=== PATIENT | male | born 1990 | race Caucasian/White ===

== ENCOUNTER 2016-04-04 20:19 | Emergency (ER) | payer BC, OTHER ==
--- NOTE | 2016-04-04 23:18 | ED CLINICAL REPORT ---
Clinical Report - Physicians/Mid Levels [facility] [address] [place] [address] 04/04/2016 20:19 Patient: JOMAR YA Time Seen: 21:25. Arrived- By private vehicle. Historian- patient. HISTORY OF PRESENT ILLNESS Chief Complaint: Injury to right shoulder. The injury happened just prior to arrival. Occurred at home. Dislocated while raising arm. Patient is experiencing moderate pain. No other injury. REVIEW OF SYSTEMS No swelling, tingling, numbness, weakness or suspected foreign body. No skin laceration. All systems otherwise negative, except as recorded above. PAST HISTORY Problems: Dental Pain. Tetanus Status. Hypertension. Migraine Headache. Tension-Type Headache. Rotator Cuff Injury. Immunizations. Seizure Disorder. Dislocated Shoulder. Depression. Anxiety Reaction. Restless Legs Syndrome. Sleep Apnea. Spina Bifida Occulta. Additional Surgeries: Bladder Augmention. Botox bladder injection. Cystostomy. Foot surgery. Shoulder Surgery. Medications: Lacosamide Oral 75MG , 2 X DAILY. LORazepam Oral 1 mg, as needed. SEROquel Oral 125mg, daily (+ 125MG prn). ZyrTEC Allergy Oral (Capsule 10 mg) 2 capsules, daily. Benadryl Allergy Oral 50mg , daily. Keppra Oral 1500mg , 2x a day. KlonoPIN Oral 1 mg, daily. Mirapex Oral 1 mg, at bedtime. Oxybutynin Chloride Oral 10 mg, 2x a day. Allergies: Amoxicillin. Keflex. morphine. Nitrofurantoin. SOCIAL HISTORY Never smoker. No alcohol use or drug use. ADDITIONAL NOTES The nursing notes have been reviewed. PHYSICAL EXAM Vital Signs: 04/04/2016 21:07 BP: 189/102. HR: 116. RR: 18. O2 saturation: 98%. Temp: 98.4 F. Pain level now: 8/10. Have been reviewed. Appearance: Alert. Oriented X3. No acute distress. Head: Head atraumatic. Eyes: Pupils equal, round and reactive to light. Eyes normal inspection. ENT: Nose normal. Neck: Normal inspection. CVS: Normal heart rate and rhythm. Heart sounds normal. Pulses normal. Respiratory: No respiratory distress. Breath sounds normal. Abdomen: No visible injury. Soft and nontender. Back: Normal inspection. No tenderness. ROM normal. Skin: Skin intact. Skin warm and dry. Normal skin color. Normal skin turgor. Extremities: Right shoulder: moderate tenderness and deformity consistent with a shoulder dislocation located in the anterior and lateral aspect of the shoulder and humeral head. Limited ROM due to pain (diminished abduction, flexion, extension and external rotation). Neurovascular intact distally. No erythema, swelling, laceration, abrasion or ecchymosis. No puncture wound or foreign body. No joint effusion. Shoulder otherwise negative. Extremities otherwise negative. Neuro, Vascular and Tendons: Sensation intact. Motor intact. Vascular status intact. Tendon function intact. Neuro: Oriented X 3. No motor deficit. No sensory deficit. LABS, X-RAYS, AND EKG Rt Shoulder X-ray: No fracture. No bony lesion, air in the soft tissue or foreign body. Soft tissues normal. Anterior dislocation of the shoulder. No fracture. Views: AP with external rotation, AP with internal rotation and axillary. Technique: good. The X-rays were independently viewed by me, interpreted by the radiologist and contemporaneously by me and discussed with the radiologist. A comparison with prior films reveals that the findings are new (new since last post-reduction film). Post procedure films: show good alignment. Pulse Oximetry: 04/04/2016 21:07 O2 saturation: 98%. (FIO2 - room air). Interpretation: normal. PROGRESS AND PROCEDURES Procedural Sedation: Indication: Reduction of dislocation of shoulder. Last po intake: patient had lunch. ASA classification: 2 - patient with mild systemic disease. History / physical exam. See physical exam recorded above. He has no history of an adverse anesthesia reaction or family history of an adverse anesthesia reaction. Normal airway anatomy. Preparation: consent was obtained and the risks of the procedure, benefits and alternatives were explained to patient. IV established. O2 administered. 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 Suction was made available. Medications: Propofol IV administered by physician. Patient status during sedation: was asleep. Vitals were stable. Oxygen saturation levels were normal. The airway was maintained. The recovery was uneventful. Complications: None. Post-procedure: Recovery was uneventful. Returned to baseline. Mental status normal. No acute distress. Sedation and procedure performed by me; intra-service time 1-15 minutes. Reduction of Dislocated Shoulder: IV established. Neurovascular exam intact pre-procedure. Given Propofol. The right shoulder was reduced using traction-countertraction technique. Reassessed post-procedure. Neurovascular status intact. Deltoid sensation normal. Exam indicated reduction. Confirmed reduction on X-ray. Shoulder immobilizer applied. Course of Care: PT was very well-known to our ED, and to myself, for multiple previous dislocations. His x-ray did confirm dislocation, and sedation and reduction were performed, as above. Pt has been advised to follow up with ortho, and he states he is in the process of setting up f/u in [place]. Patient and friend counseled in person regarding the patient's stable condition, diagnosis and need for follow-up. Concerns were addressed. Old medical records reviewed. Disposition: Discharged. Condition: stable and improved. CLINICAL IMPRESSION Right anterior shoulder dislocation. Reduction in the ER. No axillary nerve deficit or humerus fracture. INSTRUCTIONS Apply ice for 20 minutes three times a day as needed and until better. Don't apply ice directly to skin and don't use while asleep. Warnings: SEDATIVE MEDICATION: You were given sedative medication during your visit. Do not drive or operate dangerous machinery for 12 hours. GENERAL WARNINGS: Return or contact your physician immediately if your condition worsens or changes unexpectedly, if not improving as expected, or if other problems arise. Your Current Medications: CONTINUE TAKING THE FOLLOWING MEDICATIONS: Benadryl Allergy Oral : 50mg daily. Keppra Oral : 1500mg 2x a day. KlonoPIN Oral : 1 mg daily. Lacosamide Oral : 75MG 2 X DAILY. LORazepam Oral : 1 mg, prn. Mirapex Oral : 1 mg at bedtime. Oxybutynin Chloride Oral : 10 mg 2x a day. SEROquel Oral : 125mg daily, + 125MG prn. ZyrTEC Allergy Oral : Capsule 10 mg, 2 capsules daily. Prescription Medications: Oxycodone/APAP 5 mg/325 mg: take 1 tablet orally every 6 hours as needed for pain. Dispense five (5). No refill. Follow-up: Follow up with an orthopedic surgeon. Call for the next available appointment. Reason for referral: Follow up with your work station support specialist, regarding recurrent dislocation. Understanding of the discharge instructions verbalized by patient. (Electronically signed by Janett Khan MD 04/09/2016 21:34)
--- NOTE | 2016-04-04 23:18 | ED ORDER SUMMARY ---
..... Patient: JOMAR YA OrderSheet [facility] VisitID: [id number] [address] [place] [address] 26y, M Registration Date/Time: 04/04/2016 ORDER SHEET Weight: 93.8 kg (stated) Allergies: Amoxicillin, Keflex, morphine, Nitrofurantoin GENERAL ORDERS: Shoulder 2V or more Right Urgent (21:25 04/04/2016 Svetlana DOWD) (Ack 21:26 TBergley) (21:37 RFay) Shoulder 2V or more Right Urgent (22:25 04/04/2016 [facility] Certified Phlebotomy Technician per protocol) (Ack 22:27 [facility] Certified Phlebotomy Technician) (22:51 RFay) Shoulder Immobilizer (22:49 04/04/2016 Svetlana DWOD) (23:43 Lupillo R.N.) MEDICATION ORDERS: IV FLUIDS: Propofol IV 1 vial to bedside (NOW) (21:41 04/04/2016 Svetlana DOWD) (23:45 omanaleena R.N.) IV NS : initial bolus none -, then 1000 mL/hr (NOW) (22:15 04/04/2016 Lupillo R.N. verbal order read back to Svetlana DOWD) (22:19 Lupillo R.N.) Dilaudid IV 0.5 mg (HIGH ALERT MEDICATION, NOW) (22:19 04/04/2016 Lupillo R.N. verbal order read back to Svetlana DOWD) (22:21 Lupillo R.N.) ORDER SHEET NOTES: [Electronically signed by Olman Stout R.N. (23:46 04/04/2016)] [Electronically signed by Janett Khan MD (21:34 04/09/2016)] [Electronically locked/signed by Olman Stout R.N. (23:46 04/04/2016)]
--- NOTE | 2016-04-04 23:18 | ED ORDER SUMMARY ---
..... Patient: JOMAR YA OrderSheet [facility] VisitID: [id number] [address] [place] [address] 26y, M Registration Date/Time: 04/04/2016 ORDER SHEET Weight: 93.8 kg (stated) Allergies: Amoxicillin, Keflex, morphine, Nitrofurantoin GENERAL ORDERS: Shoulder 2V or more Right Urgent (21:25 04/04/2016 Svetlana DOWD) (Ack 21:26 TBergley) (21:37 RFay) Shoulder 2V or more Right Urgent (22:25 04/04/2016 [facility] Registered Health Nurse per protocol) (Ack 22:27 [facility] Registered Health Nurse) (22:51 RFay) Shoulder Immobilizer (22:49 04/04/2016 Svetlana DOWD) (23:43 Lupillo R.N.) MEDICATION ORDERS: IV FLUIDS: Propofol IV 1 vial to bedside (NOW) (21:41 04/04/2016 Svetlana DOWD) (23:45 omanaleena R.N.) IV NS : initial bolus none -, then 1000 mL/hr (NOW) (22:15 04/04/2016 Lupillo R.N. verbal order read back to Svetlana DOWD) (22:19 Lupillo R.N.) Dilaudid IV 0.5 mg (HIGH ALERT MEDICATION, NOW) (22:19 04/04/2016 Lupillo R.N. verbal order read back to Svetlana DOWD) (22:21 Lupillo R.N.) ORDER SHEET NOTES: [Electronically signed by Olman Stout R.N. (23:46 04/04/2016)] [Electronically signed by Janett Khan MD (21:34 04/09/2016)] [Electronically locked/signed by Olman Stout R.N. (23:46 04/04/2016)]
--- NOTE | 2016-04-04 23:18 | ED NURSING NOTES ---
Clinical Report - Nurses [facility] [address] [place] [address] 04/04/2016 20:19 Patient: JOMAR YA TRIAGE Triage time 21:08. Acuity: LEVEL 3. Chief Complaint: INJURY TO RIGHT SHOULDER. 21:15. Alert. SEPSIS SCREEN: Sepsis Screen. Negative (no infection suspected/documented). JENA COMA SCORE: [place] Coma Scale: 15- eyes open spontaneously (4); best verbal response- oriented x 4 (5); best motor response- obeys commands (6). --21:15 Olman Suarez R.N. 21:07 04/04/16. BP: 189/102. HR: 116. RR: 18. O2 saturation: 98% on room air. Temp: 98.4 F (oral). Pain level now: 11/05. --21:15 Olman Suarez R.N. Weight: 93.8 kg stated. Height/Length: 64 inches Per Patient. BMI: 35.5. --21:13 Olman Suarez R.N. Medications Benadryl Allergy Oral 50mg , daily. Keppra Oral 1500mg , 2x a day. KlonoPIN Oral 1 mg, daily. Mirapex Oral 1 mg, at bedtime. Oxybutynin Chloride Oral 10 mg, 2x a day. --21:10 Olman Suarez R.N. SEROquel Oral 125mg, daily (+ 125MG prn). ZyrTEC Allergy Oral (Capsule 10 mg) 2 capsules, daily. --21:10 Olman Suarez R.N. LORazepam Oral 1 mg, as needed. --21:11 Olman Suarez R.N. Lacosamide Oral 75MG , 2 X DAILY. --21:12 Olman Suarez R.N. Medication/allergy information source: the patient. --21:15 Olman Suarez R.N. Allergies Amoxicillin. Keflex. morphine. Nitrofurantoin. --21:10 Olman Saurez R.N. History Arrived by private vehicle. Historian: patient. Accompanied by friend. Primary physician (Bob). This occurred today (at 1939). Mechanism of injury: fell. No neck pain. 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 SOCIAL HX: Never smoker. No alcohol use or drug use. No infectious disease exposure. ABUSE ASSESSMENT: No report of abuse. FALL RISK ASSESSMENT: Fall risk assessment completed. No fall risk identified. NUTRITIONAL RISK ASSESSMENT: The nutritional risk assessment revealed no deficiencies. FUNCTIONAL ASSESSMENT: Functional assessment: no impairments noted. LEARNING NEEDS ASSESSMENT: The learning needs assessment revealed no barriers. SKIN INTEGRITY ASSESSMENT: Skin integrity risk assessment completed. No skin integrity risk identified. --21:15 Olman Suarez R.N. PROBLEMS: UTI - Urinary Tract Infection. Gastroenteritis. Chronic bladder infections. Atypical Chest Pain. Hypertension. Chronic Headache. Neurological Disease. Migraine Headache. Tension-Type Headache. Urinary Retention. Seizure Disorder. Dislocated Shoulder. Depression. Anxiety Reaction. Restless Legs Syndrome. Sleep Apnea. Spina Bifida Occulta. --21:13 Olman Suarez R.N. ADDITIONAL SURGERIES: Bladder Augmention. Bladder injections. Botox bladder injection. Cystostomy. Foot surgery. Shoulder [2014]. Shoulder Surgery. --21:13 Olman Suarez R.N. Interventions ID band on patient. To waiting room. --21:15 Olman Suarez R.N. PHYSICAL ASSESSMENT 22:10. Ambulatory to room. GENERAL / NEURO / PSYCH: Oriented X 4. Appears in pain. EXTREMITIES: Limited ROM present in the right shoulder. Capillary refill is less than 2 seconds in the extremities. Extremity pulses are within normal limits. Neuro-vascular status intact to the extremity. Right shoulder: tenderness, swelling and deformity. SKIN: Skin intact. Skin is warm and dry. --23:29 Olman Stout R.N. NURSING PROGRESS NOTES 22:04 04/04/2016 Site #1 started via IV in the right foot with an 20g angiocath, with good blood return; three attempts. Blood drawn: rainbow set. Labeled in the presence of the patient and sent to the lab. Saline lock flushed with 10 mL saline. --22:19 Olman Stout R.N. 22:04 04/04/2016 Started bag #1 1000 mL IV Fluids IV NS (Saline); at 1000 mL/hr over 60 minute(s) via site #1. Allergies verified and confirmed 5 rights. IV patency established. IV site checked: no pain, redness, or swelling. IV flushed thoroughly pre- and post-medication administration. --22:19 Olman Stout R.N. 22:10 04/04/2016 Dilaudid (HYDROmorphone HCl PF) IVP 0.5 mg given over 2 minute(s) via site #1. Allergies verified, confirmed 5 rights and sedative warning given. IV patency established. IV site checked: no pain, redness, or swelling. IV flushed thoroughly pre- and post-medication administration. IVP given by RN. --22:21 Olman Stout R.N. 22:10. Patient gowned. Reassurance given to the patient. Patient identifiers checked. Call light placed in reach. Side rails up x 2. Bed placed in lowest position. Brakes of bed on. Patient ready for evaluation- chart flagged and ED physician notified. --23:30 Olman Stout R.N. 22:35. ( Conscious Sedation by Dr. Khan/reduction of dislocated (R) Shoulder). --23:41 Olman Stout R.N. 22:35 04/04/2016 Propofol * IVP 200 mg --23:45 Olman Stout R.N. 23:00 04/04/2016 IV Fluids IV NS Discontinued: bag #1 STOPPED upon discharge. Total amount infused: 900 mL. IV patency established. IV site checked: no pain, redness, or swelling. IV flushed thoroughly. --23:44 Olman Stout R.N. 23:05 04/04/2016 Site #1 removed upon discharge. Catheter intact. Manual pressure, pressure dressing and bandaid applied. --23:46 Olman Stout R.N. DISPOSITION / DISCHARGE 23:10 04/04/16. BP: 133/75. HR: 100. RR: 16. O2 saturation: 98% on room air. Temp: 98.8 F (oral). Pain level now: 0/10. --23:35 Olman Stout R.N. Departure time: 2314. --23:35 Olman Stout R.N. Condition at departure: improved. No learning barriers present. Discharge instructions provided and reviewed with the patient. Reviewed medication(s) (prescription given to pt). Treatments reviewed (sling use). Reviewed referral to an orthopedic surgeon. Patient verbalized understanding. Written instructions provided in Martiniquais. The patient was discharged by the physician. He was discharged home and accompanied by director retirement. He left the Emergency Department ambulatory and via private vehicle. Fill Plant Operator driving. --23:38 Olman Stout R.N. Locked/Released at 04/04/2016 23:46 by Olman Stout R.N.
--- NOTE | 2016-04-04 23:18 | ED NURSING NOTES ---
Clinical Report - Nurses [facility] [address] [place] [address] 04/04/2016 20:19 Patient: JOMAR YA TRIAGE Triage time 21:08. Acuity: LEVEL 3. Chief Complaint: INJURY TO RIGHT SHOULDER. 21:15. Alert. SEPSIS SCREEN: Sepsis Screen. Negative (no infection suspected/documented). JENA COMA SCORE: [place] Coma Scale: 15- eyes open spontaneously (4); best verbal response- oriented x 4 (5); best motor response- obeys commands (6). --21:15 Olman Suarez R.N. 21:07 04/04/16. BP: 189/102. HR: 116. RR: 18. O2 saturation: 98% on room air. Temp: 98.4 F (oral). Pain level now: 11/05. --21:15 Olman Suarez R.N. Weight: 93.8 kg stated. Height/Length: 64 inches Per Patient. BMI: 35.5. --21:13 Olman Suarez R.N. Medications Benadryl Allergy Oral 50mg , daily. Keppra Oral 1500mg , 2x a day. KlonoPIN Oral 1 mg, daily. Mirapex Oral 1 mg, at bedtime. Oxybutynin Chloride Oral 10 mg, 2x a day. --21:10 Olman Suarez R.N. SEROquel Oral 125mg, daily (+ 125MG prn). ZyrTEC Allergy Oral (Capsule 10 mg) 2 capsules, daily. --21:10 Olman Suarez R.N. LORazepam Oral 1 mg, as needed. --21:11 Olman Suarez R.N. Lacosamide Oral 75MG , 2 X DAILY. --21:12 Olman Suarez R.N. Medication/allergy information source: the patient. --21:15 Olman Suarez R.N. Allergies Amoxicillin. Keflex. morphine. Nitrofurantoin. --21:10 Olman Suarez R.N. History Arrived by private vehicle. Historian: patient. Accompanied by friend. Primary physician (Bob). This occurred today (at 1939). Mechanism of injury: fell. No neck pain. 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 SOCIAL HX: Never smoker. No alcohol use or drug use. No infectious disease exposure. ABUSE ASSESSMENT: No report of abuse. FALL RISK ASSESSMENT: Fall risk assessment completed. No fall risk identified. NUTRITIONAL RISK ASSESSMENT: The nutritional risk assessment revealed no deficiencies. FUNCTIONAL ASSESSMENT: Functional assessment: no impairments noted. LEARNING NEEDS ASSESSMENT: The learning needs assessment revealed no barriers. SKIN INTEGRITY ASSESSMENT: Skin integrity risk assessment completed. No skin integrity risk identified. --21:15 Olman Suarez R.N. PROBLEMS: UTI - Urinary Tract Infection. Gastroenteritis. Chronic bladder infections. Atypical Chest Pain. Hypertension. Chronic Headache. Neurological Disease. Migraine Headache. Tension-Type Headache. Urinary Retention. Seizure Disorder. Dislocated Shoulder. Depression. Anxiety Reaction. Restless Legs Syndrome. Sleep Apnea. Spina Bifida Occulta. --21:13 Olman Suarez R.N. ADDITIONAL SURGERIES: Bladder Augmention. Bladder injections. Botox bladder injection. Cystostomy. Foot surgery. Shoulder [2014]. Shoulder Surgery. --21:13 Olman Suarez R.N. Interventions ID band on patient. To waiting room. --21:15 Olman Suarez R.N. PHYSICAL ASSESSMENT 22:10. Ambulatory to room. GENERAL / NEURO / PSYCH: Oriented X 4. Appears in pain. EXTREMITIES: Limited ROM present in the right shoulder. Capillary refill is less than 2 seconds in the extremities. Extremity pulses are within normal limits. Neuro-vascular status intact to the extremity. Right shoulder: tenderness, swelling and deformity. SKIN: Skin intact. Skin is warm and dry. --23:29 Olman Stout R.N. NURSING PROGRESS NOTES 22:04 04/04/2016 Site #1 started via IV in the right foot with an 20g angiocath, with good blood return; three attempts. Blood drawn: rainbow set. Labeled in the presence of the patient and sent to the lab. Saline lock flushed with 10 mL saline. --22:19 Olman Stout R.N. 22:04 04/04/2016 Started bag #1 1000 mL IV Fluids IV NS (Saline); at 1000 mL/hr over 60 minute(s) via site #1. Allergies verified and confirmed 5 rights. IV patency established. IV site checked: no pain, redness, or swelling. IV flushed thoroughly pre- and post-medication administration. --22:19 Olman Stout R.N. 22:10 04/04/2016 Dilaudid (HYDROmorphone HCl PF) IVP 0.5 mg given over 2 minute(s) via site #1. Allergies verified, confirmed 5 rights and sedative warning given. IV patency established. IV site checked: no pain, redness, or swelling. IV flushed thoroughly pre- and post-medication administration. IVP given by RN. --22:21 Olman Stout R.N. 22:10. Patient gowned. Reassurance given to the patient. Patient identifiers checked. Call light placed in reach. Side rails up x 2. Bed placed in lowest position. Brakes of bed on. Patient ready for evaluation- chart flagged and ED physician notified. --23:30 Olman Stout R.N. 22:35. ( Conscious Sedation by Dr. Khan/reduction of dislocated (R) Shoulder). --23:41 Olman Stout R.N. 22:35 04/04/2016 Propofol * IVP 200 mg --23:45 Olman Stout R.N. 23:00 04/04/2016 IV Fluids IV NS Discontinued: bag #1 STOPPED upon discharge. Total amount infused: 900 mL. IV patency established. IV site checked: no pain, redness, or swelling. IV flushed thoroughly. --23:44 Olman Stout R.N. 23:05 04/04/2016 Site #1 removed upon discharge. Catheter intact. Manual pressure, pressure dressing and bandaid applied. --23:46 Olman Stout R.N. DISPOSITION / DISCHARGE 23:10 04/04/16. BP: 133/75. HR: 100. RR: 16. O2 saturation: 98% on room air. Temp: 98.8 F (oral). Pain level now: 0/10. --23:35 Olman Stout R.N. Departure time: 2314. --23:35 Olman Stout R.N. Condition at departure: improved. No learning barriers present. Discharge instructions provided and reviewed with the patient. Reviewed medication(s) (prescription given to pt). Treatments reviewed (sling use). Reviewed referral to an orthopedic surgeon. Patient verbalized understanding. Written instructions provided in Sammarinese. The patient was discharged by the physician. He was discharged home and accompanied by bobbin hauler. He left the Emergency Department ambulatory and via private vehicle. Veteran Appeals Reviewer driving. --23:38 Olman Stout R.N. Locked/Released at 04/04/2016 23:46 by Olman Stout R.N.
--- NOTE | 2016-04-05 00:03 | DIAGNOSTIC IMAGING REPORT ---
PROCEDURE: XR SHOULDER 2 OR MORE VW-RIGHT INDICATION: TRAUMA/INJURY, initial encounter TECHNIQUE: Two views COMPARISON: None. FINDINGS: Anterior right glenohumeral joint dislocation. Hill-Sachs deformity again visualized. Normal AC joint and soft tissues IMPRESSION: 1. Right shoulder anterior dislocation with Hill-Sachs deformity
--- NOTE | 2016-04-05 00:05 | DIAGNOSTIC IMAGING REPORT ---
PROCEDURE: XR SHOULDER 2 OR MORE VW-RIGHT INDICATION: POST REDUCTION TECHNIQUE: Three views. COMPARISON: Right shoulder x-ray 04/04/2016 FINDINGS: Reduced right shoulder dislocation. Hill-Sachs deformity is unchanged. Normal AC joint and soft tissues. IMPRESSION: 1. Reduced right shoulder dislocation with Hill-Sachs deformity
--- NOTE | 2016-04-09 21:34 | ED DISCHARGE INSTRUCTIONS ---
Patient: JOMAR YA General Instructions [facility] VisitID: [id number] [place] [address] 26y, M Registration Date/Time: 04/04/2016 Right anterior shoulder dislocation. Reduction in the ER. No axillary nerve deficit or humerus fracture. INSTRUCTIONS Apply ice for 20 minutes three times a day as needed and until better. Don't apply ice directly to skin and don't use while asleep. Warnings: SEDATIVE MEDICATION: You were given sedative medication during your visit. Do not drive or operate dangerous machinery for 12 hours. GENERAL WARNINGS: Return or contact your physician immediately if your condition worsens or changes unexpectedly, if not improving as expected, or if other problems arise. Your Current Medications: CONTINUE TAKING THE FOLLOWING MEDICATIONS: Benadryl Allergy Oral : 50mg daily. Keppra Oral : 1500mg 2x a day. KlonoPIN Oral : 1 mg daily. Lacosamide Oral : 75MG 2 X DAILY. LORazepam Oral : 1 mg, prn. Mirapex Oral : 1 mg at bedtime. Oxybutynin Chloride Oral : 10 mg 2x a day. SEROquel Oral : 125mg daily, + 125MG prn. ZyrTEC Allergy Oral : Capsule 10 mg, 2 capsules daily. Prescription Medications: Oxycodone/APAP 5 mg/325 mg: take 1 tablet orally every 6 hours as needed for pain. Dispense five (5). No refill. Follow-up: Follow up with an orthopedic surgeon. Call for the next available appointment. Reason for referral: Follow up with your environmental programs specialist, regarding recurrent dislocation. Understanding of the discharge instructions verbalized by patient. ADDITIONAL INFORMATION Dislocation: Shoulder (Reduced) Dislocation of the shoulder joint occurs when a strong force tears the ligaments holding the joint together. This allows the bones to move apart and become stuck out of place. Once the joint is aligned again, it will take about six weeks for the ligaments to heal. Since this injury may weaken the ligaments, you are at risk of another dislocation with less force. Therefore, care should be taken to avoid a similar injury in the future. Shoulder dislocation is treated with a shoulder immobilizer (special type of arm sling). This keeps your arm close to your body to prevent a recurrent dislocation while the ligaments heal. After a few weeks, an exercise program may be started. This will gradually restore range of motion and strength at the shoulder and decrease the risk of another dislocation. Home Care: Until your next doctor visit, wear your shoulder immobilizer at all times . Do not take it off at night to sleep. It is possible to dislocate your arm again in your sleep. You may take it off to bathe or dress, but do not move your arm away from your body. Keep your arm in the same position that the sling was holding it in, until you reapply the sling again. During your next visit, ask your doctor how long you should wear the sling. Apply an ice pack (ice cubes in a plastic bag, wrapped in a towel) over the injured area for 20 minutes every 1-2 hours the first day. Continue with ice packs 3-4 times a day for the next two days, then as needed for the relief of pain and swelling. You may use acetaminophen (Tylenol) or ibuprofen (Motrin, Advil) to control pain, unless another pain medicine was prescribed. [NOTE: If you have chronic liver or kidney disease or ever had a stomach ulcer or GI bleeding, talk with your doctor before using these medicines.] No sports or P.E. until cleared by your doctor. Follow Up with your doctor within one week or as advised by our staff. Shoulder immobilizers and slings should not be worn continuously for more than a few weeks or you may lose some [id number] at the shoulder joint. If you have had repeated dislocations of the same shoulder, that means there has been permanent ligament damage. Ask the orthopedic doctor about surgery to prevent another dislocation. Get Prompt Medical Attention if any of the following occur: Another dislocation of your shoulder Increasing swelling or pain in the shoulder or arm Fingers become cold, blue, numb or tingly Procedural Sedation (Adult) You have been given medicine by vein to sedate you during your procedure. This may have included both a pain medicine and sleeping medicine. Most of the effects have worn off. But you may continue to have some drowsiness for the next 6 to 8 hours. Home Care Follow these guidelines when you get home: For the next 8 hours, you should be watched by a responsible adult to look for any worsening of your condition. Do not take any oral medicine for pain or sleep during the next 4 hour, since this might react with the medicines you were given in the hospital causing a much stronger response than usual. Do not drink any alcoholfor the next 24 hours. [address] not [address]or operate dangerous machinery during the next 24 hours. Follow-up care Follow up with your health care provider if you are not alert and back to your usual level of activity within 12 hours. When to seek medical care Get prompt medical attention if any of these occur: Increased drowsiness Increased weakness or dizziness Repeated vomiting You cannot be awakened You have been given the following additional information: Dislocation: Shoulder (Reduced) Procedural Sedation (Adult) (Electronically signed by Janett Khan MD 04/09/2016 21:34)
--- NOTE | 2016-04-09 21:34 | ED MAR SUMMARY ---
..... Medication Administration Record [facility] [address] [place] [address] Patient: JOMAR YA Visit ID: [id number] 26y, M Weight: 93.8 kg Height/Length: 64 in BMI: 35.5 ALLERGIES: Amoxicillin, Keflex, morphine, Nitrofurantoin Start 22:04 04/04/2016 Olman Stout RJose, Stop 23:00 04/04/2016 Olman Stout R.N. Medication Administered: IV NS (SALINE), Dose: IV Fluids over 60 minute(s), Rate: 1000 mL/hr, Dispensed: 1000 mL bag, Site: #1 right foot. Medication Ordered: IV NS : initial bolus none -, then 1000 mL/hr (NOW). Given 22:10 04/04/2016 Olman Stout RIsraelN. Medication Administered: DILAUDID [IVP] (HYDROMORPHONE HCL PF), Dose: 0.5 mg IVP over 2 minute(s), Site: #1 right foot. Medication Ordered: Dilaudid IV 0.5 mg (HIGH ALERT MEDICATION, NOW). Given 22:35 04/04/2016 Olman Stout RIsraelN. Medication Administered: Propofol *, Dose: 200 mg * IVP. Medication Ordered: Propofol IV 1 vial to bedside (NOW).
--- NOTE | 2016-04-09 21:34 | ED MED RECONCILIATION SUMMARY ---
Patient: JOMAR YA Medication Reconciliation Report [facility] VisitID: [id number] [address] [place] [address] 26y, M Registration Date/Time: 04/04/2016 Weight: 93.8 kg Height/Length: 64 in. BMI: 35.5 ALLERGIES: Amoxicillin, Keflex, morphine, Nitrofurantoin The patient's Home Medications are listed below: CONTINUE TAKING THE FOLLOWING MEDICATIONS: Benadryl Allergy Oral 50mg , daily Keppra Oral 1500mg , 2x a day KlonoPIN Oral 1 mg, daily Lacosamide Oral 75MG , 2 X DAILY LORazepam Oral 1 mg Mirapex Oral 1 mg, at bedtime Oxybutynin Chloride Oral 10 mg, 2x a day SEROquel Oral 125mg, daily, + 125MG prn ZyrTEC Allergy Oral (10 mg) 2 capsules, daily The source(s) of the original Home Medication information: patient The following Medications were given to the patient in the Emergency Department: IV NS IV Fluids bolus 0, then 1000 mL/hr, administered: 04/04/2016 10:04:00 PM Dilaudid [IVP] IVP 0.5 mg, administered: 04/04/2016 10:10:00 PM Propofol IVP 200 mg, administered: 04/04/2016 10:35:00 PM The following Medications were prescribed to the patient: Oxycodone/APAP 5 mg/325 mg: take 1 tablet orally every 6 hours as needed for pain. Dispense five (5). No refill. -- Janett Khan MD
--- NOTE | 2016-04-09 21:34 | ED MAR SUMMARY ---
..... Medication Administration Record [facility] [address] [place] [address] Patient: JOMAR YA Visit ID: [id number] 26y, M Weight: 93.8 kg Height/Length: 64 in BMI: 35.5 ALLERGIES: Amoxicillin, Keflex, morphine, Nitrofurantoin Start 22:04 04/04/2016 Olman Stout RJose, Stop 23:00 04/04/2016 Olman Stout R.N. Medication Administered: IV NS (SALINE), Dose: IV Fluids over 60 minute(s), Rate: 1000 mL/hr, Dispensed: 1000 mL bag, Site: #1 right foot. Medication Ordered: IV NS : initial bolus none -, then 1000 mL/hr (NOW). Given 22:10 04/04/2016 Olman Stout RIsraelN. Medication Administered: DILAUDID [IVP] (HYDROMORPHONE HCL PF), Dose: 0.5 mg IVP over 2 minute(s), Site: #1 right foot. Medication Ordered: Dilaudid IV 0.5 mg (HIGH ALERT MEDICATION, NOW). Given 22:35 04/04/2016 Olman Stout RIsraelN. Medication Administered: Propofol *, Dose: 200 mg * IVP. Medication Ordered: Propofol IV 1 vial to bedside (NOW).
--- NOTE | 2016-04-09 21:34 | ED MED RECONCILIATION SUMMARY ---
Patient: JOMAR YA Medication Reconciliation Report [facility] VisitID: [id number] [address] [place] [address] 26y, M Registration Date/Time: 04/04/2016 Weight: 93.8 kg Height/Length: 64 in. BMI: 35.5 ALLERGIES: Amoxicillin, Keflex, morphine, Nitrofurantoin The patient's Home Medications are listed below: CONTINUE TAKING THE FOLLOWING MEDICATIONS: Benadryl Allergy Oral 50mg , daily Keppra Oral 1500mg , 2x a day KlonoPIN Oral 1 mg, daily Lacosamide Oral 75MG , 2 X DAILY LORazepam Oral 1 mg Mirapex Oral 1 mg, at bedtime Oxybutynin Chloride Oral 10 mg, 2x a day SEROquel Oral 125mg, daily, + 125MG prn ZyrTEC Allergy Oral (10 mg) 2 capsules, daily The source(s) of the original Home Medication information: patient The following Medications were given to the patient in the Emergency Department: IV NS IV Fluids bolus 0, then 1000 mL/hr, administered: 04/04/2016 10:04:00 PM Dilaudid [IVP] IVP 0.5 mg, administered: 04/04/2016 10:10:00 PM Propofol IVP 200 mg, administered: 04/04/2016 10:35:00 PM The following Medications were prescribed to the patient: Oxycodone/APAP 5 mg/325 mg: take 1 tablet orally every 6 hours as needed for pain. Dispense five (5). No refill. -- Janett Khan MD
== END 2016-04-04 23:15 | disposition home or self-care (01) ==
LOC: ED SRH 20:19
DX: S43.014A Anterior dislocation of right humerus, initial encounter (principal); I10 Essential (primary) hypertension; X50.1XXA Overexertion from prolonged static or awkward postures, initial encounter; Y93.89 Activity, other specified; Y99.9 Unspecified external cause status; Y92.009 Unspecified place in unspecified non-institutional (private) residence as the place of occurrence of the external cause; Z88.1 Allergy status to other antibiotic agents; Z88.5 Allergy status to narcotic agent; Z79.899 Other long term (current) drug therapy

== ENCOUNTER 2016-04-17 08:29 | Emergency (ER) | payer BC, OTHER ==
--- NOTE | 2016-04-17 10:02 | DIAGNOSTIC IMAGING REPORT ---
PROCEDURE: XR SHOULDER 2 OR MORE VW-RIGHT INDICATION: TRAUMA/INJURY TECHNIQUE: Three views. COMPARISON: Comparison 04/04/2016 FINDINGS: Anterior right glenohumeral joint dislocation. Hill-Sachs deformity again visualized. Normal AC joint and soft tissues IMPRESSION: 1. Right shoulder anterior dislocation with Hill-Sachs deformity
--- NOTE | 2016-04-17 12:11 | DIAGNOSTIC IMAGING REPORT ---
PROCEDURE: XR SHOULDER 2 OR MORE VW-RIGHT INDICATION: TRAUMA/INJURY TECHNIQUE: Three views. COMPARISON: Shoulder films 04/04- FINDINGS: Reduced right shoulder dislocation. Hill-Sachs deformity is unchanged. Normal AC joint and soft tissues. IMPRESSION: 1. Reduced right shoulder dislocation with Hill-Sachs deformity
--- NOTE | 2016-04-17 12:47 | ED NURSING NOTES ---
Clinical Report - Nurses [facility] [address] [place] [address] 04/17/2016 8:28 Patient: JOMAR YA TRIAGE Triage time 08:31. Acuity: LEVEL 4. Chief Complaint: INJURY TO RIGHT SHOULDER. Alert. LAWRENCE COMA SCORE: Lawrence Coma Scale: 15- eyes open spontaneously (4); best verbal response- oriented x 4 (5); best motor response- obeys commands (6). --08:35 Renetta Motley R.N. 08:31 04/17/16. BP: 145/88. HR: 128. RR: 20. O2 saturation: 97%. Temp: 98.9 F. Pain level now: 10/05. --08:35 Renetta Motley R.N. Weight: 93.8 kg stated. Height/Length: 64 inches Per Patient. BMI: 35.5. --08:32 Renetta Motley R.N. Medications Benadryl Allergy Oral 50mg , daily. Keppra Oral 1500mg , 2x a day. KlonoPIN Oral 1 mg, daily. Lacosamide Oral 75MG , 2 X DAILY. LORazepam Oral 1 mg, as needed. Mirapex Oral 1 mg, at bedtime. Oxybutynin Chloride Oral 10 mg, 2x a day. SEROquel Oral 125mg, daily (+ 125MG prn). ZyrTEC Allergy Oral (Capsule 10 mg) 2 capsules, daily. --08:34 Renetta Motley R.N. Allergies Amoxicillin. Keflex. morphine. Nitrofurantoin. --08:34 Renetta Motley R.N. History Arrived by EMS, and (A99). Primary physician (Bob). This occurred just prior to arrival. ( Pt states he dislocated his shoulder in bed, has arm sling on on arrival). PAST MEDICAL HX: Immunizations: up-to-date. SOCIAL HX: Never smoker. No alcohol use or drug use. LEARNING NEEDS ASSESSMENT: The learning needs assessment revealed no barriers. SKIN INTEGRITY ASSESSMENT: Skin integrity risk assessment completed. No skin integrity risk identified. --08:35 Renetta Motley R.N. Interventions ID band on patient. To room. --08:35 Renetta Motley R.N. PHYSICAL ASSESSMENT 08:35 04/17/16. GENERAL / NEURO / PSYCH: Oriented X 4. Alert. Appears anxious. --08:35 Renetta Motley R.N. NURSING PROGRESS NOTES 08:35 04/17/16. Patient identifiers checked. Bed placed in lowest position. Patient ready for evaluation- chart flagged. --08:35 Renetta Motley R.N. 09:47 04/17/16. Patient transported to radiology by stretcher with tech. --09:47 Renetta Motley R.N. 10:04/17/2016 Site #1 started via IV in the left wrist with an 24g angiocath, with aseptic technique and good blood return; two attempts. Blood drawn: rainbow set. Labeled in the presence of the patient and sent to the lab. --10:25 Renetta Motley R.N. <<STRICKEN ENTRY-- 10:04/17/2016 Started bag #1 1000 mL IV Fluids IV NS (Saline); at 500 mL/hr via site #1 via IV pump. Confirmed 5 rights. IV patency established. IV site checked: no pain, redness, or swelling. IV flushed thoroughly pre- and post-medication administration. --10:25 Renetta Motley R.N. --END STRIKE>> Change to Details. --10:26 Renetta Motley R.N. 10:04/17/2016 Started bag #1 1000 IV Fluids IV NS (Saline); at 500 mL/hr via site #1 via IV pump. Confirmed 5 rights. IV patency established. IV site checked: no pain, redness, or swelling. IV flushed thoroughly pre- and post-medication administration (vein is too small to run IVF's at 1000mls/hr so reduced to 500). --10:26 Renetta Motley R.N. 10:04/17/2016 Toradol IVP 30 mg given over 2 minute(s) via site #1. Allergies verified and confirmed 5 rights. --10:26 Renetta Motley R.N. ( Pt is out of room for post reduction xray.). --11:48 Jaclyn Garcia 12:45 04/17/16. BP: 116/67. HR: 75. RR: 18. O2 saturation: 100% on nasal cannula at 2 liters/minute. Temp: 97.8 F. Pain level now: 0/10. --13:45 Renetta Motley R.N. 13:15 04/17/2016 Site #1 removed. Catheter intact. Bandage applied. --13:46 Renetta Motley R.N. 13:15 04/17/2016 IV Fluids IV NS Discontinued: bag #1 completed. Total amount infused: 1000 mL. IV patency established. IV site checked: no pain, redness, or swelling. IV flushed thoroughly. --13:46 Renetta Motley R.N. DISPOSITION / DISCHARGE Departure time: 1350. Condition at departure: improved. No learning barriers present. Discharge instructions provided and reviewed with the patient. Reviewed medication(s) information. Prescription(s) given to the patient. Reviewed referral to family practice and an orthopedic surgeon for followup. Verbalized understanding. Written instructions provided. The patient was discharged home and accompanied by outsole rounder. He left the Emergency Department ambulatory and via private vehicle. [employer] driving. --14:41 Renetta Motley R.N. 13:50 04/17/16. BP: 151/93. HR: 96. RR: 18. O2 saturation: 100%. Pain level now: 0/10. --14:41 Renetta Motley R.N. Locked/Released at 04/17/2016 14:42 by Renetta Motley R.N.
--- NOTE | 2016-04-17 12:47 | ED CLINICAL REPORT ---
Clinical Report - Physicians/Mid Levels [facility] [address] [place] [address] 04/17/2016 8:28 Patient: JOMAR YA Time Seen: 09:24; initial patient contact. Arrived- By private vehicle. Historian- patient. HISTORY OF PRESENT ILLNESS Chief Complaint: Injury to right shoulder. The injury happened today. Dislocated while raising arm. Occurred at home. Patient is experiencing moderate pain. Patient denies injury to the head or neck. REVIEW OF SYSTEMS The patient has had weakness. No swelling, tingling or numbness. All systems otherwise negative, except as recorded above. PAST HISTORY Dental Pain. Tetanus Status. Hypertension. Migraine Headache. Tension-Type Headache. Rotator Cuff Injury. Immunizations. Seizure Disorder. Dislocated Shoulder. Depression. Anxiety Reaction. Restless Legs Syndrome. Sleep Apnea. Spina Bifida Occulta. Surgeries: Bladder Augmention. Botox bladder injection. Cystostomy. Foot surgery. Shoulder Surgery. SOCIAL HISTORY Never smoker. No alcohol use or drug use. ADDITIONAL NOTES The nursing notes have been reviewed with agreement regarding the chief complaint, PMH and patient medications and allergies. PHYSICAL EXAM Vital Signs: 04/17/2016 08:31 BP: 145/88. HR: 128. RR: 20. O2 saturation: 97%. Temp: 98.9 F. Pain level now: 7/10. Have been reviewed. Hypertensive. Tachycardic. Respiratory rate normal. Temperature normal. Oxygen saturation normal. Appearance: Alert. Oriented X3. No acute distress. Head: Head atraumatic. Eyes: Eyes normal inspection. ENT: Pharynx normal. Neck: Normal inspection. CVS: Normal heart rate and rhythm. Heart sounds normal. Respiratory: No respiratory distress. Breath sounds normal. Skin: Normal skin color. Extremities: Right shoulder: moderate deformity consistent with a shoulder dislocation. Limited ROM due to pain (diminished abduction, adduction, flexion, extension and external and internal rotation). Neurovascular intact distally. Extremities otherwise negative. Neuro, Vascular and Tendons: Sensation intact. Motor intact. Vascular status intact. Tendon function intact. Neuro: Oriented X 3. No motor deficit. No sensory deficit. LABS, X-RAYS, AND EKG Rt Shoulder X-ray: Anterior dislocation of the shoulder. Views: AP with external rotation and AP with internal rotation. Technique: good. The X-rays were independently viewed by me and interpreted contemporaneously by me. A comparison with prior films reveals that the findings are unchanged. Post procedure films: show good alignment and findings are improved. PROGRESS AND PROCEDURES Procedural Sedation: Time: 11:37. Indication: Reduction of dislocation of shoulder. Per protocol, time-out completed immediately before the procedure. Verified: identity of patient (name and birthdate); procedure; side and site of procedure; position of patient; agreement on the procedure to be done; availability of relevant documentation; safety precautions based on patient history or medication use; consent was obtained; consent was reviewed. Verification done by care team (nurse, me, prior authorization technician). Last po intake: last night. ASA classification: 2 - patient with mild systemic disease. Normal airway anatomy. Preparation: consent was obtained and the risks of the procedure, benefits and alternatives were explained to patient. IV established. O2 administered. Placed on pulse oximeter. Suction was made available. Medications: Propofol IV administered by physician. Patient status during sedation: was attended constantly and was cooperative and tranquil was asleep. Vitals were stable. Oxygen saturation levels were normal. The airway was maintained. The recovery was uneventful. Complications: None. Post-procedure: Recovery was uneventful. Returned to baseline. Mental status normal. No acute distress. Sedation and procedure performed by me; intra-service time 1-15 minutes. The patient has no history of an adverse anesthesia reaction or family history of an adverse anesthesia reaction. Reduction of Dislocated Shoulder: Time: 11:40. Per protocol, time-out completed immediately before the procedure. IV established. O2 administered. Placed on pulse oximeter. Neurovascular exam intact pre-procedure. Given Propofol. The right shoulder was reduced using traction-countertraction technique. Reassessed post-procedure. Neurovascular status intact. Deltoid sensation normal. Exam indicated reduction. Confirmed reduction on X-ray. Arm sling applied. Disposition: Discharged home in good and improved condition. Condition: good. CLINICAL IMPRESSION Right anterior shoulder dislocation. Reduction in the ER. INSTRUCTIONS Apply ice for 20 minutes five times a day. Don't apply ice directly to skin. Wear simple sling until released. Your Current Medications: CONTINUE TAKING THE FOLLOWING MEDICATIONS: Benadryl Allergy Oral : 50mg daily. Keppra Oral : 1500mg 2x a day. KlonoPIN Oral : 1 mg daily. Lacosamide Oral : 75MG 2 X DAILY. LORazepam Oral : 1 mg, prn. Mirapex Oral : 1 mg at bedtime. Oxybutynin Chloride Oral : 10 mg 2x a day. SEROquel Oral : 125mg daily, + 125MG prn. ZyrTEC Allergy Oral : Capsule 10 mg, 2 capsules daily. Prescription Medications: Hydrocodone/APAP 5mg / 325mg: take 1 orally every 6 hours as needed for pain. Dispense ten (10). No refill. Follow-up: Follow up with your doctor in about three days. Call for an appointment. Screening today revealed the patient's blood pressure to be in the hypertensive range. The patient should follow up with a primary care provider for blood pressure management. (Electronically signed by Jerome Vergara Dr. 04/17/2016 17:54)
--- NOTE | 2016-04-17 12:47 | ED NURSING NOTES ---
Clinical Report - Nurses [facility] [address] [place] [address] 04/17/2016 8:28 Patient: JOMAR YA TRIAGE Triage time 08:31. Acuity: LEVEL 4. Chief Complaint: INJURY TO RIGHT SHOULDER. Alert. LAWRENCE COMA SCORE: Lawrence Coma Scale: 15- eyes open spontaneously (4); best verbal response- oriented x 4 (5); best motor response- obeys commands (6). --08:35 Renetta Motley R.N. 08:31 04/17/16. BP: 145/88. HR: 128. RR: 20. O2 saturation: 97%. Temp: 98.9 F. Pain level now: 10/05. --08:35 Renetta Motley R.N. Weight: 93.8 kg stated. Height/Length: 64 inches Per Patient. BMI: 35.5. --08:32 Renetta Motley R.N. Medications Benadryl Allergy Oral 50mg , daily. Keppra Oral 1500mg , 2x a day. KlonoPIN Oral 1 mg, daily. Lacosamide Oral 75MG , 2 X DAILY. LORazepam Oral 1 mg, as needed. Mirapex Oral 1 mg, at bedtime. Oxybutynin Chloride Oral 10 mg, 2x a day. SEROquel Oral 125mg, daily (+ 125MG prn). ZyrTEC Allergy Oral (Capsule 10 mg) 2 capsules, daily. --08:34 Renetta Motley R.N. Allergies Amoxicillin. Keflex. morphine. Nitrofurantoin. --08:34 Renetta Motley R.N. History Arrived by EMS, and (A99). Primary physician (Bob). This occurred just prior to arrival. ( Pt states he dislocated his shoulder in bed, has arm sling on on arrival). PAST MEDICAL HX: Immunizations: up-to-date. SOCIAL HX: Never smoker. No alcohol use or drug use. LEARNING NEEDS ASSESSMENT: The learning needs assessment revealed no barriers. SKIN INTEGRITY ASSESSMENT: Skin integrity risk assessment completed. No skin integrity risk identified. --08:35 Renetta Motley R.N. Interventions ID band on patient. To room. --08:35 Renetta Motley R.N. PHYSICAL ASSESSMENT 08:35 04/17/16. GENERAL / NEURO / PSYCH: Oriented X 4. Alert. Appears anxious. --08:35 Renetta Motley R.N. NURSING PROGRESS NOTES 08:35 04/17/16. Patient identifiers checked. Bed placed in lowest position. Patient ready for evaluation- chart flagged. --08:35 Renetta Motley R.N. 09:47 04/17/16. Patient transported to radiology by stretcher with tech. --09:47 Renetta Motley R.N. 10:04/17/2016 Site #1 started via IV in the left wrist with an 24g angiocath, with aseptic technique and good blood return; two attempts. Blood drawn: rainbow set. Labeled in the presence of the patient and sent to the lab. --10:25 Renetta Motley R.N. <<STRICKEN ENTRY-- 10:04/17/2016 Started bag #1 1000 mL IV Fluids IV NS (Saline); at 500 mL/hr via site #1 via IV pump. Confirmed 5 rights. IV patency established. IV site checked: no pain, redness, or swelling. IV flushed thoroughly pre- and post-medication administration. --10:25 Renetta Motley R.N. --END STRIKE>> Change to Details. --10:26 Renetta Motley R.N. 10:04/17/2016 Started bag #1 1000 IV Fluids IV NS (Saline); at 500 mL/hr via site #1 via IV pump. Confirmed 5 rights. IV patency established. IV site checked: no pain, redness, or swelling. IV flushed thoroughly pre- and post-medication administration (vein is too small to run IVF's at 1000mls/hr so reduced to 500). --10:26 Renetta Motley R.N. 10:04/17/2016 Toradol IVP 30 mg given over 2 minute(s) via site #1. Allergies verified and confirmed 5 rights. --10:26 Renetta Motley R.N. ( Pt is out of room for post reduction xray.). --11:48 Jaclyn Garcia 12:45 04/17/16. BP: 116/67. HR: 75. RR: 18. O2 saturation: 100% on nasal cannula at 2 liters/minute. Temp: 97.8 F. Pain level now: 0/10. --13:45 Renetta Motley R.N. 13:15 04/17/2016 Site #1 removed. Catheter intact. Bandage applied. --13:46 Renetta Motley R.N. 13:15 04/17/2016 IV Fluids IV NS Discontinued: bag #1 completed. Total amount infused: 1000 mL. IV patency established. IV site checked: no pain, redness, or swelling. IV flushed thoroughly. --13:46 Renetta Motley R.N. DISPOSITION / DISCHARGE Departure time: 1350. Condition at departure: improved. No learning barriers present. Discharge instructions provided and reviewed with the patient. Reviewed medication(s) information. Prescription(s) given to the patient. Reviewed referral to family practice and an orthopedic surgeon for followup. Verbalized understanding. Written instructions provided. The patient was discharged home and accompanied by histologist. He left the Emergency Department ambulatory and via private vehicle. Hair Spinner driving. --14:41 Renetta Motley R.N. 13:50 04/17/16. BP: 151/93. HR: 96. RR: 18. O2 saturation: 100%. Pain level now: 0/10. --14:41 Renetta Motley R.N. Locked/Released at 04/17/2016 14:42 by Renetta Motley R.N.
--- NOTE | 2016-04-17 12:47 | ED ORDER SUMMARY ---
..... Patient: JOMAR YA OrderSheet [facility] VisitID: [id number] [place] [address] 26y, M Registration Date/Time: 04/17/2016 ORDER SHEET Weight: 93.8 kg (stated) Allergies: Amoxicillin, Keflex, morphine, Nitrofurantoin GENERAL ORDERS: Shoulder 2V or more Right Urgent (09:35 04/17/2016 Pierre Perry) (Ack 10:00 Deandra) (10:26 LSullivan R.N.) NPO (09:35 04/17/2016 Pierre Perry) (10:26 LSullivan R.N.) Shoulder 2V or more Right (post reduction) Urgent (11:39 04/17/2016 Pierre Perry) (Ack 11:50 Deandra) (13:47 LSullivan R.N.) MEDICATION ORDERS: IV FLUIDS: IV NS : initial bolus none -, then 1000 mL/hr for X1 (NOW) (09:34 04/17/2016 Pierre Perry) (10:25 MIRIAMullivan R.N.) Toradol IV 30 mg (NOW) (:34 04/17/2016 Pierre Perry) (10:26 LSullivan R.N.) ORDER SHEET NOTES: [Electronically signed by Renetta Motley R.N. (14:42 04/17/2016)] [Electronically signed by Jerome Vergara Dr. (17:54 04/17/2016)] [Electronically locked/signed by Renetta Motley R.N. (14:42 04/17/2016)]
--- NOTE | 2016-04-17 12:47 | ED ORDER SUMMARY ---
..... Patient: JOMAR YA OrderSheet [facility] VisitID: [id number] [place] [address] 26y, M Registration Date/Time: 04/17/2016 ORDER SHEET Weight: 93.8 kg (stated) Allergies: Amoxicillin, Keflex, morphine, Nitrofurantoin GENERAL ORDERS: Shoulder 2V or more Right Urgent (09:35 04/17/2016 Pierre Perry) (Ack 10:00 Deandra) (10:26 LSullivan R.N.) NPO (09:35 04/17/2016 Pierre Perry) (10:26 LSullivan R.N.) Shoulder 2V or more Right (post reduction) Urgent (11:39 04/17/2016 Pierre Perry) (Ack 11:50 Deandra) (13:47 LSullivan R.N.) MEDICATION ORDERS: IV FLUIDS: IV NS : initial bolus none -, then 1000 mL/hr for X1 (NOW) (09:34 04/17/2016 Pierre Perry) (10:25 MIRIAMullivan R.N.) Toradol IV 30 mg (NOW) (:34 04/17/2016 Pierre Perry) (10:26 LSullivan R.N.) ORDER SHEET NOTES: [Electronically signed by Renetta Motley R.N. (14:42 04/17/2016)] [Electronically signed by Jerome Vergara Dr. (17:54 04/17/2016)] [Electronically locked/signed by Renetta Motley R.N. (14:42 04/17/2016)]
--- NOTE | 2016-04-17 17:55 | ED MED RECONCILIATION SUMMARY ---
Patient: JOMAR YA Medication Reconciliation Report [facility] VisitID: [id number] [address] [place] [address] 26y, M Registration Date/Time: 04/17/2016 Weight: 93.8 kg Height/Length: 64 in. BMI: 35.5 ALLERGIES: Amoxicillin, Keflex, morphine, Nitrofurantoin The patient's Home Medications are listed below: CONTINUE TAKING THE FOLLOWING MEDICATIONS: Benadryl Allergy Oral 50mg , daily Keppra Oral 1500mg , 2x a day KlonoPIN Oral 1 mg, daily Lacosamide Oral 75MG , 2 X DAILY LORazepam Oral 1 mg Mirapex Oral 1 mg, at bedtime Oxybutynin Chloride Oral 10 mg, 2x a day SEROquel Oral 125mg, daily, + 125MG prn ZyrTEC Allergy Oral (10 mg) 2 capsules, daily The source(s) of the original Home Medication information: Not obtained. The following Medications were given to the patient in the Emergency Department: IV NS IV Fluids bolus 0, then 500 mL/hr, administered: 04/17/2016 10:25:00 AM Toradol [IVP] IVP 30 mg, administered: 04/17/2016 10:26:00 AM The following Medications were prescribed to the patient: Hydrocodone/APAP 5mg / 325mg: take 1 orally every 6 hours as needed for pain. Dispense ten (10). No refill. -- Jerome Vergara Dr.
--- NOTE | 2016-04-17 17:55 | ED DISCHARGE INSTRUCTIONS ---
Patient: JOMAR YA General Instructions [facility] VisitID: [id number] [place] [address] 26y, M Registration Date/Time: 04/17/2016 Right anterior shoulder dislocation. Reduction in the ER. INSTRUCTIONS Apply ice for 20 minutes five times a day. Don't apply ice directly to skin. Wear simple sling until released. Your Current Medications: CONTINUE TAKING THE FOLLOWING MEDICATIONS: Benadryl Allergy Oral : 50mg daily. Keppra Oral : 1500mg 2x a day. KlonoPIN Oral : 1 mg daily. Lacosamide Oral : 75MG 2 X DAILY. LORazepam Oral : 1 mg, prn. Mirapex Oral : 1 mg at bedtime. Oxybutynin Chloride Oral : 10 mg 2x a day. SEROquel Oral : 125mg daily, + 125MG prn. ZyrTEC Allergy Oral : Capsule 10 mg, 2 capsules daily. Prescription Medications: Hydrocodone/APAP 5mg / 325mg: take 1 orally every 6 hours as needed for pain. Dispense ten (10). No refill. Follow-up: Follow up with your doctor in about three days. Call for an appointment. Screening today revealed the patient's blood pressure to be in the hypertensive range. The patient should follow up with a primary care provider for blood pressure management. ADDITIONAL INFORMATION Dislocation: Shoulder (Reduced) Dislocation of the shoulder joint occurs when a strong force tears the ligaments holding the joint together. This allows the bones to move apart and become stuck out of place. Once the joint is aligned again, it will take about six weeks for the ligaments to heal. Since this injury may weaken the ligaments, you are at risk of another dislocation with less force. Therefore, care should be taken to avoid a similar injury in the future. Shoulder dislocation is treated with a shoulder immobilizer (special type of arm sling). This keeps your arm close to your body to prevent a recurrent dislocation while the ligaments heal. After a few weeks, an exercise program may be started. This will gradually restore range of motion and strength at the shoulder and decrease the risk of another dislocation. Home Care: Until your next doctor visit, wear your shoulder immobilizer at all times . Do not take it off at night to sleep. It is possible to dislocate your arm again in your sleep. You may take it off to bathe or dress, but do not move your arm away from your body. Keep your arm in the same position that the sling was holding it in, until you reapply the sling again. During your next visit, ask your doctor how long you should wear the sling. Apply an ice pack (ice cubes in a plastic bag, wrapped in a towel) over the injured area for 20 minutes every 1-2 hours the first day. Continue with ice packs 3-4 times a day for the next two days, then as needed for the relief of pain and swelling. You may use acetaminophen (Tylenol) or ibuprofen (Motrin, Advil) to control pain, unless another pain medicine was prescribed. [NOTE: If you have chronic liver or kidney disease or ever had a stomach ulcer or GI bleeding, talk with your doctor before using these medicines.] No sports or P.E. until cleared by your doctor. Follow Up with your doctor within one week or as advised by our staff. Shoulder immobilizers and slings should not be worn continuously for more than a few weeks or you may lose some [id number] at the shoulder joint. If you have had repeated dislocations of the same shoulder, that means there has been permanent ligament damage. Ask the orthopedic doctor about surgery to prevent another dislocation. Get Prompt Medical Attention if any of the following occur: Another dislocation of your shoulder Increasing swelling or pain in the shoulder or arm Fingers become cold, blue, numb or tingly Sling A sling is designed to support your arm in a position of rest. It is used for injuries of the hand, forearm, upper arm, and shoulder. A shoulder that is immobilized too long can become stiff and lose range of motion. Follow up with your doctor as advised and do not use the sling longer than directed. Home Use: Leave the sling in place as long as directed by your doctor. Unless told otherwise, you may remove it when bathing, dressing, and when you go to sleep. The sling is adjustable. If it becomes loose, adjust it so that your forearm is horizontal (level with the ground). Your hand should be level with the elbow. Hydrocodone Bitartrate, Acetaminophen Oral tablet What is this medicine? ACETAMINOPHEN; HYDROCODONE (a set a CHARLIE itz fen; dixon droe KOE done) is a pain reliever. It is used to treat mild to moderate pain. How should I use this medicine? Take this medicine by mouth. Swallow it with a full glass of water. Follow the directions on the prescription label. If the medicine upsets your stomach, take the medicine with food or milk. Do not take more than you are told to take. Talk to your hot stick man regarding the use of this medicine in children. This medicine is not approved for use in children. What side effects may I notice from receiving this medicine? Side effects that you should report to your doctor or health childcare aide as soon as possible: allergic reactions like skin rash, itching or hives, swelling of the face, lips, or tongue breathing problems confusion feeling faint or lightheaded, falls stomach pain yellowing of the eyes or skin Side effects that usually do not require medical attention (report to your doctor or health childcare aide if they continue or are bothersome): nausea, vomiting stomach upset What may interact with this medicine? alcohol antihistamines isoniazid medicines for depression, anxiety, or psychotic disturbances medicines for sleep muscle relaxants naltrexone narcotic medicines (opiates) for pain phenobarbital ritonavir tramadol What if I miss a dose? If you miss a dose, take it as soon as you can. If it is almost time for your next dose, take only that dose. Do not take double or extra doses. Where should I keep my medicine? Keep out of the reach of children. This medicine can be abused. Keep your medicine in a safe place to protect it from theft. Do not share this medicine with anyone. Selling or giving away this medicine is dangerous and against the law. Store at room temperature between 15 and 30 degrees C (59 and 86 degrees F). Protect from light. Keep container tightly closed. Throw away any unused medicine after the expiration date. Discard unused medicine and used packaging carefully. Pets and children can be harmed if they find used or lost packages. What should I tell my health care provider before I take this medicine? They need to know if you have any of these conditions: brain tumor Crohn's disease, inflammatory bowel disease, or ulcerative colitis drink more than 3 alcohol-containing drinks per day drug abuse or addiction head injury heart or circulation problems kidney disease or problems going to the bathroom liver disease lung disease, asthma, or breathing problems an unusual or allergic reaction to acetaminophen, hydrocodone, other opioid analgesics, other medicines, foods, dyes, or preservatives or trying to get breast-feeding What should I watch for while using this medicine? Tell your doctor or health childcare aide if your pain does not go away, if it gets worse, or if you have new or a different type of pain. You may develop tolerance to the medicine. Tolerance means that you will need a higher dose of the medicine for pain relief. Tolerance is normal and is expected if you take the medicine for a long time. Do not suddenly stop taking your medicine because you may develop a severe reaction. Your body becomes used to the medicine. This does NOT mean you are addicted. Addiction is a behavior related to getting and using a drug for a non-medical reason. If you have pain, you have a medical reason to take pain medicine. Your doctor will tell you how much medicine to take. If your doctor wants you to stop the medicine, the dose will be slowly lowered over time to avoid any side effects. You may get drowsy or dizzy when you first start taking the medicine or change doses. Do not drive, use machinery, or do anything that may be dangerous until you know how the medicine affects you. Stand or sit up slowly. There are different types of narcotic medicines (opiates) for pain. If you take more than one type at the same time, you may have more side effects. Give your health care provider a list of all medicines you use. Your doctor will tell you how much medicine to take. Do not take more medicine than directed. Call emergency for help if you have problems breathing. The medicine will cause constipation. Try to have a bowel movement at least every 2 to 3 days. If you do not have a bowel movement for 3 days, call your doctor or health childcare aide. Too much acetaminophen can be very dangerous. Do not take Tylenol (acetaminophen) or medicines that contain acetaminophen with this medicine. Many non-prescription medicines contain acetaminophen. Always read the labels carefully. You have been given the following additional information: Dislocation: Shoulder (Reduced) Sling Hydrocodone Bitartrate, Acetaminophen Oral tablet (Electronically signed by Jerome Vergara Dr. 04/17/2016 17:54)
--- NOTE | 2016-04-17 17:55 | ED MAR SUMMARY ---
..... Medication Administration Record [facility] [address] [place] [address] Patient: JOMAR YA Visit ID: [id number] 26y, M Weight: 93.8 kg Height/Length: 64 in BMI: 35.5 ALLERGIES: Amoxicillin, Keflex, morphine, Nitrofurantoin Start 10:25 04/17/2016 Renetta Motley R.N., Stop 13:15 04/17/2016 Renetta Motley R.N. Medication Administered: IV NS (SALINE), Dose: IV Fluids, Rate: 500 mL/hr, Dispensed: 1000 mL bag, Site: #1 left wrist. Medication Ordered: IV NS : initial bolus none -, then 1000 mL/hr for X1 (NOW). Given 10:26 04/17/2016 Renetta Motley R.N. Medication Administered: TORADOL [IVP], Dose: 30 mg IVP over 2 minute(s), Site: #1 left wrist. Medication Ordered: Toradol IV 30 mg (NOW).
--- NOTE | 2016-04-17 17:55 | ED MAR SUMMARY ---
..... Medication Administration Record [facility] [address] [place] [address] Patient: JOMAR YA Visit ID: [id number] 26y, M Weight: 93.8 kg Height/Length: 64 in BMI: 35.5 ALLERGIES: Amoxicillin, Keflex, morphine, Nitrofurantoin Start 10:25 04/17/2016 Renetta Motley R.N., Stop 13:15 04/17/2016 Renetta Motley R.N. Medication Administered: IV NS (SALINE), Dose: IV Fluids, Rate: 500 mL/hr, Dispensed: 1000 mL bag, Site: #1 left wrist. Medication Ordered: IV NS : initial bolus none -, then 1000 mL/hr for X1 (NOW). Given 10:26 04/17/2016 Renetta Motley R.N. Medication Administered: TORADOL [IVP], Dose: 30 mg IVP over 2 minute(s), Site: #1 left wrist. Medication Ordered: Toradol IV 30 mg (NOW).
--- NOTE | 2016-04-17 17:55 | ED MED RECONCILIATION SUMMARY ---
Patient: JOMAR YA Medication Reconciliation Report [facility] VisitID: [id number] [address] [place] [address] 26y, M Registration Date/Time: 04/17/2016 Weight: 93.8 kg Height/Length: 64 in. BMI: 35.5 ALLERGIES: Amoxicillin, Keflex, morphine, Nitrofurantoin The patient's Home Medications are listed below: CONTINUE TAKING THE FOLLOWING MEDICATIONS: Benadryl Allergy Oral 50mg , daily Keppra Oral 1500mg , 2x a day KlonoPIN Oral 1 mg, daily Lacosamide Oral 75MG , 2 X DAILY LORazepam Oral 1 mg Mirapex Oral 1 mg, at bedtime Oxybutynin Chloride Oral 10 mg, 2x a day SEROquel Oral 125mg, daily, + 125MG prn ZyrTEC Allergy Oral (10 mg) 2 capsules, daily The source(s) of the original Home Medication information: Not obtained. The following Medications were given to the patient in the Emergency Department: IV NS IV Fluids bolus 0, then 500 mL/hr, administered: 04/17/2016 10:25:00 AM Toradol [IVP] IVP 30 mg, administered: 04/17/2016 10:26:00 AM The following Medications were prescribed to the patient: Hydrocodone/APAP 5mg / 325mg: take 1 orally every 6 hours as needed for pain. Dispense ten (10). No refill. -- Jerome Vergara Dr.
== END 2016-04-17 13:50 | disposition home or self-care (01) ==
LOC: ED SRH 08:29
DX: S43.084A Other dislocation of right shoulder joint, initial encounter (principal); X50.0XXA Overexertion from strenuous movement or load, initial encounter; Y93.89 Activity, other specified; Y92.003 Bedroom of unspecified non-institutional (private) residence as the place of occurrence of the external cause; Y99.9 Unspecified external cause status; Z79.899 Other long term (current) drug therapy; Z88.0 Allergy status to penicillin; Z88.1 Allergy status to other antibiotic agents; Z88.5 Allergy status to narcotic agent

== ENCOUNTER 2016-05-14 06:31 | Emergency (ER) | payer BC, OTHER ==
--- NOTE | 2016-05-14 10:35 | DIAGNOSTIC IMAGING REPORT ---
PROCEDURE: XR SHOULDER 2 OR MORE VW-RIGHT INDICATION: PAIN, HX OF DISLOCATIONS. TECHNIQUE: Three views. COMPARISON: 04/17/2016 FINDINGS: Anterior right glenohumeral joint dislocation. Hill-Sachs deformity again visualized. Normal AC joint and soft tissues IMPRESSION: 1. Right shoulder anterior dislocation with Hill-Sachs deformity
--- NOTE | 2016-05-14 11:35 | ED CLINICAL REPORT ---
Clinical Report - Physicians/Mid Levels Formerly [facility] [address] [place] [address] 05/14/2016 6:31 Patient: JOMAR YA Arrived- By ambulance. Historian- patient. HISTORY OF PRESENT ILLNESS Chief Complaint: Injury to right shoulder. The injury happened today. Occurred at home. ( reports it popped out whilesleeping). Patient is experiencing severe pain. Patient denies injury to the head or neck. No other injury. ( long history of shoulder dislocation. Reports no numbness, Trice, weakness.). REVIEW OF SYSTEMS No swelling, tingling, numbness, weakness or skin laceration. All systems otherwise negative, except as recorded above. PAST HISTORY See nurses notes. Tetanus immunization status is up-to-date. SOCIAL HISTORY Never smoker. No alcohol use or drug use. Is a local resident. ADDITIONAL NOTES The nursing notes have been reviewed. PHYSICAL EXAM Vital Signs: 05/14/2016 06:33 BP: 164/94. HR: 114. RR: 12. O2 saturation: 95%. Temp: 98.1 F. Pain level now: 7/10. Hypertensive. Oxygen saturation not normal. Appearance: Alert. Oriented X3. No acute distress. Head: Head atraumatic. Eyes: Pupils equal, round and reactive to light. Eyes normal inspection. ENT: Ears normal. Nose normal. Pharynx normal. Neck: Normal inspection. Neck supple. No decreased ROM or muscle spasm in the neck. No pain with movement of head/neck. C-spine non-tender. No vertebral tenderness. CVS: Normal heart rate and rhythm. Heart sounds normal. Pulses normal. Respiratory: No respiratory distress. Breath sounds normal. Chest nontender. No rales, rhonchi or wheezes. Abdomen: No visible injury. Soft and nontender. Bowel sounds normal. (fistula noted to the umbilicus. It is moist and pink with active contractions. Wound is clean dry and intact.). Back: Normal inspection. No tenderness. ROM normal. Skin: Skin intact. Skin warm and dry. Normal skin color. Normal skin turgor. Extremities: (bvious deformity of the right glenohumeral joint. Humeral head does not appear to be in the appropriate position. Appears to be anterior. No crepitus. No other abnormalities noted to the shoulder. No overlying skin changes. Compartments are soft. Patient is neurovascularly intact. Sensation over the deltoid is intact.). Extremities otherwise negative. Neuro, Vascular and Tendons: Sensation intact. Motor intact. Vascular status intact. Tendon function intact. Tendon visualized, uninjured. Neuro: Oriented X 3. No motor deficit. No sensory deficit. LABS, X-RAYS, AND EKG Rt Shoulder X-ray: Normal alignment. No bony lesion. (acute right shoulder dislocation. no fractures. no other osseous abnormalities.). Views: AP with external rotation, AP with internal rotation and "Y" view. Technique: good. The X-rays were independently viewed by me and interpreted contemporaneously by me. Post procedure films: (Humeral head in adequate positioning). PROGRESS AND PROCEDURES PROCEDURES (he first attempt at reducing the patient's shoulder was unsuccessful. Traction and countertraction was used. Also patient's right arm was held over the side of the bed with downward traction. Unable to relocate the patient shoulder. Second attempt was completed by Dr. Dotson. We were able toget the shoulder and with traction and countertraction and with scapularand glenohumeral manipulation. Procedural sedation wasperformed by myself the second time with propofol. Please see nursing flow sheet for further details.). Procedural Sedation: Indication: Reduction of dislocation of shoulder. Time-out completed immediately before the procedure. Last po intake: (Greater than 6 hours ago). ASA classification: 1 - normal healthy patient. Mallampati Classification: Class 2 - tonsillar pillars and uvula hidden by the base of the tongue. Normal airway anatomy. Preparation: consent was obtained and the risks of the procedure, benefits and alternatives were explained to patient. IV established. O2 administered. Placed on pulse oximeter and sales analyst. Suction was made available. Medications: Fentanyl IV, Etomidate IV and Propofol IV administered by physician. Patient status during sedation: was attended constantly was asleep with sluggish response to stimulation. Complications: None. Post-procedure: Recovery was uneventful. Intra-service time 16-37 minutes. The patient has no history of an adverse anesthesia reaction or family history of an adverse anesthesia reaction. ( required to be done twice as the patient's first attempt was unsuccessful and patienthad started to recover. Patient did reportimproved success of propofol. Propofol was usedon the second attempt.). Course of Care: the patient is a pleasant 26-year-old male with past medical history significant for right-sided shoulder dislocations. Patient had a emergency department report indicating that the patient had a history of multiple shoulder dislocations. Had spoken to patient in regards to having the shoulder relocated without procedural sedation. Patient is extremely has attends and oriented to do this. Patient cites extreme discomfort and pain as the reason for not wanting to have the shoulder relocated. No neurovascular compromise. Informed written consent obtained for the procedure including sedation. Patient is agreeable to treatment plan. Please see procedure note for further details. Patient had recovered uneventfully. No other abnormalities noted. Sling applied. Encouraged patient to follow up with orthopedic surgery. Again no neurovascular compromise noted on repeat examination. I discussed with patient workup, diagnosis, home care, follow-up, and return precautions. All questions answered. The patient expressed understanding of these instructions and was agreeable to them. Critical care performed (30 minutes). Time is exclusive of separately billable procedures. Time includes: direct patient care, patient reassessment, coordination of patient care, review of patient's medical records, medical consultation and documentation of patient care. CLINICAL IMPRESSION 05/14/2016 09:10 BP: 154/79. HR: 105. RR: 18. O2 saturation: 95%. Pain level now: 8/10. Hypertensive. Oxygen saturation normal. Right anterior shoulder dislocation. Reduction in the ER (acute). Essential hypertension. INSTRUCTIONS Warnings: GENERAL WARNINGS: Return or contact your physician immediately if your condition worsens or changes unexpectedly, if not improving as expected, or if other problems arise. Specifically return if pain, vomiting, bleeding, breathing difficulty or fever. Your Current Medications: CONTINUE TAKING THE FOLLOWING MEDICATIONS: Benadryl Allergy Oral : 50mg daily. Keppra Oral : 1500mg 2x a day. KlonoPIN Oral : 1 mg daily. Lacosamide Oral : 75MG 2 X DAILY. LORazepam Oral : 1 mg, prn. Mirapex Oral : 1 mg at bedtime. Oxybutynin Chloride Oral : 10 mg 2x a day. SEROquel Oral : 125mg daily, + 125MG prn. ZyrTEC Allergy Oral : Capsule 10 mg, 2 capsules daily. Prescription Medications: Percocet 5 mg/325 mg: take 1 tablet orally every 6 hours as needed for pain. Dispense twenty (20). No refill. Substitution is permissible. Follow-up: Return to the emergency department as needed. Follow up with your doctor in three days. Reason for referral: recheck today's concerns. Summary of care provided to patient via paper. Screening today revealed the patient's blood pressure to be in the normal range. The patient should follow up with a primary care provider for blood pressure management. Understanding of the discharge instructions verbalized by patient. (Electronically signed by Missael Boles Dr. 05/19/2016 11:19) PROGRESS AND PROCEDURES Reduction of Dislocated Shoulder: Time-out completed immediately before the procedure. IV established. O2 administered. Placed on pulse oximeter and sales analyst. Neurovascular exam intact pre-procedure. Given Fentanyl and Propofol. The right shoulder was reduced using traction-countertraction technique and scapular manipulation technique. Reassessed post-procedure. Neurovascular status intact. Exam indicated reduction. Confirmed reduction on X-ray. (sedation was performed by Dr. Boles procedure performed by me Tyron Dotson MD). (Electronically signed by Jude Dotson MD 05/14/2016 13:19)
--- NOTE | 2016-05-14 11:35 | ED NURSING NOTES ---
Clinical Report - Nurses [facility] [address] [place] [address] 05/14/2016 6:31 Patient: JOMAR YA TRIAGE Triage time 06:38 May 14 2016. Chief Complaint: INJURY TO RIGHT SHOULDER. SEPSIS SCREEN: Sepsis Screen: negative. Negative (no infection suspected/documented). Heart rate greater than 90. JENA COMA SCORE: [place] Coma Scale: 15- eyes open spontaneously (4); best verbal response- oriented x 4 (5); best motor response- obeys commands (6). --06:41 AliM 06:33 05/14/16. BP: 164/94. HR: 114. RR: 12. O2 saturation: 95%. Temp: 98.1 F. Pain level now: 10/05. --06:41 AliM Acuity: LEVEL 3. --06:42 AliM. Weight: 94.3 kg stated. Height/Length: 64 inches Per Patient. BMI: 35.7. --06:36 AliM. Medications Benadryl Allergy Oral 50mg , daily. --06:36 AliM Keppra Oral 1500mg , 2x a day. KlonoPIN Oral 1 mg, daily. Lacosamide Oral 75MG , 2 X DAILY. LORazepam Oral 1 mg, as needed. Mirapex Oral 1 mg, at bedtime. Oxybutynin Chloride Oral 10 mg, 2x a day. SEROquel Oral 125mg, daily (+ 125MG prn). ZyrTEC Allergy Oral (Capsule 10 mg) 2 capsules, daily. --06:36 AliM. Allergies Amoxicillin. Keflex. morphine. Nitrofurantoin. --06:36 AliM Vicodin. --06:36 AliM Latex. --06:36 AliM. History Arrived by EMS. Historian: patient. Accompanied by friend. This occurred just prior to arrival. ( Pt reports dislocating shoulder during sleep. Pt said shoulder was in sling while sleeping and suspects turned onto R shoulder wrong and dislocated it. Pt reports tingling but no numbness. Pain is radiating down from shoulder to Right elbow.). PAST MEDICAL HX: Tetanus status: unknown. Immunizations: up-to-date. SOCIAL HX: Never smoker. No alcohol use or drug use. No infectious disease exposure. ABUSE ASSESSMENT: No report of abuse. FALL RISK ASSESSMENT: Fall risk assessment completed. No fall risk identified. NUTRITIONAL RISK ASSESSMENT: The nutritional risk assessment revealed no deficiencies. FUNCTIONAL ASSESSMENT: Functional assessment: no impairments noted. LEARNING NEEDS ASSESSMENT: The learning needs assessment revealed no barriers. SKIN INTEGRITY ASSESSMENT: Skin integrity risk assessment completed. No skin integrity risk identified. --06:41 AliM. PROBLEMS: Nerve Injury, Upper Extremity. Seizure Disorder. Dislocated Shoulder. Depression. Anxiety Reaction. Sleep Apnea. Spina Bifida Occulta. --06:37 AliM. Interventions ID band on patient. To treatment room. --06:42 AliM. PHYSICAL ASSESSMENT To room via stretcher. GENERAL / NEURO / PSYCH: Oriented X 4. Appears in pain and in distress. EXTREMITIES: Limited ROM present in the right shoulder, right upper arm and right elbow. Extremity pulses are within normal limits. Right shoulder: located in the lateral aspect of the shoulder (Pt unable to move Right shoulder out of sling.). SKIN: Skin intact. Skin is warm and dry. --06:44 AliM. NURSING PROGRESS NOTES Patient refused to place gown on. Two patient identifiers checked. Call light placed in reach. Side rails up x 1. Bed placed in lowest position. Brakes of bed on. Patient ready for evaluation- ED physician notified. --06:45 AliM 07:11 05/14/16. Care transferred and report given (Ros MONTELONGO). --07:11 AliM 07:21 Patient contact made, reason for wait explained. Patient given ice pack per request. --07:21 McQuoid, Sravani, ER Tech1 ( Report taken from JAYDA Barros to assume care.). --07:26 Viky Dwyer R.N. ( Pt. resting quietly, no needs at this time. Call light within reach.). --07:40 Viky Dwyer R.N. ( Pt. taken to and brought back from [facility] by tech.). --08:09 Viky Dwyer R.N. 08:55 05/14/2016 Site #1 started via IV in the left upper arm with an 22g angiocath, with aseptic technique; three attempts. Saline lock flushed with 10 mL saline (Placed by Viky Leigh RN.). --09:10 Cristopher Hankins R.N. 09:10 05/14/16. BP: 154/79. HR: 105. RR: 18. O2 saturation: 95% on room air. Pain level now: 11/05. --09:11 Cristopher Hankins R.N. 09:16 05/14/2016 Fentanyl IVP 50 mcg given. via site #1. Allergies verified, confirmed 5 rights and sedative warning given to the patient. IV patency established. IV site checked: no pain, redness, or swelling. IV flushed thoroughly pre- and post-medication administration. IVP given by RN. --09:16 Cristopher Hankins R.N. Two patient identifiers checked. Call light placed in reach. Bed placed in lowest position. Informed about reason for wait (Conscious Sedation for reduction of dislocated shoulder). --09:19 Cristopher Hankins R.N. ( Procedural sedation accomplished. Please see procedural sedation record for further charting/medications/vital signs.). --11:58 Viky Dwyer R.N. 10:52 05/14/2016 Etomidate IVP 20 mg given over 2 minute(s) via site #1. IV patency established. IV site checked: no pain, redness, or swelling. IV flushed thoroughly pre- and post-medication administration. --12:04 Viky Dwyer R.N. 10:54 05/14/2016 Fentanyl IVP 100 mcg given over 2 minute(s) via site #1. --12:03 Viky Dwyer R.N. 10:59 05/14/2016 Fentanyl IVP 100 mcg given over 2 minute(s) via site #1. --12:04 Viky Dwyer R.N. Procedural Sedation Flowsheet Diagnosis: dislocated joint, right shoulder. Procedure: reduction of dislocation, right shoulder. Procedure performed by ED physician and assisted by two nurses and one donor support technician (RT at bedside). Preparation: ID band on patient and consent obtained per patient; airway equipment and suction equipment at bedside; pulse oximeter, central office frame wirer and NIBP placed on patient. Patient, with head of bed elevated. Oxygen applied to patient at 3 liter/min. He was assessed immediately prior to procedure. Appropriate to proceed with sedation. Time-out completed immediately before the procedure: verified identity of patient (name, birthdate, visit number and medical record number), procedure, side and site of procedure, position of patient and agreement on the procedure to be done; verification done by care team (nurse, physician, donor support technician). Procedure start time: 1052 Procedure end time: 1110 Interventions: oxygen- 3 liter/min. Intra-procedure [place] Agitation Sedation scale: 0 (alert and calm). Intra-procedure Modified [place]gett Sedation Score: 2. Patient tolerated procedure well. See procedure note. Sedation recovery criteria met. --14:12 Viky Dwyer R.N. DISPOSITION / DISCHARGE 10:58 05/14/2016 PROPOFOL IVP 100 mg given. via site #1. Allergies verified and confirmed 5 rights. IV patency established. IV site checked: no pain, redness, or swelling. IV flushed thoroughly pre- and post-medication administration. IVP given by physician. --12:16 Cristopher Hankins R.N. 12:09 05/14/2016 Site #1 removed upon discharge. Bandage applied. --12:14 Cristopher Hankins R.N. Departure time: 12:10 May 14 2016. Condition at departure: improved. No learning barriers present. Discharge instructions provided and reviewed with the patient. Reviewed medication(s) side effects and precautions information. Prescription(s) given to the patient. Reviewed referral to a primary care physician. Activity restrictions (minimal use of injured extremity and rest) reviewed. Patient verbalized understanding. Written instructions provided in Turkish. The patient was discharged by the physician. He was discharged home and accompanied by self. He left the Emergency Department ambulatory and via ([employer]). ( Pt left in stable condition, reported pain controlled, VSS, ambulatory. Pt called [employer] to be his ride home.). --12:18 Cristopher Hankins R.N. 12:13 05/14/16. BP: 136/99. HR: 98. RR: 16. O2 saturation: 99% on room air. Temp: 98 F. Pain level now: 08/05. --12:18 Cristopher Hankins R.N. Locked/Released at 05/14/2016 14:12 by Viky Dwyer R.N.
--- NOTE | 2016-05-14 11:35 | ED ORDER SUMMARY ---
..... Patient: JOMAR YA OrderSheet [facility] VisitID: [id number] [address] [place] [address] 26y, M Registration Date/Time: 05/14/2016 ORDER SHEET Weight: 94.3 kg (stated) Allergies: Amoxicillin, Keflex, morphine, Nitrofurantoin, Vicodin, Latex GENERAL ORDERS: Shoulder 2V or more Right Urgent (07:55 05/14/2016 Isa Perry) (Ack 8:08 RKaruga) (8:09 SStone R.N.) Shoulder 1V Right (post reduction) Urgent (11:19 05/14/2016 Siddharth DOWD) (11:56 MCook R.N.) (Cancelled: Wrong Order11:57 SStone R.N.) Shoulder 2V or more Right Urgent (11:57 05/14/2016 SStone R.N. verbal order read back to Isa Perry) (12:09 MCook R.N.) MEDICATION ORDERS: IV FLUIDS: Fentanyl IV 50 mcg (HIGH ALERT MEDICATION, NOW) (08:06 05/14/2016 Isa Perry) (Ack 8:09 SStone R.N.) (9:16 MCook R.N.) IV Saline Lock (08:06 05/14/2016 Isa Perry) (Ack 8:09 SStone R.N.) (9:10 MCook R.N.) Fentanyl IV 100 mcg (HIGH ALERT MEDICATION) (11:59 05/14/2016 SStone R.N. verbal order read back to Isa Perry) (Ack 12:02 SStone R.N.) (12:03 SStone R.N.) Fentanyl IV 100 mcg (HIGH ALERT MEDICATION) (12:00 05/14/2016 SStone R.N. verbal order read back to Isa Perry) (Ack 12:02 SStone R.N.) (12:04 SStone R.N.) Etomidate IV 20 mg (HIGH ALERT MEDICATION) (12:00 05/14/2016 SStone R.N. verbal order read back to Isa Perry) (Ack 12:02 SStone R.N.) (12:04 SStone R.NIsrael) Propofol IV 100 mg (HIGH ALERT MEDICATION) (12:01 05/14/2016 SStdeven R.N. verbal order read back to Isa Perry) (12:16 Trisha Reynolds) ORDER SHEET NOTES: [Electronically signed by Jude Dotson MD (13:19 05/14/2016)] [Electronically signed by Viky Dwyer R.N. (14:12 05/14/2016)] [Electronically signed by Missael Boles Dr. (11:19 05/19/2016)] [Electronically locked/signed by Viky Dwyer R.N. (14:12 05/14/2016)]
--- NOTE | 2016-05-14 11:35 | ED ORDER SUMMARY ---
..... Patient: JOMAR YA OrderSheet [facility] VisitID: [id number] [address] [place] [address] 26y, M Registration Date/Time: 05/14/2016 ORDER SHEET Weight: 94.3 kg (stated) Allergies: Amoxicillin, Keflex, morphine, Nitrofurantoin, Vicodin, Latex GENERAL ORDERS: Shoulder 2V or more Right Urgent (07:55 05/14/2016 Isa Perry) (Ack 8:08 RKaruga) (8:09 SStone R.N.) Shoulder 1V Right (post reduction) Urgent (11:19 05/14/2016 Siddharth DOWD) (11:56 MCook R.N.) (Cancelled: Wrong Order11:57 SStone R.N.) Shoulder 2V or more Right Urgent (11:57 05/14/2016 SStone R.N. verbal order read back to Isa Perry) (12:09 MCook R.N.) MEDICATION ORDERS: IV FLUIDS: Fentanyl IV 50 mcg (HIGH ALERT MEDICATION, NOW) (08:06 05/14/2016 Isa Perry) (Ack 8:09 SStone R.N.) (9:16 MCook R.N.) IV Saline Lock (08:06 05/14/2016 Isa Perry) (Ack 8:09 SStone R.N.) (9:10 MCook R.N.) Fentanyl IV 100 mcg (HIGH ALERT MEDICATION) (11:59 05/14/2016 SStone R.N. verbal order read back to Isa Perry) (Ack 12:02 SStone R.N.) (12:03 SStone R.N.) Fentanyl IV 100 mcg (HIGH ALERT MEDICATION) (12:00 05/14/2016 SStone R.N. verbal order read back to Isa Perry) (Ack 12:02 SStone R.N.) (12:04 SStone R.N.) Etomidate IV 20 mg (HIGH ALERT MEDICATION) (12:00 05/14/2016 SStone R.N. verbal order read back to Isa Perry) (Ack 12:02 SStone R.N.) (12:04 SStone R.NIsrael) Propofol IV 100 mg (HIGH ALERT MEDICATION) (12:01 05/14/2016 SStdeven R.N. verbal order read back to Isa Perry) (12:16 Trisha Reynolds) ORDER SHEET NOTES: [Electronically signed by Jude Dotson MD (13:19 05/14/2016)] [Electronically signed by Viky Dwyer R.N. (14:12 05/14/2016)] [Electronically signed by Missael Boles Dr. (11:19 05/19/2016)] [Electronically locked/signed by Viky Dwyer R.N. (14:12 05/14/2016)]
--- NOTE | 2016-05-14 12:08 | DIAGNOSTIC IMAGING REPORT ---
PROCEDURE: XR SHOULDER 2 OR MORE VW-RIGHT INDICATION: POST REDUCTION TECHNIQUE: Two views. COMPARISON: Shoulder films 04/04- FINDINGS: Reduced right shoulder dislocation. Hill-Sachs deformity is unchanged. Normal AC joint and soft tissues. IMPRESSION: 1. Reduced right shoulder dislocation with Hill-Sachs deformity
--- NOTE | 2016-05-19 11:20 | ED MAR SUMMARY ---
..... Medication Administration Record [facility] [address] [place] [address] Patient: JOMAR YA Visit ID: [id number] 26y, M Weight: 94.3 kg Height/Length: 64 in BMI: 35.7 ALLERGIES: Latex, Vicodin, Amoxicillin, Keflex, morphine, Nitrofurantoin Given 09:16 05/14/2016 Cristopher Hankins R.N. Medication Administered: FENTANYL [IVP], Dose: 50 mcg IVP, Site: #1 left upper arm. Medication Ordered: Fentanyl IV 50 mcg (HIGH ALERT MEDICATION, NOW). Given 10:52 05/14/2016 Viky Dwyer R.N. Medication Administered: ETOMIDATE [IVP], Dose: 20 mg IVP over 2 minute(s), Site: #1 left upper arm. Medication Ordered: Etomidate IV 20 mg (HIGH ALERT MEDICATION). Given 10:54 05/14/2016 Viky Dwyer R.N. Medication Administered: FENTANYL [IVP], Dose: 100 mcg IVP over 2 minute(s), Site: #1 left upper arm. Medication Ordered: Fentanyl IV 100 mcg (HIGH ALERT MEDICATION). Given 10:58 05/14/2016 Cristopher Hankins R.N. Medication Administered: PROPOFOL [IVP], Dose: 100 mg IVP, Site: #1 left upper arm. Medication Ordered: Propofol IV 100 mg (HIGH ALERT MEDICATION). Given 10:59 05/14/2016 Viky Dwyer R.N. Medication Administered: FENTANYL [IVP], Dose: 100 mcg IVP over 2 minute(s), Site: #1 left upper arm. Medication Ordered: Fentanyl IV 100 mcg (HIGH ALERT MEDICATION).
--- NOTE | 2016-05-19 11:20 | ED MED RECONCILIATION SUMMARY ---
Patient: JOMAR YA Medication Reconciliation Report [facility] VisitID: [id number] [address] [place] [address] 26y, M Registration Date/Time: 05/14/2016 Weight: 94.3 kg Height/Length: 64 in. BMI: 35.7 ALLERGIES: Amoxicillin, Keflex, Latex, morphine, Nitrofurantoin, Vicodin The patient's Home Medications are listed below: CONTINUE TAKING THE FOLLOWING MEDICATIONS: Benadryl Allergy Oral 50mg , daily Keppra Oral 1500mg , 2x a day KlonoPIN Oral 1 mg, daily Lacosamide Oral 75MG , 2 X DAILY LORazepam Oral 1 mg Mirapex Oral 1 mg, at bedtime Oxybutynin Chloride Oral 10 mg, 2x a day SEROquel Oral 125mg, daily, + 125MG prn ZyrTEC Allergy Oral (10 mg) 2 capsules, daily The source(s) of the original Home Medication information: Not obtained. The following Medications were given to the patient in the Emergency Department: Fentanyl [IVP] IVP 50 mcg, administered: 05/14/2016 9:16:00 AM Fentanyl [IVP] IVP 100 mcg, administered: 05/14/2016 10:54:00 AM Fentanyl [IVP] IVP 100 mcg, administered: 05/14/2016 10:59:00 AM Etomidate [IVP] IVP 20 mg, administered: 05/14/2016 10:52:00 AM PROPOFOL [IVP] IVP 100 mg, administered: 05/14/2016 10:58:00 AM The following Medications were prescribed to the patient: Percocet 5 mg/325 mg: take 1 tablet orally every 6 hours as needed for pain. Dispense twenty (20). No refill. Substitution is permissible. -- Missael Boles Dr.
--- NOTE | 2016-05-19 11:20 | ED MED RECONCILIATION SUMMARY ---
Patient: JOMAR YA Medication Reconciliation Report [facility] VisitID: [id number] [address] [place] [address] 26y, M Registration Date/Time: 05/14/2016 Weight: 94.3 kg Height/Length: 64 in. BMI: 35.7 ALLERGIES: Amoxicillin, Keflex, Latex, morphine, Nitrofurantoin, Vicodin The patient's Home Medications are listed below: CONTINUE TAKING THE FOLLOWING MEDICATIONS: Benadryl Allergy Oral 50mg , daily Keppra Oral 1500mg , 2x a day KlonoPIN Oral 1 mg, daily Lacosamide Oral 75MG , 2 X DAILY LORazepam Oral 1 mg Mirapex Oral 1 mg, at bedtime Oxybutynin Chloride Oral 10 mg, 2x a day SEROquel Oral 125mg, daily, + 125MG prn ZyrTEC Allergy Oral (10 mg) 2 capsules, daily The source(s) of the original Home Medication information: Not obtained. The following Medications were given to the patient in the Emergency Department: Fentanyl [IVP] IVP 50 mcg, administered: 05/14/2016 9:16:00 AM Fentanyl [IVP] IVP 100 mcg, administered: 05/14/2016 10:54:00 AM Fentanyl [IVP] IVP 100 mcg, administered: 05/14/2016 10:59:00 AM Etomidate [IVP] IVP 20 mg, administered: 05/14/2016 10:52:00 AM PROPOFOL [IVP] IVP 100 mg, administered: 05/14/2016 10:58:00 AM The following Medications were prescribed to the patient: Percocet 5 mg/325 mg: take 1 tablet orally every 6 hours as needed for pain. Dispense twenty (20). No refill. Substitution is permissible. -- Missael Boles Dr.
--- NOTE | 2016-05-19 11:20 | ED DISCHARGE INSTRUCTIONS ---
Patient: JOMAR YA General Instructions [facility] VisitID: [id number] [place] [address] 26y, M Registration Date/Time: 05/14/2016 05/14/2016 09:10 BP: 154/79. HR: 105. RR: 18. O2 saturation: 95%. Pain level now: 8/10. Hypertensive. Oxygen saturation normal. Right anterior shoulder dislocation. Reduction in the ER (acute). Essential hypertension. INSTRUCTIONS Warnings: GENERAL WARNINGS: Return or contact your physician immediately if your condition worsens or changes unexpectedly, if not improving as expected, or if other problems arise. Specifically return if pain, vomiting, bleeding, breathing difficulty or fever. Your Current Medications: CONTINUE TAKING THE FOLLOWING MEDICATIONS: Benadryl Allergy Oral : 50mg daily. Keppra Oral : 1500mg 2x a day. KlonoPIN Oral : 1 mg daily. Lacosamide Oral : 75MG 2 X DAILY. LORazepam Oral : 1 mg, prn. Mirapex Oral : 1 mg at bedtime. Oxybutynin Chloride Oral : 10 mg 2x a day. SEROquel Oral : 125mg daily, + 125MG prn. ZyrTEC Allergy Oral : Capsule 10 mg, 2 capsules daily. Prescription Medications: Percocet 5 mg/325 mg: take 1 tablet orally every 6 hours as needed for pain. Dispense twenty (20). No refill. Substitution is permissible. Follow-up: Return to the emergency department as needed. Follow up with your doctor in three days. Reason for referral: recheck today's concerns. Summary of care provided to patient via paper. Screening today revealed the patient's blood pressure to be in the normal range. The patient should follow up with a primary care provider for blood pressure management. Understanding of the discharge instructions verbalized by patient. ADDITIONAL INFORMATION Dislocation: Shoulder (Reduced) Dislocation of the shoulder joint occurs when a strong force tears the ligaments holding the joint together. This allows the bones to move apart and become stuck out of place. Once the joint is aligned again, it will take about six weeks for the ligaments to heal. Since this injury may weaken the ligaments, you are at risk of another dislocation with less force. Therefore, care should be taken to avoid a similar injury in the future. Shoulder dislocation is treated with a shoulder immobilizer (special type of arm sling). This keeps your arm close to your body to prevent a recurrent dislocation while the ligaments heal. After a few weeks, an exercise program may be started. This will gradually restore range of motion and strength at the shoulder and decrease the risk of another dislocation. Home Care: Until your next doctor visit, wear your shoulder immobilizer at all times . Do not take it off at night to sleep. It is possible to dislocate your arm again in your sleep. You may take it off to bathe or dress, but do not move your arm away from your body. Keep your arm in the same position that the sling was holding it in, until you reapply the sling again. During your next visit, ask your doctor how long you should wear the sling. Apply an ice pack (ice cubes in a plastic bag, wrapped in a towel) over the injured area for 20 minutes every 1-2 hours the first day. Continue with ice packs 3-4 times a day for the next two days, then as needed for the relief of pain and swelling. You may use acetaminophen (Tylenol) or ibuprofen (Motrin, Advil) to control pain, unless another pain medicine was prescribed. [NOTE: If you have chronic liver or kidney disease or ever had a stomach ulcer or GI bleeding, talk with your doctor before using these medicines.] No sports or P.E. until cleared by your doctor. Follow Up with your doctor within one week or as advised by our staff. Shoulder immobilizers and slings should not be worn continuously for more than a few weeks or you may lose some [id number] at the shoulder joint. If you have had repeated dislocations of the same shoulder, that means there has been permanent ligament damage. Ask the orthopedic doctor about surgery to prevent another dislocation. Get Prompt Medical Attention if any of the following occur: Another dislocation of your shoulder Increasing swelling or pain in the shoulder or arm Fingers become cold, blue, numb or tingly High Blood Pressure -- To Be Confirmed [No Tx] Your blood pressure was higher today than normal. Sometimes anxiety or pain can cause a temporary rise in blood pressure that later returns to normal. If your blood pressure is high on one measurement, this does not mean that you have hypertension (a chronic illness). However, you must have your blood pressure measured again within the next few days to find out if its still high. A normal blood pressure is 120/80 or less. The first (top) number is the "systolic" pressure. The second (bottom) number is the "diastolic" pressure. Hypertension exists when either the top number is 140 or higher, OR the bottom number is 90 or higher on repeated measurements. Blood pressure in the range of 120-140 (systolic) or 80-89 (diastolic) is considered "pre-hypertension". This means your are at risk for getting hypertension. You should have regular blood pressure checks to be sure your blood pressure is not rising. Home Care: Measure your blood pressure on 3 different days and write down the results. This can be done at your doctor's office or this facility. Some pharmacies and grocery stores offer automated blood pressure machines for your use. Follow Up: If your blood pressure is "high" (over 120/80) on 2 out of 3 days, you will need to follow up with your doctor for further evaluation and treatment. DO NOT PUT THIS OFF! Untreated high blood pressure increases the risk for heart attack, also known as acute myocardial infarction, or AMI, and stroke. It is a treatable condition. Get Prompt Medical Attention if any of the following occur: Chest pain or shortness of breath Severe headache Throbbing or rushing sound in the ears Nosebleed Sudden severe abdominal pain Extreme drowsiness, confusion or fainting Dizziness or vertigo (dizziness with spinning sensation) Weakness of an arm or leg or one side of the face Difficulty with speech or vision Oxycodone Hydrochloride, Acetaminophen Oral tablet What is this medicine? ACETAMINOPHEN; OXYCODONE (a set a CHARLIE itz fen; ox i KOE done) is a pain reliever. It is used to treat mild to moderate pain. How should I use this medicine? Take this medicine by mouth with a full glass of water. Follow the directions on the prescription label. Take your medicine at regular intervals. Do not take your medicine more often than directed. Talk to your waffle machine operator regarding the use of this medicine in children. Special care may be needed. Patients over 65 years old may have a stronger reaction and need a smaller dose. What side effects may I notice from receiving this medicine? Side effects that you should report to your doctor or health administrator health care facility as soon as possible: allergic reactions like skin rash, itching or hives, swelling of the face, lips, or tongue breathing difficulties, wheezing confusion light headedness or fainting spells severe stomach pain yellowing of the skin or the whites of the eyes Side effects that usually do not require medical attention (report to your doctor or health administrator health care facility if they continue or are bothersome): dizziness drowsiness nausea vomiting What may interact with this medicine? alcohol antihistamines barbiturates like amobarbital, butalbital, butabarbital, methohexital, pentobarbital, phenobarbital, thiopental, and secobarbital benztropine drugs for bladder problems like solifenacin, trospium, oxybutynin, tolterodine, hyoscyamine, and methscopolamine drugs for breathing problems like ipratropium and tiotropium drugs for certain stomach or intestine problems like propantheline, homatropine methylbromide, glycopyrrolate, atropine, belladonna, and dicyclomine general anesthetics like etomidate, ketamine, nitrous oxide, propofol, desflurane, enflurane, halothane, isoflurane, and sevoflurane medicines for depression, anxiety, or psychotic disturbances medicines for sleep muscle relaxants naltrexone narcotic medicines (opiates) for pain phenothiazines like perphenazine, thioridazine, chlorpromazine, mesoridazine, fluphenazine, prochlorperazine, promazine, and trifluoperazine scopolamine tramadol trihexyphenidyl What if I miss a dose? If you miss a dose, take it as soon as you can. If it is almost time for your next dose, take only that dose. Do not take double or extra doses. Where should I keep my medicine? Keep out of the reach of children. This medicine can be abused. Keep your medicine in a safe place to protect it from theft. Do not share this medicine with anyone. Selling or giving away this medicine is dangerous and against the law. Store at room temperature between 20 and 25 degrees C (68 and 77 degrees F). Keep container tightly closed. Protect from light. This medicine may cause accidental overdose and if it is taken by other adults, children, or pets. Flush any unused medicine down the toilet to reduce the chance of harm. Do not use the medicine after the expiration date. What should I tell my health care provider before I take this medicine? They need to know if you have any of these conditions: brain tumor Crohn's disease, inflammatory bowel disease, or ulcerative colitis drink more than 3 alcohol containing drinks per day drug abuse or addiction head injury heart or circulation problems kidney disease or problems going to the bathroom liver disease lung disease, asthma, or breathing problems an unusual or allergic reaction to acetaminophen, oxycodone, other opioid analgesics, other medicines, foods, dyes, or preservatives or trying to get breast-feeding What should I watch for while using this medicine? Tell your doctor or health administrator health care facility if your pain does not go away, if it gets worse, or if you have new or a different type of pain. You may develop tolerance to the medicine. Tolerance means that you will need a higher dose of the medication for pain relief. Tolerance is normal and is expected if you take this medicine for a long time. Do not suddenly stop taking your medicine because you may develop a severe reaction. Your body becomes used to the medicine. This does NOT mean you are addicted. Addiction is a behavior related to getting and using a drug for a non-medical reason. If you have pain, you have a medical reason to take pain medicine. Your doctor will tell you how much medicine to take. If your doctor wants you to stop the medicine, the dose will be slowly lowered over time to avoid any side effects. You may get drowsy or dizzy. Do not drive, use machinery, or do anything that needs mental alertness until you know how this medicine affects you. Do not stand or sit up quickly, especially if you are an older patient. This reduces the risk of dizzy or fainting spells. Alcohol may interfere with the effect of this medicine. Avoid alcoholic drinks. There are different types of narcotic medicines (opiates) for pain. If you take more than one type at the same time, you may have more side effects. Give your health care provider a list of all medicines you use. Your doctor will tell you how much medicine to take. Do not take more medicine than directed. Call emergency for help if you have problems breathing. The medicine will cause constipation. Try to have a bowel movement at least every 2 to 3 days. If you do not have a bowel movement for 3 days, call your doctor or health administrator health care facility. Do not take Tylenol (acetaminophen) or medicines that have acetaminophen with this medicine. Too much acetaminophen can be very dangerous. Many nonprescription medicines contain acetaminophen. Always read the labels carefully to avoid taking more acetaminophen. You have been given the following additional information: Dislocation: Shoulder (Reduced) Hypertension, To Be Confirmed Oxycodone Hydrochloride, Acetaminophen Oral tablet (Electronically signed by Missael Boles Dr. 05/19/2016 11:19) (Electronically signed by Jude Dotson MD 05/14/2016 13:19)
--- NOTE | 2016-05-19 11:20 | ED MAR SUMMARY ---
..... Medication Administration Record [facility] [address] [place] [address] Patient: JOMAR YA Visit ID: [id number] 26y, M Weight: 94.3 kg Height/Length: 64 in BMI: 35.7 ALLERGIES: Latex, Vicodin, Amoxicillin, Keflex, morphine, Nitrofurantoin Given 09:16 05/14/2016 Cristopher Hankins R.N. Medication Administered: FENTANYL [IVP], Dose: 50 mcg IVP, Site: #1 left upper arm. Medication Ordered: Fentanyl IV 50 mcg (HIGH ALERT MEDICATION, NOW). Given 10:52 05/14/2016 Viky Dwyer R.N. Medication Administered: ETOMIDATE [IVP], Dose: 20 mg IVP over 2 minute(s), Site: #1 left upper arm. Medication Ordered: Etomidate IV 20 mg (HIGH ALERT MEDICATION). Given 10:54 05/14/2016 Viky Dwyer R.N. Medication Administered: FENTANYL [IVP], Dose: 100 mcg IVP over 2 minute(s), Site: #1 left upper arm. Medication Ordered: Fentanyl IV 100 mcg (HIGH ALERT MEDICATION). Given 10:58 05/14/2016 Cristopher Hankins R.N. Medication Administered: PROPOFOL [IVP], Dose: 100 mg IVP, Site: #1 left upper arm. Medication Ordered: Propofol IV 100 mg (HIGH ALERT MEDICATION). Given 10:59 05/14/2016 Viky Dwyer R.N. Medication Administered: FENTANYL [IVP], Dose: 100 mcg IVP over 2 minute(s), Site: #1 left upper arm. Medication Ordered: Fentanyl IV 100 mcg (HIGH ALERT MEDICATION).
== END 2016-05-14 12:10 | disposition home or self-care (01) ==
LOC: ED SRH 06:31
DX: S43.014A Anterior dislocation of right humerus, initial encounter (principal); X58.XXXA Exposure to other specified factors, initial encounter; Y93.84 Activity, sleeping; Y99.9 Unspecified external cause status; Y92.009 Unspecified place in unspecified non-institutional (private) residence as the place of occurrence of the external cause; I10 Essential (primary) hypertension; Z88.1 Allergy status to other antibiotic agents; Z79.899 Other long term (current) drug therapy; Z88.5 Allergy status to narcotic agent

== ENCOUNTER 2016-05-15 23:24 | Emergency (ER) | payer BC, OTHER ==
--- NOTE | 2016-05-16 02:08 | ED ORDER SUMMARY ---
..... Patient: JOMAR YA OrderSheet [facility] VisitID: [id number] [address] [place] [address] 26y, M Registration Date/Time: 05/15/2016 ORDER SHEET Weight: 94.3 kg (stated) Allergies: Amoxicillin, Keflex, Latex, morphine, Nitrofurantoin, Vicodin GENERAL ORDERS: Shoulder 2V or more Right Urgent (23:27 05/15/2016 Isa Perry) (Ack 23:29 Alberto) (23:45 Jonna) Consent for: (closed right shoulder reduction) (00:20 05/16/2016 Isa Perry) (0:21 EHassan R.N.) Consent for Sedation (00:20 05/16/2016 Isa Perry) (0:21 EHassan R.N.) Shoulder 1V Right Urgent (01:12 05/16/2016 Isa Perry) (1:16 [facility] ER Nanotechnician) MEDICATION ORDERS: IV FLUIDS: IV NS : initial bolus 1000 mL (1000 mL/hr), then none - for X1 (NOW) (23:26 05/15/2016 Isa Perry) (0:28 EHassan R.N.) Fentanyl IV 50 mcg (HIGH ALERT MEDICATION, NOW) (00:19 05/16/2016 Isa Perry) (0:29 EHassan R.N.) Propofol IV 100 mg (once for sedation) (00:20 05/16/2016 Isa Perry) (1:32 EHassan R.N.) Fentanyl IV 50 mcg (NOW) (00:21 05/16/2016 EHassan R.N. verbal order read back to Isa Perry) (Cancelled: Other0:21 EHassan R.N.) ORDER SHEET NOTES: [Electronically signed by Amy Solorzano R.N. (02:44 05/16/2016)] [Electronically signed by Missael Boles Dr. (12:46 05/19/2016)] [Electronically locked/signed by Amy Solorzano R.N. (02:44 05/16/2016)]
--- NOTE | 2016-05-16 02:08 | ED NURSING NOTES ---
Clinical Report - Nurses [facility] [address] [place] [address] 05/15/2016 23:24 Patient: JOMAR YA TRIAGE Acuity: LEVEL 4. Chief Complaint: INJURY TO RIGHT SHOULDER. Alert. No acute distress. SEPSIS SCREEN: Sepsis Screen. Negative (no infection suspected/documented). --23:41 Amy Solorzano R.N. 23:28 05/15/16. BP: 127/71 taken while sitting. HR: 102 (regular, normal rate and strong). RR: 16. O2 saturation: 96% on room air. Temp: 98.8 F (oral). Pain level now: 11/05. --23:41 Amy Solorzano R.N. Weight: 94.3 kg stated. --23:32 Amy Solorzano R.N.. Height/Length: 64 inches Per Patient. BMI: 35.7. --23:28 Amy Solorzano R.N. Medications Benadryl Allergy Oral 50mg , daily. Keppra Oral 1500mg , 2x a day. KlonoPIN Oral 1 mg, daily. --23:37 Amy Solorzano R.N. Lacosamide Oral 75MG , 2 X DAILY. LORazepam Oral 1 mg, as needed. Mirapex Oral 1 mg, at bedtime. Oxybutynin Chloride Oral 10 mg, 2x a day. SEROquel Oral 125mg, daily (+ 125MG prn). ZyrTEC Allergy Oral (Capsule 10 mg) 2 capsules, daily. --23:37 Amy Solorzano R.N. Allergies Amoxicillin. Keflex. Latex. morphine. Nitrofurantoin. --23:37 Amy Solorzano R.N. Vicodin. --23:37 Amy Solorzano R.N. Medication/allergy information source: the patient. --23:41 Amy Solorzano R.N. History Arrived by EMS. Historian: patient and family. Accompanied by family. ( Pt states at home taking off his shirt when "it pop off", pt was just here this week. Pt came via EMS with sling in place.). This occurred today. Occurred at home. This was not an incised wound. He has had neck pain. No weakness or numbness. 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 PAST MEDICAL HX: Tetanus status: up-to-date. Immunizations: up-to-date. SOCIAL HX: Never smoker. No alcohol use or drug use. No infectious disease exposure. ABUSE ASSESSMENT: No report of abuse. SELF HARM ASSESSMENT: A self harm assessment was performed. The patient answered "no" to the question "Have you recently had thoughts about harming or killing others?". FALL RISK ASSESSMENT: Fall risk assessment completed. No fall risk identified. NUTRITIONAL RISK ASSESSMENT: The nutritional risk assessment revealed no deficiencies. FUNCTIONAL ASSESSMENT: Functional assessment: no impairments noted. SKIN INTEGRITY ASSESSMENT: Skin integrity risk assessment completed. No skin integrity risk identified. --23:41 Amy Solorzano R.N. No weakness or numbness. --23:46 Amy Solorzano R.N. PROBLEMS: Infections. UTI - Urinary Tract Infection. Nerve Injury, Upper Extremity. Dental Pain. Gastroenteritis. Changed Mental Status. Constipation. Chronic bladder infections. Atypical Chest Pain. Vomiting. Tetanus Status. Hypertension. Chronic Headache. Neurological Disease. Migraine Headache. Tension-Type Headache. Urinary Retention. Abdominal Pain. Prior Injury, Same Area. Rotator Cuff Injury. Immunizations. Seizure Disorder. Dislocated Shoulder. Depression. Anxiety Reaction. Restless Legs Syndrome. Sleep Apnea. Spina Bifida Occulta. --23:38 Amy Solorzano R.N. UTI - Urinary Tract Infection [RuleOut]. Back Pain [RuleOut]. --23:38 Amy Solorzano R.N. ADDITIONAL SURGERIES: Bladder Augmention. Botox bladder injection. Foot surgery. Shoulder Surgery. --23:38 Amy Solorzano R.N. Interventions ID band on patient. --23:41 Amy Solorzano R.N. PHYSICAL ASSESSMENT To room via wheelchair. GENERAL / NEURO / PSYCH: Appears anxious. The patient is disoriented to person, place and time. EXTREMITIES: Capillary refill is less than 2 seconds in the extremities. Extremity pulses are within normal limits. Extremities exhibit normal ROM. Neuro-vascular status intact to the extremity. Right wrist: No erythema, laceration, abrasion or puncture wound. ( tingling in finger). SKIN: Skin intact. Skin is warm and dry. --23:44 Amy Solorzano R.N. NURSING PROGRESS NOTES The initial plan of care for this patient has been created This plan of care was discussed with the patient. Patient gowned. Warming measures: blanket applied. Two patient identifiers checked. Call light placed in reach. Side rails up x 1. Bed placed in lowest position. Brakes of bed on. Visitor at bedside. --23:45 Amy Solorzano R.N. 00:18 05/16/2016 Site #1 started via IV foot with an 22g angiocath; one attempt. Saline lock flushed. --00:28 Amy Solorzano R.N. 00:28 05/16/2016 Started bag #1 1000 mL IV Fluids IV NS (Saline); at 1000 mL/hr over 1 hour(s) via site #1 via dial-a-flow. Allergies verified and confirmed 5 rights. IV patency established. IV site checked: no pain, redness, or swelling. IV flushed thoroughly pre- and post-medication administration. --00:28 Amy Solorzano R.N. 00:29 05/16/2016 Fentanyl IVP 50 mcg given over 30 second(s) via site #1. Allergies verified, confirmed 5 rights and sedative warning given to the patient. IV patency established. IV site checked: no pain, redness, or swelling. IV flushed thoroughly pre- and post-medication administration. IVP given by RN. --00:29 Amy Solorzano R.N. 01:07 05/16/2016 propofol * IVP 100 --01:32 Amy Solorzano R.N. late entry - 0113 AM. Cardiac rhythm: normal sinus rhythm. Reassurance given. Reassessment after medication administered. He is calm and resting quietly and has had no adverse reaction. Overall patient status is improved- he states feels better. ( Pt aware of doing a reduction, set up in place, RT called, consent obtained, verbalizes understanding. Difficult IV placement, ok by Dr. Boles to place IV on the foot.). GENERAL / NEURO / PSYCH: Denies numbness or tingling. Alert. Oriented X 4. No alteration in mental status. No sensory deficit. RESPIRATORY: No abnormal breath sounds. CVS: Capillary refill is greater than 2 seconds. GI / : Denies nausea or vomiting. Two patient identifiers checked. Call light placed in reach. Side rails up. Bed placed in lowest position. Brakes of bed on. --02:26 Amy Solorzano R.N. 01:00 05/16/16. BP: 137/86. HR: 90. RR: 18. O2 saturation: 95% on room air. Temp: 97.9 F (oral). Pain level now: 12/06. --02:26 Amy Solorzano R.N. late entry - 01:14 AM. --02:28 Amy Solorzano R.N. 01:14 05/16/16. BP: 131/87. HR: 86. RR: 18. O2 saturation: 93% on room air. Pain level now: 12/06. --02:28 Amy Solorzano R.NIsrael 01:15 05/16/16. BP: 141/86 taken on the left arm, while lying. HR: 89 (regular and normal rate). RR: 21 (regular and unlabored). O2 saturation: 93% on room air. Pain level now: 12/06. --02:33 Amy Solorzano R.N. late entry - 01:15 AM. Cardiac rhythm: normal sinus rhythm. Reassurance given. ( Time out verified, RT in place, tech, MD and RN all at bedside, safety maintained, procedure of closed reduction of right shoulder, pt tolerated well, VSS). Two patient identifiers checked. Call light placed in reach. Side rails up x 2. Bed placed in lowest position. Brakes of bed on. --02:33 Amy Solorzano R.N. 01:15 05/16/2016 Propofol * IVP 100 mg --02:42 Amy Solorzano R.N. 01:43 05/16/2016 IV Fluids IV NS Discontinued: bag #1 completed upon discharge. Total amount infused: 1000 mL. IV patency established. IV site checked: no pain, redness, or swelling. IV flushed thoroughly. --02:44 Amy Solorzano R.N. DISPOSITION / DISCHARGE 02:11 05/16/2016 Site #1 removed upon discharge. Catheter intact. Manual pressure applied. --02:36 Amy Solorzano R.N. Cardiac rhythm: normal sinus rhythm. Departure time: 0214 AM. Condition at departure: improved and stable. The goals identified in the patient's plan of care were met. No learning barriers present. Discharge instructions provided and reviewed with the patient. Reviewed warnings (follow-ip with MD as soon as possible). Activity restrictions (rest) reviewed. Patient verbalized understanding. Written instructions provided in Armenian. No medication instructions, treatment instructions, referrals given to the patient, diet instructions or stop smoking instructions. The patient was discharged by the physician. He was discharged home and accompanied by family. He left the Emergency Department ambulatory and via private vehicle. Spouse driving. ( Pt recovered, tolerated procedure well, VSS, right arm placed on a sling for comfort). FALL RISK ASSESSMENT: Fall risk assessment completed. No fall risk identified. LAWRENCE COMA SCORE: Lawrence Coma Scale: 15- eyes open spontaneously (4); best verbal response- oriented x 4 (5); best motor response- obeys commands (6). --02:40 Amy Solorzano R.N. 02:00 05/16/16. BP: 115/62 (regular adult cuff) taken on the left arm, via an automated monitor, while standing. HR: 73. RR: 15. O2 saturation: 95% on room air. Temp: 97.8 F. Pain level now: 05/08. --02:40 Amy Solorzano R.N. Locked/Released at 05/16/2016 2:44 by Amy Solorzano R.N.
--- NOTE | 2016-05-16 02:08 | ED CLINICAL REPORT ---
Clinical Report - Physicians/Mid Levels [facility] [address] [place] [address] 05/15/2016 23:24 Patient: JOMAR YA Arrived- By ambulance. Historian- patient. HISTORY OF PRESENT ILLNESS Chief Complaint: Injury to right shoulder. The injury happened today. Occurred at home. ( patient was removed drawing it popped out.). Patient is experiencing severe pain. Patient denies injury to the head or neck. No other injury. ( Patient with chronic history of right-sided shoulder dislocations.). REVIEW OF SYSTEMS No swelling, tingling, numbness, weakness or suspected foreign body. No skin laceration. All systems otherwise negative, except as recorded above. PAST HISTORY See nurses notes. Tetanus immunization status is up-to-date. Medications: Lacosamide Oral 75MG , 2 X DAILY. LORazepam Oral 1 mg, as needed. Mirapex Oral 1 mg, at bedtime. Oxybutynin Chloride Oral 10 mg, 2x a day. SEROquel Oral 125mg, daily (+ 125MG prn). ZyrTEC Allergy Oral (Capsule 10 mg) 2 capsules, daily. Benadryl Allergy Oral 50mg , daily. Keppra Oral 1500mg , 2x a day. KlonoPIN Oral 1 mg, daily. Allergies: Amoxicillin. Keflex. Latex. morphine. Nitrofurantoin. Vicodin. SOCIAL HISTORY Never smoker. No alcohol use or drug use. Is a local resident. PHYSICAL EXAM Appearance: Alert. Oriented X3. No acute distress. Head: Head atraumatic. Eyes: Pupils equal, round and reactive to light. Eyes normal inspection. ENT: Ears normal. Nose normal. Pharynx normal. (wearing glasses). Neck: Normal inspection. Neck supple. C-spine non-tender. No vertebral tenderness. CVS: Normal heart rate and rhythm. Heart sounds normal. Pulses normal. Respiratory: No respiratory distress. Breath sounds normal. Chest nontender. Abdomen: No visible injury. Soft and nontender. Bowel sounds normal. (Fistula noted to the umbilicus. Wound is clean dry and intact. Normal-appearing pink tissue with active peristalsis like contractions.). Back: Normal inspection. No tenderness. ROM normal. Skin: Skin intact. Skin warm and dry. Normal skin color. Normal skin turgor. Extremities: (Step-off noted to the glenohumeral joint. Humeral head noted to the in the anterior position on palpation. No overlying skin changes. Sensation over the deltoid intact. Compartments are soft. No other bony abdomen bodies noted. No crepitus. Patient has no tenderness to the neck, back, or rest of the upper Extremity. Pulses are 2plus and symmetrical to the contralateral side at the radial arteries.). Extremities otherwise negative. Neuro: Oriented X 3. No motor deficit. No sensory deficit. LABS, X-RAYS, AND EKG Rt Shoulder X-ray: No fracture. No air in the soft tissue or foreign body. (Anterior dislocation.). Views: AP with external rotation, AP with internal rotation and axillary. The X-rays were independently viewed by me and interpreted contemporaneously by me. A comparison with prior films (Prior radiographs with similar dislocationpattern. Had been reducedon prior visit.). PROGRESS AND PROCEDURES Procedural Sedation: Mallampati Classification: Class 1 - soft palate, anterior / posterior tonsillar pillars and uvula visible. Normal airway anatomy. Preparation: consent was obtained and the risks of the procedure, benefits and alternatives were explained to patient. IV established. O2 administered. Placed on pulse oximeter and trawl net maker. Suction was made available. Medications: Propofol IV administered by physician. Patient status during sedation: was attended constantly was asleep with sluggish response to stimulation. Complications: None. Post-procedure: Recovery was uneventful. Returned to baseline. Mental status normal. No acute distress. Intra-service time 16-37 minutes. The patient has no history of an adverse anesthesia reaction or family history of an adverse anesthesia reaction. Reduction of Dislocated Shoulder: IV established. O2 administered. Placed on pulse oximeter and trawl net maker. Neurovascular exam intact pre-procedure. The right shoulder was reduced using traction-countertraction technique. Reassessed post-procedure. Neurovascular status intact. Deltoid sensation normal. Exam indicated reduction. Confirmed reduction on X-ray. Arm sling applied. Course of Care: the patient is a pleasant 26-year-old male with past medical history significant for right-sided shoulder dislocations. Patient had a emergency department report indicating that the patient had a history of multiple shoulder dislocations. Had spoken to patient in regards to having the shoulder relocated without procedural sedation. Patient is extremely has attends and oriented to do this. Patient cites extreme discomfort and pain as the reason for not wanting to have the shoulder relocated. No neurovascular compromise. Informed written consent obtained for the procedure including sedation. Patient is agreeable to treatment plan. Please see procedure note for further details. Patient had recovered uneventfully. No other abnormalities noted. Sling applied. Encouraged patient to follow up with orthopedic surgery. Again no neurovascular compromise noted on repeat examination. I discussed with patient workup, diagnosis, home care, follow-up, and return precautions. All questions answered. The patient expressed understanding of these instructions and was agreeable to them. Critical care performed (30 minutes). Time is exclusive of separately billable procedures. Time includes: direct patient care, patient reassessment, coordination of patient care, interpretation of data (laboratory data), review of patient's medical records, medical consultation and documentation of patient care. Disposition: Discharged. Condition: good. CLINICAL IMPRESSION 05/15/2016 23:28 BP: 127/71. HR: 102. RR: 16. O2 saturation: 96%. Temp: 98.8 F. Pain level now: 8/10. Blood pressure normal. Oxygen saturation normal. Right anterior shoulder dislocation (acute). INSTRUCTIONS Warnings: GENERAL WARNINGS: Return or contact your physician immediately if your condition worsens or changes unexpectedly, if not improving as expected, or if other problems arise. Specifically return if pain, vomiting, bleeding, breathing difficulty or fever. numbness, tingling, weakness, or other concerns. Your Current Medications: CONTINUE TAKING THE FOLLOWING MEDICATIONS: Benadryl Allergy Oral : 50mg daily. Keppra Oral : 1500mg 2x a day. KlonoPIN Oral : 1 mg daily. Lacosamide Oral : 75MG 2 X DAILY. LORazepam Oral : 1 mg, prn. Mirapex Oral : 1 mg at bedtime. Oxybutynin Chloride Oral : 10 mg 2x a day. SEROquel Oral : 125mg daily, + 125MG prn. ZyrTEC Allergy Oral : Capsule 10 mg, 2 capsules daily. Follow-up: Return to the emergency department as needed. Follow up with your doctor in three days. Reason for referral: recheck today's concerns. Summary of care provided to patient via paper. Screening today revealed the patient's blood pressure to be in the normal range. The patient should follow up with a primary care provider for blood pressure management. Understanding of the discharge instructions verbalized by patient. (Electronically signed by Missael Boles Dr. 05/19/2016 12:46) Karol razo JOMAR YA VisitID: [id number] Date: 05/15/2016 05/16/2016 3:03 Fentanyl IVP 50 mcg given over 30 second(s) via site #1. Allergies verified, confirmed 5 rights and sedative warning given to the patient and patient's family. IV patency established. IV site checked: no pain, redness, or swelling. IV flushed thoroughly pre- and post-medication administration. IVP given by RN. (Electronically signed by Amy Solorzano R.N. - 05/16/2016 3:03) 05/16/2016 3:03 Fentanyl IVP Response: no adverse reaction pain is gone now. Symptoms have improved the patient feels better. (Electronically signed by Amy Solorzano R.N. - 05/16/2016 3:03)
--- NOTE | 2016-05-16 02:08 | ED ORDER SUMMARY ---
..... Patient: JOMAR YA OrderSheet [facility] VisitID: [id number] [address] [place] [address] 26y, M Registration Date/Time: 05/15/2016 ORDER SHEET Weight: 94.3 kg (stated) Allergies: Amoxicillin, Keflex, Latex, morphine, Nitrofurantoin, Vicodin GENERAL ORDERS: Shoulder 2V or more Right Urgent (23:27 05/15/2016 Isa Perry) (Ack 23:29 Alberto) (23:45 Jonna) Consent for: (closed right shoulder reduction) (00:20 05/16/2016 Isa Perry) (0:21 EHassan R.N.) Consent for Sedation (00:20 05/16/2016 Isa Perry) (0:21 EHassan R.N.) Shoulder 1V Right Urgent (01:12 05/16/2016 Isa Perry) (1:16 [facility] Ecological Economist) MEDICATION ORDERS: IV FLUIDS: IV NS : initial bolus 1000 mL (1000 mL/hr), then none - for X1 (NOW) (23:26 05/15/2016 Isa Perry) (0:28 EHassan R.N.) Fentanyl IV 50 mcg (HIGH ALERT MEDICATION, NOW) (00:19 05/16/2016 Isa Perry) (0:29 EHassan R.N.) Propofol IV 100 mg (once for sedation) (00:20 05/16/2016 Isa Perry) (1:32 EHassan R.N.) Fentanyl IV 50 mcg (NOW) (00:21 05/16/2016 EHassan R.N. verbal order read back to Isa Perry) (Cancelled: Other0:21 EHassan R.N.) ORDER SHEET NOTES: [Electronically signed by Amy Solorzano R.N. (02:44 05/16/2016)] [Electronically signed by Missael Boles Dr. (12:46 05/19/2016)] [Electronically locked/signed by Amy Solorzano R.N. (02:44 05/16/2016)]
--- NOTE | 2016-05-16 08:51 | DIAGNOSTIC IMAGING REPORT ---
PROCEDURE: XR SHOULDER 2 OR MORE VW-RIGHT INDICATION: TRAUMA/INJURY TECHNIQUE: Three views. COMPARISON: Right shoulder x-ray 05/14/2016 FINDINGS: Humeral head displaced inferomedially with Hill-Sachs deformity. Normal AC joint. Soft tissues are unremarkable. IMPRESSION: 1. Anterior right shoulder dislocation with Hill-Sachs deformity
--- NOTE | 2016-05-16 08:56 | DIAGNOSTIC IMAGING REPORT ---
PROCEDURE: XR SHOULDER 1 VIEW - RIGHT INDICATION: POST REDUCTION TECHNIQUE: AP view COMPARISON: Right shoulder x-ray 05/15/2016 FINDINGS: There has been reduction of the anterior shoulder dislocation with Hill-Sachs deformity. Normal AC joint and soft tissues. IMPRESSION: 1. Reduced right shoulder anterior dislocation
--- NOTE | 2016-05-19 12:46 | ED MED RECONCILIATION SUMMARY ---
Patient: JOMAR YA Medication Reconciliation Report [facility] VisitID: [id number] [address] [place] [address] 26y, M Registration Date/Time: 05/15/2016 Weight: 94.3 kg Height/Length: 64 in. BMI: 35.7 ALLERGIES: Amoxicillin, Keflex, Latex, morphine, Nitrofurantoin, Vicodin The patient's Home Medications are listed below: CONTINUE TAKING THE FOLLOWING MEDICATIONS: Benadryl Allergy Oral 50mg , daily Keppra Oral 1500mg , 2x a day KlonoPIN Oral 1 mg, daily Lacosamide Oral 75MG , 2 X DAILY LORazepam Oral 1 mg Mirapex Oral 1 mg, at bedtime Oxybutynin Chloride Oral 10 mg, 2x a day SEROquel Oral 125mg, daily, + 125MG prn ZyrTEC Allergy Oral (10 mg) 2 capsules, daily The source(s) of the original Home Medication information: patient The following Medications were given to the patient in the Emergency Department: IV NS IV Fluids bolus 0, then 1000 mL/hr, administered: 05/16/2016 12:28:00 AM Fentanyl [IVP] IVP 50 mcg, administered: 05/16/2016 12:29:00 AM propofol IVP 100, administered: 05/16/2016 1:07:00 AM Propofol IVP 100 mg, administered: 05/16/2016 1:15:00 AM Fentanyl [IVP] IVP 50 mcg, administered: 05/16/2016 1:45:00 AM The following Medications were prescribed to the patient: None.
--- NOTE | 2016-05-19 12:46 | ED DISCHARGE INSTRUCTIONS ---
Patient: JOMAR YA General Instructions [facility] VisitID: [id number] [place] [address] 26y, M Registration Date/Time: 05/15/2016 05/15/2016 23:28 BP: 127/71. HR: 102. RR: 16. O2 saturation: 96%. Temp: 98.8 F. Pain level now: 8/10. Blood pressure normal. Oxygen saturation normal. Right anterior shoulder dislocation (acute). INSTRUCTIONS Warnings: GENERAL WARNINGS: Return or contact your physician immediately if your condition worsens or changes unexpectedly, if not improving as expected, or if other problems arise. Specifically return if pain, vomiting, bleeding, breathing difficulty or fever. numbness, tingling, weakness, or other concerns. Your Current Medications: CONTINUE TAKING THE FOLLOWING MEDICATIONS: Benadryl Allergy Oral : 50mg daily. Keppra Oral : 1500mg 2x a day. KlonoPIN Oral : 1 mg daily. Lacosamide Oral : 75MG 2 X DAILY. LORazepam Oral : 1 mg, prn. Mirapex Oral : 1 mg at bedtime. Oxybutynin Chloride Oral : 10 mg 2x a day. SEROquel Oral : 125mg daily, + 125MG prn. ZyrTEC Allergy Oral : Capsule 10 mg, 2 capsules daily. Follow-up: Return to the emergency department as needed. Follow up with your doctor in three days. Reason for referral: recheck today's concerns. Summary of care provided to patient via paper. Screening today revealed the patient's blood pressure to be in the normal range. The patient should follow up with a primary care provider for blood pressure management. Understanding of the discharge instructions verbalized by patient. ADDITIONAL INFORMATION Dislocation: Shoulder (Reduced) Dislocation of the shoulder joint occurs when a strong force tears the ligaments holding the joint together. This allows the bones to move apart and become stuck out of place. Once the joint is aligned again, it will take about six weeks for the ligaments to heal. Since this injury may weaken the ligaments, you are at risk of another dislocation with less force. Therefore, care should be taken to avoid a similar injury in the future. Shoulder dislocation is treated with a shoulder immobilizer (special type of arm sling). This keeps your arm close to your body to prevent a recurrent dislocation while the ligaments heal. After a few weeks, an exercise program may be started. This will gradually restore range of motion and strength at the shoulder and decrease the risk of another dislocation. Home Care: Until your next doctor visit, wear your shoulder immobilizer at all times . Do not take it off at night to sleep. It is possible to dislocate your arm again in your sleep. You may take it off to bathe or dress, but do not move your arm away from your body. Keep your arm in the same position that the sling was holding it in, until you reapply the sling again. During your next visit, ask your doctor how long you should wear the sling. Apply an ice pack (ice cubes in a plastic bag, wrapped in a towel) over the injured area for 20 minutes every 1-2 hours the first day. Continue with ice packs 3-4 times a day for the next two days, then as needed for the relief of pain and swelling. You may use acetaminophen (Tylenol) or ibuprofen (Motrin, Advil) to control pain, unless another pain medicine was prescribed. [NOTE: If you have chronic liver or kidney disease or ever had a stomach ulcer or GI bleeding, talk with your doctor before using these medicines.] No sports or P.E. until cleared by your doctor. Follow Up with your doctor within one week or as advised by our staff. Shoulder immobilizers and slings should not be worn continuously for more than a few weeks or you may lose some [id number] at the shoulder joint. If you have had repeated dislocations of the same shoulder, that means there has been permanent ligament damage. Ask the orthopedic doctor about surgery to prevent another dislocation. Get Prompt Medical Attention if any of the following occur: Another dislocation of your shoulder Increasing swelling or pain in the shoulder or arm Fingers become cold, blue, numb or tingly You have been given the following additional information: Dislocation: Shoulder (Reduced) (Electronically signed by Missael Boles Dr. 05/19/2016 12:46)
--- NOTE | 2016-05-19 12:46 | ED MAR SUMMARY ---
..... Medication Administration Record [facility] [address] [place] [address] Patient: JOMAR YA Visit ID: [id number] 26y, M Weight: 94.3 kg Height/Length: 64 in BMI: 35.7 ALLERGIES: Amoxicillin, Keflex, Latex, morphine, Nitrofurantoin, Vicodin Start 00:28 05/16/2016 Amy Solorzano R.N., Stop 01:43 05/16/2016 Amy Solorzano R.N. Medication Administered: IV NS (SALINE), Dose: IV Fluids over 1 hour(s), Rate: 1000 mL/hr, Dispensed: 1000 mL bag, Site: #1 foot. Medication Ordered: IV NS : initial bolus 1000 mL (1000 mL/hr), then none - for X1 (NOW). Given 00:29 05/16/2016 Amy Solorzano R.N. Medication Administered: FENTANYL [IVP], Dose: 50 mcg IVP over 30 second(s), Site: #1 foot. Medication Ordered: Fentanyl IV 50 mcg (HIGH ALERT MEDICATION, NOW). Given 01:07 05/16/2016 Amy Solorzano R.N. Medication Administered: propofol *, Dose: 100 * IVP. Medication Ordered: Propofol IV 100 mg (once for sedation). Given 01:15 05/16/2016 Amy Solorzano R.N. Medication Administered: Propofol *, Dose: 100 mg * IVP. Medication Ordered: Propofol IV 100 mg (once for sedation). Given 01:45 05/16/2016 Amy Solorzano R.N. Medication Administered: FENTANYL [IVP], Dose: 50 mcg IVP over 30 second(s), Site: #1 foot. Medication Ordered: Fentanyl IV 50 mcg (HIGH ALERT MEDICATION).
--- NOTE | 2016-05-19 12:46 | ED MAR SUMMARY ---
..... Medication Administration Record [facility] [address] [place] [address] Patient: JOMAR YA Visit ID: [id number] 26y, M Weight: 94.3 kg Height/Length: 64 in BMI: 35.7 ALLERGIES: Amoxicillin, Keflex, Latex, morphine, Nitrofurantoin, Vicodin Start 00:28 05/16/2016 Amy Solorzano R.N., Stop 01:43 05/16/2016 Amy Solorzano R.N. Medication Administered: IV NS (SALINE), Dose: IV Fluids over 1 hour(s), Rate: 1000 mL/hr, Dispensed: 1000 mL bag, Site: #1 foot. Medication Ordered: IV NS : initial bolus 1000 mL (1000 mL/hr), then none - for X1 (NOW). Given 00:29 05/16/2016 Amy Solorzano R.N. Medication Administered: FENTANYL [IVP], Dose: 50 mcg IVP over 30 second(s), Site: #1 foot. Medication Ordered: Fentanyl IV 50 mcg (HIGH ALERT MEDICATION, NOW). Given 01:07 05/16/2016 Amy Solorzano R.N. Medication Administered: propofol *, Dose: 100 * IVP. Medication Ordered: Propofol IV 100 mg (once for sedation). Given 01:15 05/16/2016 Amy Solorzano R.N. Medication Administered: Propofol *, Dose: 100 mg * IVP. Medication Ordered: Propofol IV 100 mg (once for sedation). Given 01:45 05/16/2016 Amy Solorzano R.N. Medication Administered: FENTANYL [IVP], Dose: 50 mcg IVP over 30 second(s), Site: #1 foot. Medication Ordered: Fentanyl IV 50 mcg (HIGH ALERT MEDICATION).
--- NOTE | 2016-05-19 12:46 | ED MED RECONCILIATION SUMMARY ---
Patient: JOMAR YA Medication Reconciliation Report [facility] VisitID: [id number] [address] [place] [address] 26y, M Registration Date/Time: 05/15/2016 Weight: 94.3 kg Height/Length: 64 in. BMI: 35.7 ALLERGIES: Amoxicillin, Keflex, Latex, morphine, Nitrofurantoin, Vicodin The patient's Home Medications are listed below: CONTINUE TAKING THE FOLLOWING MEDICATIONS: Benadryl Allergy Oral 50mg , daily Keppra Oral 1500mg , 2x a day KlonoPIN Oral 1 mg, daily Lacosamide Oral 75MG , 2 X DAILY LORazepam Oral 1 mg Mirapex Oral 1 mg, at bedtime Oxybutynin Chloride Oral 10 mg, 2x a day SEROquel Oral 125mg, daily, + 125MG prn ZyrTEC Allergy Oral (10 mg) 2 capsules, daily The source(s) of the original Home Medication information: patient The following Medications were given to the patient in the Emergency Department: IV NS IV Fluids bolus 0, then 1000 mL/hr, administered: 05/16/2016 12:28:00 AM Fentanyl [IVP] IVP 50 mcg, administered: 05/16/2016 12:29:00 AM propofol IVP 100, administered: 05/16/2016 1:07:00 AM Propofol IVP 100 mg, administered: 05/16/2016 1:15:00 AM Fentanyl [IVP] IVP 50 mcg, administered: 05/16/2016 1:45:00 AM The following Medications were prescribed to the patient: None.
== END 2016-05-16 02:14 | disposition home or self-care (01) ==
LOC: ED SRH 23:24
DX: S43.014A Anterior dislocation of right humerus, initial encounter (principal); Z79.899 Other long term (current) drug therapy; X50.0XXA Overexertion from strenuous movement or load, initial encounter; Y93.9 Activity, unspecified; Y92.009 Unspecified place in unspecified non-institutional (private) residence as the place of occurrence of the external cause; Y99.9 Unspecified external cause status; I10 Essential (primary) hypertension; Z88.5 Allergy status to narcotic agent; Z88.1 Allergy status to other antibiotic agents; Z88.8 Allergy status to other drugs, medicaments and biological substances

== ENCOUNTER 2016-05-18 14:18 | Emergency (ER) | payer BC, OTHER ==
--- NOTE | 2016-05-18 16:50 | DIAGNOSTIC IMAGING REPORT ---
PROCEDURE: XR SHOULDER 2 OR MORE VW-RIGHT INDICATION: PAIN TECHNIQUE: Three views. COMPARISON: 05/15/16 right shoulder film FINDINGS: Humeral head displaced inferomedially with Hill-Sachs deformity. Normal AC joint. Soft tissues are unremarkable. IMPRESSION: 1. Anterior right shoulder dislocation with Hill-Sachs deformity
--- NOTE | 2016-05-18 19:35 | ED CLINICAL REPORT ---
Clinical Report - Physicians/Mid Levels [facility] [address] [place] [place] [address] 05/18/2016 14:19 Patient: JOMAR YA Time Seen: 1640. Arrived- By private vehicle. Historian- patient. HISTORY OF PRESENT ILLNESS Chief Complaint: Injury to right shoulder. The injury happened today. Occurred at home. ( dislocated). Patient is experiencing moderate pain. Patient denies injury to the head or neck. No other injury. REVIEW OF SYSTEMS No swelling, tingling, numbness, weakness or suspected foreign body. No skin laceration. All systems otherwise negative, except as recorded above. PAST HISTORY See nurses notes. Tetanus immunization status is up-to-date. SOCIAL HISTORY Never smoker. No alcohol use or drug use. Is a local resident. PHYSICAL EXAM Appearance: Alert. Oriented X3. Patient in mild distress. Head: Head atraumatic. Eyes: Pupils equal, round and reactive to light. Eyes normal inspection. ENT: Ears normal. Nose normal. Pharynx normal. Neck: Normal inspection. Neck supple. C-spine non-tender. CVS: Normal heart rate and rhythm. Heart sounds normal. Pulses normal. Respiratory: No respiratory distress. Breath sounds normal. Chest nontender. Abdomen: No visible injury. Soft and nontender. Bowel sounds normal. No mass. (fistulla noted to the umbilicus. normal pink tissue). Skin: Skin intact. Skin warm and dry. Normal skin color. Normal skin turgor. Extremities: (obvious step-off to the right shoulder. The glenohumeral joint does not have the humeral head in the appropriate position. Appears to be anterior in location. No overlying skin changes. Compartments are soft. Patient is neurovascular intact. Sensation over the deltoid is intact.). Neuro, Vascular and Tendons: Sensation intact. Motor intact. Vascular status intact. Tendon function intact. Tendon visualized, uninjured. Neuro: Oriented X 3. No motor deficit. No sensory deficit. LABS, X-RAYS, AND EKG Rt Shoulder X-ray: No fracture. Anterior dislocation of the shoulder. Views: AP with external rotation, AP with internal rotation and axillary. Technique: good. The X-rays were independently viewed by me and interpreted contemporaneously by me. Post procedure films: show good alignment, findings are improved and do not show a fracture. PROGRESS AND PROCEDURES Procedural Sedation: Normal airway anatomy. Preparation: consent was obtained and the risks of the procedure, benefits and alternatives were explained to patient. IV established. O2 administered. Placed on pulse oximeter and sunglass clip attacher. Suction was made available. Medications: Propofol IV administered by physician. Patient status during sedation: was attended constantly was asleep with sluggish response to stimulation. Complications: None. Post-procedure: Recovery was uneventful. Returned to baseline. Mental status normal. No acute distress. Intra-service time 16-37 minutes. The patient has no history of an adverse anesthesia reaction or family history of an adverse anesthesia reaction. Reduction of Dislocated Shoulder: IV established. O2 administered. Placed on pulse oximeter and sunglass clip attacher. Neurovascular exam intact pre-procedure. Given Propofol. The right shoulder was reduced using traction-countertraction technique. Reassessed post-procedure. Neurovascular status intact. Deltoid sensation normal. Exam indicated reduction. Confirmed reduction on X-ray. Arm sling applied. Shoulder immobilizer applied. Course of Care: the patient is a pleasant 26-year-old male with past medical history significant for right-sided shoulder dislocations. Patient had a emergency department report indicating that the patient had a history of multiple shoulder dislocations. Had spoken to patient in regards to having the shoulder relocated without procedural sedation. Patient is extremely has attends and oriented to do this. Patient cites extreme discomfort and pain as the reason for not wanting to have the shoulder relocated. No neurovascular compromise. Informed written consent obtained for the procedure including sedation. Patient is agreeable to treatment plan. Please see procedure note for further details. Patient was agreeable to trying finger traps and weights, however states he had a bad time with that at an outside facility. Patient only able to tolerate for 12 minutes. Patient had recovered uneventfully. No other abnormalities noted. Sling applied. Encouraged patient to follow up with orthopedic surgery. Again no neurovascular compromise noted on repeat examination. I discussed with patient workup, diagnosis, home care, follow-up, and return precautions. All questions answered. The patient expressed understanding of these instructions and was agreeable to them. Disposition: Discharged. Condition: good. CLINICAL IMPRESSION 05/18/2016 15:08 BP: 145/97. HR: 94. RR: 16. O2 saturation: 97%. Temp: 99.1 F. Pain level now: 910. Hypertensive. Oxygen saturation normal. Right anterior shoulder dislocation (acute). INSTRUCTIONS Warnings: GENERAL WARNINGS: Return or contact your physician immediately if your condition worsens or changes unexpectedly, if not improving as expected, or if other problems arise. Specifically return if pain, vomiting, bleeding, breathing difficulty or fever. numbness, tingling, weakness, increased swelling. Your Current Medications: CONTINUE TAKING THE FOLLOWING MEDICATIONS: Benadryl Allergy Oral : 50mg daily. Benadryl Allergy Oral : 50mg daily. Keppra Oral : 1500mg 2x a day. KlonoPIN Oral : 1 mg daily. Lacosamide Oral : 75MG 2 X DAILY. LORazepam Oral : 1 mg, prn. Mirapex Oral : 1 mg at bedtime. Oxybutynin Chloride Oral : 10 mg 2x a day. SEROquel Oral : 125mg daily, + 125MG prn. ZyrTEC Allergy Oral : Capsule 10 mg, 2 capsules daily. Follow-up: Return to the emergency department as needed. Follow up with your doctor in three days. Reason for referral: recheck today's concerns. Summary of care provided to patient via paper. Screening today revealed the patient's blood pressure to be in the normal range. The patient should follow up with a primary care provider for blood pressure management. Understanding of the discharge instructions verbalized by patient. Follow-up with: [facility], , [address] [place], [address] Follow up in three days. Reason for referral: recheck today's concerns if you cannot follow up with your othopedic surgeion. Summary of care provided to patient via paper. (Electronically signed by Missael Boles Dr. 05/19/2016 12:49)
--- NOTE | 2016-05-18 19:35 | ED ORDER SUMMARY ---
..... Patient: JOMAR YA OrderSheet [facility] VisitID: [id number] [place] [address] 26y, M Registration Date/Time: 05/18/2016 ORDER SHEET Weight: 94.3 kg (stated) Allergies: Amoxicillin, Keflex, Latex, morphine, Nitrofurantoin, Vicodin GENERAL ORDERS: Shoulder 2V or more Right Urgent (16:30 05/18/2016 JBoardley R.N. per protocol) (Ack 16:39 LNations ER Tech1) (16:40 JBoardley R.N.) - (weights with finger traps to right UE for shoulder reduction) (16:45 05/18/2016 Isa Perry) (Ack 16:46 LNations ER Tech1) (17:05 EHassan R.N.) Shoulder 1V Right Urgent (19:28 05/18/2016 Isa Perry) (Ack 19:30 LMuller) (19:39 EHassan R.N.) MEDICATION ORDERS: IV FLUIDS: IV Saline Lock (16:29 05/18/2016 Mikayla R.NIsrael per protocol) (16:29 Mikayla R.N.) Fentanyl IV 100 mcg (HIGH ALERT MEDICATION, NOW) (16:35 05/18/2016 Isa Perry) (16:47 EHassan R.N.) Fentanyl IV 100 mcg (NOW) (17:05 05/18/2016 Oanh AlmonteNIsrael verbal order read back to Isa Perry) (17:13 EHassan R.N.) Fentanyl IV 100 mcg (HIGH ALERT MEDICATION, NOW) (19:33 05/18/2016 Isa Perry) (19:39 EHassan R.N.) Propofol IV 100 mg (NOW) (19:39 05/18/2016 Oanh RIsraelNIsrael verbal order read back to Isa Perry) (19:40 EHassan R.N.) given at 1920 ORDER SHEET NOTES: [Electronically signed by Amy Solorzano R.N. (20:07 05/18/2016)] [Electronically signed by Missael Boles Dr. (12:49 05/19/2016)] [Electronically locked/signed by Amy Solorzano R.N. (20:07 05/18/2016)]
--- NOTE | 2016-05-18 19:35 | ED ORDER SUMMARY ---
..... Patient: JOMAR YA OrderSheet [facility] VisitID: [id number] [place] [address] 26y, M Registration Date/Time: 05/18/2016 ORDER SHEET Weight: 94.3 kg (stated) Allergies: Amoxicillin, Keflex, Latex, morphine, Nitrofurantoin, Vicodin GENERAL ORDERS: Shoulder 2V or more Right Urgent (16:30 05/18/2016 JBoardley R.N. per protocol) (Ack 16:39 LNations ER Tech1) (16:40 JBoardley R.N.) - (weights with finger traps to right UE for shoulder reduction) (16:45 05/18/2016 Isa Perry) (Ack 16:46 LNations ER Tech1) (17:05 EHassan R.N.) Shoulder 1V Right Urgent (19:28 05/18/2016 Isa Perry) (Ack 19:30 LMuller) (19:39 EHassan R.N.) MEDICATION ORDERS: IV FLUIDS: IV Saline Lock (16:29 05/18/2016 Mikayla R.NIsrael per protocol) (16:29 Mikayla R.N.) Fentanyl IV 100 mcg (HIGH ALERT MEDICATION, NOW) (16:35 05/18/2016 Isa Perry) (16:47 EHassan R.N.) Fentanyl IV 100 mcg (NOW) (17:05 05/18/2016 Oanh AlmonteNIsrael verbal order read back to Isa Perry) (17:13 EHassan R.N.) Fentanyl IV 100 mcg (HIGH ALERT MEDICATION, NOW) (19:33 05/18/2016 Isa Perry) (19:39 EHassan R.N.) Propofol IV 100 mg (NOW) (19:39 05/18/2016 Oanh RIsraelNIsrael verbal order read back to Isa Perry) (19:40 EHassan R.N.) given at 1920 ORDER SHEET NOTES: [Electronically signed by Amy Solorzano R.N. (20:07 05/18/2016)] [Electronically signed by Missael Boles Dr. (12:49 05/19/2016)] [Electronically locked/signed by Amy Solorzano R.N. (20:07 05/18/2016)]
--- NOTE | 2016-05-18 19:35 | ED CLINICAL REPORT ---
Clinical Report - Physicians/Mid Levels [facility] [address] [place] [address] 05/18/2016 14:19 Patient: JOMAR YA Time Seen: 1640. Arrived- By private vehicle. Historian- patient. HISTORY OF PRESENT ILLNESS Chief Complaint: Injury to right shoulder. The injury happened today. Occurred at home. ( dislocated). Patient is experiencing moderate pain. Patient denies injury to the head or neck. No other injury. REVIEW OF SYSTEMS No swelling, tingling, numbness, weakness or suspected foreign body. No skin laceration. All systems otherwise negative, except as recorded above. PAST HISTORY See nurses notes. Tetanus immunization status is up-to-date. SOCIAL HISTORY Never smoker. No alcohol use or drug use. Is a local resident. PHYSICAL EXAM Appearance: Alert. Oriented X3. Patient in mild distress. Head: Head atraumatic. Eyes: Pupils equal, round and reactive to light. Eyes normal inspection. ENT: Ears normal. Nose normal. Pharynx normal. Neck: Normal inspection. Neck supple. C-spine non-tender. CVS: Normal heart rate and rhythm. Heart sounds normal. Pulses normal. Respiratory: No respiratory distress. Breath sounds normal. Chest nontender. Abdomen: No visible injury. Soft and nontender. Bowel sounds normal. No mass. (fistulla noted to the umbilicus. normal pink tissue). Skin: Skin intact. Skin warm and dry. Normal skin color. Normal skin turgor. Extremities: (obvious step-off to the right shoulder. The glenohumeral joint does not have the humeral head in the appropriate position. Appears to be anterior in location. No overlying skin changes. Compartments are soft. Patient is neurovascular intact. Sensation over the deltoid is intact.). Neuro, Vascular and Tendons: Sensation intact. Motor intact. Vascular status intact. Tendon function intact. Tendon visualized, uninjured. Neuro: Oriented X 3. No motor deficit. No sensory deficit. LABS, X-RAYS, AND EKG Rt Shoulder X-ray: No fracture. Anterior dislocation of the shoulder. Views: AP with external rotation, AP with internal rotation and axillary. Technique: good. The X-rays were independently viewed by me and interpreted contemporaneously by me. Post procedure films: show good alignment, findings are improved and do not show a fracture. PROGRESS AND PROCEDURES Procedural Sedation: Normal airway anatomy. Preparation: consent was obtained and the risks of the procedure, benefits and alternatives were explained to patient. IV established. O2 administered. Placed on pulse oximeter and endoscopy registered nurse. Suction was made available. Medications: Propofol IV administered by physician. Patient status during sedation: was attended constantly was asleep with sluggish response to stimulation. Complications: None. Post-procedure: Recovery was uneventful. Returned to baseline. Mental status normal. No acute distress. Intra-service time 16-37 minutes. The patient has no history of an adverse anesthesia reaction or family history of an adverse anesthesia reaction. Reduction of Dislocated Shoulder: IV established. O2 administered. Placed on pulse oximeter and endoscopy registered nurse. Neurovascular exam intact pre-procedure. Given Propofol. The right shoulder was reduced using traction-countertraction technique. Reassessed post-procedure. Neurovascular status intact. Deltoid sensation normal. Exam indicated reduction. Confirmed reduction on X-ray. Arm sling applied. Shoulder immobilizer applied. Course of Care: the patient is a pleasant 26-year-old male with past medical history significant for right-sided shoulder dislocations. Patient had a emergency department report indicating that the patient had a history of multiple shoulder dislocations. Had spoken to patient in regards to having the shoulder relocated without procedural sedation. Patient is extremely has attends and oriented to do this. Patient cites extreme discomfort and pain as the reason for not wanting to have the shoulder relocated. No neurovascular compromise. Informed written consent obtained for the procedure including sedation. Patient is agreeable to treatment plan. Please see procedure note for further details. Patient was agreeable to trying finger traps and weights, however states he had a bad time with that at an outside facility. Patient only able to tolerate for 12 minutes. Patient had recovered uneventfully. No other abnormalities noted. Sling applied. Encouraged patient to follow up with orthopedic surgery. Again no neurovascular compromise noted on repeat examination. I discussed with patient workup, diagnosis, home care, follow-up, and return precautions. All questions answered. The patient expressed understanding of these instructions and was agreeable to them. Disposition: Discharged. Condition: good. CLINICAL IMPRESSION 05/18/2016 15:08 BP: 145/97. HR: 94. RR: 16. O2 saturation: 97%. Temp: 99.1 F. Pain level now: 910. Hypertensive. Oxygen saturation normal. Right anterior shoulder dislocation (acute). INSTRUCTIONS Warnings: GENERAL WARNINGS: Return or contact your physician immediately if your condition worsens or changes unexpectedly, if not improving as expected, or if other problems arise. Specifically return if pain, vomiting, bleeding, breathing difficulty or fever. numbness, tingling, weakness, increased swelling. Your Current Medications: CONTINUE TAKING THE FOLLOWING MEDICATIONS: Benadryl Allergy Oral : 50mg daily. Benadryl Allergy Oral : 50mg daily. Keppra Oral : 1500mg 2x a day. KlonoPIN Oral : 1 mg daily. Lacosamide Oral : 75MG 2 X DAILY. LORazepam Oral : 1 mg, prn. Mirapex Oral : 1 mg at bedtime. Oxybutynin Chloride Oral : 10 mg 2x a day. SEROquel Oral : 125mg daily, + 125MG prn. ZyrTEC Allergy Oral : Capsule 10 mg, 2 capsules daily. Follow-up: Return to the emergency department as needed. Follow up with your doctor in three days. Reason for referral: recheck today's concerns. Summary of care provided to patient via paper. Screening today revealed the patient's blood pressure to be in the normal range. The patient should follow up with a primary care provider for blood pressure management. Understanding of the discharge instructions verbalized by patient. Follow-up with: [facility], , [address] [place], [address] Follow up in three days. Reason for referral: recheck today's concerns if you cannot follow up with your othopedic surgeion. Summary of care provided to patient via paper. (Electronically signed by Missael Boles Dr. 05/19/2016 12:49)
--- NOTE | 2016-05-18 19:35 | ED NURSING NOTES ---
Clinical Report - Nurses [facility] [address] [place] [address] 05/18/2016 14:19 Patient: JOMAR YA TRIAGE Triage time 15:05 May 18 2016. Acuity: LEVEL 3. Chief Complaint: INJURY TO RIGHT SHOULDER. Alert. LAWRENCE COMA SCORE: Lawrence Coma Scale: 15- eyes open spontaneously (4); best verbal response- oriented x 4 (5); best motor response- obeys commands (6). --15:16 Olman Stout R.N. 15:08 05/18/16. BP: 145/97. HR: 94. RR: 16. O2 saturation: 97% on room air. Temp: 99.1 F. Pain level now: 910. Additional comments: R shoulder. --15:16 Olman Stout R.N. Triage time 1613 PM. Chief Complaint: INJURY TO LEFT SHOULDER. Alert. No acute distress. SEPSIS SCREEN: Sepsis Screen. Negative (no infection suspected/documented). LAWRENCE COMA SCORE: Lawrence Coma Scale: 15- eyes open spontaneously (4); best verbal response- oriented x 4 (5); best motor response- obeys commands (6). --16:21 Amy Solorzano R.N. 16:17 05/18/16. BP: 113/88. HR: 77. RR: 15. O2 saturation: 95%. Temp: 99 F. Pain level now: 10. --16:21 Amy Solorzano R.N. Weight: 94.3 kg stated. Height/Length: 64 inches Per Patient. BMI: 35.7. --15:08 Olman Stout R.N. Medications Benadryl Allergy Oral 50mg , daily. Keppra Oral 1500mg , 2x a day. KlonoPIN Oral 1 mg, daily. Lacosamide Oral 75MG , 2 X DAILY. LORazepam Oral 1 mg, as needed. Mirapex Oral 1 mg, at bedtime. Oxybutynin Chloride Oral 10 mg, 2x a day. SEROquel Oral 125mg, daily (+ 125MG prn). ZyrTEC Allergy Oral (Capsule 10 mg) 2 capsules, daily. --15:12 Olman Stout R.N. Benadryl Allergy Oral 50mg , daily. --16:20 Amy Solorzano R.N. Allergies Amoxicillin. Keflex. Latex. morphine. Nitrofurantoin. Vicodin. --15:12 Olman Stout R.N. Medication/allergy information source: the patient. --15:16 Olman Stout R.N. Medication/allergy information source: the patient. --16:21 Amy Solorzano R.N. History Arrived by private vehicle. Historian: patient. Accompanied by friend. Primary physician (Bob). ( (R) Shoulder Pain. Pt thinks that his shoulder is dislocated.). This occurred (about 2 hours). Occurred at home. ( Moved his arm wrong while arm was in a sling). He has had weakness of the right arm. 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 PAST MEDICAL HX: Tetanus status: up-to-date. Immunizations: up-to-date. SOCIAL HX: Never smoker. No alcohol use or drug use. ABUSE ASSESSMENT: No report of abuse. FALL RISK ASSESSMENT: Fall risk assessment completed. No fall risk identified. NUTRITIONAL RISK ASSESSMENT: The nutritional risk assessment revealed no deficiencies. FUNCTIONAL ASSESSMENT: Functional assessment: no impairments noted. Functional assessment performed: mobility impairment present- this mobility impairment is an ongoing problem and a new problem. LEARNING NEEDS ASSESSMENT: The learning needs assessment revealed no barriers. SKIN INTEGRITY ASSESSMENT: Skin integrity risk assessment completed. No skin integrity risk identified. --15:16 Olman Stout R.N. Arrived by private vehicle, and accompanied by family. ( Pt states being here on Wednesday night for a dislocation of right arm. Was getting out of bed and dislocated, his leg man tried putting back in place x 2. Here for evaluation). This occurred today. Occurred at home. No neck pain or weakness. 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 None. PAST MEDICAL HX: Tetanus status: more than 5 years ago. Immunizations: up-to-date. SOCIAL HX: Never smoker. No alcohol use or drug use. No infectious disease exposure. ABUSE ASSESSMENT: No report of abuse. SELF HARM ASSESSMENT: A self harm assessment was performed. The patient answered "no" to the question "Do you have thoughts of harming or killing yourself?" and "Have you recently had thoughts about harming or killing others?". FALL RISK ASSESSMENT: Fall risk assessment completed. No fall risk identified. NUTRITIONAL RISK ASSESSMENT: The nutritional risk assessment revealed no deficiencies. FUNCTIONAL ASSESSMENT: Functional assessment: no impairments noted. LEARNING NEEDS ASSESSMENT: The learning needs assessment revealed no barriers. SKIN INTEGRITY ASSESSMENT: Skin integrity risk assessment completed. No skin integrity risk identified. --16:21 Amy Solorzano R.N. PROBLEMS: Infections. UTI - Urinary Tract Infection. Nerve Injury, Upper Extremity. Gastroenteritis. Changed Mental Status. Constipation. Chronic bladder infections. Atypical Chest Pain. Hypertension. Chronic Headache. Neurological Disease. Migraine Headache. Tension-Type Headache. Abdominal Pain. Prior Injury, Same Area. Rotator Cuff Injury. Immunizations. Seizure Disorder. Dislocated Shoulder. Depression. Anxiety Reaction. Restless Legs Syndrome. Sleep Apnea. Spina Bifida Occulta. --15:13 Olman Stout R.N. Dental Pain. Vomiting. Tetanus Status. Urinary Retention. --16:20 Amy Solorzano R.N. UTI - Urinary Tract Infection [RuleOut]. Back Pain [RuleOut]. --16:20 Amy Solorzano R.N. ADDITIONAL SURGERIES: Bladder Augmention. Botox bladder injection. Cystostomy. Foot surgery. Shoulder Surgery. --15:13 Olman Stout R.N. Interventions ID band on patient. To treatment room. --15:16 Olman Stout R.N. PHYSICAL ASSESSMENT To room via wheelchair. GENERAL / NEURO / PSYCH: Oriented X 4. Appears in no acute distress. EXTREMITIES: Capillary refill is less than 2 seconds in the extremities. Extremity pulses are within normal limits. Extremities exhibit normal ROM. Right shoulder: tenderness. Limited ROM due to pain (diminished abduction, adduction, flexion and extension) (dislocation). SKIN: Skin intact. Skin is warm and dry. --16:22 Amy Solorzano R.N. NURSING PROGRESS NOTES The initial plan of care for this patient has been created This plan of care was discussed with the patient. Neuro-vascular extremity check distal to injury: pulses intact. Patient gowned. Reassurance given. Two patient identifiers checked. Call light placed in reach. Side rails up. Bed placed in lowest position. Brakes of bed on. --16:22 Amy Solorzano R.N. 16:24 05/18/2016 Site #1 started via IV in the right hand with an 24g angiocath, with aseptic technique and good blood return; one attempt. Blood drawn: rainbow set. Labeled in the presence of the patient and sent to the lab. Saline lock flushed with 10 mL saline. --16:29 Nicho Vazquez R.N. 16:36 05/18/16. Patient transported to radiology by stretcher with tech. --16:36 Nicho Vazquez R.N. 16:47 05/18/2016 Fentanyl IVP 100 mcg given over 2 minute(s) via site #1. Allergies verified, confirmed 5 rights and sedative warning given to the patient. IV patency established. IV site checked: no pain, redness, or swelling. IV flushed thoroughly pre- and post-medication administration. IVP given by RN. --16:47 Amy Solorzano R.N. 17:02 05/18/2016 Fentanyl IVP Response: no adverse reaction. --19:02 mAy Solorzano R.N. 17:13 05/18/2016 Fentanyl IVP 100 mcg given over 1 minute(s) via site #1. Allergies verified, confirmed 5 rights and sedative warning given to the patient. IV patency established. IV site checked: no pain, redness, or swelling. IV flushed thoroughly pre- and post-medication administration. IVP given by RN. --17:13 Amy Solorzano R.N. 17:13 05/18/16. BP: 188/99 taken on the left arm, while sitting. HR: 81. RR: 24. O2 saturation: 95% on room air. Pain level now: 01/05. --17:15 Amy Solorzano R.N. Reassurance given. Overall patient status is the same- he states feels the same. ( Pt placed in traction, fentanyl total of 200mcg given, placed on monitor). GENERAL / NEURO / PSYCH: The patient reports pain that is located in the left shoulder that is severe. Two patient identifiers checked. Call light placed in reach. Side rails up x 1. Brakes of bed on. --17:15 Amy Solorzano R.N. Reassurance given. Overall patient status is the same- he states feels the same. ( PT lasted 12 minutes on device, screaming could not take the pain, circulation intact.). GENERAL / NEURO / PSYCH: The patient reports pain that is located in the left shoulder that is moderate in severity. Call light placed in reach. Side rails up x 1. Brakes of bed on. --17:27 Amy Solorzano R.N. 17:25 05/18/16. BP: 156/82. HR: 70. RR: 18. O2 saturation: 93%. Pain level now: 01/05. --17:27 Amy Solorzano R.N. Reassurance given. GENERAL / NEURO / PSYCH: The patient reports pain that is located in the left shoulder that is moderate in severity. Call light placed in reach. Side rails up x 1. Bed placed in lowest position. Brakes of bed on. --18:14 Amy Solorzano R.N. 18:13 05/18/16. BP: 136/85. HR: 73. RR: 15. O2 saturation: 93%. Pain level now: 10/05. --18:14 Amy Solorzano R.N. 19:01 05/18/2016 Site #2 started via intraosseous device in the right leg and distal tibia with an 22g angiocath; three attempts. --19:11 Amy Solorzano R.N. 19:20 05/18/2016 PROPOFOL IVP 100 mg given over 2 minute(s) via site #2. Allergies verified and confirmed 5 rights. IV patency established. IV site checked: no pain, redness, or swelling. IV flushed thoroughly pre- and post-medication administration. IVP given by physician. --19:40 Amy Solorzano R.N. 19:39 05/18/2016 Fentanyl IVP 100 mcg given over 2 minute(s) via site #2. Allergies verified, confirmed 5 rights and sedative warning given to the patient. IV patency established. IV site checked: no pain, redness, or swelling. IV flushed thoroughly pre- and post-medication administration. IVP given by RN. --19:39 Amy Solorzano R.N. Reassurance given. The patient is calm. Overall patient status is improved- he states feels better. ( Pt right shoulder placed back in place with sedation/ tolerated well, VSS awke). GENERAL / NEURO / PSYCH: Denies numbness or tingling. GI / : Denies nausea or vomiting. Patient identifiers checked. Call light placed in reach. Side rails up x 2. Bed placed in lowest position. Brakes of bed on. --19:48 Amy Solorzano R.N. 19:50 05/18/2016 Fentanyl IVP Response: no adverse reaction symptoms have improved the patient feels better. --20:07 Amy Solorzano R.N. DISPOSITION / DISCHARGE 19:49 05/18/2016 Site #2 removed upon discharge. Manual pressure applied. --19:49 Amy Solorzano R.N. 19:49 05/18/2016 Site #1 removed upon discharge. Manual pressure and bandaid applied. --19:49 Amy Solorzano R.N. Departure time: 1950 PM. The goals identified in the patient's plan of care were met. No learning barriers present. Patient verbalized understanding. Written instructions provided in Belgian. No warning instructions, medication instructions, treatment instructions or referrals given to the patient. The patient was discharged by the physician. He was discharged home and accompanied by spouse. He left the Emergency Department via private vehicle. Patient driving. FALL RISK ASSESSMENT: Fall risk assessment completed. No fall risk identified. --20:06 Amy Solorzano R.N. 19:48 05/18/16. BP: 125/78. HR: 78. RR: 16. O2 saturation: 100% on room air. Temp: 98.1 F (oral). Pain level now: 10. --20:06 Amy Solorzano R.N. Condition at departure: improved and stable. --20:06 mAy Solorzano R.N. Locked/Released at 05/18/2016 20:07 by Amy Solorzano R.N.
--- NOTE | 2016-05-18 22:35 | DIAGNOSTIC IMAGING REPORT ---
PROCEDURE: XR SHOULDER 1 VIEW - RIGHT INDICATION: POST REDUCTION TECHNIQUE: Single AP view post reduction. COMPARISON: Films performed earlier the same day and multiple prior studies. FINDINGS: Interval reduction of dislocated glenohumeral joint. Impacted Hill-Sachs fracture deformity. No bony Bankart fragment visible. The AC and CC joints are in normal alignment. No soft tissue abnormalities. IMPRESSION: 1. Interval reduction of right shoulder dislocation. 2. Chronic Hill-Sachs fracture deformity. No evidence of new bony Bankart lesion.
--- NOTE | 2016-05-19 12:50 | ED DISCHARGE INSTRUCTIONS ---
Patient: JOMAR YA General Instructions [facility] VisitID: [id number] [address] [place] [address] 26y, M Registration Date/Time: 05/18/2016 05/18/2016 15:08 BP: 145/97. HR: 94. RR: 16. O2 saturation: 97%. Temp: 99.1 F. Pain level now: 12/06. Hypertensive. Oxygen saturation normal. Right anterior shoulder dislocation (acute). INSTRUCTIONS Warnings: GENERAL WARNINGS: Return or contact your physician immediately if your condition worsens or changes unexpectedly, if not improving as expected, or if other problems arise. Specifically return if pain, vomiting, bleeding, breathing difficulty or fever. numbness, tingling, weakness, increased swelling. Your Current Medications: CONTINUE TAKING THE FOLLOWING MEDICATIONS: Benadryl Allergy Oral : 50mg daily. Benadryl Allergy Oral : 50mg daily. Keppra Oral : 1500mg 2x a day. KlonoPIN Oral : 1 mg daily. Lacosamide Oral : 75MG 2 X DAILY. LORazepam Oral : 1 mg, prn. Mirapex Oral : 1 mg at bedtime. Oxybutynin Chloride Oral : 10 mg 2x a day. SEROquel Oral : 125mg daily, + 125MG prn. ZyrTEC Allergy Oral : Capsule 10 mg, 2 capsules daily. Follow-up: Return to the emergency department as needed. Follow up with your doctor in three days. Reason for referral: recheck today's concerns. Summary of care provided to patient via paper. Screening today revealed the patient's blood pressure to be in the normal range. The patient should follow up with a primary care provider for blood pressure management. Understanding of the discharge instructions verbalized by patient. Follow-up with: [facility], [facility], , [address], [place], [address] Follow up in three days. Reason for referral: recheck today's concerns if you cannot follow up with your othopedic surgeion. Summary of care provided to patient via paper. ADDITIONAL INFORMATION Dislocation: Shoulder (Reduced) Dislocation of the shoulder joint occurs when a strong force tears the ligaments holding the joint together. This allows the bones to move apart and become stuck out of place. Once the joint is aligned again, it will take about six weeks for the ligaments to heal. Since this injury may weaken the ligaments, you are at risk of another dislocation with less force. Therefore, care should be taken to avoid a similar injury in the future. Shoulder dislocation is treated with a shoulder immobilizer (special type of arm sling). This keeps your arm close to your body to prevent a recurrent dislocation while the ligaments heal. After a few weeks, an exercise program may be started. This will gradually restore range of motion and strength at the shoulder and decrease the risk of another dislocation. Home Care: Until your next doctor visit, wear your shoulder immobilizer at all times . Do not take it off at night to sleep. It is possible to dislocate your arm again in your sleep. You may take it off to bathe or dress, but do not move your arm away from your body. Keep your arm in the same position that the sling was holding it in, until you reapply the sling again. During your next visit, ask your doctor how long you should wear the sling. Apply an ice pack (ice cubes in a plastic bag, wrapped in a towel) over the injured area for 20 minutes every 1-2 hours the first day. Continue with ice packs 3-4 times a day for the next two days, then as needed for the relief of pain and swelling. You may use acetaminophen (Tylenol) or ibuprofen (Motrin, Advil) to control pain, unless another pain medicine was prescribed. [NOTE: If you have chronic liver or kidney disease or ever had a stomach ulcer or GI bleeding, talk with your doctor before using these medicines.] No sports or P.E. until cleared by your doctor. Follow Up with your doctor within one week or as advised by our staff. Shoulder immobilizers and slings should not be worn continuously for more than a few weeks or you may lose some [id number] at the shoulder joint. If you have had repeated dislocations of the same shoulder, that means there has been permanent ligament damage. Ask the orthopedic doctor about surgery to prevent another dislocation. Get Prompt Medical Attention if any of the following occur: Another dislocation of your shoulder Increasing swelling or pain in the shoulder or arm Fingers become cold, blue, numb or tingly You have been given the following additional information: Dislocation: Shoulder (Reduced) (Electronically signed by Missael Boles Dr. 05/19/2016 12:49)
--- NOTE | 2016-05-19 12:50 | ED MED RECONCILIATION SUMMARY ---
Patient: JOMAR YA Medication Reconciliation Report [facility] VisitID: [id number] [address] [place] [address] 26y, M Registration Date/Time: 05/18/2016 Weight: 94.3 kg Height/Length: 64 in. BMI: 35.7 ALLERGIES: Amoxicillin, Keflex, Latex, morphine, Nitrofurantoin, Vicodin The patient's Home Medications are listed below: CONTINUE TAKING THE FOLLOWING MEDICATIONS: Benadryl Allergy Oral 50mg , daily Benadryl Allergy Oral 50mg , daily Keppra Oral 1500mg , 2x a day KlonoPIN Oral 1 mg, daily Lacosamide Oral 75MG , 2 X DAILY LORazepam Oral 1 mg Mirapex Oral 1 mg, at bedtime Oxybutynin Chloride Oral 10 mg, 2x a day SEROquel Oral 125mg, daily, + 125MG prn ZyrTEC Allergy Oral (10 mg) 2 capsules, daily The source(s) of the original Home Medication information: patient The following Medications were given to the patient in the Emergency Department: Fentanyl [IVP] IVP 100 mcg, administered: 05/18/2016 4:47:00 PM Fentanyl [IVP] IVP 100 mcg, administered: 05/18/2016 5:13:00 PM Fentanyl [IVP] IVP 100 mcg, administered: 05/18/2016 7:39:00 PM PROPOFOL [IVP] IVP 100 mg, administered: 05/18/2016 7:20:00 PM The following Medications were prescribed to the patient: None.
--- NOTE | 2016-05-19 12:50 | ED MAR SUMMARY ---
..... Medication Administration Record [facility] [address] [place] [address] Patient: JOMAR YA Visit ID: [id number] 26y, M Weight: 94.3 kg Height/Length: 64 in BMI: 35.7 ALLERGIES: Amoxicillin, Keflex, Latex, morphine, Nitrofurantoin, Vicodin Given 16:47 05/18/2016 Amy Solorzano R.N. Medication Administered: FENTANYL [IVP], Dose: 100 mcg IVP over 2 minute(s), Site: #1 right hand. Medication Ordered: Fentanyl IV 100 mcg (HIGH ALERT MEDICATION, NOW). Given 17:13 05/18/2016 Amy Solorzano R.N. Medication Administered: FENTANYL [IVP], Dose: 100 mcg IVP over 1 minute(s), Site: #1 right hand. Medication Ordered: Fentanyl IV 100 mcg (NOW). Given 19:20 05/18/2016 Amy Solorzano R.N. Medication Administered: PROPOFOL [IVP], Dose: 100 mg IVP over 2 minute(s), Site: #2 right leg IO: distal tibia. Medication Ordered: Propofol IV 100 mg (NOW). Given 19:39 05/18/2016 Amy Solorzano R.N. Medication Administered: FENTANYL [IVP], Dose: 100 mcg IVP over 2 minute(s), Site: #2 right leg IO: distal tibia. Medication Ordered: Fentanyl IV 100 mcg (HIGH ALERT MEDICATION, NOW).
--- NOTE | 2016-05-19 12:50 | ED DISCHARGE INSTRUCTIONS ---
Patient: JOMAR YA General Instructions [facility] VisitID: [id number] [address] [place] [place] [address] 26y, M Registration Date/Time: 05/18/2016 05/18/2016 15:08 BP: 145/97. HR: 94. RR: 16. O2 saturation: 97%. Temp: 99.1 F. Pain level now: 12/06. Hypertensive. Oxygen saturation normal. Right anterior shoulder dislocation (acute). INSTRUCTIONS Warnings: GENERAL WARNINGS: Return or contact your physician immediately if your condition worsens or changes unexpectedly, if not improving as expected, or if other problems arise. Specifically return if pain, vomiting, bleeding, breathing difficulty or fever. numbness, tingling, weakness, increased swelling. Your Current Medications: CONTINUE TAKING THE FOLLOWING MEDICATIONS: Benadryl Allergy Oral : 50mg daily. Benadryl Allergy Oral : 50mg daily. Keppra Oral : 1500mg 2x a day. KlonoPIN Oral : 1 mg daily. Lacosamide Oral : 75MG 2 X DAILY. LORazepam Oral : 1 mg, prn. Mirapex Oral : 1 mg at bedtime. Oxybutynin Chloride Oral : 10 mg 2x a day. SEROquel Oral : 125mg daily, + 125MG prn. ZyrTEC Allergy Oral : Capsule 10 mg, 2 capsules daily. Follow-up: Return to the emergency department as needed. Follow up with your doctor in three days. Reason for referral: recheck today's concerns. Summary of care provided to patient via paper. Screening today revealed the patient's blood pressure to be in the normal range. The patient should follow up with a primary care provider for blood pressure management. Understanding of the discharge instructions verbalized by patient. Follow-up with: [facility], [facility], , [address], [place], [address] Follow up in three days. Reason for referral: recheck today's concerns if you cannot follow up with your othopedic surgeion. Summary of care provided to patient via paper. ADDITIONAL INFORMATION Dislocation: Shoulder (Reduced) Dislocation of the shoulder joint occurs when a strong force tears the ligaments holding the joint together. This allows the bones to move apart and become stuck out of place. Once the joint is aligned again, it will take about six weeks for the ligaments to heal. Since this injury may weaken the ligaments, you are at risk of another dislocation with less force. Therefore, care should be taken to avoid a similar injury in the future. Shoulder dislocation is treated with a shoulder immobilizer (special type of arm sling). This keeps your arm close to your body to prevent a recurrent dislocation while the ligaments heal. After a few weeks, an exercise program may be started. This will gradually restore range of motion and strength at the shoulder and decrease the risk of another dislocation. Home Care: Until your next doctor visit, wear your shoulder immobilizer at all times . Do not take it off at night to sleep. It is possible to dislocate your arm again in your sleep. You may take it off to bathe or dress, but do not move your arm away from your body. Keep your arm in the same position that the sling was holding it in, until you reapply the sling again. During your next visit, ask your doctor how long you should wear the sling. Apply an ice pack (ice cubes in a plastic bag, wrapped in a towel) over the injured area for 20 minutes every 1-2 hours the first day. Continue with ice packs 3-4 times a day for the next two days, then as needed for the relief of pain and swelling. You may use acetaminophen (Tylenol) or ibuprofen (Motrin, Advil) to control pain, unless another pain medicine was prescribed. [NOTE: If you have chronic liver or kidney disease or ever had a stomach ulcer or GI bleeding, talk with your doctor before using these medicines.] No sports or P.E. until cleared by your doctor. Follow Up with your doctor within one week or as advised by our staff. Shoulder immobilizers and slings should not be worn continuously for more than a few weeks or you may lose some [id number] at the shoulder joint. If you have had repeated dislocations of the same shoulder, that means there has been permanent ligament damage. Ask the orthopedic doctor about surgery to prevent another dislocation. Get Prompt Medical Attention if any of the following occur: Another dislocation of your shoulder Increasing swelling or pain in the shoulder or arm Fingers become cold, blue, numb or tingly You have been given the following additional information: Dislocation: Shoulder (Reduced) (Electronically signed by Missael Boles Dr. 05/19/2016 12:49)
--- NOTE | 2016-05-19 12:50 | ED MAR SUMMARY ---
..... Medication Administration Record [facility] [address] [place] [address] Patient: JOMAR YA Visit ID: [id number] 26y, M Weight: 94.3 kg Height/Length: 64 in BMI: 35.7 ALLERGIES: Amoxicillin, Keflex, Latex, morphine, Nitrofurantoin, Vicodin Given 16:47 05/18/2016 Amy Solorzano R.N. Medication Administered: FENTANYL [IVP], Dose: 100 mcg IVP over 2 minute(s), Site: #1 right hand. Medication Ordered: Fentanyl IV 100 mcg (HIGH ALERT MEDICATION, NOW). Given 17:13 05/18/2016 Amy Solorzano R.N. Medication Administered: FENTANYL [IVP], Dose: 100 mcg IVP over 1 minute(s), Site: #1 right hand. Medication Ordered: Fentanyl IV 100 mcg (NOW). Given 19:20 05/18/2016 Amy Solorzano R.N. Medication Administered: PROPOFOL [IVP], Dose: 100 mg IVP over 2 minute(s), Site: #2 right leg IO: distal tibia. Medication Ordered: Propofol IV 100 mg (NOW). Given 19:39 05/18/2016 Amy Solorzano R.N. Medication Administered: FENTANYL [IVP], Dose: 100 mcg IVP over 2 minute(s), Site: #2 right leg IO: distal tibia. Medication Ordered: Fentanyl IV 100 mcg (HIGH ALERT MEDICATION, NOW).
--- NOTE | 2016-05-19 12:50 | ED MED RECONCILIATION SUMMARY ---
Patient: JOMAR YA Medication Reconciliation Report [facility] VisitID: [id number] [address] [place] [address] 26y, M Registration Date/Time: 05/18/2016 Weight: 94.3 kg Height/Length: 64 in. BMI: 35.7 ALLERGIES: Amoxicillin, Keflex, Latex, morphine, Nitrofurantoin, Vicodin The patient's Home Medications are listed below: CONTINUE TAKING THE FOLLOWING MEDICATIONS: Benadryl Allergy Oral 50mg , daily Benadryl Allergy Oral 50mg , daily Keppra Oral 1500mg , 2x a day KlonoPIN Oral 1 mg, daily Lacosamide Oral 75MG , 2 X DAILY LORazepam Oral 1 mg Mirapex Oral 1 mg, at bedtime Oxybutynin Chloride Oral 10 mg, 2x a day SEROquel Oral 125mg, daily, + 125MG prn ZyrTEC Allergy Oral (10 mg) 2 capsules, daily The source(s) of the original Home Medication information: patient The following Medications were given to the patient in the Emergency Department: Fentanyl [IVP] IVP 100 mcg, administered: 05/18/2016 4:47:00 PM Fentanyl [IVP] IVP 100 mcg, administered: 05/18/2016 5:13:00 PM Fentanyl [IVP] IVP 100 mcg, administered: 05/18/2016 7:39:00 PM PROPOFOL [IVP] IVP 100 mg, administered: 05/18/2016 7:20:00 PM The following Medications were prescribed to the patient: None.
== END 2016-05-18 19:50 | disposition home or self-care (01) ==
LOC: ED SRH 14:18
DX: S43.084A Other dislocation of right shoulder joint, initial encounter (principal); X58.XXXA Exposure to other specified factors, initial encounter; Y93.9 Activity, unspecified; Y92.009 Unspecified place in unspecified non-institutional (private) residence as the place of occurrence of the external cause; Y99.9 Unspecified external cause status; Z88.0 Allergy status to penicillin; Z88.1 Allergy status to other antibiotic agents; Z88.5 Allergy status to narcotic agent

== ENCOUNTER 2016-05-23 12:20 | Emergency (ER) | payer BC, OTHER ==
--- NOTE | 2016-05-23 13:06 | DIAGNOSTIC IMAGING REPORT ---
PROCEDURE: XR SHOULDER 2 OR MORE VW-RIGHT INDICATION: Right shoulder pain. TECHNIQUE: Two views. COMPARISON: Comparison made to radiographs of the right shoulder on 05/18/2016. FINDINGS: There is complete anterior inferior dislocation of the right glenohumeral joint with chronic Hill-Sachs deformity of the posterior lateral humeral head. No evidence of acute fracture. IMPRESSION: 1. Anterior dislocation of the right glenohumeral joint.
--- NOTE | 2016-05-23 14:07 | DIAGNOSTIC IMAGING REPORT ---
PROCEDURE: XR SHOULDER 2 OR MORE VW-RIGHT INDICATION: POST REDUCTION TECHNIQUE: Two views (1355 hours). COMPARISON: Comparison made radiographs of the right shoulder earlier in the day (05/23/2016, 1245 hours). FINDINGS: Interval reduction of dislocated right glenohumeral joint. There is a chronic Hill-Sachs impaction fracture of the right humeral head. IMPRESSION: 1. Interim reduction of dislocated right glenohumeral joint.
--- NOTE | 2016-05-23 14:26 | ED CLINICAL REPORT ---
Clinical Report - Physicians/Mid Levels [facility] [address] [place] [address] 05/23/2016 12:29 Patient: JOMAR YA Time Seen: 12:31. Arrived- By ambulance. Historian- patient and EMS personnel. HISTORY OF PRESENT ILLNESS Chief Complaint: Injury to right shoulder. The injury happened just prior to arrival. Occurred at home. Dislocated while raising arm. Patient is experiencing moderate pain. Patient denies injury to the head or neck. No other injury. REVIEW OF SYSTEMS No swelling, tingling, numbness, weakness or suspected foreign body. No skin laceration. All systems otherwise negative, except as recorded above. PAST HISTORY See nurses notes. Dental Pain. Hypertension. Migraine Headache. Tension-Type Headache. Rotator Cuff Injury. Seizure Disorder. Frequent Shoulder Dislocations. Depression. Anxiety Reaction. Restless Legs Syndrome. Sleep Apnea. Spina Bifida Occulta. Surgeries: Bladder Augmention. Botox bladder injection. Cystostomy. Foot surgery. Shoulder Surgery. The patient's dominant hand is the right. SOCIAL HISTORY No alcohol use or drug use. ADDITIONAL NOTES The nursing notes have been reviewed. PHYSICAL EXAM Vital Signs: 05/23/2016 12:32 BP: 148/79. HR: 115. RR: 16. O2 saturation: 95%. Temp: 98.2 F. Appearance: Alert. Oriented X3. Patient in mild distress. Head: Head atraumatic. Eyes: No scleral icterus or pale conjunctivae. ENT: Pharynx normal. No pharyngeal erythema or tonsillar exudate. The mucous membranes are not dry. Neck: Normal inspection. Neck supple. C-spine non-tender. CVS: Normal heart rate and rhythm. Heart sounds normal. Pulses normal. Respiratory: No respiratory distress. Breath sounds normal. Abdomen: No visible injury. Soft and nontender. Back: Normal inspection. No tenderness. Skin: Skin intact. Skin warm and dry. Normal skin color. Normal skin turgor. Extremities: Right shoulder: deformity consistent with a shoulder dislocation and moderate tenderness located in the anterior aspect of the shoulder. Limited ROM due to pain. Neurovascular intact distally. No erythema, swelling, laceration, abrasion or ecchymosis. No puncture wound or foreign body. Extremities otherwise negative. Neuro, Vascular and Tendons: Sensation intact. Motor intact. Vascular status intact. No pulse deficit present. Skin not pallid. Capillary refill not prolonged. No sensory deficit. Neuro: Oriented X 3. No motor deficit. No sensory deficit. LABS, X-RAYS, AND EKG Rt Shoulder X-ray: Anterior dislocation of the shoulder (with Hill-Sachs deformity). Views: portable. Technique: good. The X-rays were interpreted contemporaneously by me. A comparison with prior films (multiple prior dislocations - no change in films today). Post procedure films: show good alignment and findings are improved. PROGRESS AND PROCEDURES PROCEDURES (Shoulder immobilizer and sling applied by tech (patient's own).). Procedural Sedation: Indication: Reduction of dislocation of shoulder. ASA classification: 2 - patient with mild systemic disease. History / physical exam. See physical exam recorded above. He has no history of an adverse anesthesia reaction. Mallampati Classification: Class 1 - soft palate, anterior / posterior tonsillar pillars and uvula visible. Normal airway anatomy. Preparation: consent was obtained and the risks of the procedure, benefits and alternatives were explained to patient. IV established. O2 administered. Placed on pulse oximeter and farm advisor. Suction was made available. Medications: Fentanyl IV administered and Propofol IV administered. Patient status during sedation: was attended constantly with sluggish response to stimulation. Vitals were stable. Oxygen saturation levels were normal. The airway was maintained. The recovery was uneventful. Complications: None. Post-procedure: Recovery was uneventful. Returned to baseline. Sedation and procedure performed by me; intra-service time 38-52 minutes. Reduction of Dislocated Shoulder: IV established. O2 administered. Placed on pulse oximeter and farm advisor. Neurovascular exam intact pre-procedure. Given Fentanyl, Versed and Propofol. The right shoulder was reduced using traction-countertraction technique. Reassessed post-procedure. Neurovascular status intact. Deltoid sensation normal. Exam indicated reduction. Confirmed reduction on X-ray. Shoulder immobilizer applied. Course of Care: Normal Saline 500 mL IVPB given. Propofol 100 mg + 100mg + 50 mg IVP given. Zofran 4 mg IVP given. Fentanyl 100 mcg + 100 mcg + 100 mcg IVP given. Patient is stable. Physical exam findings are improved. Symptoms much better. Patient/family counseled. Old medical records ordered. (JEFF --> [facility] visits to [facility] ED's in past 12 months; this is his [facility]th visit to [facility] ED in past 2 months for the same). Disposition: Discharged. Condition: stable and improved. CLINICAL IMPRESSION Right anterior shoulder dislocation. Reduction in the ER. No axillary nerve deficit. INSTRUCTIONS Apply ice. Elevate affected areas above chest level. Wear shoulder immobilizer for three days. Limit use of your right hand until better and until released. Warnings: SEDATIVE MEDICATION: You were given sedative medication during your visit. Do not drive or operate dangerous machinery. CONTROLLED SUBSTANCE WARNINGS. GENERAL WARNINGS: Return or contact your physician immediately if your condition worsens or changes unexpectedly, if not improving as expected, or if other problems arise. Your Current Medications: CONTINUE TAKING THE FOLLOWING MEDICATIONS: Benadryl Allergy Oral : 50mg daily. Keppra Oral : 1500mg 2x a day. KlonoPIN Oral : 1 mg daily. Lacosamide Oral : 75MG 2 X DAILY. LORazepam Oral : 1 mg, prn. Mirapex Oral : 1 mg at bedtime. Oxybutynin Chloride Oral : 10 mg 2x a day. SEROquel Oral : 125mg daily, + 125MG prn. ZyrTEC Allergy Oral : Capsule 10 mg, 2 capsules daily. OTC Medications: Acetaminophen (available over the counter): take according to label instructions. Motrin (available over the counter): take according to label instructions. Follow-up: Follow up with your doctor in two days. Follow up with an orthopedic surgeon in two days. Understanding of the discharge instructions verbalized by patient. (Electronically signed by Moise Field DO 05/24/2016 15:33)
--- NOTE | 2016-05-23 14:26 | ED NURSING NOTES ---
Clinical Report - Nurses [facility] [address] [place] [address] 05/23/2016 12:29 [id number] TRIAGE Triage time 12:30. Acuity: LEVEL 2. Chief Complaint: RIGHT UPPER EXTREMITY PAIN. 12:35 05/23/16. Alert. No acute distress. SEPSIS SCREEN: Sepsis Screen. Negative (no infection suspected/documented). LAWRENCE COMA SCORE: Lawrence Coma Scale: 15- eyes open spontaneously (4); best verbal response- oriented x 4 (5); best motor response- obeys commands (6). --12:35 Ayana Miles R.N. 12:32 05/23/16. BP: 148/79. HR: 115. RR: 16. O2 saturation: 95% on room air. Temp: 98.2 F (oral). Pain level now 8/10. --12:35 Ayana Miles R.N. Weight: 92.9 kg stated. Height/Length: 64 inches Per Patient. BMI: 35.2. --12:31 Ayana Miles R.N. Medications Benadryl Allergy Oral 50mg , daily. Keppra Oral 1500mg , 2x a day. KlonoPIN Oral 1 mg, daily. Lacosamide Oral 75MG , 2 X DAILY. LORazepam Oral 1 mg, as needed. Mirapex Oral 1 mg, at bedtime. Oxybutynin Chloride Oral 10 mg, 2x a day. SEROquel Oral 125mg, daily (+ 125MG prn). ZyrTEC Allergy Oral (Capsule 10 mg) 2 capsules, daily. --12:33 Ayana Miles R.N. Allergies Amoxicillin. Keflex. Latex. morphine. --12:33 Ayana Miles R.N. Nitrofurantoin. Vicodin. --12:33 Ayana Miles R.N. History Arrived by EMS. Historian: patient. Primary physician (néstor). 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 This occurred just prior to arrival. 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 SOCIAL HX: Never smoker. No alcohol use or drug use. ABUSE ASSESSMENT: Abuse assessment: The patient was asked "Do you feel safe in your home?". No report of abuse. FALL RISK ASSESSMENT: Fall risk assessment completed. No fall risk identified. NUTRITIONAL RISK ASSESSMENT: The nutritional risk assessment revealed no deficiencies. FUNCTIONAL ASSESSMENT: Functional assessment: no impairments noted. LEARNING NEEDS ASSESSMENT: The learning needs assessment revealed no barriers. SKIN INTEGRITY ASSESSMENT: Skin integrity risk assessment completed. No skin integrity risk identified. --12:35 Ayana Miles R.N. PROBLEMS: Infections. UTI - Urinary Tract Infection. Nerve Injury, Upper Extremity. Dental Pain. Gastroenteritis. Changed Mental Status. Constipation. Chronic bladder infections. Atypical Chest Pain. Vomiting. Tetanus Status. Hypertension. Chronic Headache. Neurological Disease. Migraine Headache. Tension-Type Headache. Urinary Retention. Abdominal Pain. Prior Injury, Same Area. Rotator Cuff Injury. Immunizations. Seizure Disorder. Dislocated Shoulder. Depression. Anxiety Reaction. Restless Legs Syndrome. Sleep Apnea. Spina Bifida Occulta. --12:34 Ayana Miles R.N. ADDITIONAL SURGERIES: Bladder Augmention. Botox bladder injection. Cystostomy. Foot surgery. Shoulder Surgery. --12:34 Ayana Miles R.N. Interventions ID band on patient. To treatment room. --12:35 Ayana Miles R.N. PHYSICAL ASSESSMENT 12:35 05/23/16. To room via stretcher. GENERAL / NEURO / PSYCH: Oriented X 4. Alert. Appears in no acute distress. EXTREMITIES: Neuro-vascular status intact to the extremity. Right shoulder. Limited ROM. SKIN: Skin intact. Skin is warm and dry. --12:35 Ayana Miles R.N. NURSING PROGRESS NOTES 12:36 05/23/16. The plan of care for this patient has been created. Cold pack applied. Patient gowned. Call light placed in reach. Bed placed in lowest position. Brakes of bed on. Patient ready for evaluation- chart flagged. --12:36 Ayana Miles R.N. 12:56 05/23/2016 Site #1 started via IV in the left antecubital space with an 20g angiocath, with aseptic technique and good blood return; one attempt. Saline lock flushed with 10 mL saline (With ultrasound guidance x30 minutes). --13:06 Ayana Miles R.N. 13:01 05/23/2016 Started bag #1 1000 mL IV Fluids IV NS (Saline); bolus of 250 mL over 15 minute(s) then at 250 mL/hr over 3 hour(s) via site #1. Allergies verified and confirmed 5 rights. IV patency established. IV site checked: no pain, redness, or swelling. IV flushed thoroughly pre- and post-medication administration. Completed per protocol. --13:06 Ayana Miles R.N. 13:07 05/23/2016 Zofran (Ondansetron HCl) IVP 4 mg given over 2 minute(s) via site #1. Allergies verified and confirmed 5 rights. IV patency established. IV site checked: no pain, redness, or swelling. IV flushed thoroughly pre- and post-medication administration. IVP given by RN. --13:12 Ayana Miles R.N. 13:09 05/23/2016 Fentanyl IVP 100 mcg given over 2 minute(s) via site #1. Allergies verified, confirmed 5 rights and sedative warning given to the patient. IV patency established. IV site checked: no pain, redness, or swelling. IV flushed thoroughly pre- and post-medication administration. IVP given by RN. --13:13 Ayana Miles R.N. 13:14 05/23/16. Reassessment after medication administered. He reports no complaints and he has had no adverse reaction. --13:14 Ayana Miles R.N. 13:13 05/23/16. BP: 132/79. HR: 114. RR: 14. O2 saturation: 95% on room air. --13:14 Ayana Miles R.N. 13:48 05/23/16. BP: 115/47. HR: 88. RR: 18. O2 saturation: 92% on nasal cannula at 3 liters/minute. Pain level now 0/10. --13:49 Ayana Miles R.N. 13:50 05/23/16. HR: 88. RR: 18. O2 saturation: 95% on nasal cannula at 3 liters/minute. Pain level now 0/10. --13:50 Ayana Miles R.N. 13:52 05/23/16. BP: 131/61. HR: 88. RR: 20. O2 saturation: 96% on nasal cannula at 3 liters/minute. End tidal CO2: 35 mmHg. Pain level now: 0/10. --13:53 Ayana Miles R.N. 13:59 05/23/16. BP: 129/75. HR: 81. RR: 14. O2 saturation: 99% on nasal cannula at 3 liters/minute. Pain level now 7/10. --14:00 Ayana Miles R.N. Immobilizer applied to the right shoulder by respiratory technician; distal pulses intact, sensation intact and motor function within normal limits. --14:11 Jaclyn Garcia Cardiac rhythm: normal sinus rhythm. ( alert, oriented, requesting pain meds). --14:19 Ayana Miles R.N. 14:19 05/23/16. BP: 133/73. HR: 82. RR: 19. O2 saturation: 98%. Pain level now 7/10. --14:19 Ayana Miles R.N. 14:20. Sling applied to right arm by respiratory technician; distal pulses intact, sensation intact and motor function within normal limits. --16:04 Jaclyn Garcia 13:42 05/23/2016 Fentanyl IVP 100 mcg given over 1 minute(s) via site #2. Allergies verified, confirmed 5 rights and sedative warning given to the patient and patient's charrer. IV patency established. IV site checked: no pain, redness, or swelling. IV flushed thoroughly pre- and post-medication administration. IVP given by RN. --01:05 Amy Solorzano R.N. 13:46 05/23/2016 PROPOFOL IVP 50 mg given over 1 minute(s) via site #2. Allergies verified and confirmed 5 rights. IV patency established. IV site checked: no pain, redness, or swelling. IV flushed thoroughly pre- and post-medication administration. IVP given by physician (given at 1346). --01:04 Amy Solorzano R.N. 13:50 05/23/2016 IV Fluids IV NS Bag Change: bag #1 infused. Total amount infused: 1000. STARTED bag #2 (1000 mL) at 250 mL/hr. Confirmed 5 rights. IV patency established. IV site checked: no pain, redness, or swelling. IV flushed thoroughly. --14:24 Ayana Miles R.N. 13:53 05/23/16. Cardiac rhythm: normal sinus rhythm. --13:53 Ayana Miles R.N. 14:00 05/23/16. Cardiac rhythm: normal sinus rhythm. ( pt is back to baseline, alert, sitting up, requesting pain medications.). --14:00 Ayana Miles R.N. 14:23 05/23/2016 Fentanyl IVP 100 mcg given over 2 minute(s) via site #1. Allergies verified, confirmed 5 rights and sedative warning given to the patient and patient's charrer. IV patency established. IV site checked: no pain, redness, or swelling. IV flushed thoroughly pre- and post-medication administration. IVP given by RN. --14:28 Ayana Miles R.N. 14:35 05/23/2016 Site #1 removed upon discharge. Bandage applied. --14:44 Ayana Miles R.N. 14:35 05/23/2016 Site #2 started via IV in the left antecubital space. --15:00 Amy Solorzano R.N. 14:35 05/23/2016 IV Fluids IV NS Discontinued: bag #2 infused upon discharge. Total amount infused: 1000 mL. IV patency established. IV site checked: no pain, redness, or swelling. IV flushed thoroughly. --14:44 Ayana Miles R.N. 14:59 05/23/2016 PROPOFOL IVP 100 mg given over 1 minute(s) via site #2. Allergies verified and confirmed 5 rights. IV patency established. IV site checked: no pain, redness, or swelling. IV flushed thoroughly pre- and post-medication administration. IVP given by physician (given at [address] Field). --15:01 Amy Solorzano R.N. 14:59 05/23/2016 PROPOFOL IVP 50 mg given over 1 minute(s) via site #2. Allergies verified and confirmed 5 rights. IV patency established. IV site checked: no pain, redness, or swelling. IV flushed thoroughly pre- and post-medication administration. IVP given by physician (given at 1332). --01:00 Amy Solorzano R.N. 15:00 05/23/2016 Site #3 started via IV with an 20g angiocath. --15:00 Amy Solorzano R.N. 15:00 05/23/2016 Site #4 started via IV in the left antecubital space with an 20g angiocath. --15:01 Amy Solorzano R.N. 15:02 05/23/2016 Versed (Midazolam HCl) IVP 2 mg given over 1 minute(s) via site #2. Allergies verified, confirmed 5 rights and sedative warning given to the patient and patient's charrer. IV patency established. IV site checked: no pain, redness, or swelling. IV flushed thoroughly pre- and post-medication administration. IVP given by RN (given at 1341). --01:01 Amy Solorzano R.N. late entry - 14:00 PM. ( Pt's shoulder placed back by Dr. Field, sedation given, tolerated well, see procedural sedation paperwork for VS and meds). --01:06 Amy Solorzano R.N. DISPOSITION / DISCHARGE 14:43 05/23/16. Departure time: 1438. Cardiac rhythm: normal sinus rhythm. Condition at departure: improved and stable. No learning barriers present. Discharge instructions provided and reviewed with charrer and the patient. Activity restrictions (minimal use of injured extremity) reviewed. Patient verbalized understanding. Written instructions provided in Welsh. The patient was discharged by the physician. He was discharged home and accompanied by charrer. He left the Emergency Department ambulatory and via (uber). --14:43 Ayana Miles R.N. 14:43 05/23/16. BP: 145/77. HR: 96. RR: 16. O2 saturation: 97%. Temp: 98.2 F. Pain level now 0/10. --14:43 Ayana Miles R.N. Locked/Released at 05/24/2016 1:07 by Amy Solorzano R.N.
--- NOTE | 2016-05-23 14:26 | ED ORDER SUMMARY ---
..... Patient: JOMAR YA OrderSheet [facility] VisitID: [id number] [place] [address] 26y, M Registration Date/Time: 05/23/2016 ORDER SHEET Weight: 92.9 kg (stated) Allergies: Amoxicillin, Keflex, Latex, morphine, Nitrofurantoin, Vicodin GENERAL ORDERS: Shoulder 2V or more Right (history of dislocations) Urgent (12:32 05/23/2016 [facility] DO) (Ack 12:43 LTapper) (12:59 Kirill) Shoulder 2V or more Right Urgent (13:50 [facility]/23/2016 [facility]) (14:00 KWilliams R.N.) Shoulder Immobilizer (14:14 05/23/2016 [facility] DO) (14:17 KWilliams R.N.) MEDICATION ORDERS: IV FLUIDS: IV NS : initial bolus 250 mL (1000 mL/hr), then 250 mL/hr (NOW) (12:33 05/23/2016 [facility] DO) (13:06 KWilliams R.N.) Fentanyl IV 100 mcg (NOW) (13:02 05/23/2016 [facility]) (13:13 KWilliams R.N.) Zofran IV 4 mg (NOW) (13:02 05/23/2016 [facility] DO) (13:12 KWilliams R.N.) Fentanyl IV 100 mcg (HIGH ALERT MEDICATION, NOW) (14:21 05/23/2016 [facility] DO) (14:28 KWilliams R.N.) Propofol IV 100 mg (HIGH ALERT MEDICATION) (14:56 05/23/2016 EHassan R.N. verbal order read back to [facility]) (15:01 EHassan R.N.) Propofol IV 50 mg (HIGH ALERT MEDICATION) (14:57 05/23/2016 EHassan R.N. verbal order read back to [facility]) (1:00 EHassan R.N.) Versed IV 2 mg (NOW) (15:01 05/23/2016 EHassan R.N. verbal order read back to [facility]) (1:01 EHassan R.N.) given at 1341 Propofol IV 50 mg (HIGH ALERT MEDICATION) (15:03 05/23/2016 EHassan R.N. verbal order read back to [facility]) (1:04 EHassan R.N.) given at 1346 Propofol IV 50 mg (HIGH ALERT MEDICATION) (15:04 05/23/2016 EHassan R.N. verbal order read back to [facility]) (Cancelled: Other1:04 EHassan R.N.) given at 1335 Fentanyl IV 100 mcg (HIGH ALERT MEDICATION) (15:05 05/23/2016 EHassan R.N. verbal order read back to [facility]) (1:05 EHassan R.N.) given at 1342 ORDER SHEET NOTES: [Electronically signed by Amy Solorzano R.N. (01:07 05/24/2016)] [Electronically signed by Moise Field DO (15:33 05/24/2016)] [Electronically locked/signed by Amy Solorzano R.N. (01:07 05/24/2016)]
--- NOTE | 2016-05-23 14:26 | ED NURSING NOTES ---
Clinical Report - Nurses [facility] [address] [place] [address] 05/23/2016 12:29 [id number] Triage time 12:30. Acuity: LEVEL 2. Chief Complaint: RIGHT UPPER EXTREMITY PAIN. 12:35 05/23/16. Alert. No acute distress. SEPSIS SCREEN: Sepsis Screen. Negative (no infection suspected/documented). LAWRENCE COMA SCORE: Lawrence Coma Scale: 15- eyes open spontaneously (4); best verbal response- oriented x 4 (5); best motor response- obeys commands (6). --12:35 Ayana Miles R.N. 12:32 05/23/16. BP: 148/79. HR: 115. RR: 16. O2 saturation: 95% on room air. Temp: 98.2 F (oral). Pain level now 8/10. --12:35 Ayana Miles R.N. Weight: 92.9 kg stated. Height/Length: 64 inches Per Patient. BMI: 35.2. --12:31 Ayana Miles R.N. Medications Benadryl Allergy Oral 50mg , daily. Keppra Oral 1500mg , 2x a day. KlonoPIN Oral 1 mg, daily. Lacosamide Oral 75MG , 2 X DAILY. LORazepam Oral 1 mg, as needed. Mirapex Oral 1 mg, at bedtime. Oxybutynin Chloride Oral 10 mg, 2x a day. SEROquel Oral 125mg, daily (+ 125MG prn). ZyrTEC Allergy Oral (Capsule 10 mg) 2 capsules, daily. --12:33 Ayana Miles R.N. Allergies Amoxicillin. Keflex. Latex. morphine. --12:33 Ayana Miles R.N. Nitrofurantoin. Vicodin. --12:33 Ayana Miles R.N. History Arrived by EMS. Historian: patient. Primary physician (néstor). 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 This occurred just prior to arrival. 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 SOCIAL HX: Never smoker. No alcohol use or drug use. ABUSE ASSESSMENT: Abuse assessment: The patient was asked "Do you feel safe in your home?". No report of abuse. FALL RISK ASSESSMENT: Fall risk assessment completed. No fall risk identified. NUTRITIONAL RISK ASSESSMENT: The nutritional risk assessment revealed no deficiencies. FUNCTIONAL ASSESSMENT: Functional assessment: no impairments noted. LEARNING NEEDS ASSESSMENT: The learning needs assessment revealed no barriers. SKIN INTEGRITY ASSESSMENT: Skin integrity risk assessment completed. No skin integrity risk identified. --12:35 Ayana Miles R.N. PROBLEMS: Infections. UTI - Urinary Tract Infection. Nerve Injury, Upper Extremity. Dental Pain. Gastroenteritis. Changed Mental Status. Constipation. Chronic bladder infections. Atypical Chest Pain. Vomiting. Tetanus Status. Hypertension. Chronic Headache. Neurological Disease. Migraine Headache. Tension-Type Headache. Urinary Retention. Abdominal Pain. Prior Injury, Same Area. Rotator Cuff Injury. Immunizations. Seizure Disorder. Dislocated Shoulder. Depression. Anxiety Reaction. Restless Legs Syndrome. Sleep Apnea. Spina Bifida Occulta. --12:34 Ayana Miles R.N. ADDITIONAL SURGERIES: Bladder Augmention. Botox bladder injection. Cystostomy. Foot surgery. Shoulder Surgery. --12:34 Ayana Miles R.N. Interventions ID band on patient. To treatment room. --12:35 Ayana Miles R.N. PHYSICAL ASSESSMENT 12:35 05/23/16. To room via stretcher. GENERAL / NEURO / PSYCH: Oriented X 4. Alert. Appears in no acute distress. EXTREMITIES: Neuro-vascular status intact to the extremity. Right shoulder. Limited ROM. SKIN: Skin intact. Skin is warm and dry. --12:35 Ayana Miles R.N. NURSING PROGRESS NOTES 12:36 05/23/16. The plan of care for this patient has been created. Cold pack applied. Patient gowned. Call light placed in reach. Bed placed in lowest position. Brakes of bed on. Patient ready for evaluation- chart flagged. --12:36 Ayana Miles R.N. 12:56 05/23/2016 Site #1 started via IV in the left antecubital space with an 20g angiocath, with aseptic technique and good blood return; one attempt. Saline lock flushed with 10 mL saline (With ultrasound guidance x30 minutes). --13:06 Ayana Miles R.N. 13:01 05/23/2016 Started bag #1 1000 mL IV Fluids IV NS (Saline); bolus of 250 mL over 15 minute(s) then at 250 mL/hr over 3 hour(s) via site #1. Allergies verified and confirmed 5 rights. IV patency established. IV site checked: no pain, redness, or swelling. IV flushed thoroughly pre- and post-medication administration. Completed per protocol. --13:06 Ayana Miles R.N. 13:07 05/23/2016 Zofran (Ondansetron HCl) IVP 4 mg given over 2 minute(s) via site #1. Allergies verified and confirmed 5 rights. IV patency established. IV site checked: no pain, redness, or swelling. IV flushed thoroughly pre- and post-medication administration. IVP given by RN. --13:12 Ayana Miles R.N. 13:09 05/23/2016 Fentanyl IVP 100 mcg given over 2 minute(s) via site #1. Allergies verified, confirmed 5 rights and sedative warning given to the patient. IV patency established. IV site checked: no pain, redness, or swelling. IV flushed thoroughly pre- and post-medication administration. IVP given by RN. --13:13 Ayana Miles R.N. 13:14 05/23/16. Reassessment after medication administered. He reports no complaints and he has had no adverse reaction. --13:14 Ayana Miles R.N. 13:13 05/23/16. BP: 132/79. HR: 114. RR: 14. O2 saturation: 95% on room air. --13:14 Ayana Miles R.N. 13:48 05/23/16. BP: 115/47. HR: 88. RR: 18. O2 saturation: 92% on nasal cannula at 3 liters/minute. Pain level now 0/10. --13:49 Ayana Miles R.N. 13:50 05/23/16. HR: 88. RR: 18. O2 saturation: 95% on nasal cannula at 3 liters/minute. Pain level now 0/10. --13:50 Ayana Miles R.N. 13:52 05/23/16. BP: 131/61. HR: 88. RR: 20. O2 saturation: 96% on nasal cannula at 3 liters/minute. End tidal CO2: 35 mmHg. Pain level now: 0/10. --13:53 Ayana Miles R.N. 13:59 05/23/16. BP: 129/75. HR: 81. RR: 14. O2 saturation: 99% on nasal cannula at 3 liters/minute. Pain level now 7/10. --14:00 Ayana Miles R.N. Immobilizer applied to the right shoulder by trailer technician; distal pulses intact, sensation intact and motor function within normal limits. --14:11 Jaclyn Garcia Cardiac rhythm: normal sinus rhythm. ( alert, oriented, requesting pain meds). --14:19 Ayana Miles R.N. 14:19 05/23/16. BP: 133/73. HR: 82. RR: 19. O2 saturation: 98%. Pain level now 7/10. --14:19 Ayana Miles R.N. 14:20. Sling applied to right arm by trailer technician; distal pulses intact, sensation intact and motor function within normal limits. --16:04 Jaclyn Garcia 13:42 05/23/2016 Fentanyl IVP 100 mcg given over 1 minute(s) via site #2. Allergies verified, confirmed 5 rights and sedative warning given to the patient and patient's headhunter. IV patency established. IV site checked: no pain, redness, or swelling. IV flushed thoroughly pre- and post-medication administration. IVP given by RN. --01:05 Amy Solorzano R.N. 13:46 05/23/2016 PROPOFOL IVP 50 mg given over 1 minute(s) via site #2. Allergies verified and confirmed 5 rights. IV patency established. IV site checked: no pain, redness, or swelling. IV flushed thoroughly pre- and post-medication administration. IVP given by physician (given at 1346). --01:04 Amy Solorzano R.N. 13:50 05/23/2016 IV Fluids IV NS Bag Change: bag #1 infused. Total amount infused: 1000. STARTED bag #2 (1000 mL) at 250 mL/hr. Confirmed 5 rights. IV patency established. IV site checked: no pain, redness, or swelling. IV flushed thoroughly. --14:24 Ayana Miles R.N. 13:53 05/23/16. Cardiac rhythm: normal sinus rhythm. --13:53 Aynaa Miles R.N. 14:00 05/23/16. Cardiac rhythm: normal sinus rhythm. ( pt is back to baseline, alert, sitting up, requesting pain medications.). --14:00 Ayana Miles R.N. 14:23 05/23/2016 Fentanyl IVP 100 mcg given over 2 minute(s) via site #1. Allergies verified, confirmed 5 rights and sedative warning given to the patient and patient's headhunter. IV patency established. IV site checked: no pain, redness, or swelling. IV flushed thoroughly pre- and post-medication administration. IVP given by RN. --14:28 Ayana Miles R.N. 14:35 05/23/2016 Site #1 removed upon discharge. Bandage applied. --14:44 Ayana Miles R.N. 14:35 05/23/2016 Site #2 started via IV in the left antecubital space. --15:00 Amy Solorzano R.N. 14:35 05/23/2016 IV Fluids IV NS Discontinued: bag #2 infused upon discharge. Total amount infused: 1000 mL. IV patency established. IV site checked: no pain, redness, or swelling. IV flushed thoroughly. --14:44 Ayana Miles R.N. 14:59 05/23/2016 PROPOFOL IVP 100 mg given over 1 minute(s) via site #2. Allergies verified and confirmed 5 rights. IV patency established. IV site checked: no pain, redness, or swelling. IV flushed thoroughly pre- and post-medication administration. IVP given by physician (given at [address] Field). --15:01 Amy Solorzano R.N. 14:59 05/23/2016 PROPOFOL IVP 50 mg given over 1 minute(s) via site #2. Allergies verified and confirmed 5 rights. IV patency established. IV site checked: no pain, redness, or swelling. IV flushed thoroughly pre- and post-medication administration. IVP given by physician (given at 1332). --01:00 Amy Solorzano R.N. 15:00 05/23/2016 Site #3 started via IV with an 20g angiocath. --15:00 Amy Solorzano R.N. 15:00 05/23/2016 Site #4 started via IV in the left antecubital space with an 20g angiocath. --15:01 Amy Solorzano R.N. 15:02 05/23/2016 Versed (Midazolam HCl) IVP 2 mg given over 1 minute(s) via site #2. Allergies verified, confirmed 5 rights and sedative warning given to the patient and patient's headhunter. IV patency established. IV site checked: no pain, redness, or swelling. IV flushed thoroughly pre- and post-medication administration. IVP given by RN (given at 1341). --01:01 Amy Solorzano R.N. late entry - 14:00 PM. ( Pt's shoulder placed back by Dr. Field, sedation given, tolerated well, see procedural sedation paperwork for VS and meds). --01:06 Amy Solorzano R.N. DISPOSITION / DISCHARGE 14:43 05/23/16. Departure time: 1438. Cardiac rhythm: normal sinus rhythm. Condition at departure: improved and stable. No learning barriers present. Discharge instructions provided and reviewed with headhunter and the patient. Activity restrictions (minimal use of injured extremity) reviewed. Patient verbalized understanding. Written instructions provided in French. The patient was discharged by the physician. He was discharged home and accompanied by headhunter. He left the Emergency Department ambulatory and via (uber). --14:43 Ayana Miles R.N. 14:43 05/23/16. BP: 145/77. HR: 96. RR: 16. O2 saturation: 97%. Temp: 98.2 F. Pain level now 0/10. --14:43 Ayana Miles R.N. Locked/Released at 05/24/2016 1:07 by Amy Solorzano R.N.
--- NOTE | 2016-05-23 14:26 | ED CLINICAL REPORT ---
Clinical Report - Physicians/Mid Levels [facility] [address] [place] [address] 05/23/2016 12:29 Patient: JOMAR YA Time Seen: 12:31. Arrived- By ambulance. Historian- patient and EMS personnel. HISTORY OF PRESENT ILLNESS Chief Complaint: Injury to right shoulder. The injury happened just prior to arrival. Occurred at home. Dislocated while raising arm. Patient is experiencing moderate pain. Patient denies injury to the head or neck. No other injury. REVIEW OF SYSTEMS No swelling, tingling, numbness, weakness or suspected foreign body. No skin laceration. All systems otherwise negative, except as recorded above. PAST HISTORY See nurses notes. Dental Pain. Hypertension. Migraine Headache. Tension-Type Headache. Rotator Cuff Injury. Seizure Disorder. Frequent Shoulder Dislocations. Depression. Anxiety Reaction. Restless Legs Syndrome. Sleep Apnea. Spina Bifida Occulta. Surgeries: Bladder Augmention. Botox bladder injection. Cystostomy. Foot surgery. Shoulder Surgery. The patient's dominant hand is the right. SOCIAL HISTORY No alcohol use or drug use. ADDITIONAL NOTES The nursing notes have been reviewed. PHYSICAL EXAM Vital Signs: 05/23/2016 12:32 BP: 148/79. HR: 115. RR: 16. O2 saturation: 95%. Temp: 98.2 F. Appearance: Alert. Oriented X3. Patient in mild distress. Head: Head atraumatic. Eyes: No scleral icterus or pale conjunctivae. ENT: Pharynx normal. No pharyngeal erythema or tonsillar exudate. The mucous membranes are not dry. Neck: Normal inspection. Neck supple. C-spine non-tender. CVS: Normal heart rate and rhythm. Heart sounds normal. Pulses normal. Respiratory: No respiratory distress. Breath sounds normal. Abdomen: No visible injury. Soft and nontender. Back: Normal inspection. No tenderness. Skin: Skin intact. Skin warm and dry. Normal skin color. Normal skin turgor. Extremities: Right shoulder: deformity consistent with a shoulder dislocation and moderate tenderness located in the anterior aspect of the shoulder. Limited ROM due to pain. Neurovascular intact distally. No erythema, swelling, laceration, abrasion or ecchymosis. No puncture wound or foreign body. Extremities otherwise negative. Neuro, Vascular and Tendons: Sensation intact. Motor intact. Vascular status intact. No pulse deficit present. Skin not pallid. Capillary refill not prolonged. No sensory deficit. Neuro: Oriented X 3. No motor deficit. No sensory deficit. LABS, X-RAYS, AND EKG Rt Shoulder X-ray: Anterior dislocation of the shoulder (with Hill-Sachs deformity). Views: portable. Technique: good. The X-rays were interpreted contemporaneously by me. A comparison with prior films (multiple prior dislocations - no change in films today). Post procedure films: show good alignment and findings are improved. PROGRESS AND PROCEDURES PROCEDURES (Shoulder immobilizer and sling applied by tech (patient's own).). Procedural Sedation: Indication: Reduction of dislocation of shoulder. ASA classification: 2 - patient with mild systemic disease. History / physical exam. See physical exam recorded above. He has no history of an adverse anesthesia reaction. Mallampati Classification: Class 1 - soft palate, anterior / posterior tonsillar pillars and uvula visible. Normal airway anatomy. Preparation: consent was obtained and the risks of the procedure, benefits and alternatives were explained to patient. IV established. O2 administered. Placed on pulse oximeter and cupola worker. Suction was made available. Medications: Fentanyl IV administered and Propofol IV administered. Patient status during sedation: was attended constantly with sluggish response to stimulation. Vitals were stable. Oxygen saturation levels were normal. The airway was maintained. The recovery was uneventful. Complications: None. Post-procedure: Recovery was uneventful. Returned to baseline. Sedation and procedure performed by me; intra-service time 38-52 minutes. Reduction of Dislocated Shoulder: IV established. O2 administered. Placed on pulse oximeter and cupola worker. Neurovascular exam intact pre-procedure. Given Fentanyl, Versed and Propofol. The right shoulder was reduced using traction-countertraction technique. Reassessed post-procedure. Neurovascular status intact. Deltoid sensation normal. Exam indicated reduction. Confirmed reduction on X-ray. Shoulder immobilizer applied. Course of Care: Normal Saline 500 mL IVPB given. Propofol 100 mg + 100mg + 50 mg IVP given. Zofran 4 mg IVP given. Fentanyl 100 mcg + 100 mcg + 100 mcg IVP given. Patient is stable. Physical exam findings are improved. Symptoms much better. Patient/family counseled. Old medical records ordered. (JEFF --> 65 visits to [facility] ED's in past 12 months; this is his 6th visit to [facility] ED in past 2 months for the same). Disposition: Discharged. Condition: stable and improved. CLINICAL IMPRESSION Right anterior shoulder dislocation. Reduction in the ER. No axillary nerve deficit. INSTRUCTIONS Apply ice. Elevate affected areas above chest level. Wear shoulder immobilizer for three days. Limit use of your right hand until better and until released. Warnings: SEDATIVE MEDICATION: You were given sedative medication during your visit. Do not drive or operate dangerous machinery. CONTROLLED SUBSTANCE WARNINGS. GENERAL WARNINGS: Return or contact your physician immediately if your condition worsens or changes unexpectedly, if not improving as expected, or if other problems arise. Your Current Medications: CONTINUE TAKING THE FOLLOWING MEDICATIONS: Benadryl Allergy Oral : 50mg daily. Keppra Oral : 1500mg 2x a day. KlonoPIN Oral : 1 mg daily. Lacosamide Oral : 75MG 2 X DAILY. LORazepam Oral : 1 mg, prn. Mirapex Oral : 1 mg at bedtime. Oxybutynin Chloride Oral : 10 mg 2x a day. SEROquel Oral : 125mg daily, + 125MG prn. ZyrTEC Allergy Oral : Capsule 10 mg, 2 capsules daily. OTC Medications: Acetaminophen (available over the counter): take according to label instructions. Motrin (available over the counter): take according to label instructions. Follow-up: Follow up with your doctor in two days. Follow up with an orthopedic surgeon in two days. Understanding of the discharge instructions verbalized by patient. (Electronically signed by Moise Field DO 05/24/2016 15:33)
--- NOTE | 2016-05-23 14:26 | ED ORDER SUMMARY ---
..... Patient: JOMAR YA OrderSheet [facility] VisitID: [id number] [place] [address] 26y, M Registration Date/Time: 05/23/2016 ORDER SHEET Weight: 92.9 kg (stated) Allergies: Amoxicillin, Keflex, Latex, morphine, Nitrofurantoin, Vicodin GENERAL ORDERS: Shoulder 2V or more Right (history of dislocations) Urgent (12:32 05/23/2016 [facility] DO) (Ack 12:43 LTapper) (12:59 Kirill) Shoulder 2V or more Right [facility]13:50 [facility] (14:00 KWilliams R.N.) Shoulder Immobilizer (14:14 05/23/2016 [facility] DO) (14:17 KWilliams R.N.) MEDICATION ORDERS: IV FLUIDS: IV NS : initial bolus 250 mL (1000 mL/hr), then 250 mL/hr (NOW) (12:33 05/23/2016 [facility] DO) (13:06 KWilliams R.N.) Fentanyl IV 100 mcg (NOW) (13:02 [facility]2016 [facility] (13:13 KWilliams R.N.) Zofran IV 4 mg (NOW) (13:02 05/23/2016 [facility] DO) (13:12 KWilliams R.N.) Fentanyl IV 100 mcg (HIGH ALERT MEDICATION, NOW) (14:21 05/23/2016 [facility] DO) (14:28 KWilliams R.N.) Propofol IV 100 mg (HIGH ALERT MEDICATION) (14:56 05/23/2016 EHassan R.N. verbal order read back to [facility]) (15:01 EHassan R.N.) Propofol IV 50 mg (HIGH ALERT MEDICATION) (14:57 05/23/2016 EHassan R.N. verbal order read back to [facility]) (1:00 EHassan R.N.) Versed IV 2 mg (NOW) (15:01 05/23/2016 EHassan R.N. verbal order read back to [facility]) (1:01 EHassan R.N.) given at 1341 Propofol IV 50 mg (HIGH ALERT MEDICATION) (15:03 05/23/2016 EHassan R.N. verbal order read back to [facility]) (1:04 EHassan R.N.) given at 1346 Propofol IV 50 mg (HIGH ALERT MEDICATION) (15:04 05/23/2016 EHassan R.N. verbal order read back to [facility]) (Cancelled: Other1:04 EHassan R.N.) given at 1335 Fentanyl IV 100 mcg (HIGH ALERT MEDICATION) (15:05 05/23/2016 EHassan R.N. verbal order read back to [facility]) (1:05 EHassan R.N.) given at 1342 ORDER SHEET NOTES: [Electronically signed by Amy Solorzano R.N. (01:07 05/24/2016)] [Electronically signed by Moise Field DO (15:33 05/24/2016)] [Electronically locked/signed by Amy Solorzano R.N. (01:07 05/24/2016)]
--- NOTE | 2016-05-24 15:33 | ED MED RECONCILIATION SUMMARY ---
Patient: JOMAR YA Medication Reconciliation Report [facility] VisitID: [id number] [address] [place] [address] 26y, M Registration Date/Time: 05/23/2016 Weight: 92.9 kg Height/Length: 64 in. BMI: 35.2 ALLERGIES: Amoxicillin, Keflex, Latex, morphine, Nitrofurantoin, Vicodin The patient's Home Medications are listed below: CONTINUE TAKING THE FOLLOWING MEDICATIONS: Benadryl Allergy Oral 50mg , daily Keppra Oral 1500mg , 2x a day KlonoPIN Oral 1 mg, daily Lacosamide Oral 75MG , 2 X DAILY LORazepam Oral 1 mg Mirapex Oral 1 mg, at bedtime Oxybutynin Chloride Oral 10 mg, 2x a day SEROquel Oral 125mg, daily, + 125MG prn ZyrTEC Allergy Oral (10 mg) 2 capsules, daily The source(s) of the original Home Medication information: Not obtained. The following Medications were given to the patient in the Emergency Department: IV NS IV Fluids bolus 250 mL over 15 minute(s), then 250 mL/hr, administered: 05/23/2016 1:01:00 PM Zofran [IVP] IVP 4 mg, administered: 05/23/2016 1:07:00 PM Fentanyl [IVP] IVP 100 mcg, administered: 05/23/2016 1:09:00 PM Fentanyl [IVP] IVP 100 mcg, administered: 05/23/2016 2:23:00 PM PROPOFOL [IVP] IVP 100 mg, administered: 05/23/2016 2:59:00 PM PROPOFOL [IVP] IVP 50 mg, administered: 05/23/2016 2:59:00 PM Versed [IVP] IVP 2 mg, administered: 05/23/2016 3:02:00 PM PROPOFOL [IVP] IVP 50 mg, administered: 05/23/2016 1:46:00 PM Fentanyl [IVP] IVP 100 mcg, administered: 05/23/2016 1:42:00 PM The following Medications were prescribed to the patient: Acetaminophen (available over the counter): take according to label instructions. -- Moise Field DO Motrin (available over the counter): take according to label instructions. -- Moise Field, DO
--- NOTE | 2016-05-24 15:33 | ED MED RECONCILIATION SUMMARY ---
Patient: JOMAR YA Medication Reconciliation Report [facility] VisitID: [id number] [address] [place] [address] 26y, M Registration Date/Time: 05/23/2016 Weight: 92.9 kg Height/Length: 64 in. BMI: 35.2 ALLERGIES: Amoxicillin, Keflex, Latex, morphine, Nitrofurantoin, Vicodin The patient's Home Medications are listed below: CONTINUE TAKING THE FOLLOWING MEDICATIONS: Benadryl Allergy Oral 50mg , daily Keppra Oral 1500mg , 2x a day KlonoPIN Oral 1 mg, daily Lacosamide Oral 75MG , 2 X DAILY LORazepam Oral 1 mg Mirapex Oral 1 mg, at bedtime Oxybutynin Chloride Oral 10 mg, 2x a day SEROquel Oral 125mg, daily, + 125MG prn ZyrTEC Allergy Oral (10 mg) 2 capsules, daily The source(s) of the original Home Medication information: Not obtained. The following Medications were given to the patient in the Emergency Department: IV NS IV Fluids bolus 250 mL over 15 minute(s), then 250 mL/hr, administered: 05/23/2016 1:01:00 PM Zofran [IVP] IVP 4 mg, administered: 05/23/2016 1:07:00 PM Fentanyl [IVP] IVP 100 mcg, administered: 05/23/2016 1:09:00 PM Fentanyl [IVP] IVP 100 mcg, administered: 05/23/2016 2:23:00 PM PROPOFOL [IVP] IVP 100 mg, administered: 05/23/2016 2:59:00 PM PROPOFOL [IVP] IVP 50 mg, administered: 05/23/2016 2:59:00 PM Versed [IVP] IVP 2 mg, administered: 05/23/2016 3:02:00 PM PROPOFOL [IVP] IVP 50 mg, administered: 05/23/2016 1:46:00 PM Fentanyl [IVP] IVP 100 mcg, administered: 05/23/2016 1:42:00 PM The following Medications were prescribed to the patient: Acetaminophen (available over the counter): take according to label instructions. -- Moise Field DO Motrin (available over the counter): take according to label instructions. -- Moise Field, DO
--- NOTE | 2016-05-24 15:33 | ED MAR SUMMARY ---
..... Medication Administration Record [facility] [address] [place] [address] Patient: JOMAR YA Visit ID: [id number] 26y, M Weight: 92.9 kg Height/Length: 64 in BMI: 35.2 ALLERGIES: Amoxicillin, Keflex, Latex, morphine, Nitrofurantoin, Vicodin Start 13:01 05/23/2016 Ayana Miles R.N., Stop 14:35 05/23/2016 Ayana Miles R.N. Medication Administered: IV NS (SALINE), Dose: IV Fluids over 3 hour(s), Rate: 250 mL/hr, Bolus: 250 mL over 15 minute(s), Dispensed: 1000 mL bag, Site: #1 left AC. Medication Ordered: IV NS : initial bolus 250 mL (1000 mL/hr), then 250 mL/hr (NOW). Given 13:07 05/23/2016 Ayana Miles R.N. Medication Administered: ZOFRAN [IVP] (ONDANSETRON HCL), Dose: 4 mg IVP over 2 minute(s), Site: #1 left AC. Medication Ordered: Zofran IV 4 mg (NOW). Given 13:09 05/23/2016 Ayana Miles R.N. Medication Administered: FENTANYL [IVP], Dose: 100 mcg IVP over 2 minute(s), Site: #1 left AC. Medication Ordered: Fentanyl IV 100 mcg (NOW). Given 13:42 05/23/2016 Amy Solorzano R.N. Medication Administered: FENTANYL [IVP], Dose: 100 mcg IVP over 1 minute(s), Site: #2. Medication Ordered: Fentanyl IV 100 mcg (HIGH ALERT MEDICATION). Given 13:46 05/23/2016 Amy Solorzano R.N. Medication Administered: PROPOFOL [IVP], Dose: 50 mg IVP over 1 minute(s), Site: #2. Medication Ordered: Propofol IV 50 mg (HIGH ALERT MEDICATION). Given 14:23 05/23/2016 Ayana Miles R.N. Medication Administered: FENTANYL [IVP], Dose: 100 mcg IVP over 2 minute(s), Site: #1 left AC. Medication Ordered: Fentanyl IV 100 mcg (HIGH ALERT MEDICATION, NOW). Given 14:59 05/23/2016 Amy Solorzano RIsraelN. Medication Administered: PROPOFOL [IVP], Dose: 100 mg IVP over 1 minute(s), Site: #2 left AC. Medication Ordered: Propofol IV 100 mg (HIGH ALERT MEDICATION). Given 14:59 05/23/2016 Amy Solorzano RIsraelN. Medication Administered: PROPOFOL [IVP], Dose: 50 mg IVP over 1 minute(s), Site: #2 left AC. Medication Ordered: Propofol IV 50 mg (HIGH ALERT MEDICATION). Given 15:05/23/2016 Amy Solorzano, R.N. Medication Administered: VERSED [IVP] (MIDAZOLAM HCL), Dose: 2 mg IVP over 1 minute(s), Site: #2 left AC. Medication Ordered: Versed IV 2 mg (NOW).
--- NOTE | 2016-05-24 15:33 | ED MAR SUMMARY ---
..... Medication Administration Record [facility] [address] [place] [address] Patient: JOMAR YA Visit ID: [id number] 26y, M Weight: 92.9 kg Height/Length: 64 in BMI: 35.2 ALLERGIES: Amoxicillin, Keflex, Latex, morphine, Nitrofurantoin, Vicodin Start 13:01 05/23/2016 Ayana Miles R.N., Stop 14:35 05/23/2016 Ayana Miles R.N. Medication Administered: IV NS (SALINE), Dose: IV Fluids over 3 hour(s), Rate: 250 mL/hr, Bolus: 250 mL over 15 minute(s), Dispensed: 1000 mL bag, Site: #1 left AC. Medication Ordered: IV NS : initial bolus 250 mL (1000 mL/hr), then 250 mL/hr (NOW). Given 13:07 05/23/2016 Ayana Miles R.N. Medication Administered: ZOFRAN [IVP] (ONDANSETRON HCL), Dose: 4 mg IVP over 2 minute(s), Site: #1 left AC. Medication Ordered: Zofran IV 4 mg (NOW). Given 13:09 05/23/2016 Ayana Miles R.N. Medication Administered: FENTANYL [IVP], Dose: 100 mcg IVP over 2 minute(s), Site: #1 left AC. Medication Ordered: Fentanyl IV 100 mcg (NOW). Given 13:42 05/23/2016 Amy Solorzano R.N. Medication Administered: FENTANYL [IVP], Dose: 100 mcg IVP over 1 minute(s), Site: #2. Medication Ordered: Fentanyl IV 100 mcg (HIGH ALERT MEDICATION). Given 13:46 05/23/2016 Amy Solorzano R.N. Medication Administered: PROPOFOL [IVP], Dose: 50 mg IVP over 1 minute(s), Site: #2. Medication Ordered: Propofol IV 50 mg (HIGH ALERT MEDICATION). Given 14:23 05/23/2016 Ayana Miles R.N. Medication Administered: FENTANYL [IVP], Dose: 100 mcg IVP over 2 minute(s), Site: #1 left AC. Medication Ordered: Fentanyl IV 100 mcg (HIGH ALERT MEDICATION, NOW). Given 14:59 05/23/2016 Amy Solorzano RIsraelN. Medication Administered: PROPOFOL [IVP], Dose: 100 mg IVP over 1 minute(s), Site: #2 left AC. Medication Ordered: Propofol IV 100 mg (HIGH ALERT MEDICATION). Given 14:59 05/23/2016 Amy Solorzano RIsraelN. Medication Administered: PROPOFOL [IVP], Dose: 50 mg IVP over 1 minute(s), Site: #2 left AC. Medication Ordered: Propofol IV 50 mg (HIGH ALERT MEDICATION). Given 15:05/23/2016 Amy Solorzano, R.N. Medication Administered: VERSED [IVP] (MIDAZOLAM HCL), Dose: 2 mg IVP over 1 minute(s), Site: #2 left AC. Medication Ordered: Versed IV 2 mg (NOW).
--- NOTE | 2016-05-24 15:33 | ED DISCHARGE INSTRUCTIONS ---
Patient: JOMAR YA General Instructions [facility] VisitID: [id number] [place] [address] 26y, M Registration Date/Time: 05/23/2016 Right anterior shoulder dislocation. Reduction in the ER. No axillary nerve deficit. INSTRUCTIONS Apply ice. Elevate affected areas above chest level. Wear shoulder immobilizer for three days. Limit use of your right hand until better and until released. Warnings: SEDATIVE MEDICATION: You were given sedative medication during your visit. Do not drive or operate dangerous machinery. CONTROLLED SUBSTANCE WARNINGS. GENERAL WARNINGS: Return or contact your physician immediately if your condition worsens or changes unexpectedly, if not improving as expected, or if other problems arise. Your Current Medications: CONTINUE TAKING THE FOLLOWING MEDICATIONS: Benadryl Allergy Oral : 50mg daily. Keppra Oral : 1500mg 2x a day. KlonoPIN Oral : 1 mg daily. Lacosamide Oral : 75MG 2 X DAILY. LORazepam Oral : 1 mg, prn. Mirapex Oral : 1 mg at bedtime. Oxybutynin Chloride Oral : 10 mg 2x a day. SEROquel Oral : 125mg daily, + 125MG prn. ZyrTEC Allergy Oral : Capsule 10 mg, 2 capsules daily. OTC Medications: Acetaminophen (available over the counter): take according to label instructions. Motrin (available over the counter): take according to label instructions. Follow-up: Follow up with your doctor in two days. Follow up with an orthopedic surgeon in two days. Understanding of the discharge instructions verbalized by patient. ADDITIONAL INFORMATION Dislocation: Shoulder (Reduced) Dislocation of the shoulder joint occurs when a strong force tears the ligaments holding the joint together. This allows the bones to move apart and become stuck out of place. Once the joint is aligned again, it will take about six weeks for the ligaments to heal. Since this injury may weaken the ligaments, you are at risk of another dislocation with less force. Therefore, care should be taken to avoid a similar injury in the future. Shoulder dislocation is treated with a shoulder immobilizer (special type of arm sling). This keeps your arm close to your body to prevent a recurrent dislocation while the ligaments heal. After a few weeks, an exercise program may be started. This will gradually restore range of motion and strength at the shoulder and decrease the risk of another dislocation. Home Care: Until your next doctor visit, wear your shoulder immobilizer at all times . Do not take it off at night to sleep. It is possible to dislocate your arm again in your sleep. You may take it off to bathe or dress, but do not move your arm away from your body. Keep your arm in the same position that the sling was holding it in, until you reapply the sling again. During your next visit, ask your doctor how long you should wear the sling. Apply an ice pack (ice cubes in a plastic bag, wrapped in a towel) over the injured area for 20 minutes every 1-2 hours the first day. Continue with ice packs 3-4 times a day for the next two days, then as needed for the relief of pain and swelling. You may use acetaminophen (Tylenol) or ibuprofen (Motrin, Advil) to control pain, unless another pain medicine was prescribed. [NOTE: If you have chronic liver or kidney disease or ever had a stomach ulcer or GI bleeding, talk with your doctor before using these medicines.] No sports or P.E. until cleared by your doctor. Follow Up with your doctor within one week or as advised by our staff. Shoulder immobilizers and slings should not be worn continuously for more than a few weeks or you may lose some [id number] at the shoulder joint. If you have had repeated dislocations of the same shoulder, that means there has been permanent ligament damage. Ask the orthopedic doctor about surgery to prevent another dislocation. Get Prompt Medical Attention if any of the following occur: Another dislocation of your shoulder Increasing swelling or pain in the shoulder or arm Fingers become cold, blue, numb or tingly Shoulder Immobilizer A shoulder immobilizer is designed to hold your arm against your body. It is used for injuries where excess movement of the shoulder joint could cause harmfor example, after a shoulder dislocation or shoulder fracture. A joint that is immobilized too long can become stiff and lose range of motion. Follow-up with your doctor as advised and do not use the shoulder immobilizer longer than directed. Home Use: Leave the shoulder immobilizer in place as long as directed by your doctor. Unless told otherwise, you should sleep with it in place. If you are being treated for a shoulder dislocation, you may take the immobilizer off to bathe or dress, but do not try to raise your arm away from your body. Reapply the immobilizer as soon as possible. If you are being treated for a shoulder fracture, leave the immobilizer in place until your next exam. The shoulder immobilizer is adjustable. If it becomes loose, adjust it so that your arm is snug against your body and your forearm is horizontal (level with the ground). Your hand should be level with the elbow. Acetaminophen Oral tablet What is this medicine? ACETAMINOPHEN (a set a CHARLIE itz fen) is a pain reliever. It is used to treat mild pain and fever. How should I use this medicine? Take this medicine by mouth with a glass of water. Follow the directions on the package or prescription label. Take your medicine at regular intervals. Do not take your medicine more often than directed. Talk to your green material value added assessor regarding the use of this medicine in children. While this drug may be prescribed for children as young as 6 years of age for selected conditions, precautions do apply. What side effects may I notice from receiving this medicine? Side effects that you should report to your doctor or health ambulatory care coordinator as soon as possible: allergic reactions like skin rash, itching or hives, swelling of the face, lips, or tongue breathing problems fever or sore throat redness, blistering, peeling or loosening of the skin, including inside the mouth trouble passing urine or change in the amount of urine unusual bleeding or bruising unusually weak or tired yellowing of the eyes or skin Side effects that usually do not require medical attention (report to your doctor or health ambulatory care coordinator if they continue or are bothersome): headache nausea, stomach upset What may interact with this medicine? alcohol imatinib isoniazid other medicines with acetaminophen What if I miss a dose? If you miss a dose, take it as soon as you can. If it is almost time for your next dose, take only that dose. Do not take double or extra doses. Where should I keep my medicine? Keep out of reach of children. Store at room temperature between 20 and 25 degrees C (68 and 77 degrees F). Protect from moisture and heat. Throw away any unused medicine after the expiration date. What should I tell my health care provider before I take this medicine? They need to know if you have any of these conditions: if you frequently drink alcohol containing drinks liver disease an unusual or allergic reaction to acetaminophen, other medicines, foods, dyes or preservatives or trying to get breast-feeding What should I watch for while using this medicine? Tell your doctor or health ambulatory care coordinator if the pain lasts more than 10 days (5 days for children), if it gets worse, or if there is a new or different kind of pain. Also, check with your doctor if a fever lasts for more than 3 days. Do not take other medicines that contain acetaminophen with this medicine. Always read labels carefully. If you have questions, ask your doctor or pharmacist. If you take too much acetaminophen get medical help right away. Too much acetaminophen can be very dangerous and cause liver damage. Even if you do not have symptoms, it is important to get help right away. Ibuprofen Oral tablet What is this medicine? IBUPROFEN (eye BYOO proe fen) is a non-steroidal anti-inflammatory drug (NSAID). It is used for dental pain, fever, headaches or migraines, osteoarthritis, rheumatoid arthritis, or painful monthly periods. It can also relieve minor aches and pains caused by a cold, flu, or sore throat. How should I use this medicine? Take this medicine by mouth with a glass of water. Follow the directions on the prescription label. Take this medicine with food if your stomach gets upset. Try to not lie down for at least 10 minutes after you take the medicine. Take your medicine at regular intervals. Do not take your medicine more often than directed. A special MedGuide will be given to you by the pharmacist with each prescription and refill. Be sure to read this information carefully each time. Talk to your green material value added assessor regarding the use of this medicine in children. Special care may be needed. What side effects may I notice from receiving this medicine? Side effects that you should report to your doctor or health ambulatory care coordinator as soon as possible: allergic reactions like skin rash, itching or hives, swelling of the face, lips, or tongue black or bloody stools, blood in the urine or in vomit breathing problems changes in vision chest pain general ill feeling or flu-like symptoms nausea or vomiting redness, blistering, peeling or loosening of the skin, including inside the mouth slurred speech or weakness on one side of the body stomach pain unexplained weight gain or swelling unusually weak or tired yellowing of eyes or skin Side effects that usually do not require medical attention (report to your doctor or health ambulatory care coordinator if they continue or are bothersome): constipation or diarrhea dizziness gas or heartburn stomach upset What may interact with this medicine? Do not take this medicine with any of the following medications: cidofovir ketorolac methotrexate pemetrexed This medicine may also interact with the following medications: alcohol aspirin diuretics lithium other drugs for inflammation like prednisone warfarin What if I miss a dose? If you miss a dose, take it as soon as you can. If it is almost time for your next dose, take only that dose. Do not take double or extra doses. Where should I keep my medicine? Keep out of the reach of children. Store at room temperature between 15 and 30 degrees C (59 and 86 degrees F). Keep container tightly closed. Throw away any unused medicine after the expiration date. What should I tell my health care provider before I take this medicine? They need to know if you have any of these conditions: asthma cigarette smoker drink more than 3 alcohol containing drinks a day heart disease or circulation problems such as heart failure or leg edema (fluid retention) high blood pressure kidney disease liver disease stomach bleeding or ulcers an unusual or allergic reaction to ibuprofen, aspirin, other NSAIDS, other medicines, foods, dyes, or preservatives or trying to get breast-feeding What should I watch for while using this medicine? Tell your doctor or healthcare professional if your symptoms do not start to get better or if they get worse. This medicine does not prevent heart attack or stroke. In fact, this medicine may increase the chance of a heart attack or stroke. The chance may increase with longer use of this medicine and in people who have heart disease. If you take aspirin to prevent heart attack or stroke, talk with your doctor or health ambulatory care coordinator. Do not take other medicines that contain aspirin, ibuprofen, or naproxen with this medicine. Side effects such as stomach upset, nausea, or ulcers may be more likely to occur. Many medicines available without a prescription should not be taken with this medicine. This medicine can cause ulcers and bleeding in the stomach and intestines at any time during treatment. Ulcers and bleeding can happen without warning symptoms and can cause . To reduce your risk, do not smoke cigarettes or drink alcohol while you are taking this medicine. You may get drowsy or dizzy. Do not drive, use machinery, or do anything that needs mental alertness until you know how this medicine affects you. Do not stand or sit up quickly, especially if you are an older patient. This reduces the risk of dizzy or fainting spells. This medicine can cause you to bleed more easily. Try to avoid damage to your teeth and gums when you brush or floss your teeth. You have been given the following additional information: Dislocation: Shoulder (Reduced) Shoulder Immobilizer Acetaminophen Oral tablet Ibuprofen Oral tablet Limit use of your right hand until better and until released. (Electronically signed by Moise Field DO 05/24/2016 15:33)
== END 2016-05-23 14:38 | disposition home or self-care (01) ==
LOC: ED SRH 12:20
DX: S43.014A Anterior dislocation of right humerus, initial encounter (principal); Z88.8 Allergy status to other drugs, medicaments and biological substances; X50.0XXA Overexertion from strenuous movement or load, initial encounter; Y93.84 Activity, sleeping; Y92.009 Unspecified place in unspecified non-institutional (private) residence as the place of occurrence of the external cause; Y99.9 Unspecified external cause status; I10 Essential (primary) hypertension; Z79.899 Other long term (current) drug therapy; Z88.1 Allergy status to other antibiotic agents; Z88.0 Allergy status to penicillin

== ENCOUNTER 2016-05-28 06:25 | Emergency (ER) | payer BC, OTHER ==
--- NOTE | 2016-05-28 07:34 | DIAGNOSTIC IMAGING REPORT ---
PROCEDURE: XR SHOULDER 2 OR MORE VW-RIGHT INDICATION: PAIN TECHNIQUE: Three views. COMPARISON: None. FINDINGS: Anterior shoulder dislocation with inferomedial displacement of the humeral head. Chronic Hill-Sachs deformity. Normal AC joint. No fracture. IMPRESSION: 1. Right shoulder anterior dislocation with chronic Hill-Sachs impaction fracture
--- NOTE | 2016-05-28 07:50 | ED ORDER SUMMARY ---
..... Patient: JOMAR YA OrderSheet [facility] VisitID: [id number] [place] [address] 26y, M Registration Date/Time: 05/28/2016 ORDER SHEET Weight: 92.9 kg (stated) Allergies: Amoxicillin, Keflex, Latex, morphine, Nitrofurantoin, Vicodin GENERAL ORDERS: Shoulder 2V or more Right Urgent (06:33 05/28/2016 Siddharth DOWD) (Ack 6:33 Evan ER Tech1) (6:49 Jonna) Shoulder 1V Right Urgent (07:12 05/28/2016 Siddharth DOWD) (Ack 7:15 Deandra) (Cancelled: Patient Refusal7:59 Karlos Reynolds) MEDICATION ORDERS: IV FLUIDS: ORDER SHEET NOTES: [Electronically signed by Ros Castillo R.N. (08:00 05/28/2016)] [Electronically signed by Jude Dotson MD (09:24 05/28/2016)] [Electronically locked/signed by Ros Castillo R.N. (08:00 05/28/2016)]
--- NOTE | 2016-05-28 07:50 | ED ORDER SUMMARY ---
..... Patient: JOMAR YA OrderSheet [facility] VisitID: [id number] [place] [address] 26y, M Registration Date/Time: 05/28/2016 ORDER SHEET Weight: 92.9 kg (stated) Allergies: Amoxicillin, Keflex, Latex, morphine, Nitrofurantoin, Vicodin GENERAL ORDERS: Shoulder 2V or more Right Urgent (06:33 05/28/2016 Siddharth DOWD) (Ack 6:33 Evan ER Tech1) (6:49 Jonna) Shoulder 1V Right Urgent (07:12 05/28/2016 Siddharth DOWD) (Ack 7:15 Deandar) (Cancelled: Patient Refusal7:59 Karlos Reynolds) MEDICATION ORDERS: IV FLUIDS: ORDER SHEET NOTES: [Electronically signed by Ros Castillo R.N. (08:00 05/28/2016)] [Electronically signed by Jude Dotson MD (09:24 05/28/2016)] [Electronically locked/signed by Ros Castillo R.N. (08:00 05/28/2016)]
--- NOTE | 2016-05-28 07:50 | ED NURSING NOTES ---
Clinical Report - Nurses [facility] [address] [place] [address] 05/28/2016 6:24 [id number] Triage time 06:May 28 2016. Acuity: LEVEL 3. Chief Complaint: RIGHT UPPER EXTREMITY PAIN. Location of symptoms- (Right shoulder disclocation). SEPSIS SCREEN: Sepsis Screen: negative. Negative (no infection suspected/documented). LAWRENCE COMA SCORE: Lawrence Coma Scale: 15- eyes open spontaneously (4); best verbal response- oriented x 4 (5); best motor response- obeys commands (6). --06:36 Fiorella Gómez 06:30 05/28/16. BP: 160/77. HR: 123. RR: 20. O2 saturation: 99%. Temp: 98.4 F (oral). Pain level now: 12/06. --06:36 Fiorella Gómez. Weight: 92.9 kg stated. Height/Length: 64 inches Per Patient. BMI: 35.2. --06:33 Fiorella Gómez. Medications Benadryl Allergy Oral 50mg , daily. Keppra Oral 1500mg , 2x a day. KlonoPIN Oral 1 mg, daily. Lacosamide Oral 75MG , 2 X DAILY. LORazepam Oral 1 mg, as needed. Mirapex Oral 1 mg, at bedtime. Oxybutynin Chloride Oral 10 mg, 2x a day. SEROquel Oral 125mg, daily (+ 125MG prn). ZyrTEC Allergy Oral (Capsule 10 mg) 2 capsules, daily. --06:31 Fiorella Gómez Doxycycline Hyclate Oral. --06:36 Fiorella Gómez. Medication/allergy information source: the patient. --06:36 Fiorella Gómez. Allergies Amoxicillin. Keflex. Latex. morphine. Nitrofurantoin. Vicodin. --06:31 Fiorella Gómez. History Arrived by EMS. Historian: patient. Accompanied by friend. This occurred just prior to arrival. Occurred at home. Provoking / relieving factors: worsened by movement. ( Patient reports a dislocation of his right shoulder. This is a commonly occurring incident. He reports a dislocation a few times this morning which he was able to reduce. He states this last dislocation he was unable to reduce on his own. He reports that he is scheduled for surgery in June). 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 PAST MEDICAL HX: Tetanus status: unknown. Immunizations: up-to-date. SOCIAL HX: Never smoker. No alcohol use or drug use. No infectious disease exposure. ABUSE ASSESSMENT: No report of abuse. FALL RISK ASSESSMENT: Fall risk assessment completed. No fall risk identified. NUTRITIONAL RISK ASSESSMENT: The nutritional risk assessment revealed no deficiencies. FUNCTIONAL ASSESSMENT: Functional assessment: no impairments noted. LEARNING NEEDS ASSESSMENT: The learning needs assessment revealed no barriers. SKIN INTEGRITY ASSESSMENT: Skin integrity risk assessment completed. No skin integrity risk identified. --06:36 Fiorella Gómez. PROBLEMS: Infections. UTI - Urinary Tract Infection. Nerve Injury, Upper Extremity. Dental Pain. Gastroenteritis. Changed Mental Status. Constipation. Chronic bladder infections. Atypical Chest Pain. Vomiting. Tetanus Status. Hypertension. Chronic Headache. Neurological Disease. Migraine Headache. Tension-Type Headache. Urinary Retention. Abdominal Pain. Prior Injury, Same Area. Rotator Cuff Injury. Immunizations. Seizure Disorder. Dislocated Shoulder. Depression. Anxiety Reaction. Restless Legs Syndrome. Sleep Apnea. Spina Bifida Occulta. --06:32 Fiorella Gómez. ADDITIONAL SURGERIES: Bladder Augmention. Botox bladder injection. Cystostomy. Foot surgery. Shoulder Surgery. --06:32 Fiorella Gómez. Interventions ID band on patient. To treatment room. --06:36 Fiorella Gómez. PHYSICAL ASSESSMENT To room via stretcher. GENERAL / NEURO / PSYCH: Oriented X 4. Alert. Appears in pain. EXTREMITIES: Neuro-vascular status intact to the extremity. Right shoulder: tenderness and deformity. Limited ROM due to pain. SKIN: Skin intact. Skin is warm and dry. --06:36 Fiorella Gómez. NURSING PROGRESS NOTES 06:37 05/28/16. Cold pack applied. Reassurance given to the patient. Two patient identifiers checked. Call light placed in reach. Side rails up x 1. Bed placed in lowest position. Brakes of bed on. Patient ready for evaluation- chart flagged. --06:37 Fiorella Gómez ( Provider at bedside discussing plan of care). --06:37 Fiorella Gómez 06:39 Portable X-ray in progress. --06:39 McSravani Galdamez, ER Tech1 07:10 05/28/16. Care transferred and report given (Viky Leigh RN). --07:10 Fiorella Gómez 07:10. REDUCTION - SHOULDER: Reduction of shoulder dislocation performed by ED physician. Assisted by one tech. Procedure: reduction of the right shoulder; (shoulder reduced per MD, patient did not receive medications for procedure; tolerated well). Post-procedure. Sling applied. Total time of assist / procedure: minutes. ( Time of assist < 5 minutes). --07:31 McDenice Sravani, ER Tech1 07:30. Load Haul Dump Operator provided to witness discussions (Patient refusing post reduction X-ray. MD discussed risk with patient, AMA form signed). --07:32 McDenice Sravani, ER Tech1 07:50. The patient is calm. Overall patient status is improved- he states feels the same. GENERAL / NEURO / PSYCH: Alert. Oriented X 4. RESPIRATORY: No respiratory distress. CVS: Capillary refill less than 2 seconds. SKIN: Skin is warm and dry. --07:58 Ros Castillo R.N. DISPOSITION / DISCHARGE Departure time: 0750. Condition at departure: stable. No learning barriers present. Discharge instructions provided and reviewed with the patient. Patient verbalized understanding. Written instructions provided in Occitan. The patient was discharged home and accompanied by bagel maker. He left the Emergency Department ambulatory and via private vehicle. FALL RISK ASSESSMENT: Fall risk assessment completed. No fall risk identified. --07:57 Ros Castillo R.N. 07:52 05/28/16. BP: 160/67. HR: 95. RR: 18. O2 saturation: 99% on room air. Pain level now: 10/05. --07:57 Ros Castillo R.N. ( keep right arm in sling until released by Ortho). --07:58 Ros Castillo R.N. Locked/Released at 05/28/2016 8:00 by Ros Castillo R.N.
--- NOTE | 2016-05-28 07:50 | ED CLINICAL REPORT ---
Clinical Report - Physicians/Mid Levels [facility] [address] [place] [address] 05/28/2016 6:24 Patient: JOMAR YA Time Seen: 06:33. Arrived- By ambulance. Historian- patient and EMS personnel. HISTORY OF PRESENT ILLNESS Chief Complaint: Injury to shoulder. The injury happened just prior to arrival. Occurred at home. Twisting injury. Patient is experiencing severe pain. No other injury. ( Patient reports a dislocation of his right shoulder. This is a commonly occurring incident. He reports a dislocation a few times this morning which he was able to reduce. He states this last dislocation he was unable to reduce on his own). REVIEW OF SYSTEMS The patient has had new onset of weakness of the right upper arm. No tingling, numbness, chills, fever or sweats. No calf pain, chest pain, cough, difficulty breathing or pedal edema. No palpitations, abdominal pain, constipation, diarrhea or nausea. No vomiting. All systems otherwise negative, except as recorded above. PAST HISTORY Problems: UTI - Urinary Tract Infection. Nerve Injury, Upper Extremity. Dental Pain. Gastroenteritis. Changed Mental Status. Constipation. Chronic bladder infections. Atypical Chest Pain. Vomiting. Hypertension. Chronic Headache. Neurological Disease. Migraine Headache. Tension-Type Headache. Urinary Retention. Abdominal Pain. Rotator Cuff Injury. Seizure Disorder. Dislocated Shoulder. Depression. Anxiety Reaction. Restless Legs Syndrome. Sleep Apnea. Spina Bifida Occulta. Additional Surgeries: Bladder Augmention. Botox bladder injection. Cystostomy. Foot surgery. Shoulder Surgery. Medications: Doxycycline Hyclate Oral. Benadryl Allergy Oral 50mg , daily. Keppra Oral 1500mg , 2x a day. KlonoPIN Oral 1 mg, daily. Lacosamide Oral 75MG , 2 X DAILY. LORazepam Oral 1 mg, as needed. Mirapex Oral 1 mg, at bedtime. Oxybutynin Chloride Oral 10 mg, 2x a day. SEROquel Oral 125mg, daily (+ 125MG prn). ZyrTEC Allergy Oral (Capsule 10 mg) 2 capsules, daily. Allergies: Amoxicillin. Keflex. Latex. morphine. Nitrofurantoin. Vicodin. SOCIAL HISTORY Never smoker. No alcohol use or drug use. FAMILY HISTORY No significant family medical history. ADDITIONAL NOTES The nursing notes have been reviewed. PHYSICAL EXAM Vital Signs: Have been reviewed. Appearance: Alert. Head: Head atraumatic. Eyes: Pupils equal, round and reactive to light. ENT: Pharynx normal. Neck: Neck supple. CVS: Normal heart rate and rhythm. Heart sounds normal. Respiratory: No respiratory distress. Breath sounds normal. Abdomen: Soft and nontender. Bowel sounds normal. No organomegaly. No mass. Skin: Skin warm and dry. Extremities: Moderate deformity right shoulder consistent with shoulder dislocation. Neuro, Vascular and Tendons: Sensation intact. Motor intact. Vascular status intact. Neuro: No motor deficit. No sensory deficit. PROGRESS AND PROCEDURES Reduction of Dislocated Shoulder: Time-out completed immediately before the procedure. The right shoulder was reduced using external rotation technique. Reassessed post-procedure. Neurovascular status intact. Exam indicated reduction. Arm sling applied. Course of Care: I reviewed with the patient comments on his JEFF form that were initiated by the [facility] and were updated on May 27, 2016. They noted that he's had more than 10 ER admissions in the last 2 months related to right shoulder dislocation. They specifically suggest trying to avoid IV sedation for ED procedures. The patient became angry with me when I reviewed this with him and specifically said that "I know what you're implying!" He did agree to having a reduction performed without sedation which was done as noted. After the reduction of his shoulder, I explained to the patient that I would like to get post reduction x-rays. He refused these. I did explain the risk of a potential injury to the shoulder during reduction including possible avulsion fracture. In spite of reviewing these risks with him he still insists that he does not want any x-rays performed and he signed an AMA form to this effect. Patient/family counseled. Old medical records reviewed. Disposition: Discharged. Condition: stable. CLINICAL IMPRESSION Right anterior shoulder dislocation. INSTRUCTIONS Wear simple sling until released. Warnings: COMPLICATIONS: Complications from this condition include: possible injury to a nerve, possible injury to a tendon and possible injury to a ligament. Future problems may include loss of function, pain and deformity. GENERAL WARNINGS: Return or contact your physician immediately if your condition worsens or changes unexpectedly, if not improving as expected, or if other problems arise. Your Current Medications: CONTINUE TAKING THE FOLLOWING MEDICATIONS: Benadryl Allergy Oral : 50mg daily. Doxycycline Hyclate Oral. Keppra Oral : 1500mg 2x a day. KlonoPIN Oral : 1 mg daily. Lacosamide Oral : 75MG 2 X DAILY. LORazepam Oral : 1 mg, prn. Mirapex Oral : 1 mg at bedtime. Oxybutynin Chloride Oral : 10 mg 2x a day. SEROquel Oral : 125mg daily, + 125MG prn. ZyrTEC Allergy Oral : Capsule 10 mg, 2 capsules daily. Follow-up: Follow up with an orthopedic surgeon at the [facility]. Please contact them and see if it would be possible to schedule your shoulder repair at an earlier dateas discussed. Call for the next available appointment. Understanding of the discharge instructions verbalized by patient. (Electronically signed by Jude Dotson MD 05/28/2016 9:24)
--- NOTE | 2016-05-28 07:50 | ED NURSING NOTES ---
Clinical Report - Nurses [facility] [address] [place] [address] 05/28/2016 6:24 Patient: JOMAR YA [facility] [id number] TRIAGE Triage time 06:May 28 2016. Acuity: LEVEL 3. Chief Complaint: RIGHT UPPER EXTREMITY PAIN. Location of symptoms- (Right shoulder disclocation). SEPSIS SCREEN: Sepsis Screen: negative. Negative (no infection suspected/documented). LAWRENCE COMA SCORE: Lawrence Coma Scale: 15- eyes open spontaneously (4); best verbal response- oriented x 4 (5); best motor response- obeys commands (6). --06:36 Fiorella Gómez 06:30 05/28/16. BP: 160/77. HR: 123. RR: 20. O2 saturation: 99%. Temp: 98.4 F (oral). Pain level now: 12/06. --06:36 Fiorella Gómez. Weight: 92.9 kg stated. Height/Length: 64 inches Per Patient. BMI: 35.2. --06:33 Fiorella Gómez. Medications Benadryl Allergy Oral 50mg , daily. Keppra Oral 1500mg , 2x a day. KlonoPIN Oral 1 mg, daily. Lacosamide Oral 75MG , 2 X DAILY. LORazepam Oral 1 mg, as needed. Mirapex Oral 1 mg, at bedtime. Oxybutynin Chloride Oral 10 mg, 2x a day. SEROquel Oral 125mg, daily (+ 125MG prn). ZyrTEC Allergy Oral (Capsule 10 mg) 2 capsules, daily. --06:31 Fiorella Gómez Doxycycline Hyclate Oral. --06:36 Fiorella Gómez. Medication/allergy information source: the patient. --06:36 Fiorella Gómez. Allergies Amoxicillin. Keflex. Latex. morphine. Nitrofurantoin. Vicodin. --06:31 Fiorella Gómez. History Arrived by EMS. Historian: patient. Accompanied by friend. This occurred just prior to arrival. Occurred at home. Provoking / relieving factors: worsened by movement. ( Patient reports a dislocation of his right shoulder. This is a commonly occurring incident. He reports a dislocation a few times this morning which he was able to reduce. He states this last dislocation he was unable to reduce on his own. He reports that he is scheduled for surgery in June). Treatment [employer]: (sling). PAST MEDICAL HX: Tetanus status: unknown. Immunizations: up-to-date. SOCIAL HX: Never smoker. No alcohol use or drug use. No infectious disease exposure. ABUSE ASSESSMENT: No report of abuse. FALL RISK ASSESSMENT: Fall risk assessment completed. No fall risk identified. NUTRITIONAL RISK ASSESSMENT: The nutritional risk assessment revealed no deficiencies. FUNCTIONAL ASSESSMENT: Functional assessment: no impairments noted. LEARNING NEEDS ASSESSMENT: The learning needs assessment revealed no barriers. SKIN INTEGRITY ASSESSMENT: Skin integrity risk assessment completed. No skin integrity risk identified. --06:36 Fiorella Gómez. PROBLEMS: Infections. UTI - Urinary Tract Infection. Nerve Injury, Upper Extremity. Dental Pain. Gastroenteritis. Changed Mental Status. Constipation. Chronic bladder infections. Atypical Chest Pain. Vomiting. Tetanus Status. Hypertension. Chronic Headache. Neurological Disease. Migraine Headache. Tension-Type Headache. Urinary Retention. Abdominal Pain. Prior Injury, Same Area. Rotator Cuff Injury. Immunizations. Seizure Disorder. Dislocated Shoulder. Depression. Anxiety Reaction. Restless Legs Syndrome. Sleep Apnea. Spina Bifida Occulta. --06:32 Fiorella Gómez. ADDITIONAL SURGERIES: Bladder Augmention. Botox bladder injection. Cystostomy. Foot surgery. Shoulder Surgery. --06:32 Fiorella Gómez. Interventions ID band on patient. To treatment room. --06:36 Fiorella Gómez. PHYSICAL ASSESSMENT To room via stretcher. GENERAL / NEURO / PSYCH: Oriented X 4. Alert. Appears in pain. EXTREMITIES: Neuro-vascular status intact to the extremity. Right shoulder: tenderness and deformity. Limited ROM due to pain. SKIN: Skin intact. Skin is warm and dry. --06:36 Fiorella Gómez. NURSING PROGRESS NOTES 06:37 05/28/16. Cold pack applied. Reassurance given to the patient. Two patient identifiers checked. Call light placed in reach. Side rails up x 1. Bed placed in lowest position. Brakes of bed on. Patient ready for evaluation- chart flagged. --06:37 Fiorella Gómez ( Provider at bedside discussing plan of care). --06:37 Fiorella Gómez 06:39 Portable X-ray in progress. --06:39 McSravani Galdamez, ER Tech1 07:10 05/28/16. Care transferred and report given (Viky Leigh RN). --07:10 Fiorella Gómez 07:10. REDUCTION - SHOULDER: Reduction of shoulder dislocation performed by ED physician. Assisted by one tech. Procedure: reduction of the right shoulder; (shoulder reduced per MD, patient did not receive medications for procedure; tolerated well). Post-procedure. Sling applied. Total time of assist / procedure: minutes. ( Time of assist < 5 minutes). --07:31 McDenice Sravani, ER Tech1 07:30. [employer] Engine Performance Engineer provided to witness discussions (Patient refusing post reduction X-ray. MD discussed risk with patient, AMA form signed). --07:32 McDenice Sravani, ER Tech1 07:50. The patient is calm. Overall patient status is improved- he states feels the same. GENERAL / NEURO / PSYCH: Alert. Oriented X 4. RESPIRATORY: No respiratory distress. CVS: Capillary refill less than 2 seconds. SKIN: Skin is warm and dry. --07:58 Ros Castillo R.N. DISPOSITION / DISCHARGE Departure time: 0750. Condition at departure: stable. No learning barriers present. Discharge instructions provided and reviewed with the patient. Patient verbalized understanding. Written instructions provided in Greenlandic. The patient was discharged home and accompanied by vice chancellor. He left the Emergency Department ambulatory and via private vehicle. FALL RISK ASSESSMENT: Fall risk assessment completed. No fall risk identified. --07:57 Ros Castillo R.N. 07:52 05/28/16. BP: 160/67. HR: 95. RR: 18. O2 saturation: 99% on room air. Pain level now: 10/05. --07:57 Ros Castillo R.N. ( keep right arm in sling until released by Ortho). --07:58 Ros Castillo R.N. Locked/Released at 05/28/2016 8:00 by Ros Castillo R.N.
--- NOTE | 2016-05-28 09:24 | ED MED RECONCILIATION SUMMARY ---
Patient: JOMAR YA Medication Reconciliation Report [facility] VisitID: [id number] [address] [place] [address] 26y, M Registration Date/Time: 05/28/2016 Weight: 92.9 kg Height/Length: 64 in. BMI: 35.2 ALLERGIES: Amoxicillin, Keflex, Latex, morphine, Nitrofurantoin, Vicodin The patient's Home Medications are listed below: CONTINUE TAKING THE FOLLOWING MEDICATIONS: Benadryl Allergy Oral 50mg , daily Doxycycline Hyclate Oral Keppra Oral 1500mg , 2x a day KlonoPIN Oral 1 mg, daily Lacosamide Oral 75MG , 2 X DAILY LORazepam Oral 1 mg Mirapex Oral 1 mg, at bedtime Oxybutynin Chloride Oral 10 mg, 2x a day SEROquel Oral 125mg, daily, + 125MG prn ZyrTEC Allergy Oral (10 mg) 2 capsules, daily The source(s) of the original Home Medication information: patient The following Medications were given to the patient in the Emergency Department: None. The following Medications were prescribed to the patient: None.
--- NOTE | 2016-05-28 09:24 | ED DISCHARGE INSTRUCTIONS ---
Patient: JOMAR YA General Instructions [facility] VisitID: [id number] [place] [address] 26y, M Registration Date/Time: 05/28/2016 Right anterior shoulder dislocation. INSTRUCTIONS Wear simple sling until released. Warnings: COMPLICATIONS: Complications from this condition include: possible injury to a nerve, possible injury to a tendon and possible injury to a ligament. Future problems may include loss of function, pain and deformity. GENERAL WARNINGS: Return or contact your physician immediately if your condition worsens or changes unexpectedly, if not improving as expected, or if other problems arise. Your Current Medications: CONTINUE TAKING THE FOLLOWING MEDICATIONS: Benadryl Allergy Oral : 50mg daily. Doxycycline Hyclate Oral. Keppra Oral : 1500mg 2x a day. KlonoPIN Oral : 1 mg daily. Lacosamide Oral : 75MG 2 X DAILY. LORazepam Oral : 1 mg, prn. Mirapex Oral : 1 mg at bedtime. Oxybutynin Chloride Oral : 10 mg 2x a day. SEROquel Oral : 125mg daily, + 125MG prn. ZyrTEC Allergy Oral : Capsule 10 mg, 2 capsules daily. Follow-up: Follow up with an orthopedic surgeon at the [facility]. Please contact them and see if it would be possible to schedule your shoulder repair at an earlier dateas discussed. Call for the next available appointment. Understanding of the discharge instructions verbalized by patient. ADDITIONAL INFORMATION Dislocation: Shoulder (Reduced) Dislocation of the shoulder joint occurs when a strong force tears the ligaments holding the joint together. This allows the bones to move apart and become stuck out of place. Once the joint is aligned again, it will take about six weeks for the ligaments to heal. Since this injury may weaken the ligaments, you are at risk of another dislocation with less force. Therefore, care should be taken to avoid a similar injury in the future. Shoulder dislocation is treated with a shoulder immobilizer (special type of arm sling). This keeps your arm close to your body to prevent a recurrent dislocation while the ligaments heal. After a few weeks, an exercise program may be started. This will gradually restore range of motion and strength at the shoulder and decrease the risk of another dislocation. Home Care: Until your next doctor visit, wear your shoulder immobilizer at all times . Do not take it off at night to sleep. It is possible to dislocate your arm again in your sleep. You may take it off to bathe or dress, but do not move your arm away from your body. Keep your arm in the same position that the sling was holding it in, until you reapply the sling again. During your next visit, ask your doctor how long you should wear the sling. Apply an ice pack (ice cubes in a plastic bag, wrapped in a towel) over the injured area for 20 minutes every 1-2 hours the first day. Continue with ice packs 3-4 times a day for the next two days, then as needed for the relief of pain and swelling. You may use acetaminophen (Tylenol) or ibuprofen (Motrin, Advil) to control pain, unless another pain medicine was prescribed. [NOTE: If you have chronic liver or kidney disease or ever had a stomach ulcer or GI bleeding, talk with your doctor before using these medicines.] No sports or P.E. until cleared by your doctor. Follow Up with your doctor within one week or as advised by our staff. Shoulder immobilizers and slings should not be worn continuously for more than a few weeks or you may lose some [id number] at the shoulder joint. If you have had repeated dislocations of the same shoulder, that means there has been permanent ligament damage. Ask the orthopedic doctor about surgery to prevent another dislocation. Get Prompt Medical Attention if any of the following occur: Another dislocation of your shoulder Increasing swelling or pain in the shoulder or arm Fingers become cold, blue, numb or tingly Sling A sling is designed to support your arm in a position of rest. It is used for injuries of the hand, forearm, upper arm, and shoulder. A shoulder that is immobilized too long can become stiff and lose range of motion. Follow up with your doctor as advised and do not use the sling longer than directed. Home Use: Leave the sling in place as long as directed by your doctor. Unless told otherwise, you may remove it when bathing, dressing, and when you go to sleep. The sling is adjustable. If it becomes loose, adjust it so that your forearm is horizontal (level with the ground). Your hand should be level with the elbow. You have been given the following additional information: Dislocation: Shoulder (Reduced) Sling (Electronically signed by Jude Dotson MD 05/28/2016 9:24)
--- NOTE | 2016-05-28 09:24 | ED MED RECONCILIATION SUMMARY ---
Patient: JOMAR YA Medication Reconciliation Report [facility] VisitID: [id number] [address] [place] [address] 26y, M Registration Date/Time: 05/28/2016 Weight: 92.9 kg Height/Length: 64 in. BMI: 35.2 ALLERGIES: Amoxicillin, Keflex, Latex, morphine, Nitrofurantoin, Vicodin The patient's Home Medications are listed below: CONTINUE TAKING THE FOLLOWING MEDICATIONS: Benadryl Allergy Oral 50mg , daily Doxycycline Hyclate Oral Keppra Oral 1500mg , 2x a day KlonoPIN Oral 1 mg, daily Lacosamide Oral 75MG , 2 X DAILY LORazepam Oral 1 mg Mirapex Oral 1 mg, at bedtime Oxybutynin Chloride Oral 10 mg, 2x a day SEROquel Oral 125mg, daily, + 125MG prn ZyrTEC Allergy Oral (10 mg) 2 capsules, daily The source(s) of the original Home Medication information: patient The following Medications were given to the patient in the Emergency Department: None. The following Medications were prescribed to the patient: None.
--- NOTE | 2016-05-28 09:24 | ED MAR SUMMARY ---
..... Medication Administration Record [facility] [address] [place], [place] [id number] Patient: JOMAR YA Visit ID: [id number] 26y, M Weight: 92.9 kg Height/Length: 64 in BMI: 35.2 ALLERGIES: Amoxicillin, Keflex, Latex, morphine, Nitrofurantoin, Vicodin
--- NOTE | 2016-05-28 09:24 | ED MAR SUMMARY ---
..... Medication Administration Record [facility] [address] [place], [place] [id number] Patient: JOMAR YA Visit ID: [id number] 26y, M Weight: 92.9 kg Height/Length: 64 in BMI: 35.2 ALLERGIES: Amoxicillin, Keflex, Latex, morphine, Nitrofurantoin, Vicodin
== END 2016-05-28 07:50 | disposition home or self-care (01) ==
LOC: ED SRH 06:25
DX: S43.004A Unspecified dislocation of right shoulder joint, initial encounter (principal); X50.9XXA Other and unspecified overexertion or strenuous movements or postures, initial encounter; Y93.89 Activity, other specified; Y92.9 Unspecified place or not applicable; Y99.9 Unspecified external cause status; I10 Essential (primary) hypertension; G40.909 Epilepsy, unspecified, not intractable, without status epilepticus; F32.9 Major depressive disorder, single episode, unspecified; Z79.84 Long term (current) use of oral hypoglycemic drugs; Z79.899 Other long term (current) drug therapy

== ENCOUNTER 2016-06-21 13:31 | Emergency (ER) | payer BC, OTHER ==
--- NOTE | 2016-06-21 14:32 | DIAGNOSTIC IMAGING REPORT ---
PROCEDURE: XR SHOULDER 2 OR MORE VW-RIGHT INDICATION: Right shoulder pain TECHNIQUE: Three views. COMPARISON: Right shoulder x-ray 05/28/2016. FINDINGS: Inferomedial displacement of the humeral head with stable chronic Hill-Sachs deformity. Normal AC joint. Soft tissues are unremarkable. IMPRESSION: 1. Right shoulder anterior dislocation with Hill-Sachs impaction fracture
--- NOTE | 2016-06-21 16:03 | ED NURSING NOTES ---
Clinical Report - Nurses [facility] [address] [place] [address] 06/21/2016 13:32 Patient: JOMAR YA TRIAGE Triage time 13:36 Jun 21 2016. Acuity: LEVEL 3. Chief Complaint: INJURY TO RIGHT SHOULDER. INJURY TO THE RIGHT SHOULDER. Alert. JENA COMA SCORE: [place] Coma Scale: 15- eyes open spontaneously (4); best verbal response- oriented x 4 (5); best motor response- obeys commands (6). --13:44 Olman Stout R.N. 13:36 06/21/16. BP: 153/94. HR: 108. RR: 16. O2 saturation: 97% on room air. Temp: 98.2 F. Pain level now: 10. Additional comments: (R) Shoulder. --13:44 Olman Stout R.N. Weight: 95.3 kg measured. Height/Length: 64 inches Per Patient. BMI: 36.1. --13:41 Olman Stout R.N. Medications Benadryl Allergy Oral 50mg , daily. Doxycycline Hyclate Oral. --13:42 Olman Stout R.N. Keppra Oral 1500mg , 2x a day. KlonoPIN Oral 1 mg, daily. Lacosamide Oral 75MG , 2 X DAILY. LORazepam Oral 1 mg, as needed. Mirapex Oral 1 mg, at bedtime. Oxybutynin Chloride Oral 10 mg, 2x a day. SEROquel Oral 125mg, daily (+ 125MG prn). ZyrTEC Allergy Oral (Capsule 10 mg) 2 capsules, daily. --13:42 Olman Stout R.N. Allergies Amoxicillin. Keflex. Latex. morphine. Nitrofurantoin. Vicodin. --13:42 Olman Stout R.N. History Arrived by private vehicle. Historian: patient. Accompanied by friend. ( Head Injury on the (R) after a GLF and (R) Shoulder Dislocation.). Mechanism of injury: fell. He has had weakness. 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 PAST MEDICAL HX: Tetanus status: unknown. Immunizations: status is unknown. SOCIAL HX: Never smoker. No alcohol use or drug use. No infectious disease exposure. ABUSE ASSESSMENT: No report of abuse. FALL RISK ASSESSMENT: Fall risk assessment completed. No fall risk identified. NUTRITIONAL RISK ASSESSMENT: The nutritional risk assessment revealed no deficiencies. FUNCTIONAL ASSESSMENT: Functional assessment: no impairments noted. LEARNING NEEDS ASSESSMENT: The learning needs assessment revealed no barriers. SKIN INTEGRITY ASSESSMENT: Skin integrity risk assessment completed. No skin integrity risk identified. --13:44 Olman Stout R.N. PROBLEMS: Infections. UTI - Urinary Tract Infection. Nerve Injury, Upper Extremity. Dental Pain. Gastroenteritis. Changed Mental Status. Constipation. Chronic bladder infections. Atypical Chest Pain. Vomiting. Hypertension. Chronic Headache. Neurological Disease. Migraine Headache. Tension-Type Headache. Urinary Retention. Abdominal Pain. Prior Injury, Same Area. Rotator Cuff Injury. Immunizations. Seizure Disorder. Dislocated Shoulder. Depression. Anxiety Reaction. Restless Legs Syndrome. Sleep Apnea. Spina Bifida Occulta. --13:43 Olman Stout R.N. ADDITIONAL SURGERIES: Bladder Augmention. Botox bladder injection. Cystostomy. Foot surgery. Shoulder Surgery. --13:43 Olman Stout R.N. Interventions ID band on patient. To treatment room. --13:44 Olman Stout R.N. PHYSICAL ASSESSMENT To room via stretcher. GENERAL / NEURO / PSYCH: Oriented X 4. EXTREMITIES: Right shoulder: tenderness. Limited ROM (diminished flexion and extension). SKIN: Skin intact. Skin is warm and dry. --13:46 Olman Stout R.N. NURSING PROGRESS NOTES Patient gowned. Patient identifiers checked. Call light placed in reach. Side rails up x 2. Bed placed in lowest position. Brakes of bed on. Patient ready for evaluation- chart flagged and ED physician notified. --13:46 Olman Stout RIsraelN. ( Patient declined shoulder immobilizer to be applied by pit recorder. patient stated "I brought one from home" then added "my girlfriend can do it".). --16:06 Jaclyn Garcia 15:30 06/21/2016 Lidocaine 1% Injectable * IM 20mL Injected into the (R) shoulder muscular pending manipulation. --20:35 Olman Stout R.N. 15:40. ( (R) Shoulder reduced into position by Dr. Dotson.). --20:40 Olman Stout R.N. DISPOSITION / DISCHARGE <<STRICKEN ENTRY-- 15:55. --20:45 Olman Stout R.N. --END STRIKE>> Correction --20:48 Olman Stout R.N. <<STRICKEN ENTRY-- 20:41 06/21/16. BP: 148/88. HR: 100. RR: 16. O2 saturation: 98% on room air. Temp: 98.8 F (oral). Pain level now: 10. Additional comments: (R) Shoulder. --20:45 Olman Stout R.N. --END STRIKE>> Correction. --20:45 Olman Stout R.N. 15:55 06/21/16. BP: 148/88. HR: 100. RR: 16. O2 saturation: 98% on room air. Temp: 98.8 F (oral). Pain level now: 310. Additional comments: (R) Shoulder. --20:47 Olman Stout R.N. Departure time: 1600. --20:48 Olman Stout R.N. 16:00. No learning barriers present. Discharge instructions provided and reviewed with the patient. Treatments reviewed (sling usage). Reviewed referral to an orthopedic surgeon for followup. Patient verbalized understanding. Written instructions provided in Greek. The patient was discharged by the physician. He was discharged home and accompanied by manager state. He left the Emergency Department ambulatory and via private vehicle. Sales Training Coordinator driving. --20:50 Olman Stout R.N. Locked/Released at 06/21/2016 20:51 by Olman Stout R.N.
--- NOTE | 2016-06-21 16:03 | ED ORDER SUMMARY ---
..... Patient: JOMAR YA OrderSheet [facility] VisitID: [id number] [place] [address] 26y, M Registration Date/Time: 06/21/2016 ORDER SHEET Weight: 95.3 kg (measured) Allergies: Amoxicillin, Keflex, Latex, morphine, Nitrofurantoin, Vicodin GENERAL ORDERS: Shoulder 2V or more Right Urgent (13:42 06/21/2016 Siddharth DOWD) (Ack 13:44 Deandra) (15:15 Kirill) Shoulder 2V or more Right Urgent (15:22 06/21/2016 Deandra verbal order read back to Siddharth DOWD) (Ack 15:23 Deandra) (15:48 Kirill) Possible post reduction MEDICATION ORDERS: Lidocaine Injection 1% (NOW, place at bedside, with syringes & needles) (19:16 06/21/2016 Lupillo Reynolds verbal order read back to Siddharth DOWD) (20:35 Lupillo Bee.NIsrael) IV FLUIDS: ORDER SHEET NOTES: Reason for Study: Post Reduction [Electronically signed by Olman Stout R.N. (20:51 06/21/2016)] [Electronically signed by Jude Dotson MD (21:28 06/21/2016)] [Electronically locked/signed by Olman Stout R.N. (20:51 06/21/2016)]
--- NOTE | 2016-06-21 16:03 | ED ORDER SUMMARY ---
..... Patient: JOMAR YA OrderSheet [facility] VisitID: [id number] [place] [address] 26y, M Registration Date/Time: 06/21/2016 ORDER SHEET Weight: 95.3 kg (measured) Allergies: Amoxicillin, Keflex, Latex, morphine, Nitrofurantoin, Vicodin GENERAL ORDERS: Shoulder 2V or more Right Urgent (13:42 06/21/2016 Siddharth DOWD) (Ack 13:44 Deandra) (15:15 Kirill) Shoulder 2V or more Right Urgent (15:22 06/21/2016 Deandra verbal order read back to Siddharth DOWD) (Ack 15:23 Deandra) (15:48 Kirill) Possible post reduction MEDICATION ORDERS: Lidocaine Injection 1% (NOW, place at bedside, with syringes & needles) (19:16 06/21/2016 Lupillo Reynolds verbal order read back to Siddharth DOWD) (20:35 Lupillo Bee.NIsrael) IV FLUIDS: ORDER SHEET NOTES: Reason for Study: Post Reduction [Electronically signed by Olman Stout R.N. (20:51 06/21/2016)] [Electronically signed by Jude Dotson MD (21:28 06/21/2016)] [Electronically locked/signed by Olman Stout R.N. (20:51 06/21/2016)]
--- NOTE | 2016-06-21 16:03 | ED NURSING NOTES ---
Clinical Report - Nurses [facility] [address] [place] [address] 06/21/2016 13:32 Patient: JOMAR YA TRIAGE Triage time 13:36 Jun 21 2016. Acuity: LEVEL 3. Chief Complaint: INJURY TO RIGHT SHOULDER. INJURY TO THE RIGHT SHOULDER. Alert. JENA COMA SCORE: [place] Coma Scale: 15- eyes open spontaneously (4); best verbal response- oriented x 4 (5); best motor response- obeys commands (6). --13:44 Olman Stout R.N. 13:36 06/21/16. BP: 153/94. HR: 108. RR: 16. O2 saturation: 97% on room air. Temp: 98.2 F. Pain level now: 10. Additional comments: (R) Shoulder. --13:44 Olman Stout R.N. Weight: 95.3 kg measured. Height/Length: 64 inches Per Patient. BMI: 36.1. --13:41 Olman Stout R.N. Medications Benadryl Allergy Oral 50mg , daily. Doxycycline Hyclate Oral. --13:42 Olman Stout R.N. Keppra Oral 1500mg , 2x a day. KlonoPIN Oral 1 mg, daily. Lacosamide Oral 75MG , 2 X DAILY. LORazepam Oral 1 mg, as needed. Mirapex Oral 1 mg, at bedtime. Oxybutynin Chloride Oral 10 mg, 2x a day. SEROquel Oral 125mg, daily (+ 125MG prn). ZyrTEC Allergy Oral (Capsule 10 mg) 2 capsules, daily. --13:42 Olman Stout R.N. Allergies Amoxicillin. Keflex. Latex. morphine. Nitrofurantoin. Vicodin. --13:42 Olman Stout R.N. History Arrived by private vehicle. Historian: patient. Accompanied by friend. ( Head Injury on the (R) after a GLF and (R) Shoulder Dislocation.). Mechanism of injury: fell. He has had weakness. Treatment CARGO CHECKER: None. PAST MEDICAL HX: Tetanus status: unknown. Immunizations: status is unknown. SOCIAL HX: Never smoker. No alcohol use or drug use. No infectious disease exposure. ABUSE ASSESSMENT: No report of abuse. FALL RISK ASSESSMENT: Fall risk assessment completed. No fall risk identified. NUTRITIONAL RISK ASSESSMENT: The nutritional risk assessment revealed no deficiencies. FUNCTIONAL ASSESSMENT: Functional assessment: no impairments noted. LEARNING NEEDS ASSESSMENT: The learning needs assessment revealed no barriers. SKIN INTEGRITY ASSESSMENT: Skin integrity risk assessment completed. No skin integrity risk identified. --13:44 Olman Stout R.N. PROBLEMS: Infections. UTI - Urinary Tract Infection. Nerve Injury, Upper Extremity. Dental Pain. Gastroenteritis. Changed Mental Status. Constipation. Chronic bladder infections. Atypical Chest Pain. Vomiting. Hypertension. Chronic Headache. Neurological Disease. Migraine Headache. Tension-Type Headache. Urinary Retention. Abdominal Pain. Prior Injury, Same Area. Rotator Cuff Injury. Immunizations. Seizure Disorder. Dislocated Shoulder. Depression. Anxiety Reaction. Restless Legs Syndrome. Sleep Apnea. Spina Bifida Occulta. --13:43 Olman Stout R.N. ADDITIONAL SURGERIES: Bladder Augmention. Botox bladder injection. Cystostomy. Foot surgery. Shoulder Surgery. --13:43 Olman Stout R.N. Interventions ID band on patient. To treatment room. --13:44 Olman Stout R.N. PHYSICAL ASSESSMENT To room via stretcher. GENERAL / NEURO / PSYCH: Oriented X 4. EXTREMITIES: Right shoulder: tenderness. Limited ROM (diminished flexion and extension). SKIN: Skin intact. Skin is warm and dry. --13:46 Olman Stout R.N. NURSING PROGRESS NOTES Patient gowned. Patient identifiers checked. Call light placed in reach. Side rails up x 2. Bed placed in lowest position. Brakes of bed on. Patient ready for evaluation- chart flagged and ED physician notified. --13:46 Olman Stout RIsraelN. ( Patient declined shoulder immobilizer to be applied by sander wooden pencils. patient stated "I brought one from home" then added "my girlfriend can do it".). --16:06 Jaclyn Garcia 15:30 06/21/2016 Lidocaine 1% Injectable * IM 20mL Injected into the (R) shoulder muscular pending manipulation. --20:35 Olman Stout R.N. 15:40. ( (R) Shoulder reduced into position by Dr. Dotson.). --20:40 Olman Stout R.N. DISPOSITION / DISCHARGE <<STRICKEN ENTRY-- 15:55. --20:45 Olman Stout R.N. --END STRIKE>> Correction --20:48 Olman Stout R.N. <<STRICKEN ENTRY-- 20:41 06/21/16. BP: 148/88. HR: 100. RR: 16. O2 saturation: 98% on room air. Temp: 98.8 F (oral). Pain level now: 10. Additional comments: (R) Shoulder. --20:45 Olman Stout R.N. --END STRIKE>> Correction. --20:45 Olman Stout R.N. 15:55 06/21/16. BP: 148/88. HR: 100. RR: 16. O2 saturation: 98% on room air. Temp: 98.8 F (oral). Pain level now: 310. Additional comments: (R) Shoulder. --20:47 Olman Stout R.N. Departure time: 1600. --20:48 Olman Stout R.N. 16:00. No learning barriers present. Discharge instructions provided and reviewed with the patient. Treatments reviewed (sling usage). Reviewed referral to an orthopedic surgeon for followup. Patient verbalized understanding. Written instructions provided in [place]. The patient was discharged by the physician. He was discharged home and accompanied by metal sash setter. He left the Emergency Department ambulatory and via private vehicle. Pocket Stitcher driving. --20:50 Olman Stout R.N. Locked/Released at 06/21/2016 20:51 by Olman Stout R.N.
--- NOTE | 2016-06-21 16:03 | ED CLINICAL REPORT ---
Clinical Report - Physicians/Mid Levels [facility] [address] [place] [address] 06/21/2016 13:32 Patient: JOMAR YA Time Seen: 13:42. Arrived- By ambulance. Historian- patient and EMS personnel. HISTORY OF PRESENT ILLNESS Chief Complaint: Injury to right shoulder. The injury happened just prior to arrival. Fell. Occurred at home. Patient is experiencing severe pain. No other injury. REVIEW OF SYSTEMS No tingling, numbness, weakness, chills or fever. No sweats, calf pain, chest pain, cough or difficulty breathing. No pedal edema, palpitations, abdominal pain, constipation or diarrhea. No nausea, vomiting or urinary problems. All systems otherwise negative, except as recorded above. PAST HISTORY Problems: Infections. UTI - Urinary Tract Infection. Nerve Injury, Upper Extremity. Dental Pain. Gastroenteritis. Changed Mental Status. Constipation. Chronic bladder infections. Atypical Chest Pain. Vomiting. Hypertension. Chronic Headache. Neurological Disease. Migraine Headache. Tension-Type Headache. Urinary Retention. Abdominal Pain. Prior Injury, Same Area. Rotator Cuff Injury. Seizure Disorder. Dislocated Shoulder. Depression. Anxiety Reaction. Restless Legs Syndrome. Sleep Apnea. Spina Bifida Occulta. Additional Surgeries: Bladder Augmention. Botox bladder injection. Cystostomy. Foot surgery. Shoulder Surgery. Medications: Keppra Oral 1500mg , 2x a day. KlonoPIN Oral 1 mg, daily. Lacosamide Oral 75MG , 2 X DAILY. LORazepam Oral 1 mg, as needed. Mirapex Oral 1 mg, at bedtime. Oxybutynin Chloride Oral 10 mg, 2x a day. SEROquel Oral 125mg, daily (+ 125MG prn). ZyrTEC Allergy Oral (Capsule 10 mg) 2 capsules, daily. Benadryl Allergy Oral 50mg , daily. Doxycycline Hyclate Oral. Allergies: Amoxicillin. Keflex. Latex. morphine. Nitrofurantoin. Vicodin. SOCIAL HISTORY Never smoker. No alcohol use or drug use. FAMILY HISTORY No significant family medical history. ADDITIONAL NOTES The nursing notes have been reviewed. PHYSICAL EXAM Vital Signs: 06/21/2016 13:36 BP: 153/94. HR: 108. RR: 16. O2 saturation: 97%. Temp: 98.2 F. Pain level now: 12/06. Have been reviewed. Appearance: Alert. Head: Head atraumatic. Eyes: Pupils equal, round and reactive to light. ENT: Pharynx normal. Neck: Neck supple. CVS: Normal heart rate and rhythm. Heart sounds normal. Respiratory: No respiratory distress. Breath sounds normal. Abdomen: No visible injury. Soft and nontender. Bowel sounds normal. No organomegaly. No mass. Back: Normal inspection. Skin: Skin intact. Skin warm and dry. Extremities: Right shoulder: deformity consistent with a shoulder dislocation and mild tenderness. Limited ROM (diminished flexion). Neurovascular intact distally. Extremities otherwise negative. Neuro, Vascular and Tendons: Sensation intact. Motor intact. Vascular status intact. Tendon function intact. Neuro: No motor deficit. No sensory deficit. LABS, X-RAYS, AND EKG Rt Shoulder X-ray: Anterior dislocation of the shoulder. (With chronic Hill-Sachs fracture as previously noted.). Post procedure films: show good alignment and findings are improved. PROGRESS AND PROCEDURES Reduction of Dislocated Shoulder: Time-out completed immediately before the procedure. Neurovascular exam intact pre-procedure. The right shoulder was reduced using scapular manipulation technique and external rotation technique. Reassessed post-procedure. Neurovascular status intact. Deltoid sensation normal. Exam indicated reduction. Confirmed reduction on X-ray. Arm sling applied. (The procedure was performed after analgesia was obtained by injection of 20 cc of 1% lidocaine into the joint.). Course of Care: Patient is stable. Consult obtained from orthopedics. Ortho Clinic - they confirm that he has an appointment in 2 days. Case discussed. Phone consult only. Patient/family counseled. Old medical records reviewed. Disposition: Discharged. Condition: stable. 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 Right anterior shoulder dislocation. Reduction in the ER. INSTRUCTIONS Wear sling until released. Warnings: COMPLICATIONS: Complications from this condition include: possible injury to a nerve, possible injury to a tendon and possible injury to a ligament. Future problems may include poor fracture healing. It is important to follow up with a physician for further evaluation and treatment. GENERAL WARNINGS: Return or contact your physician immediately if your condition worsens or changes unexpectedly, if not improving as expected, or if other problems arise. Follow-up: Follow up with an orthopedic surgeon at the [facility] Wednesday in two days as scheduled. Understanding of the discharge instructions verbalized by patient. (Electronically signed by Jude Dotson MD 06/21/2016 21:28)
--- NOTE | 2016-06-21 17:13 | DIAGNOSTIC IMAGING REPORT ---
PROCEDURE: XR SHOULDER 2 OR MORE VW-RIGHT INDICATION: POST REDUCTION TECHNIQUE: Two views. COMPARISON: Right shoulder x-ray 06/21/2016. FINDINGS: Interval reduction of the right shoulder anterior dislocation. Chronic Hill-Sachs fracture. No other abnormalities. IMPRESSION: 1. Reduced right shoulder anterior dislocation 2. Chronic Hill-Sachs deformity
--- NOTE | 2016-06-21 21:28 | ED MAR SUMMARY ---
..... Medication Administration Record [facility] [address] [place] [address] Patient: JOMAR YA Visit ID: [id number] 26y, M Weight: 95.3 kg Height/Length: 64 in BMI: 36.1 ALLERGIES: Amoxicillin, Keflex, Latex, morphine, Nitrofurantoin, Vicodin Given 15:30 06/21/2016 Olman Stout R.N. Medication Administered: Lidocaine 1% Injectable *, Dose: 20mL * IM. Medication Ordered: Lidocaine Injection 1% (NOW, place at bedside, with syringes & needles).
--- NOTE | 2016-06-21 21:28 | ED MAR SUMMARY ---
..... Medication Administration Record [facility] [address] [place] [address] Patient: JOMAR YA Visit ID: [id number] 26y, M Weight: 95.3 kg Height/Length: 64 in BMI: 36.1 ALLERGIES: Amoxicillin, Keflex, Latex, morphine, Nitrofurantoin, Vicodin Given 15:30 06/21/2016 Olman Stout R.N. Medication Administered: Lidocaine 1% Injectable *, Dose: 20mL * IM. Medication Ordered: Lidocaine Injection 1% (NOW, place at bedside, with syringes & needles).
--- NOTE | 2016-06-21 21:28 | ED DISCHARGE INSTRUCTIONS ---
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 Right anterior shoulder dislocation. Reduction in the ER. INSTRUCTIONS Wear sling until released. Warnings: COMPLICATIONS: Complications from this condition include: possible injury to a nerve, possible injury to a tendon and possible injury to a ligament. Future problems may include poor fracture healing. It is important to follow up with a physician for further evaluation and treatment. GENERAL WARNINGS: Return or contact your physician immediately if your condition worsens or changes unexpectedly, if not improving as expected, or if other problems arise. Follow-up: Follow up with an orthopedic surgeon at the [facility] Wednesday in two days as scheduled. Understanding of the discharge instructions verbalized by patient. ADDITIONAL INFORMATION Dislocation: Shoulder (Reduced) Dislocation of the shoulder joint occurs when a strong force tears the ligaments holding the joint together. This allows the bones to move apart and become stuck out of place. Once the joint is aligned again, it will take about six weeks for the ligaments to heal. Since this injury may weaken the ligaments, you are at risk of another dislocation with less force. Therefore, care should be taken to avoid a similar injury in the future. Shoulder dislocation is treated with a shoulder immobilizer (special type of arm sling). This keeps your arm close to your body to prevent a recurrent dislocation while the ligaments heal. After a few weeks, an exercise program may be started. This will gradually restore range of motion and strength at the shoulder and decrease the risk of another dislocation. Home Care: Until your next doctor visit, wear your shoulder immobilizer at all times . Do not take it off at night to sleep. It is possible to dislocate your arm again in your sleep. You may take it off to bathe or dress, but do not move your arm away from your body. Keep your arm in the same position that the sling was holding it in, until you reapply the sling again. During your next visit, ask your doctor how long you should wear the sling. Apply an ice pack (ice cubes in a plastic bag, wrapped in a towel) over the injured area for 20 minutes every 1-2 hours the first day. Continue with ice packs 3-4 times a day for the next two days, then as needed for the relief of pain and swelling. You may use acetaminophen (Tylenol) or ibuprofen (Motrin, Advil) to control pain, unless another pain medicine was prescribed. [NOTE: If you have chronic liver or kidney disease or ever had a stomach ulcer or GI bleeding, talk with your doctor before using these medicines.] No sports or P.E. until cleared by your doctor. Follow Up with your doctor within one week or as advised by our staff. Shoulder immobilizers and slings should not be worn continuously for more than a few weeks or you may lose some [id number] at the shoulder joint. If you have had repeated dislocations of the same shoulder, that means there has been permanent ligament damage. Ask the orthopedic doctor about surgery to prevent another dislocation. Get Prompt Medical Attention if any of the following occur: Another dislocation of your shoulder Increasing swelling or pain in the shoulder or arm Fingers become cold, blue, numb or tingly Sling & Swathe A sling & swathe is designed to support your arm and hold it closely against your body. It is used for injuries where excess movement of the shoulder joint could cause harmfor example, after a shoulder dislocation or shoulder fracture. A joint that is immobilized too long can become stiff and lose range of motion. Follow-up with your doctor as advised and do not use the sling longer than directed. Home Use: Leave the sling & swathe in place as long as directed by your doctor. Unless told otherwise, you should sleep with it in place. If you are being treated for a shoulder dislocation, you may take the sling & swathe off to bathe or dress, but do not try to raise your arm away from your body. Reapply the immobilizer as soon as possible. If you are being treated for a shoulder fracture, leave the sling & swathe in place until your next exam. The sling & swathe is adjustable. If it becomes loose, adjust the sling so that your forearm is horizontal (level with the ground). Your hand should be level with the elbow. Adjust the swathe (the part that wraps around your body) so that your arm is held snugly against your body. You have been given the following additional information: Dislocation: Shoulder (Reduced) Sling And Swathe (Electronically signed by Jude Dotson MD 06/21/2016 21:28)
--- NOTE | 2016-06-21 21:29 | ED MED RECONCILIATION SUMMARY ---
Patient: JOMAR YA Medication Reconciliation Report [facility] VisitID: [id number] [address] [place] [address] 26y, M Registration Date/Time: 06/21/2016 Weight: 95.3 kg Height/Length: 64 in. BMI: 36.1 ALLERGIES: Amoxicillin, Keflex, Latex, morphine, Nitrofurantoin, Vicodin The patient's Home Medications are listed below: THE FOLLOWING MEDICATIONS NEED TO BE RECONCILED: Benadryl Allergy Oral 50mg , daily Doxycycline Hyclate Oral Keppra Oral 1500mg , 2x a day KlonoPIN Oral 1 mg, daily Lacosamide Oral 75MG , 2 X DAILY LORazepam Oral 1 mg Mirapex Oral 1 mg, at bedtime Oxybutynin Chloride Oral 10 mg, 2x a day SEROquel Oral 125mg, daily, + 125MG prn ZyrTEC Allergy Oral (10 mg) 2 capsules, daily The source(s) of the original Home Medication information: Not obtained. The following Medications were given to the patient in the Emergency Department: Lidocaine 1% Injectable IM 20mL, administered: 06/21/2016 3:30:00 PM The following Medications were prescribed to the patient: None.
--- NOTE | 2016-06-21 21:29 | ED MED RECONCILIATION SUMMARY ---
Patient: JOMAR YA Medication Reconciliation Report [facility] VisitID: [id number] [address] [place] [address] 26y, M Registration Date/Time: 06/21/2016 Weight: 95.3 kg Height/Length: 64 in. BMI: 36.1 ALLERGIES: Amoxicillin, Keflex, Latex, morphine, Nitrofurantoin, Vicodin The patient's Home Medications are listed below: THE FOLLOWING MEDICATIONS NEED TO BE RECONCILED: Benadryl Allergy Oral 50mg , daily Doxycycline Hyclate Oral Keppra Oral 1500mg , 2x a day KlonoPIN Oral 1 mg, daily Lacosamide Oral 75MG , 2 X DAILY LORazepam Oral 1 mg Mirapex Oral 1 mg, at bedtime Oxybutynin Chloride Oral 10 mg, 2x a day SEROquel Oral 125mg, daily, + 125MG prn ZyrTEC Allergy Oral (10 mg) 2 capsules, daily The source(s) of the original Home Medication information: Not obtained. The following Medications were given to the patient in the Emergency Department: Lidocaine 1% Injectable IM 20mL, administered: 06/21/2016 3:30:00 PM The following Medications were prescribed to the patient: None.
== END 2016-06-21 16:00 | disposition home or self-care (01) ==
LOC: ED SRH 13:31
DX: S42.191A Fracture of other part of scapula, right shoulder, initial encounter for closed fracture (principal); S43.014A Anterior dislocation of right humerus, initial encounter; W18.39XA Other fall on same level, initial encounter; Y93.9 Activity, unspecified; Y92.009 Unspecified place in unspecified non-institutional (private) residence as the place of occurrence of the external cause; Y99.9 Unspecified external cause status; G40.909 Epilepsy, unspecified, not intractable, without status epilepticus; I10 Essential (primary) hypertension; Z79.899 Other long term (current) drug therapy; Z88.1 Allergy status to other antibiotic agents

== ENCOUNTER 2016-06-22 06:43 | Emergency (ER) | payer BC, OTHER ==
--- NOTE | 2016-06-22 08:13 | ED NURSING NOTES ---
Clinical Report - Nurses [facility] [address] [place] [address] 06/22/2016 6:42 [id number] Triage time 06:47 Jun 22 2016. Acuity: LEVEL 3. Chief Complaint: (Shoulder dislocation, possible seizure). SEPSIS SCREEN: Sepsis Screen: negative. Negative (no infection suspected/documented). LAWRENCE COMA SCORE: Lawrence Coma Scale: 15- eyes open spontaneously (4); best verbal response- oriented x 4 (5); best motor response- obeys commands (6). --06:53 Fiorella Gómez 06:47 06/22/16. BP: 167/98. HR: 102. RR: 20. O2 saturation: 96% on room air. Temp: 98.5 F (oral). --06:53 Fiorella Gómez. Weight: 90.7 kg stated. Height/Length: 64 inches Per Patient. BMI: 34.3. --06:51 Fiorella Gómez. Medications Benadryl Allergy Oral 50mg , daily. Doxycycline Hyclate Oral. Keppra Oral 1500mg , 2x a day. KlonoPIN Oral 1 mg, daily. Lacosamide Oral 75MG , 2 X DAILY. LORazepam Oral 1 mg, as needed. Mirapex Oral 1 mg, at bedtime. Oxybutynin Chloride Oral 10 mg, 2x a day. SEROquel Oral 125mg, daily (+ 125MG prn). ZyrTEC Allergy Oral (Capsule 10 mg) 2 capsules, daily. --06:51 Fiorella Gómez. Medication/allergy information source: the patient. --06:53 Fiorella Gómez. Allergies Amoxicillin. Keflex. Latex. morphine. Nitrofurantoin. Vicodin. --06:51 Fiorella Gómez. History Arrived by EMS. Historian: EMS and patient. ( Patient girlfriend reported to EMS that he had two "seizure like" episodes described as involuntary eye movement. Patient indicated he cannot talk to us because he is stuttering after his seizure. He reports that he was shaking and his shoulder came out. Patient talking in paused, drawn out sentences.). 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 EMS treatment INSURANCE AGENCY MANAGER verbally communicated. 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 PAST MEDICAL HX: Immunizations: up-to-date. SOCIAL HX: Never smoker. No alcohol use or drug use. No infectious disease exposure. ABUSE ASSESSMENT: No report of abuse. FALL RISK ASSESSMENT: Fall risk assessment completed. No fall risk identified. NUTRITIONAL RISK ASSESSMENT: The nutritional risk assessment revealed no deficiencies. FUNCTIONAL ASSESSMENT: Functional assessment: no impairments noted. LEARNING NEEDS ASSESSMENT: The learning needs assessment revealed no barriers. SKIN INTEGRITY ASSESSMENT: Skin integrity risk assessment completed. No skin integrity risk identified. --06:53 Fiorella Gómez. PROBLEMS: Scapula Fracture. Infections. UTI - Urinary Tract Infection. Nerve Injury, Upper Extremity. Dental Pain. Gastroenteritis. Changed Mental Status. Constipation. Chronic bladder infections. Atypical Chest Pain. Vomiting. Tetanus Status. Hypertension. Chronic Headache. Neurological Disease. Migraine Headache. Tension-Type Headache. Urinary Retention. Abdominal Pain. Prior Injury, Same Area. Rotator Cuff Injury. Immunizations. Seizure Disorder. Dislocated Shoulder. Depression. Anxiety Reaction. Restless Legs Syndrome. Sleep Apnea. Spina Bifida Occulta. --06:51 Fiorella Gómez. ADDITIONAL SURGERIES: Bladder Augmention. Botox bladder injection. Cystostomy. Foot surgery. Shoulder Surgery. --06:51 Fiorella Gómez. Interventions ID band on patient. To treatment room. --06:53 Fiorella Gómez. PHYSICAL ASSESSMENT 06:56 06/22/16. To room via stretcher. Patient gowned. ( Patient does not appear to be postictal). GENERAL / NEURO / PSYCH: Alert. Oriented X 4. Appears in no acute distress. ( Upon arrival patient non-communicative, refusing to answer staff. After being encouraged patient began speaking in short "stuttered" sentences and stats his speech is affected.). HEENT: No facial asymmetry noted. Mucous membranes are pink. RESPIRATORY: Respirations not labored. CVS: Normal sinus rhythm noted. GI / : Abdomen soft and nontender. SKIN: Skin is warm and dry. --06:56 Fiorella Gómez. NURSING PROGRESS NOTES 06:56 06/22/16. Pulse oximeter and NIBP monitor placed on patient. Reassurance given to the patient. Two patient identifiers checked. Call light placed in reach. Side rails up x 1. Bed placed in lowest position. Brakes of bed on. Patient ready for evaluation- chart flagged and ED physician notified. --06:56 Dalia Fiorella 07:03 06/22/16. Care transferred and report received (from JAYDA Barros). --07:03 Cydney Lopes R.N. 07:30 06/22/2016 Site #1 started via IV in the left forearm with an 22g angiocath; one attempt. Saline lock flushed with 10 mL saline. --07:50 Cydney Lopes R.N. 07:32 06/22/2016 Started bag #1 1000 mL IV Fluids IV NS (Saline); bolus of 1000 mL wide open via site #1. Allergies verified and confirmed 5 rights. IV patency established. IV site checked: no pain, redness, or swelling. IV flushed thoroughly pre- and post-medication administration. Completed per protocol. --07:50 Cydney Lopes R.N. 07:36 06/22/2016 PROPOFOL IVP 100 mg given over 30 second(s) via site #1. Allergies verified and confirmed 5 rights. IV patency established. IV site checked: no pain, redness, or swelling. IV flushed thoroughly pre- and post-medication administration. IVP given by physician. --07:52 Cydney Lopes R.N. 08:12 06/22/2016 Fentanyl IVP 75 mcg given over 2 minute(s) via site #1. Allergies verified, confirmed 5 rights and sedative warning given to the patient. IV patency established. IV site checked: no pain, redness, or swelling. IV flushed thoroughly pre- and post-medication administration. IVP given by RN. --08:13 Cydney Lopes R.N. 08:33 06/22/16. ( moderate sedation for shoulder reduction performed by ED physician. see paper chart for details.). --08:33 Cydney Lopes R.N. DISPOSITION / DISCHARGE 08:35 06/22/2016 Site #1 removed upon discharge. Catheter intact. Bandaid applied. --08:45 Nicho Vazquez R.N. 08:45 06/22/16. Condition at departure: improved. The goals identified in the patient's plan of care were met. No learning barriers present. Discharge instructions provided and reviewed with the patient. Reviewed warnings. Reviewed medication(s). Treatments reviewed. Patient verbalized understanding. Written instructions provided in Telugu. The patient was discharged by the physician. He was discharged home and accompanied by automatic coin machine mechanic. He left the Emergency Department ambulatory and via private vehicle. Air Crew Member driving. FALL RISK ASSESSMENT: Fall risk assessment completed. No fall risk identified. --08:45 Nicho Vazquez R.N. 08:45 06/22/16. BP: 133/72. HR: 82. RR: 14. O2 saturation: 99% on room air. Temp: 98.1 F (oral). Pain level now: 04/07. --08:45 Nicho Vazquez R.N. 08:46 06/22/16. Departure time: 08:46. --08:46 Nicho Vazquez R.N. Locked/Released at 06/22/2016 10:34 by Cydney Lopes R.N.
--- NOTE | 2016-06-22 08:13 | ED CLINICAL REPORT ---
Clinical Report - Physicians/Mid Levels [facility] [address] [place] [address] 06/22/2016 6:42 Patient: JOMAR YA Time Seen: 0659. Arrived- By ambulance. Historian- patient. HISTORY OF PRESENT ILLNESS Chief Complaint: Injury to right shoulder. The injury happened today. Occurred at home. ( had reported seizure and shoulder came out.). Patient is experiencing moderate pain. Patient denies injury to the head or neck. No other injury. ( has surgery scheduled for july 01). REVIEW OF SYSTEMS No tingling, numbness, weakness, suspected foreign body or skin laceration. All systems otherwise negative, except as recorded above. PAST HISTORY See nurses notes. Tetanus immunization status is up-to-date. Medications: Benadryl Allergy Oral 50mg , daily. Doxycycline Hyclate Oral. Keppra Oral 1500mg , 2x a day. KlonoPIN Oral 1 mg, daily. Lacosamide Oral 75MG , 2 X DAILY. LORazepam Oral 1 mg, as needed. Mirapex Oral 1 mg, at bedtime. Oxybutynin Chloride Oral 10 mg, 2x a day. SEROquel Oral 125mg, daily (+ 125MG prn). ZyrTEC Allergy Oral (Capsule 10 mg) 2 capsules, daily. Allergies: Amoxicillin. Keflex. Latex. morphine. Nitrofurantoin. Vicodin. SOCIAL HISTORY Never smoker. No alcohol use or drug use. No recent travel. Is a local resident. ADDITIONAL NOTES The nursing notes have been reviewed. PHYSICAL EXAM Vital Signs: 06/22/2016 06:47 BP: 167/98. HR: 102. RR: 20. O2 saturation: 96%. Temp: 98.5 F. Oxygen saturation normal. Appearance: Alert. Oriented X3. No acute distress. Head: Head atraumatic. Eyes: Pupils equal, round and reactive to light. Eyes normal inspection. ENT: Ears normal. Nose normal. Pharynx normal. Haircut. Patient wearing glasses. Neck: Normal inspection. Neck supple. C-spine non-tender. CVS: Normal heart rate and rhythm. Heart sounds normal. Pulses normal. Respiratory: No respiratory distress. Breath sounds normal. Chest nontender. Abdomen: No visible injury. Soft and nontender. Bowel sounds normal. No mass. (Periumbilical stoma with pink tissue exposed through the umbilicus with spontaneous regular peristalsis. No signs of infection. No active drainage. Nontender.). Back: Normal inspection. No tenderness. ROM normal. Skin: Skin intact. Skin warm and dry. Normal skin color. Normal skin turgor. Neuro, Vascular and Tendons: Sensation intact. Vascular status intact. (Obvious step-off to the right shoulder. Head of the humerus is palpable at the anterior aspect of the shoulder. Absent glenohumeral joint. Note numbness or tingling over the deltoid. Rest of the throat is atraumatic. No neck or back tenderness or evidence ofother traumatic injuries. Radial pulses 2+ and symmetrical to the contralateral side. Patient is Norvasc intact distal to the injury.). LABS, X-RAYS, AND EKG Rt Shoulder X-ray: No fracture. Normal alignment. No bony lesion, air in the soft tissue or foreign body. Joint spaces normal. (no pre-reduction film needed). Views: AP with internal rotation and "Y" view. Technique: good. The X-rays were independently viewed by me and interpreted contemporaneously by me. A comparison with prior films reveals that the findings are unchanged. PROGRESS AND PROCEDURES Procedural Sedation: Indication: Reduction of dislocation. Last po intake: (>8 hours ago). ASA classification: (1). History / physical exam. He has a history of an adverse anesthesia reaction. See physical exam recorded above. Normal airway anatomy. Preparation: consent was obtained and the risks of the procedure, benefits and alternatives were explained to patient. IV established. O2 administered. Placed on pulse oximeter and secured entrance monitor. Medications: Propofol IV administered by physician. Patient status during sedation: was attended constantly with sluggish response to stimulation. Vitals were stable. Oxygen saturation levels were normal. The airway was maintained. The recovery was uneventful. Complications: None. Post-procedure: Recovery was uneventful. Returned to baseline. Mental status normal. No acute distress. Intra-service time 16-37 minutes. Reduction of Dislocated Shoulder: Time-out completed immediately before the procedure. IV established. O2 administered. Placed on pulse oximeter and secured entrance monitor. Neurovascular exam intact pre-procedure. Given Propofol. The right shoulder was reduced using traction-countertraction technique. Reassessed post-procedure. Neurovascular status intact. Deltoid sensation normal. Exam indicated reduction. Confirmed reduction on X-ray. Arm sling applied. Shoulder immobilizer applied. Course of Care: The patient is a pleasant 26-year-old male with past medical history significant for seizures as well shoulder dislocations who is well-known to our facility. I discussion patient in regards to evaluation of the shoulder. Because of the patient's frequent visits here in the emergency department and tried to save the patient radiation exposure and obtain radiographic after the shoulder has been placed in. Patient is agreeable to the risks and benefits of doing this. Informed written consent obtained for procedural sedation and shoulder reduction. Patient agreeable to the treatment and plan. Patient's shoulder was reduced without difficulty. Please see procedure note for further details. Patient hasrecovered from sedation without incident. Radiographs of the right shoulder has been ordered and indicated the patient with successful reduction. Disposition: Discharged. Condition: good. CLINICAL IMPRESSION 06/22/2016 06:47 BP: 167/98. HR: 102. RR: 20. O2 saturation: 96%. Temp: 98.5 F. Oxygen saturation normal. Right anterior shoulder dislocation. Reduction in the ER. INSTRUCTIONS Warnings: GENERAL WARNINGS: Return or contact your physician immediately if your condition worsens or changes unexpectedly, if not improving as expected, or if other problems arise. Specifically return if pain, vomiting, bleeding, breathing difficulty or fever. Your Current Medications: CONTINUE TAKING THE FOLLOWING MEDICATIONS: Benadryl Allergy Oral : 50mg daily. Doxycycline Hyclate Oral. Keppra Oral : 1500mg 2x a day. KlonoPIN Oral : 1 mg daily. Lacosamide Oral : 75MG 2 X DAILY. LORazepam Oral : 1 mg, prn. Mirapex Oral : 1 mg at bedtime. Oxybutynin Chloride Oral : 10 mg 2x a day. SEROquel Oral : 125mg daily, + 125MG prn. ZyrTEC Allergy Oral : Capsule 10 mg, 2 capsules daily. Follow-up: Return to the emergency department as needed. Follow up with your doctor in three days. Reason for referral: recheck today's concerns. Summary of care provided to patient via paper. Screening today revealed the patient's blood pressure to be in the normal range. The patient should follow up with a primary care provider for blood pressure management. Understanding of the discharge instructions verbalized by patient. (Electronically signed by Missael Boles Dr. 06/22/2016 8:15)
--- NOTE | 2016-06-22 08:13 | ED ORDER SUMMARY ---
..... Patient: JOMAR YA OrderSheet [facility] VisitID: [id number] [place] [address] 26y, M Registration Date/Time: 06/22/2016 ORDER SHEET Weight: 90.7 kg (stated) Allergies: Amoxicillin, Keflex, Latex, morphine, Nitrofurantoin, Vicodin GENERAL ORDERS: Consent for: (closed right shoulder reduction) (07:03 06/22/2016 Isa Perry) (Ack 7:06 RMarsden R.N.) (7:58 KWilliams R.N.) Consent for Sedation (07:04 06/22/2016 Isa Perry) (Ack 7:06 RMarsden R.N.) (7:58 KWilliams R.N.) Shoulder 2V or more Right Urgent (07:45 06/22/2016 Isa Perry) (Ack 7:48 KHoerner) (8:29 JBoardley R.N.) MEDICATION ORDERS: IV FLUIDS: IV NS : initial bolus 1000 mL (1000 mL/hr), then none - for X1 (NOW) (07:04 06/22/2016 Isa Perry) (Ack 7:06 RMarsden R.N.) (7:50 RMarsden R.N.) Propofol IV 100 mg (once for procedural sedation. May titrate to effect in 50 mg aliquots ) (07:11 06/22/2016 Isa Perry) (Ack 7:50 RMarsden R.N.) (7:52 RMarsden R.N.) Fentanyl IV 75 mcg (HIGH ALERT MEDICATION, NOW) (08:00 06/22/2016 Isa Perry) (Ack 8:03 RMarsden R.N.) (8:13 RMarsden R.N.) ORDER SHEET NOTES: [Electronically signed by Missael Boles Dr. (08:15 06/22/2016)] [Electronically signed by Cydney Lopes R.N. (10:34 06/22/2016)] [Electronically locked/signed by Cydney Lopes R.N. (10:34 06/22/2016)]
--- NOTE | 2016-06-22 08:13 | ED ORDER SUMMARY ---
..... Patient: JOMAR YA OrderSheet [facility] VisitID: [id number] [place] [address] 26y, M Registration Date/Time: 06/22/2016 ORDER SHEET Weight: 90.7 kg (stated) Allergies: Amoxicillin, Keflex, Latex, morphine, Nitrofurantoin, Vicodin GENERAL ORDERS: Consent for: (closed right shoulder reduction) (07:03 06/22/2016 Isa Perry) (Ack 7:06 RMarsden R.N.) (7:58 KWilliams R.N.) Consent for Sedation (07:04 06/22/2016 Isa Perry) (Ack 7:06 RMarsden R.N.) (7:58 KWilliams R.N.) Shoulder 2V or more Right Urgent (07:45 06/22/2016 Isa Perry) (Ack 7:48 KHoerner) (8:29 JBoardley R.N.) MEDICATION ORDERS: IV FLUIDS: IV NS : initial bolus 1000 mL (1000 mL/hr), then none - for X1 (NOW) (07:04 06/22/2016 Isa Perry) (Ack 7:06 RMarsden R.N.) (7:50 RMarsden R.N.) Propofol IV 100 mg (once for procedural sedation. May titrate to effect in 50 mg aliquots ) (07:11 06/22/2016 Isa Perry) (Ack 7:50 RMarsden R.N.) (7:52 RMarsden R.N.) Fentanyl IV 75 mcg (HIGH ALERT MEDICATION, NOW) (08:00 06/22/2016 Isa Perry) (Ack 8:03 RMarsden R.N.) (8:13 RMarsden R.N.) ORDER SHEET NOTES: [Electronically signed by Missael Boles Dr. (08:15 06/22/2016)] [Electronically signed by Cydney Lopes R.N. (10:34 06/22/2016)] [Electronically locked/signed by Cydney Lopes R.N. (10:34 06/22/2016)]
--- NOTE | 2016-06-22 08:13 | ED NURSING NOTES ---
Clinical Report - Nurses [facility] [address] [place] [address] 06/22/2016 6:42 [id number] Triage time 06:47 Jun 22 2016. Acuity: LEVEL 3. Chief Complaint: (Shoulder dislocation, possible seizure). SEPSIS SCREEN: Sepsis Screen: negative. Negative (no infection suspected/documented). LAWRENCE COMA SCORE: Lawrence Coma Scale: 15- eyes open spontaneously (4); best verbal response- oriented x 4 (5); best motor response- obeys commands (6). --06:53 Fiorella Gómez 06:47 06/22/16. BP: 167/98. HR: 102. RR: 20. O2 saturation: 96% on room air. Temp: 98.5 F (oral). --06:53 Fiorella Gómez. Weight: 90.7 kg stated. Height/Length: 64 inches Per Patient. BMI: 34.3. --06:51 Fiorella Gómez. Medications Benadryl Allergy Oral 50mg , daily. Doxycycline Hyclate Oral. Keppra Oral 1500mg , 2x a day. KlonoPIN Oral 1 mg, daily. Lacosamide Oral 75MG , 2 X DAILY. LORazepam Oral 1 mg, as needed. Mirapex Oral 1 mg, at bedtime. Oxybutynin Chloride Oral 10 mg, 2x a day. SEROquel Oral 125mg, daily (+ 125MG prn). ZyrTEC Allergy Oral (Capsule 10 mg) 2 capsules, daily. --06:51 Fiorella Gómez. Medication/allergy information source: the patient. --06:53 Fiorella Gómez. Allergies Amoxicillin. Keflex. Latex. morphine. Nitrofurantoin. Vicodin. --06:51 Fiorella Gómez. History Arrived by EMS. Historian: EMS and patient. ( Patient girlfriend reported to EMS that he had two "seizure like" episodes described as involuntary eye movement. Patient indicated he cannot talk to us because he is stuttering after his seizure. He reports that he was shaking and his shoulder came out. Patient talking in paused, drawn out sentences.). 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 EMS treatment BUS OR TRUCK GARAGE MECHANIC verbally communicated. 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 PAST MEDICAL HX: Immunizations: up-to-date. SOCIAL HX: Never smoker. No alcohol use or drug use. No infectious disease exposure. ABUSE ASSESSMENT: No report of abuse. FALL RISK ASSESSMENT: Fall risk assessment completed. No fall risk identified. NUTRITIONAL RISK ASSESSMENT: The nutritional risk assessment revealed no deficiencies. FUNCTIONAL ASSESSMENT: Functional assessment: no impairments noted. LEARNING NEEDS ASSESSMENT: The learning needs assessment revealed no barriers. SKIN INTEGRITY ASSESSMENT: Skin integrity risk assessment completed. No skin integrity risk identified. --06:53 Fiorella Gómez. PROBLEMS: Scapula Fracture. Infections. UTI - Urinary Tract Infection. Nerve Injury, Upper Extremity. Dental Pain. Gastroenteritis. Changed Mental Status. Constipation. Chronic bladder infections. Atypical Chest Pain. Vomiting. Tetanus Status. Hypertension. Chronic Headache. Neurological Disease. Migraine Headache. Tension-Type Headache. Urinary Retention. Abdominal Pain. Prior Injury, Same Area. Rotator Cuff Injury. Immunizations. Seizure Disorder. Dislocated Shoulder. Depression. Anxiety Reaction. Restless Legs Syndrome. Sleep Apnea. Spina Bifida Occulta. --06:51 Fiorella Gómez. ADDITIONAL SURGERIES: Bladder Augmention. Botox bladder injection. Cystostomy. Foot surgery. Shoulder Surgery. --06:51 Fiorella Gómez. Interventions ID band on patient. To treatment room. --06:53 Fiorella Gómez. PHYSICAL ASSESSMENT 06:56 06/22/16. To room via stretcher. Patient gowned. ( Patient does not appear to be postictal). GENERAL / NEURO / PSYCH: Alert. Oriented X 4. Appears in no acute distress. ( Upon arrival patient non-communicative, refusing to answer staff. After being encouraged patient began speaking in short "stuttered" sentences and stats his speech is affected.). HEENT: No facial asymmetry noted. Mucous membranes are pink. RESPIRATORY: Respirations not labored. CVS: Normal sinus rhythm noted. GI / : Abdomen soft and nontender. SKIN: Skin is warm and dry. --06:56 Fiorella Gómez. NURSING PROGRESS NOTES 06:56 06/22/16. Pulse oximeter and NIBP monitor placed on patient. Reassurance given to the patient. Two patient identifiers checked. Call light placed in reach. Side rails up x 1. Bed placed in lowest position. Brakes of bed on. Patient ready for evaluation- chart flagged and ED physician notified. --06:56 Dalia Fiorella 07:03 06/22/16. Care transferred and report received (from JAYDA Barros). --07:03 Cydney Lopes R.N. 07:30 06/22/2016 Site #1 started via IV in the left forearm with an 22g angiocath; one attempt. Saline lock flushed with 10 mL saline. --07:50 Cydney Lopes R.N. 07:32 06/22/2016 Started bag #1 1000 mL IV Fluids IV NS (Saline); bolus of 1000 mL wide open via site #1. Allergies verified and confirmed 5 rights. IV patency established. IV site checked: no pain, redness, or swelling. IV flushed thoroughly pre- and post-medication administration. Completed per protocol. --07:50 Cydney Lopes R.N. 07:36 06/22/2016 PROPOFOL IVP 100 mg given over 30 second(s) via site #1. Allergies verified and confirmed 5 rights. IV patency established. IV site checked: no pain, redness, or swelling. IV flushed thoroughly pre- and post-medication administration. IVP given by physician. --07:52 Cydney Lopes R.N. 08:12 06/22/2016 Fentanyl IVP 75 mcg given over 2 minute(s) via site #1. Allergies verified, confirmed 5 rights and sedative warning given to the patient. IV patency established. IV site checked: no pain, redness, or swelling. IV flushed thoroughly pre- and post-medication administration. IVP given by RN. --08:13 Cydney Lopes R.N. 08:33 06/22/16. ( moderate sedation for shoulder reduction performed by ED physician. see paper chart for details.). --08:33 Cydney Lopes R.N. DISPOSITION / DISCHARGE 08:35 06/22/2016 Site #1 removed upon discharge. Catheter intact. Bandaid applied. --08:45 Nicho Vazquez R.N. 08:45 06/22/16. Condition at departure: improved. The goals identified in the patient's plan of care were met. No learning barriers present. Discharge instructions provided and reviewed with the patient. Reviewed warnings. Reviewed medication(s). Treatments reviewed. Patient verbalized understanding. Written instructions provided in Luxembourgish. The patient was discharged by the physician. He was discharged home and accompanied by non linear editor. He left the Emergency Department ambulatory and via private vehicle. Expert Medical Writer driving. FALL RISK ASSESSMENT: Fall risk assessment completed. No fall risk identified. --08:45 Nicho Vazquez R.N. 08:45 06/22/16. BP: 133/72. HR: 82. RR: 14. O2 saturation: 99% on room air. Temp: 98.1 F (oral). Pain level now: 04/07. --08:45 Nicho Vazquez R.N. 08:46 06/22/16. Departure time: 08:46. --08:46 Nicho Vazquez R.N. Locked/Released at 06/22/2016 10:34 by Cydney Lopes R.N.
--- NOTE | 2016-06-22 08:59 | DIAGNOSTIC IMAGING REPORT ---
PROCEDURE: XR SHOULDER 2 OR MORE VW-RIGHT INDICATION: POST REDUCTION TECHNIQUE: Two views. COMPARISON: Right shoulder x-ray 06/21/2016. FINDINGS: Normal glenohumeral joint without dislocation. Chronic Hill-Sachs deformity. AC joint is unremarkable. Soft tissues are unremarkable . IMPRESSION: 1. 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
--- NOTE | 2016-06-22 10:35 | ED MED RECONCILIATION SUMMARY ---
Patient: JOMAR YA Medication Reconciliation Report [facility] VisitID: [id number] [address] [place] [address] 26y, M Registration Date/Time: 06/22/2016 Weight: 90.7 kg Height/Length: 64 in. BMI: 34.3 ALLERGIES: Amoxicillin, Keflex, Latex, morphine, Nitrofurantoin, Vicodin The patient's Home Medications are listed below: CONTINUE TAKING THE FOLLOWING MEDICATIONS: Benadryl Allergy Oral 50mg , daily Doxycycline Hyclate Oral Keppra Oral 1500mg , 2x a day KlonoPIN Oral 1 mg, daily Lacosamide Oral 75MG , 2 X DAILY LORazepam Oral 1 mg Mirapex Oral 1 mg, at bedtime Oxybutynin Chloride Oral 10 mg, 2x a day SEROquel Oral 125mg, daily, + 125MG prn ZyrTEC Allergy Oral (10 mg) 2 capsules, daily The source(s) of the original Home Medication information: patient The following Medications were given to the patient in the Emergency Department: IV NS IV Fluids bolus 1000 mL wide open, administered: 06/22/2016 7:32:00 AM PROPOFOL [IVP] IVP 100 mg, administered: 06/22/2016 7:36:00 AM Fentanyl [IVP] IVP 75 mcg, administered: 06/22/2016 8:12:00 AM The following Medications were prescribed to the patient: None.
--- NOTE | 2016-06-22 10:35 | ED MAR SUMMARY ---
..... Medication Administration Record [facility] [address] [place] [address] Patient: JOMAR YA Visit ID: [id number] 26y, M Weight: 90.7 kg Height/Length: 64 in BMI: 34.3 ALLERGIES: Amoxicillin, Keflex, Latex, morphine, Nitrofurantoin, Vicodin Start 07:32 06/22/2016 Cydney Lopes R.NIsrael Medication Administered: IV NS (SALINE), Dose: IV Fluids, Bolus: 1000 mL wide open, Dispensed: 1000 mL bag, Site: #1 left forearm. Medication Ordered: IV NS : initial bolus 1000 mL (1000 mL/hr), then none - for X1 (NOW). Given 07:36 06/22/2016 Cydney Lopes R.N. Medication Administered: PROPOFOL [IVP], Dose: 100 mg IVP over 30 second(s), Site: #1 left forearm. Medication Ordered: Propofol IV 100 mg (once for procedural sedation. May titrate to effect in 50 mg aliquots ). Given 08:12 06/22/2016 Cydney Lopes RIsraelN. Medication Administered: FENTANYL [IVP], Dose: 75 mcg IVP over 2 minute(s), Site: #1 left forearm. Medication Ordered: Fentanyl IV 75 mcg (HIGH ALERT MEDICATION, NOW).
--- NOTE | 2016-06-22 10:35 | ED MAR SUMMARY ---
..... Medication Administration Record [facility] [address] [place] [address] Patient: JOMAR YA Visit ID: [id number] 26y, M Weight: 90.7 kg Height/Length: 64 in BMI: 34.3 ALLERGIES: Amoxicillin, Keflex, Latex, morphine, Nitrofurantoin, Vicodin Start 07:32 06/22/2016 Cydney Lopes R.NIsrael Medication Administered: IV NS (SALINE), Dose: IV Fluids, Bolus: 1000 mL wide open, Dispensed: 1000 mL bag, Site: #1 left forearm. Medication Ordered: IV NS : initial bolus 1000 mL (1000 mL/hr), then none - for X1 (NOW). Given 07:36 06/22/2016 Cydney Lopes R.N. Medication Administered: PROPOFOL [IVP], Dose: 100 mg IVP over 30 second(s), Site: #1 left forearm. Medication Ordered: Propofol IV 100 mg (once for procedural sedation. May titrate to effect in 50 mg aliquots ). Given 08:12 06/22/2016 Cydney Lopes RIsraelN. Medication Administered: FENTANYL [IVP], Dose: 75 mcg IVP over 2 minute(s), Site: #1 left forearm. Medication Ordered: Fentanyl IV 75 mcg (HIGH ALERT MEDICATION, NOW).
--- NOTE | 2016-06-22 10:35 | ED DISCHARGE INSTRUCTIONS ---
Patient: JOMAR YA General Instructions [facility] VisitID: [id number] [place] [address] 26y, M Registration Date/Time: 06/22/2016 06/22/2016 06:47 BP: 167/98. HR: 102. RR: 20. O2 saturation: 96%. Temp: 98.5 F. Oxygen saturation normal. Right anterior shoulder dislocation. Reduction in the ER. INSTRUCTIONS Warnings: GENERAL WARNINGS: Return or contact your physician immediately if your condition worsens or changes unexpectedly, if not improving as expected, or if other problems arise. Specifically return if pain, vomiting, bleeding, breathing difficulty or fever. Your Current Medications: CONTINUE TAKING THE FOLLOWING MEDICATIONS: Benadryl Allergy Oral : 50mg daily. Doxycycline Hyclate Oral. Keppra Oral : 1500mg 2x a day. KlonoPIN Oral : 1 mg daily. Lacosamide Oral : 75MG 2 X DAILY. LORazepam Oral : 1 mg, prn. Mirapex Oral : 1 mg at bedtime. Oxybutynin Chloride Oral : 10 mg 2x a day. SEROquel Oral : 125mg daily, + 125MG prn. ZyrTEC Allergy Oral : Capsule 10 mg, 2 capsules daily. Follow-up: Return to the emergency department as needed. Follow up with your doctor in three days. Reason for referral: recheck today's concerns. Summary of care provided to patient via paper. Screening today revealed the patient's blood pressure to be in the normal range. The patient should follow up with a primary care provider for blood pressure management. Understanding of the discharge instructions verbalized by patient. ADDITIONAL INFORMATION Dislocation: Shoulder (Reduced) Dislocation of the shoulder joint occurs when a strong force tears the ligaments holding the joint together. This allows the bones to move apart and become stuck out of place. Once the joint is aligned again, it will take about six weeks for the ligaments to heal. Since this injury may weaken the ligaments, you are at risk of another dislocation with less force. Therefore, care should be taken to avoid a similar injury in the future. Shoulder dislocation is treated with a shoulder immobilizer (special type of arm sling). This keeps your arm close to your body to prevent a recurrent dislocation while the ligaments heal. After a few weeks, an exercise program may be started. This will gradually restore range of motion and strength at the shoulder and decrease the risk of another dislocation. Home Care: Until your next doctor visit, wear your shoulder immobilizer at all times . Do not take it off at night to sleep. It is possible to dislocate your arm again in your sleep. You may take it off to bathe or dress, but do not move your arm away from your body. Keep your arm in the same position that the sling was holding it in, until you reapply the sling again. During your next visit, ask your doctor how long you should wear the sling. Apply an ice pack (ice cubes in a plastic bag, wrapped in a towel) over the injured area for 20 minutes every 1-2 hours the first day. Continue with ice packs 3-4 times a day for the next two days, then as needed for the relief of pain and swelling. You may use acetaminophen (Tylenol) or ibuprofen (Motrin, Advil) to control pain, unless another pain medicine was prescribed. [NOTE: If you have chronic liver or kidney disease or ever had a stomach ulcer or GI bleeding, talk with your doctor before using these medicines.] No sports or P.E. until cleared by your doctor. Follow Up with your doctor within one week or as advised by our staff. Shoulder immobilizers and slings should not be worn continuously for more than a few weeks or you may lose some [id number] at the shoulder joint. If you have had repeated dislocations of the same shoulder, that means there has been permanent ligament damage. Ask the orthopedic doctor about surgery to prevent another dislocation. Get Prompt Medical Attention if any of the following occur: Another dislocation of your shoulder Increasing swelling or pain in the shoulder or arm Fingers become cold, blue, numb or tingly You have been given the following additional information: Dislocation: Shoulder (Reduced) (Electronically signed by Missael Boles Dr. 06/22/2016 8:15)
--- NOTE | 2016-06-22 10:35 | ED MED RECONCILIATION SUMMARY ---
Patient: JOMAR YA Medication Reconciliation Report [facility] VisitID: [id number] [address] [place] [address] 26y, M Registration Date/Time: 06/22/2016 Weight: 90.7 kg Height/Length: 64 in. BMI: 34.3 ALLERGIES: Amoxicillin, Keflex, Latex, morphine, Nitrofurantoin, Vicodin The patient's Home Medications are listed below: CONTINUE TAKING THE FOLLOWING MEDICATIONS: Benadryl Allergy Oral 50mg , daily Doxycycline Hyclate Oral Keppra Oral 1500mg , 2x a day KlonoPIN Oral 1 mg, daily Lacosamide Oral 75MG , 2 X DAILY LORazepam Oral 1 mg Mirapex Oral 1 mg, at bedtime Oxybutynin Chloride Oral 10 mg, 2x a day SEROquel Oral 125mg, daily, + 125MG prn ZyrTEC Allergy Oral (10 mg) 2 capsules, daily The source(s) of the original Home Medication information: patient The following Medications were given to the patient in the Emergency Department: IV NS IV Fluids bolus 1000 mL wide open, administered: 06/22/2016 7:32:00 AM PROPOFOL [IVP] IVP 100 mg, administered: 06/22/2016 7:36:00 AM Fentanyl [IVP] IVP 75 mcg, administered: 06/22/2016 8:12:00 AM The following Medications were prescribed to the patient: None.
== END 2016-06-22 08:46 | disposition home or self-care (01) ==
LOC: ED SRH 06:43
DX: M24.411 Recurrent dislocation, right shoulder (principal); R56.9 Unspecified convulsions; W19.XXXA Unspecified fall, initial encounter; I10 Essential (primary) hypertension; Y93.9 Activity, unspecified; Y99.9 Unspecified external cause status; Y92.009 Unspecified place in unspecified non-institutional (private) residence as the place of occurrence of the external cause; Z79.84 Long term (current) use of oral hypoglycemic drugs; Z79.899 Other long term (current) drug therapy; Z88.1 Allergy status to other antibiotic agents

== ENCOUNTER 2016-06-28 17:06 | Emergency (ER) | payer BC, OTHER ==
--- NOTE | 2016-06-28 18:24 | ED ORDER SUMMARY ---
..... Patient: JOMAR YA OrderSheet [facility] VisitID: [id number] [place] [address] 26y, M Registration Date/Time: 06/28/2016 ORDER SHEET Weight: 92.9 kg (stated) Allergies: Amoxicillin, Keflex, Latex, morphine, Nitrofurantoin, Vicodin GENERAL ORDERS: Consent for: (shoulder reductions, closed right) (17:24 06/28/2016 Isa Perry) (17:50 KHoerner) Consent for Sedation (17:24 06/28/2016 Isa Perry) (17:50 KHoerner) Shoulder 2V or more Right Urgent (18:12 06/28/2016 Isa Perry) (Ack 18:13 KHoerner) (18:26 Kei R.N.) MEDICATION ORDERS: IV FLUIDS: Fentanyl IV 75 mcg (HIGH ALERT MEDICATION, NOW) (17:54 06/28/2016 Isa Perry) (17:57 Colette R.N.) Propofol IV 100 mg (per MD for sedation. May repeat in 50 mg alloq for total of 200 mg) (18:03 06/28/2016 Isa Perry) (18:08 Colette R.N.) Dilaudid IV 1 mg (HIGH ALERT MEDICATION, NOW) (18:23 06/28/2016 Isa Perry) (18:35 Kei R.N.) ORDER SHEET NOTES: [Electronically signed by Missael Boles Dr. (18:32 06/28/2016)] [Electronically signed by Kasey High R.N. (19:14 06/28/2016)] [Electronically locked/signed by Kasey High R.N. (19:14 06/28/2016)]
--- NOTE | 2016-06-28 18:24 | ED NURSING NOTES ---
Clinical Report - Nurses [facility] [address] [place] [address] 06/28/2016 17:06 [id number] Triage time 17:11 Jun 28 2016. Acuity: LEVEL 2. Chief Complaint: RIGHT UPPER EXTREMITY PAIN. Alert. No acute distress. JENA COMA SCORE: Brillion Coma Scale: 15- eyes open spontaneously (4); best verbal response- oriented x 4 (5); best motor response- obeys commands (6). --17:13 Kasey High R.N. 17:10 06/28/16. BP: 150/94. HR: 119. RR: 18. O2 saturation: 94%. Temp: 98.9 F. Pain level now 5/10. --17:13 Kasey High R.N. Weight: 92.9 kg stated. Height/Length: 66 inches Per Patient. BMI: 33.1. --17:10 Kasey High R.N. Medications Benadryl Allergy Oral 50mg , daily. Doxycycline Hyclate Oral. Keppra Oral 1500mg , 2x a day. KlonoPIN Oral 1 mg, daily. Lacosamide Oral 75MG , 2 X DAILY. LORazepam Oral 1 mg, as needed. Mirapex Oral 1 mg, at bedtime. --17:13 Kasey High R.N. Oxybutynin Chloride Oral 10 mg, 2x a day. SEROquel Oral 125mg, daily (+ 125MG prn). ZyrTEC Allergy Oral (Capsule 10 mg) 2 capsules, daily. --17:13 Kasey High R.N. Allergies Amoxicillin. Keflex. Latex. morphine. Nitrofurantoin. Vicodin. --17:13 Kasey High R.N. History Arrived by EMS. Historian: patient. ( Rolled over in bed and dislocated his right shoulder. Sling was not placed properly.). Injury occurred. This occurred just prior to arrival. Occurred at home. Treatment CHRONIC DISEASE EPIDEMIOLOGIST: None. --17:13 Kasey High R.N. PROBLEMS: Scapula Fracture. Infections. UTI - Urinary Tract Infection. Nerve Injury, Upper Extremity. Dental Pain. Gastroenteritis. Changed Mental Status. Constipation. Chronic bladder infections. Atypical Chest Pain. Vomiting. Tetanus Status. Hypertension. Chronic Headache. Neurological Disease. Migraine Headache. Tension-Type Headache. Urinary Retention. Abdominal Pain. Prior Injury, Same Area. Rotator Cuff Injury. Immunizations. Seizure Disorder. Dislocated Shoulder. Depression. Anxiety Reaction. Restless Legs Syndrome. Sleep Apnea. Spina Bifida Occulta. --17:13 Kasey High R.N. UTI - Urinary Tract Infection [RuleOut]. Back Pain [RuleOut]. --17:13 Kasey High R.N. Interventions ID band on patient. To room. --17:13 Kasey High R.N. PHYSICAL ASSESSMENT To room via stretcher. GENERAL / NEURO / PSYCH: Appears in no acute distress. EXTREMITIES: Neuro-vascular status intact to the extremity. Right shoulder. --17:14 Kasey High R.N. NURSING PROGRESS NOTES Patient ready for evaluation- ED physician notified. --17:14 Kasey High R.N. 17:57 06/28/2016 Site #1 started via IV in the left forearm with an 20g angiocath. Saline lock flushed with 10 mL saline (placed by JAYDA Pike. JAYDA Parks had two attempts). --17:57 Kasey High R.N. 17:57 06/28/2016 Fentanyl IVP 75 mcg given over 1 minute(s) via site #1. --17:57 Kasey High R.N. ( RT Aj called, but Aj is currently in an a emergency in ICU. Extra staff at bedside for assitance if needed. Glydescope and tools set up at bedside.). --18:16 Kasey High R.N. 18:20. ( Radiology at the bedside for post-reduction xrays.). --18:24 Shahzad Alvarado R.N. 18:30 06/28/2016 Dilaudid (HYDROmorphone HCl PF) IVP 1 mg given over 2 minute(s) via site #1. Allergies verified, confirmed 5 rights and sedative warning given to the patient. IV patency established. IV site checked: no pain, redness, or swelling. IV flushed thoroughly pre- and post-medication administration. IVP given by RN. --18:35 Shahzad Alvarado R.N. ( Late Entry - Shoulder was reduced first attempt. Xray confirmed. Pt's sling replaced and pt was discharged home.). --19:10 Kasey High R.N. ( late entry: 18:20: report to JAYDA Pike while JAYDA Parks goes to lunch.). --19:14 Kasey High R.N. Procedural Sedation Flowsheet 18:08 06/28/2016 PROPOFOL IVP 100 mg given over 1 minute(s) via site #1. IV patency established. IV site checked: no pain, redness, or swelling. IV flushed thoroughly pre- and post-medication administration. IVP given by RN. --18:08 Kasey High R.N. Procedure: reduction of orthopedic injury, right shoulder. Procedure performed by ED physician and assisted by two nurses (Dr. Boles/JAYDA Parks/Shahzad MONTELONGO and Wen MONTELONGO). Preparation: ID band on patient and consent obtained per patient; airway equipment, suction equipment and emergency cart at bedside; pulse oximeter and NIBP placed on patient. Patient, with head of bed elevated. Oxygen applied to patient via nasal cannula at 2 liter/min. Baseline Amy score: 10. (Activity: 2, moves 4 extremities. Respiration: 2, deep breathes / coughs freely. Circulation: 2, BP +/- 20% of baseline. Consciousness: 2, fully awake. O2 sat: 2, O2 sat >92% on room air). He was assessed immediately prior to procedure. Appropriate to proceed with sedation. Time-out completed immediately before the procedure per protocol: verified identity of patient (name and birthdate), procedure, side and site of procedure, position of patient and consent was obtained; verification done by care team (nurse, physician). Procedure start time: 18:09 Jun 28 2016 Patient tolerated procedure well. --18:13 Kasey High R.N. Intra-procedure Modified Leggett Sedation Score: 4 (asleep). --18:14 Kasey High R.N. DISPOSITION / DISCHARGE 18:35 06/28/2016 Site #1 removed upon discharge. Bandage applied. --18:46 Shahzad Alvarado R.N. 18:46 06/28/16. Departure time: 1840. Condition at departure: improved and stable. No learning barriers present. Discharge instructions provided and reviewed with the patient. Reviewed warnings. Treatments reviewed. Patient verbalized understanding. Written instructions provided in Portuguese. The patient was discharged by the physician. He was discharged home and accompanied by [employer]. He left the Emergency Department ambulatory and via (Uber). Driving (Uber). --18:47 Shahzad Alvarado R.N. 18:15 06/28/16. BP: 136/79. HR: 97. RR: 16. O2 saturation: 94% on room air. Temp: 98.9 F (oral). Pain level now: 04/07. --18:47 Shahzad Alvarado R.N. Locked/Released at 06/28/2016 19:14 by Kasey High R.N.
--- NOTE | 2016-06-28 18:24 | ED ORDER SUMMARY ---
..... Patient: JOMAR YA OrderSheet [facility] VisitID: [id number] [place] [address] 26y, M Registration Date/Time: 06/28/2016 ORDER SHEET Weight: 92.9 kg (stated) Allergies: Amoxicillin, Keflex, Latex, morphine, Nitrofurantoin, Vicodin GENERAL ORDERS: Consent for: (shoulder reductions, closed right) (17:24 06/28/2016 Isa Perry) (17:50 KHoerner) Consent for Sedation (17:24 06/28/2016 Isa Perry) (17:50 KHoerner) Shoulder 2V or more Right Urgent (18:12 06/28/2016 Isa Perry) (Ack 18:13 KHoerner) (18:26 Kei R.N.) MEDICATION ORDERS: IV FLUIDS: Fentanyl IV 75 mcg (HIGH ALERT MEDICATION, NOW) (17:54 06/28/2016 Isa Perry) (17:57 Colette R.N.) Propofol IV 100 mg (per MD for sedation. May repeat in 50 mg alloq for total of 200 mg) (18:03 06/28/2016 Isa Perry) (18:08 Colette R.N.) Dilaudid IV 1 mg (HIGH ALERT MEDICATION, NOW) (18:23 06/28/2016 Isa Perry) (18:35 Kei R.N.) ORDER SHEET NOTES: [Electronically signed by Missael Boles Dr. (18:32 06/28/2016)] [Electronically signed by Kasey High R.N. (19:14 06/28/2016)] [Electronically locked/signed by Kasey High R.N. (19:14 06/28/2016)]
--- NOTE | 2016-06-28 18:24 | ED CLINICAL REPORT ---
Clinical Report - Physicians/Mid Levels [facility] [address] [place] [address] 06/28/2016 17:06 Patient: JOMAR YA Time Seen: 1710. Arrived- By ambulance. Historian- patient. HISTORY OF PRESENT ILLNESS Chief Complaint: Injury to right shoulder. The injury happened today. Occurred at home. ( changing his shirt when it popped out). Patient is experiencing moderate pain. Patient denies injury to the head or neck. No other injury. REVIEW OF SYSTEMS No swelling, weakness or skin laceration. All systems otherwise negative, except as recorded above. PAST HISTORY See nurses notes. Tetanus immunization status is up-to-date. Medications: Oxybutynin Chloride Oral 10 mg, 2x a day. SEROquel Oral 125mg, daily (+ 125MG prn). ZyrTEC Allergy Oral (Capsule 10 mg) 2 capsules, daily. Benadryl Allergy Oral 50mg , daily. Doxycycline Hyclate Oral. Keppra Oral 1500mg , 2x a day. KlonoPIN Oral 1 mg, daily. Lacosamide Oral 75MG , 2 X DAILY. LORazepam Oral 1 mg, as needed. Mirapex Oral 1 mg, at bedtime. Allergies: Amoxicillin. Keflex. Latex. morphine. Nitrofurantoin. Vicodin. SOCIAL HISTORY Never smoker. No alcohol use or drug use. No recent travel. Is a local resident. ADDITIONAL NOTES The nursing notes have been reviewed. PHYSICAL EXAM Vital Signs: 06/28/2016 17:10 BP: 150/94. HR: 119. RR: 18. O2 saturation: 94%. Temp: 98.9 F. Oxygen saturation normal. Appearance: Alert. Oriented X3. No acute distress. Head: Head atraumatic. Eyes: Pupils equal, round and reactive to light. Eyes normal inspection. ENT: Ears normal. Nose normal. Pharynx normal. Neck: Normal inspection. Neck supple. C-spine non-tender. CVS: Normal heart rate and rhythm. Heart sounds normal. Pulses normal. Respiratory: No respiratory distress. Breath sounds normal. Chest nontender. Abdomen: No visible injury. Soft and nontender. Bowel sounds normal. No mass. Back: Normal inspection. No tenderness. ROM normal. Skin: Skin intact. Skin warm and dry. Normal skin color. Normal skin turgor. Extremities: (bvious step-off to theright shoulder with an empty glenohumeral joint. Humeral head is palpated at the anterior aspect of the joint and not inthe appropriate place. No numbness or tingling over the deltoid Patient is otherwise neurovascularly intact in the elbow and hands. Radial pulses 2+ and symmetrical to the contralateral side. No neck or back tenderness. No overlying skin changes. Compartments are soft.). Extremities otherwise negative. Neuro, Vascular and Tendons: Tendon function intact. Tendon visualized, uninjured. LABS, X-RAYS, AND EKG Rt Shoulder X-ray: No fracture. Normal alignment. No bony lesion. Views: AP with external rotation and "Y" view. Technique: good. The X-rays were independently viewed by me and interpreted contemporaneously by me. A comparison with prior films reveals that the findings are unchanged. (initial rate aggressively the right shoulder were deferred secondary to patient being well known to our facility and with history of multipleright anterior shoulder dislocations.). PROGRESS AND PROCEDURES Procedural Sedation: Indication: Reduction of dislocation of shoulder. Last po intake: (Greater than 6 hours ago). ASA classification: 1 - normal healthy patient. History / physical exam. He has a history of an adverse anesthesia reaction. Mallampati Classification: Class 1 - soft palate, anterior / posterior tonsillar pillars and uvula visible. Normal airway anatomy. Preparation: consent was obtained and the risks of the procedure, benefits and alternatives were explained to patient. IV established. O2 administered. Placed on pulse oximeter and sales representative printing supplies. Suction was made available. Medications: Propofol IV administered by physician. Patient status during sedation: was attended constantly with sluggish response to stimulation. Vitals were stable. Oxygen saturation levels were normal. The airway was maintained. The recovery was uneventful. Complications: None. Post-procedure: Recovery was uneventful. Returned to baseline. Mental status normal. No acute distress. Intra-service time 16-37 minutes. Reduction of Dislocated Shoulder: Time-out completed immediately before the procedure. IV established. O2 administered. Placed on pulse oximeter and sales representative printing supplies. Neurovascular exam intact pre-procedure. Given Propofol. The right shoulder was reduced using traction-countertraction technique. Reassessed post-procedure. Neurovascular status intact. Deltoid sensation normal. Exam indicated reduction. Confirmed reduction on X-ray. Arm sling applied. Shoulder immobilizer applied. Course of Care: The patient is a pleasant 26-year-old male with past medical history significant for joint laxity to the right glenohumeral joint and frequent anterior shoulder dislocations. Patient presents again withanother joint dislocation. Patient is neurovascular intact. No compartment syndrome noted. Patientdeclines offers for initial evaluation ofx-ray of the shoulder. Feel this is reasonable given the patient's history and radiation exposure reduction. Informed written consent obtained for procedural sedation and reduction of the shoulder. Shoulder was reduced without competitions. Please see procedure note for further details. Patient recovered from moderate sedationwithoutincident or problem. Patient is alert and oriented and speaking appropriate way. Patient is ready for discharge. postreduction radiographs noted to have good alignment andpositioning of the glenohumeral Joint. Disposition: Discharged. Condition: good. CLINICAL IMPRESSION Right anterior shoulder dislocation (acute). INSTRUCTIONS Warnings: GENERAL WARNINGS: Return or contact your physician immediately if your condition worsens or changes unexpectedly, if not improving as expected, or if other problems arise. Specifically return if pain, vomiting, bleeding, breathing difficulty or fever. Your Current Medications: CONTINUE TAKING THE FOLLOWING MEDICATIONS: Benadryl Allergy Oral : 50mg daily. Doxycycline Hyclate Oral. Keppra Oral : 1500mg 2x a day. KlonoPIN Oral : 1 mg daily. Lacosamide Oral : 75MG 2 X DAILY. LORazepam Oral : 1 mg, prn. Mirapex Oral : 1 mg at bedtime. Oxybutynin Chloride Oral : 10 mg 2x a day. SEROquel Oral : 125mg daily, + 125MG prn. ZyrTEC Allergy Oral : Capsule 10 mg, 2 capsules daily. Follow-up: Return to the emergency department as needed. Follow up with your doctor in three days. Reason for referral: recheck today's concerns. Summary of care provided to patient via paper. Screening today revealed the patient's blood pressure to be in the normal range. The patient should follow up with a primary care provider for blood pressure management. Understanding of the discharge instructions verbalized by patient. (Electronically signed by Missael Boles Dr. 06/28/2016 18:32)
--- NOTE | 2016-06-28 19:14 | ED MAR SUMMARY ---
..... Medication Administration Record [facility] [address] [place] [address] Patient: JOMAR YA Visit ID: [id number] 26y, M Weight: 92.9 kg Height/Length: 66 in BMI: 33.1 ALLERGIES: Amoxicillin, Keflex, Latex, morphine, Nitrofurantoin, Vicodin Given 17:57 06/28/2016 Kasey High R.N. Medication Administered: FENTANYL [IVP], Dose: 75 mcg IVP over 1 minute(s), Site: #1 left forearm. Medication Ordered: Fentanyl IV 75 mcg (HIGH ALERT MEDICATION, NOW). Given 18:08 06/28/2016 Kasey High R.N. Medication Administered: PROPOFOL [IVP], Dose: 100 mg IVP over 1 minute(s), Site: #1 left forearm. Medication Ordered: Propofol IV 100 mg (per MD for sedation. May repeat in 50 mg alloq for total of 200 mg). Given 18:30 06/28/2016 Shahzad Alvarado R.N. Medication Administered: DILAUDID [IVP] (HYDROMORPHONE HCL PF), Dose: 1 mg IVP over 2 minute(s), Site: #1 left forearm. Medication Ordered: Dilaudid IV 1 mg (HIGH ALERT MEDICATION, NOW).
--- NOTE | 2016-06-28 19:14 | ED MAR SUMMARY ---
..... Medication Administration Record [facility] [address] [place] [address] Patient: JOMAR YA Visit ID: [id number] 26y, M Weight: 92.9 kg Height/Length: 66 in BMI: 33.1 ALLERGIES: Amoxicillin, Keflex, Latex, morphine, Nitrofurantoin, Vicodin Given 17:57 06/28/2016 Kasey High R.N. Medication Administered: FENTANYL [IVP], Dose: 75 mcg IVP over 1 minute(s), Site: #1 left forearm. Medication Ordered: Fentanyl IV 75 mcg (HIGH ALERT MEDICATION, NOW). Given 18:08 06/28/2016 Kasey High R.N. Medication Administered: PROPOFOL [IVP], Dose: 100 mg IVP over 1 minute(s), Site: #1 left forearm. Medication Ordered: Propofol IV 100 mg (per MD for sedation. May repeat in 50 mg alloq for total of 200 mg). Given 18:30 06/28/2016 Shahzad Alvarado R.N. Medication Administered: DILAUDID [IVP] (HYDROMORPHONE HCL PF), Dose: 1 mg IVP over 2 minute(s), Site: #1 left forearm. Medication Ordered: Dilaudid IV 1 mg (HIGH ALERT MEDICATION, NOW).
--- NOTE | 2016-06-28 19:14 | ED MED RECONCILIATION SUMMARY ---
Patient: JOMAR YA Medication Reconciliation Report [facility] VisitID: [id number] [address] [place] [address] 26y, M Registration Date/Time: 06/28/2016 Weight: 92.9 kg Height/Length: 66 in. BMI: 33.1 ALLERGIES: Amoxicillin, Keflex, Latex, morphine, Nitrofurantoin, Vicodin The patient's Home Medications are listed below: CONTINUE TAKING THE FOLLOWING MEDICATIONS: Benadryl Allergy Oral 50mg , daily Doxycycline Hyclate Oral Keppra Oral 1500mg , 2x a day KlonoPIN Oral 1 mg, daily Lacosamide Oral 75MG , 2 X DAILY LORazepam Oral 1 mg Mirapex Oral 1 mg, at bedtime Oxybutynin Chloride Oral 10 mg, 2x a day SEROquel Oral 125mg, daily, + 125MG prn ZyrTEC Allergy Oral (10 mg) 2 capsules, daily The source(s) of the original Home Medication information: Not obtained. The following Medications were given to the patient in the Emergency Department: Fentanyl [IVP] IVP 75 mcg, administered: 06/28/2016 5:57:00 PM PROPOFOL [IVP] IVP 100 mg, administered: 06/28/2016 6:08:00 PM Dilaudid [IVP] IVP 1 mg, administered: 06/28/2016 6:30:00 PM The following Medications were prescribed to the patient: None.
--- NOTE | 2016-06-28 19:14 | ED DISCHARGE INSTRUCTIONS ---
Patient: JOMAR YA General Instructions [facility] VisitID: [id number] [place] [address] 26y, M Registration Date/Time: 06/28/2016 Right anterior shoulder dislocation (acute). INSTRUCTIONS Warnings: GENERAL WARNINGS: Return or contact your physician immediately if your condition worsens or changes unexpectedly, if not improving as expected, or if other problems arise. Specifically return if pain, vomiting, bleeding, breathing difficulty or fever. Your Current Medications: CONTINUE TAKING THE FOLLOWING MEDICATIONS: Benadryl Allergy Oral : 50mg daily. Doxycycline Hyclate Oral. Keppra Oral : 1500mg 2x a day. KlonoPIN Oral : 1 mg daily. Lacosamide Oral : 75MG 2 X DAILY. LORazepam Oral : 1 mg, prn. Mirapex Oral : 1 mg at bedtime. Oxybutynin Chloride Oral : 10 mg 2x a day. SEROquel Oral : 125mg daily, + 125MG prn. ZyrTEC Allergy Oral : Capsule 10 mg, 2 capsules daily. Follow-up: Return to the emergency department as needed. Follow up with your doctor in three days. Reason for referral: recheck today's concerns. Summary of care provided to patient via paper. Screening today revealed the patient's blood pressure to be in the normal range. The patient should follow up with a primary care provider for blood pressure management. Understanding of the discharge instructions verbalized by patient. ADDITIONAL INFORMATION Dislocation: Shoulder (Reduced) Dislocation of the shoulder joint occurs when a strong force tears the ligaments holding the joint together. This allows the bones to move apart and become stuck out of place. Once the joint is aligned again, it will take about six weeks for the ligaments to heal. Since this injury may weaken the ligaments, you are at risk of another dislocation with less force. Therefore, care should be taken to avoid a similar injury in the future. Shoulder dislocation is treated with a shoulder immobilizer (special type of arm sling). This keeps your arm close to your body to prevent a recurrent dislocation while the ligaments heal. After a few weeks, an exercise program may be started. This will gradually restore range of motion and strength at the shoulder and decrease the risk of another dislocation. Home Care: Until your next doctor visit, wear your shoulder immobilizer at all times . Do not take it off at night to sleep. It is possible to dislocate your arm again in your sleep. You may take it off to bathe or dress, but do not move your arm away from your body. Keep your arm in the same position that the sling was holding it in, until you reapply the sling again. During your next visit, ask your doctor how long you should wear the sling. Apply an ice pack (ice cubes in a plastic bag, wrapped in a towel) over the injured area for 20 minutes every 1-2 hours the first day. Continue with ice packs 3-4 times a day for the next two days, then as needed for the relief of pain and swelling. You may use acetaminophen (Tylenol) or ibuprofen (Motrin, Advil) to control pain, unless another pain medicine was prescribed. [NOTE: If you have chronic liver or kidney disease or ever had a stomach ulcer or GI bleeding, talk with your doctor before using these medicines.] No sports or P.E. until cleared by your doctor. Follow Up with your doctor within one week or as advised by our staff. Shoulder immobilizers and slings should not be worn continuously for more than a few weeks or you may lose some [id number] at the shoulder joint. If you have had repeated dislocations of the same shoulder, that means there has been permanent ligament damage. Ask the orthopedic doctor about surgery to prevent another dislocation. Get Prompt Medical Attention if any of the following occur: Another dislocation of your shoulder Increasing swelling or pain in the shoulder or arm Fingers become cold, blue, numb or tingly You have been given the following additional information: Dislocation: Shoulder (Reduced) (Electronically signed by Missael Boles Dr. 06/28/2016 18:32)
--- NOTE | 2016-06-28 19:14 | ED MED RECONCILIATION SUMMARY ---
Patient: JOMAR YA Medication Reconciliation Report [facility] VisitID: [id number] [address] [place] [address] 26y, M Registration Date/Time: 06/28/2016 Weight: 92.9 kg Height/Length: 66 in. BMI: 33.1 ALLERGIES: Amoxicillin, Keflex, Latex, morphine, Nitrofurantoin, Vicodin The patient's Home Medications are listed below: CONTINUE TAKING THE FOLLOWING MEDICATIONS: Benadryl Allergy Oral 50mg , daily Doxycycline Hyclate Oral Keppra Oral 1500mg , 2x a day KlonoPIN Oral 1 mg, daily Lacosamide Oral 75MG , 2 X DAILY LORazepam Oral 1 mg Mirapex Oral 1 mg, at bedtime Oxybutynin Chloride Oral 10 mg, 2x a day SEROquel Oral 125mg, daily, + 125MG prn ZyrTEC Allergy Oral (10 mg) 2 capsules, daily The source(s) of the original Home Medication information: Not obtained. The following Medications were given to the patient in the Emergency Department: Fentanyl [IVP] IVP 75 mcg, administered: 06/28/2016 5:57:00 PM PROPOFOL [IVP] IVP 100 mg, administered: 06/28/2016 6:08:00 PM Dilaudid [IVP] IVP 1 mg, administered: 06/28/2016 6:30:00 PM The following Medications were prescribed to the patient: None.
--- NOTE | 2016-06-28 19:33 | DIAGNOSTIC IMAGING REPORT ---
PROCEDURE: XR SHOULDER 2 OR MORE VW-RIGHT INDICATION: POST REDUCTION TECHNIQUE: Two views. COMPARISON: Comparison made to Post reduction radiographs of the right shoulder on 06/22/2016 and 06/21/2016. FINDINGS: There is an old Hill-Sachs deformity of the right lateral humeral head. Osseous structures and joint spaces are otherwise normal IMPRESSION: 1. Micro-Sachs deformity of the right humeral head. 2. Otherwise negative right shoulder.
--- NOTE | 2016-06-28 19:33 | DIAGNOSTIC IMAGING REPORT ---
PROCEDURE: XR SHOULDER 2 OR MORE VW-RIGHT INDICATION: POST REDUCTION TECHNIQUE: Two views. COMPARISON: Comparison made to Post reduction radiographs of the right shoulder on 06/22/2016 and 06/21/2016. FINDINGS: There is an old Hill-Sachs deformity of the right lateral humeral head. Osseous structures and joint spaces are otherwise normal IMPRESSION: 1. [place]-Sachs deformity of the right humeral head. 2. Otherwise negative right shoulder.
== END 2016-06-28 18:40 | disposition home or self-care (01) ==
LOC: ED SRH 17:06
DX: S43.001A Unspecified subluxation of right shoulder joint, initial encounter (principal); Z88.8 Allergy status to other drugs, medicaments and biological substances; X50.0XXA Overexertion from strenuous movement or load, initial encounter; Y93.9 Activity, unspecified; Y92.009 Unspecified place in unspecified non-institutional (private) residence as the place of occurrence of the external cause; Y99.9 Unspecified external cause status; Z79.899 Other long term (current) drug therapy; I10 Essential (primary) hypertension; Z88.1 Allergy status to other antibiotic agents; Z88.5 Allergy status to narcotic agent

== ENCOUNTER 2016-08-26 14:11 | Emergency (ER) | payer BC, OTHER ==
--- NOTE | 2016-08-26 16:03 | DIAGNOSTIC IMAGING REPORT ---
PROCEDURE: XR CHEST 1 VIEW INDICATION: PIC LINE PLACEMENT TECHNIQUE: Portable AP view 03:59 p.m. COMPARISON: Chest x-ray 06/16/2014 FINDINGS: Interval placement of a left PICC line with the tip at the right atrium/SVC junction. Poor inspiration but lungs are clear. Heart and mediastinum are normal. Thorax is normal. IMPRESSION: 1. Left PICC line in satisfactory position 2. Results called to respiratory (Aureliano).
--- NOTE | 2016-08-26 17:30 | ED ORDER SUMMARY ---
..... Patient: JOMAR YA OrderSheet [facility] VisitID: [id number] [place] [address] 26y, M Registration Date/Time: 08/26/2016 ORDER SHEET Weight: 94.3 kg (stated) Allergies: Amoxicillin, Keflex, Latex, morphine, Nitrofurantoin, Vicodin GENERAL ORDERS: CBC w Diff Urgent (14:29 08/26/2016 EKoroleva P.A.-C) (Ack 14:31 LNations ER Tech1) (15:32 JSimbeck R.N.) CMP Urgent (14:29 08/26/2016 EKoroleva P.A.-C) (Ack 14:31 LNations ER Tech1) (15:32 JSimbeck R.N.) UA-Culture if indicated Urgent (14:29 08/26/2016 EKoroleva P.A.-C) (Ack 14:31 LNations ER Tech1) (16:13 JSimbeck R.N.) - (new PICC) (14:33 08/26/2016 EKoroleva P.A.-C) (Ack 14:39 IJurca ER Tech1) (15:55 LNations ER Tech1) Chest 1V Urgent (15:50 08/26/2016 LNations ER Tech1 verbal order read back to EKoroleva P.A.-C) (Ack 15:55 LNations ER Tech1) (16:01 RFay) MEDICATION ORDERS: Percocet PO 5/325 mg (HIGH ALERT MEDICATION, NOW) (14:33 08/26/2016 EKoroleva P.A.-C) (Ack 15:34 JSimbeck R.N.) (Cancelled: Patient [id number] JSimbeck R.N.) Zofran ODT PO 8 mg (NOW) (14:33 08/26/2016 EKoroleva P.A.-C) (15:33 JSimbeck R.N.) Phenergan IV 12.5 mg (HIGH ALERT MEDICATION, NOW) (15:53 08/26/2016 EKoroleva P.A.-C) (16:13 JSimbeck R.N.) Bactrim DS PO (Tablet 800-160 mg) 1 tab (NOW) (16:43 08/26/2016 Crow De Jesus-Jovon) (17:08 Kei Flores.) IV FLUIDS: Dilaudid IV 1 mg (HIGH ALERT MEDICATION, NOW) (16:43 08/26/2016 Crow De Jesus-C) (17:08 Kei Flores.) ORDER SHEET NOTES: [Electronically signed by Kelsey Moreau R.N. (18:09 08/26/2016)] [Electronically signed by Munira Cantor P.A.-C (18:39 08/26/2016)] [Electronically locked/signed by Kelsey Moreau R.N. (18:09 08/26/2016)]
--- NOTE | 2016-08-26 17:30 | ED NURSING NOTES ---
Clinical Report - Nurses [facility] [address] [place] [address] 08/26/2016 14:12 [id number] TRI[facility] Triage time 14:16. Acuity: LEVEL 3. Chief Complaint: (Left upper arm PICC line is coming out, onset 1 hour PULP MIXER. Also c/o right flank pain 7/10 and nausea, onset yesterday.). SEPSIS SCREEN: Sepsis Screen. Negative (no infection suspected/documented). JENA COMA SCORE: [place] Coma Scale: 15- eyes open spontaneously (4); best verbal response- oriented x 4 (5); best motor response- obeys commands (6). --14:22 Shahzad Alvarado R.N. 14:16 08/26/16. BP: 131/77 (large adult cuff) taken on the right arm, while sitting. HR: 111. RR: 20. O2 saturation: 95%. Temp: 98.8 F (oral). Pain level now: 7/10. Additional comments: (right flank pain). --14:22 Shahzad Alvarado R.N. Weight: 94.3 kg stated. Height/Length: 63 inches Per Patient. BMI: 36.8. --14:21 Shahzad Alvarado R.N. Medications Benadryl Allergy Oral 50mg , daily. Doxycycline Hyclate Oral. Keppra Oral 1500mg , 2x a day. KlonoPIN Oral 1 mg, daily. Lacosamide Oral 75MG , 2 X DAILY. LORazepam Oral 1 mg, as needed. Mirapex Oral 1 mg, at bedtime. Oxybutynin Chloride Oral 10 mg, 2x a day. SEROquel Oral 125mg, daily (+ 125MG prn). ZyrTEC Allergy Oral (Capsule 10 mg) 2 capsules, daily. --14:20 Shahzad Alvarado R.N. DAPTOmycin Intravenous. --14:20 Shahzad Alvarado R.N. Allergies Amoxicillin. Keflex. Latex. morphine. Nitrofurantoin. Vicodin. --14:20 Shahzad Alvarado R.N. History Arrived by EMS. Historian: EMS and patient. No fever. SOCIAL HX: Never smoker. No alcohol use or drug use. ABUSE ASSESSMENT: No report of abuse. --14:22 Shahzad Alvarado R.N. PROBLEMS: Scapula Fracture. Infections. UTI - Urinary Tract Infection. Nerve Injury, Upper Extremity. Dental Pain. Gastroenteritis. Changed Mental Status. Constipation. Chronic bladder infections. Atypical Chest Pain. Vomiting. Hypertension. Chronic Headache. Neurological Disease. Migraine Headache. Tension-Type Headache. Urinary Retention. Abdominal Pain. Prior Injury, Same Area. Rotator Cuff Injury. Seizure Disorder. Dislocated Shoulder. Depression. Anxiety Reaction. Restless Legs Syndrome. Sleep Apnea. Spina Bifida Occulta. --14:21 Shahzad Alvarado R.N. ADDITIONAL SURGERIES: Bladder Augmention. Botox bladder injection. Cystostomy. Foot surgery. Right Shoulder Surgery. Shoulder Surgery. --14:21 Shahzad Alvarado R.N. Interventions ID band on patient. To treatment room. --14:22 Shahzad Alvarado R.N. NURSING PROGRESS NOTES late entry -15:00. ( PICC tech at the bedside). --15:18 Shahzad Alvarado R.N. 14:40 08/26/2016 Zofran ODT (Ondansetron) PO Oral Disintegrating Tablets 8 mg given. Allergies verified and confirmed 5 rights. --15:33 Shahzad Alvarado R.N. ( Pt continues to c/o nausea despite Zofran 8mg ODT.). ( PICC line placed by PICC tech, xray'd.). --16:02 Shahzad Alvarado R.N. ( PICC line xray confirmed per tech.). --16:03 Shahzad Alvarado R.N. 15:50 08/26/2016 Site #1 started via IV using a PICC line in the left upper arm with an 18g angiocath (Placed by PICC tech in ED). --16:13 Shahzad Alvarado R.N. 16:07 08/26/2016 PHENERGAN (Promethazine HCl) IVP 12.5 mg given over 1 minute(s) via site #1. Allergies verified and confirmed 5 rights. IV patency established. IV site checked: no pain, redness, or swelling. IV flushed thoroughly pre- and post-medication administration. IVP given by RN. --16:13 Shahzad Alvarado R.N. 17:04 08/26/2016 Bactrim DS (Sulfamethoxazole-TMP DS) PO Tablets 1 tab given. Allergies verified and confirmed 5 rights. --17:08 Shahzad Alvarado R.N. 17:04 08/26/2016 Dilaudid (HYDROmorphone HCl PF) IVP 1 mg given over 2 minute(s) via site #1. Allergies verified, confirmed 5 rights and sedative warning given to the patient. IV patency established. IV site checked: no pain, redness, or swelling. IV flushed thoroughly pre- and post-medication administration. IVP given by RN. --17:08 Shahzad Alvarado R.N. DISPOSITION / DISCHARGE Condition at departure: improved. No learning barriers present. Discharge instructions provided and reviewed with the patient. Patient verbalized understanding. Written instructions provided in [place]ore[place]. The patient was discharged home. He left the Emergency Department ambulatory and via private vehicle. --17:43 Kelsey Moreau R.N. 17:43 08/26/16. BP: 116/74. HR: 80. RR: 16. O2 saturation: 99%. Pain level now 0/10. --17:43 Kelsey Moreau R.N. Departure time: 17:44. --17:45 Kelsey Moreau R.N. Locked/Released at 08/26/2016 18:09 by Kelsey Moreau R.N.
--- NOTE | 2016-08-26 17:30 | ED NURSING NOTES ---
Clinical Report - Nurses [facility] [address] [place] [address] 08/26/2016 14:12 [id number] Triage time 14:16. Acuity: LEVEL 3. Chief Complaint: (Left upper arm PICC line is coming out, onset 1 hour LAB AID. Also c/o right flank pain 7/10 and nausea, onset yesterday.). SEPSIS SCREEN: Sepsis Screen. Negative (no infection suspected/documented). JENA COMA SCORE: [place] Coma Scale: 15- eyes open spontaneously (4); best verbal response- oriented x 4 (5); best motor response- obeys commands (6). --14:22 Shahzad Alvarado R.N. 14:16 08/26/16. BP: 131/77 (large adult cuff) taken on the right arm, while sitting. HR: 111. RR: 20. O2 saturation: 95%. Temp: 98.8 F (oral). Pain level now: 7/10. Additional comments: (right flank pain). --14:22 Shahzad Alvarado R.N. Weight: 94.3 kg stated. Height/Length: 63 inches Per Patient. BMI: 36.8. --14:21 Shahzad Alvarado R.N. Medications Benadryl Allergy Oral 50mg , daily. Doxycycline Hyclate Oral. Keppra Oral 1500mg , 2x a day. KlonoPIN Oral 1 mg, daily. Lacosamide Oral 75MG , 2 X DAILY. LORazepam Oral 1 mg, as needed. Mirapex Oral 1 mg, at bedtime. Oxybutynin Chloride Oral 10 mg, 2x a day. SEROquel Oral 125mg, daily (+ 125MG prn). ZyrTEC Allergy Oral (Capsule 10 mg) 2 capsules, daily. --14:20 Shahzad Alvarado R.N. DAPTOmycin Intravenous. --14:20 Shahzad Alvarado R.N. Allergies Amoxicillin. Keflex. Latex. morphine. Nitrofurantoin. Vicodin. --14:20 Shahzad Alvarado R.N. History Arrived by EMS. Historian: EMS and patient. No fever. SOCIAL HX: Never smoker. No alcohol use or drug use. ABUSE ASSESSMENT: No report of abuse. --14:22 Shahzad Alvarado R.N. PROBLEMS: Scapula Fracture. Infections. UTI - Urinary Tract Infection. Nerve Injury, Upper Extremity. Dental Pain. Gastroenteritis. Changed Mental Status. Constipation. Chronic bladder infections. Atypical Chest Pain. Vomiting. Hypertension. Chronic Headache. Neurological Disease. Migraine Headache. Tension-Type Headache. Urinary Retention. Abdominal Pain. Prior Injury, Same Area. Rotator Cuff Injury. Seizure Disorder. Dislocated Shoulder. Depression. Anxiety Reaction. Restless Legs Syndrome. Sleep Apnea. Spina Bifida Occulta. --14:21 Shahzad Alvarado R.N. ADDITIONAL SURGERIES: Bladder Augmention. Botox bladder injection. Cystostomy. Foot surgery. Right Shoulder Surgery. Shoulder Surgery. --14:21 Shahzad Alvaardo R.N. Interventions ID band on patient. To treatment room. --14:22 Shahzad Alvarado R.N. NURSING PROGRESS NOTES late entry -15:00. ( PICC tech at the bedside). --15:18 Shahzad Alvarado R.N. 14:40 08/26/2016 Zofran ODT (Ondansetron) PO Oral Disintegrating Tablets 8 mg given. Allergies verified and confirmed 5 rights. --15:33 Shahzad Alvarado R.N. ( Pt continues to c/o nausea despite Zofran 8mg ODT.). ( PICC line placed by PICC tech, xray'd.). --16:02 Shahzad Alvarado R.N. ( PICC line xray confirmed per tech.). --16:03 Shahzad Alvarado R.N. 15:50 08/26/2016 Site #1 started via IV using a PICC line in the left upper arm with an 18g angiocath (Placed by PICC tech in ED). --16:13 Shahzad Alvarado R.N. 16:07 08/26/2016 PHENERGAN (Promethazine HCl) IVP 12.5 mg given over 1 minute(s) via site #1. Allergies verified and confirmed 5 rights. IV patency established. IV site checked: no pain, redness, or swelling. IV flushed thoroughly pre- and post-medication administration. IVP given by RN. --16:13 Shahzad Alvarado R.N. 17:04 08/26/2016 Bactrim DS (Sulfamethoxazole-TMP DS) PO Tablets 1 tab given. Allergies verified and confirmed 5 rights. --17:08 Shahzad Alvarado R.N. 17:04 08/26/2016 Dilaudid (HYDROmorphone HCl PF) IVP 1 mg given over 2 minute(s) via site #1. Allergies verified, confirmed 5 rights and sedative warning given to the patient. IV patency established. IV site checked: no pain, redness, or swelling. IV flushed thoroughly pre- and post-medication administration. IVP given by RN. --17:08 Shahzad Alvarado R.N. DISPOSITION / DISCHARGE Condition at departure: improved. No learning barriers present. Discharge instructions provided and reviewed with the patient. Patient verbalized understanding. Written instructions provided in Nigerian. The patient was discharged home. He left the Emergency Department ambulatory and via private vehicle. --17:43 Kelsey Moreau R.N. 17:43 08/26/16. BP: 116/74. HR: 80. RR: 16. O2 saturation: 99%. Pain level now 0/10. --17:43 Kelsey Moreau R.N. Departure time: 17:44. --17:45 Kelsey Moreau R.N. Locked/Released at 08/26/2016 18:09 by Kelsey Moreau R.N.
--- NOTE | 2016-08-26 17:30 | ED ORDER SUMMARY ---
..... Patient: JOMAR YA OrderSheet [facility] VisitID: [id number] [place] [address] 26y, M Registration Date/Time: 08/26/2016 ORDER SHEET Weight: 94.3 kg (stated) Allergies: Amoxicillin, Keflex, Latex, morphine, Nitrofurantoin, Vicodin GENERAL ORDERS: CBC w Diff Urgent (14:29 08/26/2016 EKoroleva P.A.-C) (Ack 14:31 LNations ER Tech1) (15:32 JSimbeck R.N.) CMP Urgent (14:29 08/26/2016 EKoroleva P.A.-C) (Ack 14:31 LNations ER Tech1) (15:32 JSimbeck R.N.) UA-Culture if indicated Urgent (14:29 08/26/2016 EKoroleva P.A.-C) (Ack 14:31 LNations ER Tech1) (16:13 JSimbeck R.N.) - (new PICC) (14:33 08/26/2016 EKoroleva P.A.-C) (Ack 14:39 IJurca ER Tech1) (15:55 LNations ER Tech1) Chest 1V Urgent (15:50 08/26/2016 LNations ER Tech1 verbal order read back to EKoroleva P.A.-C) (Ack 15:55 LNations ER Tech1) (16:01 RFay) MEDICATION ORDERS: Percocet PO 5/325 mg (HIGH ALERT MEDICATION, NOW) (14:33 08/26/2016 EKoroleva P.A.-C) (Ack 15:34 JSimbeck R.N.) (Cancelled: Patient [id number] JSimbeck R.N.) Zofran ODT PO 8 mg (NOW) (14:33 08/26/2016 EKoroleva P.A.-C) (15:33 JSimbeck R.N.) Phenergan IV 12.5 mg (HIGH ALERT MEDICATION, NOW) (15:53 08/26/2016 EKoroleva P.A.-C) (16:13 JSimbeck R.N.) Bactrim DS PO (Tablet 800-160 mg) 1 tab (NOW) (16:43 08/26/2016 Crow De Jesus-Jovon) (17:08 Kei Flores.) IV FLUIDS: Dilaudid IV 1 mg (HIGH ALERT MEDICATION, NOW) (16:43 08/26/2016 Crow De Jesus-C) (17:08 Kei Flores.) ORDER SHEET NOTES: [Electronically signed by Kelsey Moreau R.N. (18:09 08/26/2016)] [Electronically signed by Munira Cantor P.A.-C (18:39 08/26/2016)] [Electronically locked/signed by Kelsey Moreau R.N. (18:09 08/26/2016)]
--- NOTE | 2016-08-26 17:30 | ED CLINICAL REPORT ---
Clinical Report - Physicians/Mid Levels [facility] [address] [place] [address] 08/26/2016 14:12 Patient: JOMAR YA Time Seen: 14:36 Aug 26 2016. Arrived- By ambulance. Historian- EMS personnel. HISTORY OF PRESENT ILLNESS Chief Complaint: FLANK PAIN. It is described as located in the right flank. This started pain for 1 hour. (Patient presents with malfunctioning PICC line since this morning, has had surgeon for a few weeks, previously being treated for a resistant UTI, previously on ertapenem, now on daptomycin, which she takes once daily. Last dose was last night. She reports some mild right flank pain now, and has been having suprapubic pain. Patient denies fevers or chills.). REVIEW OF SYSTEMS No constipation, black stools, difficulty with urination, pain with urination or fever. No chest pain. All systems otherwise negative, except as recorded above. PAST HISTORY Problems: Scapula Fracture. Infections. UTI - Urinary Tract Infection. Nerve Injury, Upper Extremity. Dental Pain. Gastroenteritis. Changed Mental Status. Constipation. Chronic bladder infections. Atypical Chest Pain. Vomiting. Tetanus Status. Hypertension. Chronic Headache. Neurological Disease. Migraine Headache. Tension-Type Headache. Urinary Retention. Abdominal Pain. Prior Injury, Same Area. Rotator Cuff Injury. Immunizations. Seizure Disorder. Dislocated Shoulder. Depression. Anxiety Reaction. Restless Legs Syndrome. Sleep Apnea. Spina Bifida Occulta. Additional Surgeries: Bladder Augmention. Botox bladder injection. Cystostomy. Foot surgery. Right Shoulder Surgery. Shoulder Surgery. Medications: DAPTOmycin Intravenous. Benadryl Allergy Oral 50mg , daily. Doxycycline Hyclate Oral. Keppra Oral 1500mg , 2x a day. KlonoPIN Oral 1 mg, daily. Lacosamide Oral 75MG , 2 X DAILY. LORazepam Oral 1 mg, as needed. Mirapex Oral 1 mg, at bedtime. Oxybutynin Chloride Oral 10 mg, 2x a day. SEROquel Oral 125mg, daily (+ 125MG prn). ZyrTEC Allergy Oral (Capsule 10 mg) 2 capsules, daily. Allergies: Amoxicillin. Keflex. Latex. morphine. Nitrofurantoin. Vicodin. SOCIAL HISTORY Never smoker. No alcohol use or drug use. ADDITIONAL NOTES The nursing notes have been reviewed. PHYSICAL EXAM Vital Signs: 08/26/2016 14:16 BP: 131/77. HR: 111. RR: 20. O2 saturation: 95%. Temp: 98.8 F. Pain level now: 7/10. Appearance: Alert. Neck: Normal inspection. No lymphadenopathy. CVS: Normal heart rate and rhythm. Heart sounds normal. No cardiac murmur. Respiratory: No respiratory distress. Breath sounds normal. Abdomen: Soft. Mild tenderness in the suprapubic area. No organomegaly. No mass. Back: No CVA tenderness. Skin: (left pic line with extensive line coming out of skin). LABS, X-RAYS, AND EKG Chest X-ray: (IMPRESSION: 1. Left PICC line in satisfactory position 2. Results called to respiratory (Aureliano). Electronically Final signed by:Guy Cornell MD 08/26/2016 4:03:19 PM). Laboratory Tests: UA-Culture if indicated: (MARILU: 08/26/2016 14:05) ( MsgRcvd 08/26/2016 17:08) Final results Test Result Flag Units (Reference) URINE COLOR YELLOW URINE APPEARANCE CLEAR URINE GLUCOSE NEGATIVE (NEGATIVE) URINE BILIRUBIN NEGATIVE (NEGATIVE) URINE KETONE NEGATIVE (NEGATIVE) URINE SPECIFIC GRAVITY 1.015 (1.010-1.030) URINE PH 6.0 (5.0-8.0) URINE PROTEIN TRACE (NEGATIVE) URINE UROBILINOGEN 0.2 EU/dL (0.2-1.0) URINE NITRITE POSITIVE (NEGATIVE) URINE BLOOD 3+ (NEGATIVE) URINE LEUK ESTERASE POSITIVE (NEGATIVE) URINE RBC 10-25 rbc/hpf (0-1) URINE WBC 5-10 wbc/hpf (0-1) URINE EPITHELIAL CELLS 3-5 EPI/hpf (0-5) URINE BACTERIA MODERATE (2+ TO 3+) (NONE SEEN) URINE COMMENT CULTURE INDICATED URINE CULTURES ARE SET-UP BASED ON THE FOLLOWING CRITERIA:POSITIVE NITRITEPOSITIVE LEUKOCYTE ESTERASEGREATER THAN 10 WHITE BLOOD CELLSMODERATE (2+) OR GREATER BACTERIA CBC w Diff: (MARILU: 08/26/2016 14:43) ( MsgRcvd 08/26/2016 14:55) Final results Test Result Flag Units (Reference) WHITE BLOOD COUNT 11.4 K/uL (4.5-11.5) RED BLOOD COUNT 4.42 L M/uL (4.50-5.90) HEMOGLOBIN 11.5 L gm/dL (13.5-17.5) HEMATOCRIT 35.8 L % (41.0-53.0) MEAN CELL VOLUME 81 fL (80-100) MEAN CORPUSCULAR HGB 26 pg (26-34) MEAN CORPUSCULAR HGB CONC 32 g/dL (31-37) RED CELL DISTRIBUTION WIDTH 16.4 H % (11.6-14.8) PLATELET COUNT 272 K/uL (150-400) NEUTROPHIL % 68.9 % (50-75) LYMPH % 21.0 L % (25-40) MONO % 6.0 % (3-14) EOSINOPHIL % 3.5 % (0-4) BASOPHIL % 0.6 % (0-2) CMP: (MARILU: 08/26/2016 14:43) ( MsgRcvd 08/26/2016 15:29) Final results Test Result Flag Units (Reference) GLUCOSE 103 mg/dL (70-110) BUN 11 mg/dL (7-18) CREATININE 0.9 mg/dL (0.6-1.3) Estimated GFR >60 mL/min Estimated GFR- >60 mL/min Note: Persistent reduction over 3 months in eGFR<60 mL/min/1.73 m2 defines CKD. Patients with eGFR values>=60 mL/min/1.73 m2 may also have CKD if evidence ofpersistent proteinuria. Additional information may be foundat www.kidney.org. SODIUM 140 mmol/L (136-145) POTASSIUM 3.8 mmol/L (3.5-5.1) CHLORIDE 104 mmol/L (98-107) CARBON DIOXIDE 23 mmol/L (21-32) CALCIUM 8.9 mg/dL (8.5-10.1) TOTAL PROTEIN 7.5 g/dL (6.4-8.2) ALBUMIN 3.6 g/dL (3.3-5.0) BILIRUBIN, TOTAL 0.2 mg/dL (0.0-1.0) ALKALINE PHOSPHATASE 112 U/L (46-116) AST (SGOT) 31 U/L (15-37) ALT (SGPT) 44 U/L (12-78) . PROGRESS AND PROCEDURES Course of Care: patient reports noting his PIC line being longer than usual this morning. He last used it last night. PIC line placed, confirmed by xr Patient with self cath method. afebrile with no leukocytosis, signs of cystitis, patient has been on antibiotics, will also place on Bactrim with previous sensitivity. Patient has follow-up tomorrow. New PICC line in place, and is well appropriate. 08/26/2016 17:43 BP: 116/74. HR: 80. RR: 16. O2 saturation: 99%. Patient is stable. Physical exam findings are improved. Symptoms better. Patient/family counseled. Disposition: Discharged. CLINICAL IMPRESSION Cystitis. PIC Line Placement. INSTRUCTIONS Warnings: Further evaluation is necessary. SEDATIVE MEDICATION: You were given sedative medication during your visit. Do not drive or operate dangerous machinery. Prescription Medications: Trimethoprim-Sulfamethoxazole DS: take 1 tablet orally every 12 hours for 7 days. Dispense fourteen (14). No refills. Percocet 5 mg/325 mg: take 1 tablet orally. Dispense five (5). Substitution is permissible. Follow-up: Follow up with your doctor tomorrow. (Electronically signed by Munira Cantor P.A.-C 08/26/2016 18:39)
--- NOTE | 2016-08-26 18:40 | ED MED RECONCILIATION SUMMARY ---
Patient: JOMAR YA Medication Reconciliation Report [facility] VisitID: [id number] [place] [address] 26y, M Registration Date/Time: 08/26/2016 Weight: 94.3 kg Height/Length: 63 in. BMI: 36.8 ALLERGIES: Amoxicillin, Keflex, Latex, morphine, Nitrofurantoin, Vicodin The patient's Home Medications are listed below: THE FOLLOWING MEDICATIONS NEED TO BE RECONCILED: Benadryl Allergy Oral 50mg , daily DAPTOmycin Intravenous Doxycycline Hyclate Oral Keppra Oral 1500mg , 2x a day KlonoPIN Oral 1 mg, daily Lacosamide Oral 75MG , 2 X DAILY LORazepam Oral 1 mg Mirapex Oral 1 mg, at bedtime Oxybutynin Chloride Oral 10 mg, 2x a day SEROquel Oral 125mg, daily, + 125MG prn ZyrTEC Allergy Oral (10 mg) 2 capsules, daily The source(s) of the original Home Medication information: Not obtained. The following Medications were given to the patient in the Emergency Department: Zofran ODT [PO] PO 8 mg, administered: 08/26/2016 2:40:00 PM PHENERGAN [IVP] IVP 12.5 mg, administered: 08/26/2016 4:07:00 PM Bactrim DS [PO] PO 1 tab, administered: 08/26/2016 5:04:00 PM Dilaudid [IVP] IVP 1 mg, administered: 08/26/2016 5:04:00 PM The following Medications were prescribed to the patient: Trimethoprim-Sulfamethoxazole DS: take 1 tablet orally every 12 hours for 7 days. Dispense fourteen (14). No refills. -- Munira Cantor P.ASukh Percocet 5 mg/325 mg: take 1 tablet orally. Dispense five (5). Substitution is permissible. -- Munira Cantor P.A.-Jovon
--- NOTE | 2016-08-26 18:40 | ED MAR SUMMARY ---
..... Medication Administration Record [facility] [address] [place] [address] Patient: JOMAR YA Visit ID: [id number] 26y, M Weight: 94.3 kg Height/Length: 63 in BMI: 36.8 ALLERGIES: Amoxicillin, Keflex, Latex, morphine, Nitrofurantoin, Vicodin Given 14:40 08/26/2016 Shahzad Alvarado R.N. Medication Administered: ZOFRAN ODT [PO] (ONDANSETRON), Dose: 8 mg Oral Disintegrating Tablets PO. Medication Ordered: Zofran ODT PO 8 mg (NOW). Given 16:07 08/26/2016 Shahzad Alvarado R.N. Medication Administered: PHENERGAN [IVP] (PROMETHAZINE HCL), Dose: 12.5 mg IVP over 1 minute(s), Site: #1 left upper arm PICC. Medication Ordered: Phenergan IV 12.5 mg (HIGH ALERT MEDICATION, NOW). Given 17:04 08/26/2016 Shahzad Alvarado R.N. Medication Administered: BACTRIM DS [PO] (SULFAMETHOXAZOLE-TMP DS), Dose: 1 tab Tablets PO. Medication Ordered: Bactrim DS PO (Tablet 800-160 mg) 1 tab (NOW). Given 17:04 08/26/2016 Shahzad Alvarado R.N. Medication Administered: DILAUDID [IVP] (HYDROMORPHONE HCL PF), Dose: 1 mg IVP over 2 minute(s), Site: #1 left upper arm PICC. Medication Ordered: Dilaudid IV 1 mg (HIGH ALERT MEDICATION, NOW).
--- NOTE | 2016-08-26 18:40 | ED MAR SUMMARY ---
..... Medication Administration Record [facility] [address] [place] [place] [address] Patient: JOMAR YA Visit ID: [id number] 26y, M Weight: 94.3 kg Height/Length: 63 in BMI: 36.8 ALLERGIES: Amoxicillin, Keflex, Latex, morphine, Nitrofurantoin, Vicodin Given 14:40 08/26/2016 Shahzad Alvarado R.N. Medication Administered: ZOFRAN ODT [PO] (ONDANSETRON), Dose: 8 mg Oral Disintegrating Tablets PO. Medication Ordered: Zofran ODT PO 8 mg (NOW). Given 16:07 08/26/2016 Shahzad Alvarado R.N. Medication Administered: PHENERGAN [IVP] (PROMETHAZINE HCL), Dose: 12.5 mg IVP over 1 minute(s), Site: #1 left upper arm PICC. Medication Ordered: Phenergan IV 12.5 mg (HIGH ALERT MEDICATION, NOW). Given 17:04 08/26/2016 Shahzad Alvarado R.N. Medication Administered: BACTRIM DS [PO] (SULFAMETHOXAZOLE-TMP DS), Dose: 1 tab Tablets PO. Medication Ordered: Bactrim DS PO (Tablet 800-160 mg) 1 tab (NOW). Given 17:04 08/26/2016 Shahzad Alvarado R.N. Medication Administered: DILAUDID [IVP] (HYDROMORPHONE HCL PF), Dose: 1 mg IVP over 2 minute(s), Site: #1 left upper arm PICC. Medication Ordered: Dilaudid IV 1 mg (HIGH ALERT MEDICATION, NOW).
--- NOTE | 2016-08-26 18:40 | ED MED RECONCILIATION SUMMARY ---
Patient: JOMAR YA Medication Reconciliation Report [facility] VisitID: [id number] [place] [address] 26y, M Registration Date/Time: 08/26/2016 Weight: 94.3 kg Height/Length: 63 in. BMI: 36.8 ALLERGIES: Amoxicillin, Keflex, Latex, morphine, Nitrofurantoin, Vicodin The patient's Home Medications are listed below: THE FOLLOWING MEDICATIONS NEED TO BE RECONCILED: Benadryl Allergy Oral 50mg , daily DAPTOmycin Intravenous Doxycycline Hyclate Oral Keppra Oral 1500mg , 2x a day KlonoPIN Oral 1 mg, daily Lacosamide Oral 75MG , 2 X DAILY LORazepam Oral 1 mg Mirapex Oral 1 mg, at bedtime Oxybutynin Chloride Oral 10 mg, 2x a day SEROquel Oral 125mg, daily, + 125MG prn ZyrTEC Allergy Oral (10 mg) 2 capsules, daily The source(s) of the original Home Medication information: Not obtained. The following Medications were given to the patient in the Emergency Department: Zofran ODT [PO] PO 8 mg, administered: 08/26/2016 2:40:00 PM PHENERGAN [IVP] IVP 12.5 mg, administered: 08/26/2016 4:07:00 PM Bactrim DS [PO] PO 1 tab, administered: 08/26/2016 5:04:00 PM Dilaudid [IVP] IVP 1 mg, administered: 08/26/2016 5:04:00 PM The following Medications were prescribed to the patient: Trimethoprim-Sulfamethoxazole DS: take 1 tablet orally every 12 hours for 7 days. Dispense fourteen (14). No refills. -- Munira Cantor P.ASukh Percocet 5 mg/325 mg: take 1 tablet orally. Dispense five (5). Substitution is permissible. -- Munira Cantor P.A.-Jovon
--- NOTE | 2016-08-26 18:40 | ED DISCHARGE INSTRUCTIONS ---
Patient: JOMAR YA General Instructions [facility] VisitID: [id number] [place] [address] 26y, M Registration Date/Time: 08/26/2016 Cystitis. PIC Line Placement. INSTRUCTIONS Warnings: Further evaluation is necessary. SEDATIVE MEDICATION: You were given sedative medication during your visit. Do not drive or operate dangerous machinery. Prescription Medications: Trimethoprim-Sulfamethoxazole DS: take 1 tablet orally every 12 hours for 7 days. Dispense fourteen (14). No refills. Percocet 5 mg/325 mg: take 1 tablet orally. Dispense five (5). Substitution is permissible. Follow-up: Follow up with your doctor tomorrow. ADDITIONAL INFORMATION Bladder Infection,Male (Adult) A bladder infection ("cystitis" or "UTI") usually causes a constant urge to urinate, and a burning when passing urine. Urine may be cloudy, smelly or dark. There may be also be pain in the lower abdomen. Cystitis in males is not common. It may be caused by a partial blockage in the urinary system that keeps the bladder from emptying completely. This is most often related to an enlarged prostate gland. Home Care: Drink lots of fluids (at least 6-8 glasses a day). This will flush the bacteria out of your bladder. Avoid sexual intercourse until your symptoms are gone. Avoid caffeine, alcohol, and spicy foods. They could irritate the bladder. A bladder infection is treated with antibiotics. You may also be given Pyridium (generic - phenazopyridine) to reduce burning with urination. This will cause urine to become a bright orange color, which can stain clothing. Follow Up with your doctor or this facility if ALL symptoms have not cleared within five days. It is important to keep your follow up appointment to discuss with your doctor the need for further tests of the urinary tract. Get Prompt Medical Attention if any of the following occur: Fever of 100.4F (38C) or higher, or as directed by your healthcare provider No improvement by the third day of treatment Increasing back or abdominal pain Repeated vomiting; unable to keep medicine down Weakness, dizziness or fainting Oxycodone Hydrochloride, Acetaminophen Oral tablet What is this medicine? ACETAMINOPHEN; OXYCODONE (a set a CHARLIE itz fen; ox i KOE done) is a pain reliever. It is used to treat mild to moderate pain. How should I use this medicine? Take this medicine by mouth with a full glass of water. Follow the directions on the prescription label. Take your medicine at regular intervals. Do not take your medicine more often than directed. Talk to your concrete smoother regarding the use of this medicine in children. Special care may be needed. Patients over 65 years old may have a stronger reaction and need a smaller dose. What side effects may I notice from receiving this medicine? Side effects that you should report to your doctor or health day care provider as soon as possible: allergic reactions like skin rash, itching or hives, swelling of the face, lips, or tongue breathing difficulties, wheezing confusion light headedness or fainting spells severe stomach pain yellowing of the skin or the whites of the eyes Side effects that usually do not require medical attention (report to your doctor or health day care provider if they continue or are bothersome): dizziness drowsiness nausea vomiting What may interact with this medicine? alcohol antihistamines barbiturates like amobarbital, butalbital, butabarbital, methohexital, pentobarbital, phenobarbital, thiopental, and secobarbital benztropine drugs for bladder problems like solifenacin, trospium, oxybutynin, tolterodine, hyoscyamine, and methscopolamine drugs for breathing problems like ipratropium and tiotropium drugs for certain stomach or intestine problems like propantheline, homatropine methylbromide, glycopyrrolate, atropine, belladonna, and dicyclomine general anesthetics like etomidate, ketamine, nitrous oxide, propofol, desflurane, enflurane, halothane, isoflurane, and sevoflurane medicines for depression, anxiety, or psychotic disturbances medicines for sleep muscle relaxants naltrexone narcotic medicines (opiates) for pain phenothiazines like perphenazine, thioridazine, chlorpromazine, mesoridazine, fluphenazine, prochlorperazine, promazine, and trifluoperazine scopolamine tramadol trihexyphenidyl What if I miss a dose? If you miss a dose, take it as soon as you can. If it is almost time for your next dose, take only that dose. Do not take double or extra doses. Where should I keep my medicine? Keep out of the reach of children. This medicine can be abused. Keep your medicine in a safe place to protect it from theft. Do not share this medicine with anyone. Selling or giving away this medicine is dangerous and against the law. Store at room temperature between 20 and 25 degrees C (68 and 77 degrees F). Keep container tightly closed. Protect from light. This medicine may cause accidental overdose and if it is taken by other adults, children, or pets. Flush any unused medicine down the toilet to reduce the chance of harm. Do not use the medicine after the expiration date. What should I tell my health care provider before I take this medicine? They need to know if you have any of these conditions: brain tumor Crohn's disease, inflammatory bowel disease, or ulcerative colitis drink more than 3 alcohol containing drinks per day drug abuse or addiction head injury heart or circulation problems kidney disease or problems going to the bathroom liver disease lung disease, asthma, or breathing problems an unusual or allergic reaction to acetaminophen, oxycodone, other opioid analgesics, other medicines, foods, dyes, or preservatives or trying to get breast-feeding What should I watch for while using this medicine? Tell your doctor or health day care provider if your pain does not go away, if it gets worse, or if you have new or a different type of pain. You may develop tolerance to the medicine. Tolerance means that you will need a higher dose of the medication for pain relief. Tolerance is normal and is expected if you take this medicine for a long time. Do not suddenly stop taking your medicine because you may develop a severe reaction. Your body becomes used to the medicine. This does NOT mean you are addicted. Addiction is a behavior related to getting and using a drug for a non-medical reason. If you have pain, you have a medical reason to take pain medicine. Your doctor will tell you how much medicine to take. If your doctor wants you to stop the medicine, the dose will be slowly lowered over time to avoid any side effects. You may get drowsy or dizzy. Do not drive, use machinery, or do anything that needs mental alertness until you know how this medicine affects you. Do not stand or sit up quickly, especially if you are an older patient. This reduces the risk of dizzy or fainting spells. Alcohol may interfere with the effect of this medicine. Avoid alcoholic drinks. There are different types of narcotic medicines (opiates) for pain. If you take more than one type at the same time, you may have more side effects. Give your health care provider a list of all medicines you use. Your doctor will tell you how much medicine to take. Do not take more medicine than directed. Call emergency for help if you have problems breathing. The medicine will cause constipation. Try to have a bowel movement at least every 2 to 3 days. If you do not have a bowel movement for 3 days, call your doctor or health day care provider. Do not take Tylenol (acetaminophen) or medicines that have acetaminophen with this medicine. Too much acetaminophen can be very dangerous. Many nonprescription medicines contain acetaminophen. Always read the labels carefully to avoid taking more acetaminophen. You have been given the following additional information: Bladder Infection, Male (Adult) Oxycodone Hydrochloride, Acetaminophen Oral tablet (Electronically signed by Munira Cantor P.A.-C 08/26/2016 18:39)
--- NOTE | 2016-08-26 18:40 | ED DISCHARGE INSTRUCTIONS ---
Patient: JOMAR YA General Instructions [facility] VisitID: [id number] [place] [address] 26y, M Registration Date/Time: 08/26/2016 Cystitis. PIC Line Placement. INSTRUCTIONS Warnings: Further evaluation is necessary. SEDATIVE MEDICATION: You were given sedative medication during your visit. Do not drive or operate dangerous machinery. Prescription Medications: Trimethoprim-Sulfamethoxazole DS: take 1 tablet orally every 12 hours for 7 days. Dispense fourteen (14). No refills. Percocet 5 mg/325 mg: take 1 tablet orally. Dispense five (5). Substitution is permissible. Follow-up: Follow up with your doctor tomorrow. ADDITIONAL INFORMATION Bladder Infection,Male (Adult) A bladder infection ("cystitis" or "UTI") usually causes a constant urge to urinate, and a burning when passing urine. Urine may be cloudy, smelly or dark. There may be also be pain in the lower abdomen. Cystitis in males is not common. It may be caused by a partial blockage in the urinary system that keeps the bladder from emptying completely. This is most often related to an enlarged prostate gland. Home Care: Drink lots of fluids (at least 6-8 glasses a day). This will flush the bacteria out of your bladder. Avoid sexual intercourse until your symptoms are gone. Avoid caffeine, alcohol, and spicy foods. They could irritate the bladder. A bladder infection is treated with antibiotics. You may also be given Pyridium (generic - phenazopyridine) to reduce burning with urination. This will cause urine to become a bright orange color, which can stain clothing. Follow Up with your doctor or this facility if ALL symptoms have not cleared within five days. It is important to keep your follow up appointment to discuss with your doctor the need for further tests of the urinary tract. Get Prompt Medical Attention if any of the following occur: Fever of 100.4F (38C) or higher, or as directed by your healthcare provider No improvement by the third day of treatment Increasing back or abdominal pain Repeated vomiting; unable to keep medicine down Weakness, dizziness or fainting Oxycodone Hydrochloride, Acetaminophen Oral tablet What is this medicine? ACETAMINOPHEN; OXYCODONE (a set a CHARLIE itz fen; ox i KOE done) is a pain reliever. It is used to treat mild to moderate pain. How should I use this medicine? Take this medicine by mouth with a full glass of water. Follow the directions on the prescription label. Take your medicine at regular intervals. Do not take your medicine more often than directed. Talk to your natural resources specialist regarding the use of this medicine in children. Special care may be needed. Patients over 65 years old may have a stronger reaction and need a smaller dose. What side effects may I notice from receiving this medicine? Side effects that you should report to your doctor or health career guidance counselor as soon as possible: allergic reactions like skin rash, itching or hives, swelling of the face, lips, or tongue breathing difficulties, wheezing confusion light headedness or fainting spells severe stomach pain yellowing of the skin or the whites of the eyes Side effects that usually do not require medical attention (report to your doctor or health career guidance counselor if they continue or are bothersome): dizziness drowsiness nausea vomiting What may interact with this medicine? alcohol antihistamines barbiturates like amobarbital, butalbital, butabarbital, methohexital, pentobarbital, phenobarbital, thiopental, and secobarbital benztropine drugs for bladder problems like solifenacin, trospium, oxybutynin, tolterodine, hyoscyamine, and methscopolamine drugs for breathing problems like ipratropium and tiotropium drugs for certain stomach or intestine problems like propantheline, homatropine methylbromide, glycopyrrolate, atropine, belladonna, and dicyclomine general anesthetics like etomidate, ketamine, nitrous oxide, propofol, desflurane, enflurane, halothane, isoflurane, and sevoflurane medicines for depression, anxiety, or psychotic disturbances medicines for sleep muscle relaxants naltrexone narcotic medicines (opiates) for pain phenothiazines like perphenazine, thioridazine, chlorpromazine, mesoridazine, fluphenazine, prochlorperazine, promazine, and trifluoperazine scopolamine tramadol trihexyphenidyl What if I miss a dose? If you miss a dose, take it as soon as you can. If it is almost time for your next dose, take only that dose. Do not take double or extra doses. Where should I keep my medicine? Keep out of the reach of children. This medicine can be abused. Keep your medicine in a safe place to protect it from theft. Do not share this medicine with anyone. Selling or giving away this medicine is dangerous and against the law. Store at room temperature between 20 and 25 degrees C (68 and 77 degrees F). Keep container tightly closed. Protect from light. This medicine may cause accidental overdose and if it is taken by other adults, children, or pets. Flush any unused medicine down the toilet to reduce the chance of harm. Do not use the medicine after the expiration date. What should I tell my health care provider before I take this medicine? They need to know if you have any of these conditions: brain tumor Crohn's disease, inflammatory bowel disease, or ulcerative colitis drink more than 3 alcohol containing drinks per day drug abuse or addiction head injury heart or circulation problems kidney disease or problems going to the bathroom liver disease lung disease, asthma, or breathing problems an unusual or allergic reaction to acetaminophen, oxycodone, other opioid analgesics, other medicines, foods, dyes, or preservatives or trying to get breast-feeding What should I watch for while using this medicine? Tell your doctor or health career guidance counselor if your pain does not go away, if it gets worse, or if you have new or a different type of pain. You may develop tolerance to the medicine. Tolerance means that you will need a higher dose of the medication for pain relief. Tolerance is normal and is expected if you take this medicine for a long time. Do not suddenly stop taking your medicine because you may develop a severe reaction. Your body becomes used to the medicine. This does NOT mean you are addicted. Addiction is a behavior related to getting and using a drug for a non-medical reason. If you have pain, you have a medical reason to take pain medicine. Your doctor will tell you how much medicine to take. If your doctor wants you to stop the medicine, the dose will be slowly lowered over time to avoid any side effects. You may get drowsy or dizzy. Do not drive, use machinery, or do anything that needs mental alertness until you know how this medicine affects you. Do not stand or sit up quickly, especially if you are an older patient. This reduces the risk of dizzy or fainting spells. Alcohol may interfere with the effect of this medicine. Avoid alcoholic drinks. There are different types of narcotic medicines (opiates) for pain. If you take more than one type at the same time, you may have more side effects. Give your health care provider a list of all medicines you use. Your doctor will tell you how much medicine to take. Do not take more medicine than directed. Call emergency for help if you have problems breathing. The medicine will cause constipation. Try to have a bowel movement at least every 2 to 3 days. If you do not have a bowel movement for 3 days, call your doctor or health career guidance counselor. Do not take Tylenol (acetaminophen) or medicines that have acetaminophen with this medicine. Too much acetaminophen can be very dangerous. Many nonprescription medicines contain acetaminophen. Always read the labels carefully to avoid taking more acetaminophen. You have been given the following additional information: Bladder Infection, Male (Adult) Oxycodone Hydrochloride, Acetaminophen Oral tablet (Electronically signed by Munira Cantor P.A.-C 08/26/2016 18:39)
== END 2016-08-26 17:45 | disposition home or self-care (01) ==
LOC: ED SRH 14:11
DX: N30.90 Cystitis, unspecified without hematuria (principal); T82.528A Displacement of other cardiac and vascular devices and implants, initial encounter; Y93.9 Activity, unspecified; Y99.9 Unspecified external cause status; I10 Essential (primary) hypertension; Z88.1 Allergy status to other antibiotic agents; Z88.5 Allergy status to narcotic agent; Z91.040 Latex allergy status; Z79.899 Other long term (current) drug therapy; Y92.9 Unspecified place or not applicable
CPT/HCPCS: 80277; 90004; 90100; 90148; 90469; 95059